=== PATIENT | male | born 1930 | race Hispanic/Latino ===

== ENCOUNTER 2017-04-30 21:22 | Inpatient (IN) | payer MEDICARE, BC ==
[2017-04-30 21:22] VITALS: PULSE 110
--- NOTE | 2017-04-30 21:34 | ED PDOC ---
Arrival/HPI - General Chief Complaint: Syncope Time Seen by Provider: 04/30/17 21:24 Historian: Patient, Family (Son) - History of Present Illness Narrative History of Present Illness (Text): 04/30/17 21:33 Bernard Diane is an 86 year old male, whose past medical history includes atrial fibrillation, CHF, MA, GI bleed, hepatitis C, and hypertension, who presents to the Emergency department brought in by EMS accompanied by son status post syncopal episode tonight. Son states patient had a witnessed syncopal episodes while in the bathroom prior to arrival. Patient currently complaining of some shortness of breath.Denies any chest pain.Son notes patient had a witnessed fall on to his back earlier in the at 16:00 and did not really eat during the day. Patient denies any fever, chills, nausea, vomiting, diarrhea , neck pain, headache, dizziness, tor any other complaints. PMD: Dr. Zhang Symptom Onset: Sudden Symptom Course: Unchanged Activities at Onset: Light Context: Home Past Medical History - Provider Review Nursing Documentation Reviewed: Yes - Infectious Disease Hx of Infectious Diseases: None - Tetanus Immunization Tetanus Immunization: Unknown - Cardiac Hx Cardiac Disorders: Yes Hx Cardiac Arrhythmia: Yes (afib) Hx Hypertension: Yes Hx Peripheral Edema: Yes (ble +3) - Musculoskeletal/Rheumatological Hx Falls: No Other/Comment: lower extremity weakness and edema, does not use an assistive device - Gastrointestinal Hx Gastroesophageal Reflux: Yes - Psychiatric Hx Depression: Yes Hx Substance Use: No - Past Surgical History Past Surgical History: No Previous - Surgical History Hx Orthopedic Surgery: Yes (bilateral knee replacements) Other/Comment: 1986 esophageal tear sx - Anesthesia Hx Anesthesia: No Hx Anesthesia Reactions: No Hx Malignant Hyperthermia: No - Suicidal Assessment Feels Threatened In Home Enviroment: No Family/Social History - Physician Review Nursing Documentation Reviewed: Yes Family/Social History: Unknown Family HX Smoking Status: Former Smoker Hx Alcohol Use: No Hx Substance Use: No Hx Substance Use Treatment: No Allergies/Home Meds Allergies/Adverse Reactions: Allergies No Known Allergies Allergy (Verified 10/29/12 16:25) Home Medications: Home Meds Medication Instructions Recorded Confirmed Aspirin [Aspirin Chewable] 81 mg PO DAILY 04/30/17 04/30/17 Cholecalciferol [Vitamin D 1000 IU] 50,000 units PO QD7 04/30/17 04/30/17 Furosemide [Lasix] 40 mg PO DAILY 04/30/17 04/30/17 Lansoprazole [Prevacid] 30 mg PO DAILY 04/30/17 04/30/17 Metoprolol Tartrate [Lopressor] 100 mg PO BID 04/30/17 04/30/17 Potassium Chloride [K-Dur 20 mEq 10 meq PO DAILY 04/30/17 04/30/17 ER Tab] Primidone [Mysoline] 150 mg PO BID 04/30/17 04/30/17 Sertraline HCl [Zoloft] 25 mg PO DAILY 04/30/17 04/30/17 Valsartan [Diovan] 80 mg PO DAILY 04/30/17 04/30/17 Vitamin B Complex/Folic Acid 1 tab PO DAILY 04/30/17 04/30/17 [B-Complex Tablet] Warfarin [Coumadin] 4 mg PO DAILY 04/30/17 04/30/17 Review of Systems - Physician Review All systems were reviewed & negative as marked: Yes - Review of Systems Constitutional: Normal. absent: Fevers Eyes: Normal ENT: Normal Respiratory: SOB Cardiovascular: absent: Chest Pain Gastrointestinal: Normal. absent: Abdominal Pain, Diarrhea, Nausea, Vomiting Genitourinary Male: Normal. absent: Dysuria, Frequency, Hematuria, Urinary Output Changes Musculoskeletal: absent: Neck Pain Skin: Normal. absent: Rash Neurological: Other (+fall). absent: Dizziness Endocrine: Normal Hemo/Lymphatic: Normal Psychiatric: Normal Physical Exam Vital Signs Reviewed: Yes Vital Signs Temp Pulse Resp BP Pulse Ox 04/30/17 21:38 78 L 04/30/17 21:32 97.9 F 98 H 18 134/76 98 Temperature: Afebrile Blood Pressure: Normal Pulse: Regular Respiratory Rate: Normal Appearance: Positive for: Non-Toxic, Comfortable Pain Distress: None Mental Status: Positive for: Alert and Oriented X 3 - Systems Exam Head: Present: Atraumatic, Normocephalic Pupils: Present: PERRL Extroacular Muscles: Present: EOMI Conjunctiva: Present: Normal Ears: Present: Normal, NORMAL TM, Normal Canal. No: Erythema, TM Bulging, Fluid Mouth: No: Normal Lips (Allyson-oral cyanosis) Pharnyx: Present: Normal. No: ERYTHEMA, EXUDATE, TONSILS ENLARGED, Peritonsilar Swelling, Uvular Deviation, Muffled/Hoarse Voice, Strider, Soft Palate/Uvular Edema Nose (External): Present: Atraumatic Nose (Internal): Present: Normal Inspection Neck: Present: Normal Range of Motion Respiratory/Chest: Present: Rhonchi (Rhonchi bilaterally). No: Respiratory Distress, Accessory Muscle Use Cardiovascular: Present: Normal S1, S2, Irregular Rhythm (Irregular regular rhythm). No: Murmurs Abdomen: Present: Normal Bowel Sounds. No: Tenderness, Distention, Peritoneal Signs Back: Present: Normal Inspection Upper Extremity: Present: Cyanosis (Bluish-tinge to distal fingers). No: Edema Lower Extremity: Present: Normal Inspection, Edema Neurological: Present: GCS=15, CN II-XII Intact, Speech Normal, Motor Func Grossly Intact, Normal Sensory Function Skin: Present: Warm, Dry, Normal Color. No: Rashes Psychiatric: Present: Alert, Oriented x 3, Normal Insight, Normal Concentration Medical Decision Making ED Course and Treatment: 04/30/17 21:34 Impression: 86 year old male presents s/p syncopal episode, complaining of shortness of breath. Plan: -- CT Head w/o contrast -- EKG -- Chest X-ray -- Labs, cardiac enzymes, BNP -- Duoneb -- Reassess and disposition Prior Visits: Notes and results from previous visits were reviewed. On 10/16/2014, pt was seen in the Emergency department for lip injury s/p fall with facial trauma. Pt was d/c home. Progress Notes: Reviewed EKG, a fib at 104 bpm. Occasional PVC. Non-specific ST/T wave changes. 04/30/17 22:15 Chest X-ray reviewed, shows increased interstitial markings. 04/30/17 23:[address] Zhang, who is aware and agrees with plan. Accepts pt in to his service. Requests ICU admission. 05/01/17 00:00 Case discussed in full with Dr. Baptiste, accepts pt in to the ICU. Pt will be admitted to ICU for CHF under Dr. Zhang. Pt will undergo VQ study to r/o possibility of PE, pt already anti-coagulated on Coumadin,. 05/01/17 00:16 - Critical Care Critical Care Minutes: 30 minutes - Lab Interpretations Lab Results: 04/30/17 21:50 04/30/17 21:50 Lab Results 04/30/17 22:05: pCO2 23 L, pO2 43.0 L*, HCO3 15.3 L, ABG pH 7.43, ABG Total CO2 16.0 L, ABG O2 Saturation 82.9 L, ABG O2 Content 13.9 L, ABG Base Excess -7.2 L , ABG Hemoglobin 12.3, ABG Carboxyhemoglobin 2.5 H, POC ABG HHb (Measured) 16.6 H, ABG Methemoglobin 0.5, ABG O2 Capacity 16.8, Hgb O2 Saturation 80.4 L, FiO2 32.0 04/30/17 21:50: Sodium 141, Potassium 4.5, Chloride 106, Carbon Dioxide 19 L, Anion Gap 20, BUN 21, Creatinine 0.9, Est GFR ( Amer) > 60, Est GFR (Non- Af Amer) > 60, Random Glucose 161 H, Calcium 9.4, Total Bilirubin 1.2, AST 40, ALT 27, Alkaline Phosphatase 123, Lactate Dehydrogenase 737 H, Total Creatine Kinase 85, Troponin I < 0.01, NT-Pro-B Natriuret Pep 8120 H, Total Protein 8.7 H , Albumin 4.5, Globulin 4.2, Albumin/Globulin Ratio 1.1 04/30/17 21:50: PT 38.8 H, INR 3.47 H, APTT 33.9 04/30/17 21:50: WBC 7.3 D, RBC 4.05, Hgb 13.3 L, Hct 40.3 L, MCV 99.5, MCH 32.8 , MCHC 33.0, RDW 16.0 H, Plt Count 146, MPV 11.1 H, Gran % 76.5 H, Lymph % (Auto ) 17.4 L, [place] % (Auto) 4.7, Eos % (Auto) 1.0 L, Baso % (Auto) 0.4, Gran # 5.55 , Lymph # 1.3, [place] # 0.3, Eos # 0.1, Baso # 0.03 I have reviewed the lab results: Yes - RAD Interpretation Radiology Orders: 04/30/17 21:39 CHEST PORTABLE [RAD] Stat 04/30/17 22:19 HEAD W/O CONTRAST [CT] Stat 04/30/17 23:57 LUNG PERF & VENT SCAN [NM] Stat 05/01/17 00:02 CAROTID & VERTEBRAL DUPLEX [US] Routine 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: ED Physician - EKG Interpretation Interpreted by ED Physician: Yes Type: 12 lead EKG - Medication Orders Current Medication Orders: Furosemide (Lasix) 40 mg IVP Q12 ANA LAURA Ceftriaxone Sodium (Rocephin 1 Gram Ivpb (D5w)) 1 gm in 100 mls @ 100 mls/hr IVPB DAILY ANA LAURA PRN Reason: Protocol Azithromycin (Zithromax 500mg In Ns) 500 mg in 250 mls @ 167 mls/hr IVPB DAILY ANA LAURA PRN Reason: Protocol Levalbuterol HCl (Xopenex) 1.25 mg IH [id number] ANA LAURA Methylprednisolone (Solu-Medrol) 40 mg IVP Q12 ANA LAURA Non-Formulary Medication (Metoprolol Tartrate [Lopressor]) 100 mg PO BID ANA LAURA Non-Formulary Medication (Valsartan [Diovan]) 80 mg PO DAILY ANA LAURA Pantoprazole Sodium (Protonix Inj) 40 mg IVP DAILY ANA LAURA Discontinued Medications Albuterol/Ipratropium (Duoneb 3 Mg/0.5 Mg (3 Ml) Ud) 3 ml IH ONCE STA Stop: 04/30/17 21:42 Last Admin: 04/30/17 22:10 Dose: 3 ml Furosemide (Lasix) 40 mg IVP ONCE ONE Stop: 04/30/17 23:03 Levalbuterol HCl (Xopenex) 1.25 mg IH STAT STA Stop: 05/01/17 00:09 - Scribe Statement The provider has reviewed the documentation as recorded by the Scribludmila Gan All medical record entries made by the Isabellibludmila were at my direction and personally dictated by me. I have reviewed the chart and agree that the record accurately reflects my personal performance of the history, physical exam, medical decision making, and the department course for this patient. I have also personally directed, reviewed, and agree with the discharge instructions and disposition. Disposition/Present on Arrival - Present on Arrival Any Indicators Present on Arrival: No History of DVT/PE: No History of Uncontrolled Diabetes: No Urinary Catheter: No History of Decub. Ulcer: No History Surgical Site Infection Following: None - Disposition Have Diagnosis and Disposition been Completed?: Yes Diagnosis: Syncope, CHF (congestive heart failure) Disposition: HOSPITALIZED Disposition Time: 00:13 Patient Plan: Admission Patient Problems: Current Active Problems Problem Status Onset CHF (congestive heart failure) Acute Syncope Acute Condition: GUARDED Discharge Instructions (ExitCare): Heart Failure (ED), Syncope (ED) Referrals: [facility] Rex Torres, [Non-Staff] - Follow up with primary Forms: [facility] ([place]ian)
[2017-04-30] MEDS ORDERED: Albuterol-Ipratrop 3 mg / 0.5 (3 ml) UD IH STA (21:41)
[2017-04-30 22:08] LABS: ARTERIAL BLOOD GAS HCO3 15.3 mmol/L (21-28); ARTERIAL BLOOD GAS O2 CAPACITY 16.8 mL/dl (16-24); ARTERIAL BLOOD GAS O2 CONTENT 13.9 ML/dl (15-23); ARTERIAL BLOOD GAS PH 7.43 (7.35-7.45); ARTERIAL BLOOD HGB O2 SAT 80.4 % (95.0-98.0); CARBOXYHEMOGLOBIN 2.5 % (0.5-1.5); HHB 16.6 % (0-5); METHEMOGLOBIN 0.5 % (0.0-3.0)
[2017-04-30 22:16] LABS: BASO # 0.03 K/mm3 (0.0-2.0); BASO % 0.4 % (0.0-3.0); EOS # 0.1 (0.0-0.7); GRAN # 5.55 (1.4-6.5); GRAN % 76.5 % (50.0-68.0); HEMATOCRIT 40.3 % (42.0-52.0); LYMPH # 1.3 (1.2-3.4); LYMPH % 17.4 % (22.0-35.0); MEAN CELL VOLUME 99.5 fl (80.0-105.0); MEAN CORPUSCULAR HEMOGLOBIN 32.8 pg (25.0-35.0); MEAN PLATELET VOLUME 11.1 fl (7.0-11.0); MONO # 0.3 (0.1-0.6); MONO % 4.7 % (1.0-6.0); WHITE BLOOD COUNT 7.3 10^3/ul (4.5-11.0)
[2017-04-30 22:18] LABS: ALB/GLOB RATIO 1.1 (1.1-1.8); ALKALINE PHOSPHATASE 123 U/L (38-126); ALT/SGPT 27 U/L (7-56); AST/SGOT 40 U/L (17-59); BILIRUBIN,TOTAL 1.2 mg/dL (0.2-1.3); BLOOD UREA NITROGEN 21 mg/dL (7-21); CALCIUM 9.4 mg/dL (8.4-10.5); CARBON DIOXIDE 19 mmol/L (21-33); CHLORIDE 106 mmol/L (98-107); GFR AFRICAN-AMERICAN > 60; GLUCOSE,RANDOM 161 mg/dL (70-110); POTASSIUM 4.5 mmol/L (3.6-5.0); SODIUM 141 mmol/L (132-148); TOTAL PROTEIN 8.7 g/dL (5.8-8.3)
[2017-04-30 22:20] LABS: INR 3.47 (0.93-1.08); PARTIAL THROMBOPLASTIN TIME 33.9 Seconds (25.1-36.5)
[2017-04-30 22:26] LABS: TROPONIN I < 0.01 ng/mL
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
[2017-05-01] MEDS ORDERED: Levalbuterol 1.25 MG/3 ML Inhal Soln UD IH STA (00:08)
[2017-05-01 00:54] LABS: FREE T4 1.98 ng/dL (0.78-2.19)
[2017-05-01] MEDS: MethylPREDNISolone 40 mg Vial IVP SCH ×3 (01:01→21:21)
[2017-05-01 01:08] LABS: THYROID STIMULATING HORMONE 2.82 mIU/mL (0.46-4.68)
[2017-05-01 01:20] LABS: ARTERIAL BLOOD GAS HCO3 19.4 mmol/L (21-28); ARTERIAL BLOOD GAS O2 CAPACITY 15.5 mL/dl (16-24); ARTERIAL BLOOD GAS O2 CONTENT 15.2 ML/dl (15-23); ARTERIAL BLOOD GAS PH 7.48 (7.35-7.45); ARTERIAL BLOOD HGB O2 SAT 94.4 % (95.0-98.0); CARBOXYHEMOGLOBIN 2.5 % (0.5-1.5); METHEMOGLOBIN 1.1 % (0.0-3.0)
[2017-05-01] MEDS: Levalbuterol 1.25 MG/3 ML Inhal Soln UD IH SCH ×4 (03:04→20:14)
--- NOTE | 2017-05-01 03:27 | CT ---
EXAM: CT Head Without Intravenous Contrast CLINICAL HISTORY: 86 years old, male; Signs and symptoms; Syncope and collapse TECHNIQUE: Axial computed tomography images of the head/brain without intravenous contrast. All CT scans at this facility use one or more dose reduction techniques, viz.: automated exposure control; ma/kV adjustment per patient size (including targeted exams where dose is matched to indication; i.e. head); or iterative reconstruction technique. COMPARISON: No relevant prior studies available. FINDINGS: Limitations: Suboptimal positioning. Streak artifact - mild. Brain: Moderate atrophy. No definite intracranial hemorrhage. No mass. Several scattered foci of decreased attenuation within periventricular/subcortical white matter. No definite edema. Ventricles: No hydrocephalus. Bones/joints: No acute fracture. Soft tissues: Unremarkable. Vasculature: Mild atherosclerotic disease of intracranial arteries. Sinuses: Mild mucosal thickening/minimal fluid of LEFT maxillary sinus. Scattered minimal mucosal thickening of ethmoid sinuses. Mastoid air cells: No mastoid effusion. Orbits: Unremarkable as visualized. IMPRESSION: 1. Nonspecific white matter changes. Acute infarction may be CT occult within first 24 hours. If a focal deficit persists, consider followup CT or MRI for further evaluation. 2. Incidental/non-acute findings are described above.
[2017-05-01 03:47] VITALS: BMI 22.6
[2017-05-01 05:06] LABS: TROPONIN I 0.06 ng/mL
--- NOTE | 2017-05-01 08:26 | RAD ---
HISTORY: sob COMPARISON: Comparison is made to 10/29/2012. FINDINGS: LUNGS: Mild pulmonary vascular congestion and reticular opacities are noted. PLEURA: No significant pleural effusion identified, no pneumothorax apparent. CARDIOVASCULAR: The cardiac silhouette is mildly to moderately enlarged. OSSEOUS STRUCTURES: No significant abnormalities. VISUALIZED UPPER ABDOMEN: Normal. OTHER FINDINGS: None. IMPRESSION: Cardiomegaly and mild pulmonary vascular congestion. Correlate clinically for CHF.
[2017-05-01] MEDS: Azithromycin 500MG/NS 250ml 500 MG/250 ML BAG IVPB SCH (09:04)
--- NOTE | 2017-05-01 09:36 | NM ---
COMPARISON: Comparison is made with previous chest x-ray dated 04/30/2017 TECHNIQUE: 30 mCi technetium 99-m DTPA serosal 3.2 mCI technetium 99-m MAA administered intravenously. FINDINGS: VENTILATION COMPONENT: Heterogeneous ventilation is noted. Small foci of accumulation of the aerosol agent likely due to clumping noted. PERFUSION COMPONENT: No definite evidence of segmental or subsegmental mismatching perfusion defects. IMPRESSION: Lowprobability ventilation perfusion scan for pulmonary embolism.
[2017-05-01] MEDS: cefTRIAXone 1 gm 1 GM/100 ML BAG IVPB SCH (09:39)
--- NOTE | 2017-05-01 10:12 | CP.CCUPN ---
<Carmine Rubio - Last Filed: 05/01/17 10:14> CCU Subjective - Physician Review Subjective (Free Text): Critical Care Progress Note for Dr. José Patient seen and examined at bedside. No acute event overnight. Patient resting in bed comfortably. Patient states that his shortness of breath and dizziness have improved. He is on high flow oxygen. Patient denies any pain. He is tolerating diet and having adequate urine output. No other complaints at this time. CCU Objective - Vital Signs / Intake & Output Vital Signs (Last 4 hours): Vital Signs Temp Pulse Resp BP Pulse Ox 05/01/17 10:02 18 05/01/17 09:03 104 H 119/66 05/01/17 08:00 97.7 F 83 18 120/77 92 L 05/01/17 07:56 94 H 05/01/17 07:50 95 H 22 95 05/01/17 07:40 89 21 92 L 05/01/17 07:31 23 05/01/17 07:30 95 H 19 89 L 05/01/17 07:20 86 23 93 L 05/01/17 07:15 84 27 H 129/87 88 L 05/01/17 07:10 107 H 15 92 L 05/01/17 07:00 82 20 123/76 91 L 05/01/17 06:50 78 28 H 94 L 05/01/17 06:45 93 H 21 117/78 94 L 05/01/17 06:40 82 20 95 05/01/17 06:30 88 20 128/92 H 93 L 05/01/17 06:20 77 18 94 L 05/01/17 06:15 74 19 122/74 96 05/01/17 06:10 86 20 93 L Intake and Output (Last 8hrs): Intake & Output 04/30/17 05/01/17 05/01/17 22:59 06:59 14:59 Intake Total 110 Output Total 200 120 Balance -90 -120 Weight 144 lb 14.4 oz Intake: Oral 110 Output: Urine 200 120 Urine, Voided 200 120 - Physical Exam Head: Positive for: Atraumatic, Normocephalic Pupils: Positive for: PERRL Extroacular Muscles: Positive for: EOMI Ears: Negative for: Erythema, TM Bulging, Fluid Mouth: Positive for: Moist Mucous Membranes Pharnyx: Negative for: ERYTHEMA, EXUDATE, TONSILS ENLARGED, Peritonsilar Swelling, Uvular Deviation, Muffled/Hoarse Voice, Strider, Soft Palate/Uvular Edema Neck: Positive for: Normal Range of Motion Respiratory/Chest: Positive for: Rhonchi (Rhonchi bilaterally). Negative for: Respiratory Distress, Accessory Muscle Use Cardiovascular: Positive for: Irregular Rhythm, Tachycardic Abdomen: Positive for: Normal Bowel Sounds. Negative for: Tenderness, Distention, Peritoneal Signs Back: Negative for: CVA Tenderness Upper Extremity: Positive for: Neurovascularly Intact, Capillary Refill < 2s Lower Extremity: Positive for: Neurovascularly Intact, Capillary Refill < 2 s. Negative for: CALF TENDERNESS Neurological: Positive for: GCS=15, CN II-XII Intact, Speech Normal, Motor Func Grossly Intact, Normal Sensory Function Skin: Positive for: Warm, Dry, Normal Color. Negative for: Rashes Psychiatric: Positive for: Alert, Oriented x 3, Normal Insight, Normal Concentration - Medications Active Medications: Active Medications Generic Name Dose Route Start Last Admin Trade Name Freq PRN Reason Stop Dose Admin Acetaminophen 650 mg 05/01/17 09:41 05/01/17 09:46 Tylenol 325mg Tab PO 650 mg Q4H PRN Administration Pain, moderate (4-7) Aspirin 81 mg 05/01/17 10:00 05/01/17 09:02 Aspirin Chewable PO 81 mg DAILY ANA LAURA Administration Furosemide 40 mg 05/01/17 10:00 05/01/17 09:03 Lasix IVP 40 mg Q12 ANA LAURA Administration Ceftriaxone Sodium 1 gm in 100 mls @ 100 mls/hr 05/01/17 10:00 05/01/17 09:39 Rocephin 1 Gram Ivpb (D5w) IVPB 100 mls/hr DAILY ANA LAURA Administration Protocol Azithromycin 500 mg in 250 mls @ 167 mls/hr 05/01/17 10:00 05/01/17 09:04 Zithromax 500mg In Ns IVPB 167 mls/hr DAILY ANA LAURA Administration Protocol Levalbuterol HCl 1.25 mg 05/01/17 02:00 05/01/17 07:28 Xopenex IH 1.25 mg [id number] ANA LAURA Administration Losartan Potassium 50 mg 05/01/17 10:00 Cozaar PO DAILY ANA LAURA Methylprednisolone 40 mg 05/01/17 00:15 05/01/17 09:03 Solu-Medrol IVP 40 mg Q12 ANA LAURA Administration Metoprolol Tartrate 100 mg 05/01/17 10:00 05/01/17 09:03 Lopressor PO 100 mg BID ANA LAURA Administration Pantoprazole Sodium 40 mg 05/01/17 10:00 05/01/17 09:03 Protonix Inj IVP 40 mg DAILY ANA LAURA Administration Sertraline HCl 25 mg 05/01/17 10:00 05/01/17 09:04 Zoloft PO 25 mg DAILY ANA LAURA Administration - Patient Studies Lab Studies: Lab Studies 05/01/17 05/01/17 05/01/17 Range/Units 04:10 01:05 00:25 pCO2 26 L (35-45) mm/Hg pO2 75.0 L (80-100) mm/Hg HCO3 19.4 L (21-28) mmol/L ABG pH 7.48 H (7.35-7.45) ABG Total CO2 20.2 L (22-28) mmol.L ABG O2 Saturation 97.9 (95-98) % ABG O2 Content 15.2 (15-23) ML/dl ABG Base Excess -2.9 L (-2.0-3.0) mmol/L ABG Hemoglobin 11.4 L (11.7-17.4) g/dL ABG Carboxyhemoglobin 2.5 H (0.5-1.5) % POC ABG HHb (Measured) 2.0 (0-5) % ABG Methemoglobin 1.1 (0.0-3.0) % ABG O2 Capacity 15.5 L (16-24) mL/dl Hgb O2 Saturation 94.4 L (95.0-98.0) % FiO2 100.0 % Lactate Dehydrogenase 673 (333-699) U/L Total Creatine Kinase 91 (35-230) U/L Troponin I 0.06 D ng/mL Free T4 1.98 (0.78-2.19) ng/dL TSH 3rd Generation 2.82 (0.46-4.68) mIU/mL Influenza Typ A,B (EIA) (NEGATIVE) 05/01/17 Range/Units 00:10 pCO2 (35-45) mm/Hg pO2 (80-100) mm/Hg HCO3 (21-28) mmol/L ABG pH (7.35-7.45) ABG Total CO2 (22-28) mmol.L ABG O2 Saturation (95-98) % ABG O2 Content (15-23) ML/dl ABG Base Excess (-2.0-3.0) mmol/L ABG Hemoglobin (11.7-17.4) g/dL ABG Carboxyhemoglobin (0.5-1.5) % POC ABG HHb (Measured) (0-5) % ABG Methemoglobin (0.0-3.0) % ABG O2 Capacity (16-24) mL/dl Hgb O2 Saturation (95.0-98.0) % FiO2 % Lactate Dehydrogenase (333-699) U/L Total Creatine Kinase (35-230) U/L Troponin I ng/mL Free T4 (0.78-2.19) ng/dL TSH 3rd Generation (0.46-4.68) mIU/mL Influenza Typ A,B (EIA) Negative for flu a/b (NEGATIVE) Laboratory Results - last 24 hr 05/01/17 05/01/17 05/01/17 00:10 00:25 01:05 pCO2 26 L pO2 75.0 L HCO3 19.4 L ABG pH 7.48 H ABG Total CO2 20.2 L ABG O2 Saturation 97.9 ABG O2 Content 15.2 ABG Base Excess -2.9 L ABG Hemoglobin 11.4 L ABG Carboxyhemoglobin 2.5 H POC ABG HHb (Measured) 2.0 ABG Methemoglobin 1.1 ABG O2 Capacity 15.5 L Hgb O2 Saturation 94.4 L FiO2 100.0 Lactate Dehydrogenase Total Creatine Kinase Troponin I Free T4 1.98 TSH 3rd Generation 2.82 Influenza Typ A,B (EIA) Negative for flu a/b 05/01/17 04:10 pCO2 pO2 HCO3 ABG pH ABG Total CO2 ABG O2 Saturation ABG O2 Content ABG Base Excess ABG Hemoglobin ABG Carboxyhemoglobin POC ABG HHb (Measured) ABG Methemoglobin ABG O2 Capacity Hgb O2 Saturation FiO2 Lactate Dehydrogenase 673 Total Creatine Kinase 91 Troponin I 0.06 D Free T4 TSH 3rd Generation Influenza Typ A,B (EIA) Critical Care Progress Note - Nutrition Nutrition: Nutrition Category Date Time Status Heart Healthy Diet [DIET] Diets 05/01/17 Breakfast Ordered Assessment/Plan - Assessment and Plan (Free Text) Plan: 86 M with PMH of atrial fibrillation on coumadin, CHF, OH, CAD with stent in LAD , UGIB and esophageal varices, Hep C, HTN, depression and tremors presents with syncope and frequent falls. Patient sent to ICU for hypoxia. Neuro - AAO x 3 - CT head shows no acute pathology - f/u Carotid u/s - f/u Echo - Orthostatics q4 - f/u RPR, vit b12, folate, tsh, 25oh-vit D Cardio - f/u Echo - proBNP 8120 - INR supratherapeutic at 3.47- hold coumadin - troponins: < 0.01, 0,06 - f/u final troponin - ASA, Lasix, Cozaar, Lopressor - strict Is & Os - measure daily weight - HHD with fluid restriction - Cardio: Dr. Simental consulted Respiratory - VQ scan shows low probability of PE, CTA chest if no improvement - f/u Echo - Lasix - Xopenex - Rocephin and Azithromycin - solu-medrol GI - HHD with fluid restrictions - Protonix for ppx ID - negative for flu - f/u strep pneumo, legionella, and procalcitonin - IV antibiotics Endo - Maintain euglycemia 140-180 - f/u TSH and free T4 Renal - Strict I's & O's - Monitor and replete electrolytes as needed Heme/Onc - DVT ppx Psych - continue home Felipa Rubio PGY1 <Tim José - Last Filed: 05/01/17 12:34> CCU Objective - Vital Signs / Intake & Output Vital Signs (Last 4 hours): Vital Signs Temp Pulse Resp BP Pulse Ox 05/01/17 11:59 98.3 F 72 22 109/49 L 94 L 05/01/17 11:50 59 L 22 109/49 L 95 05/01/17 11:40 61 24 95 05/01/17 11:30 66 34 H 93 L 05/01/17 11:20 67 29 H 93 L 05/01/17 11:10 66 11 L 90 L 05/01/17 11:00 73 109/49 L 94 L 05/01/17 10:50 64 19 97 05/01/17 10:40 76 26 H 97 05/01/17 10:30 81 24 95 05/01/17 10:20 90 30 H 97 05/01/17 10:10 89 21 97 05/01/17 10:02 18 05/01/17 10:00 86 24 100/43 L 97 05/01/17 09:50 100 H 24 95 05/01/17 09:40 107 H 19 96 05/01/17 09:30 104 H 22 94 L 05/01/17 09:20 93 H 15 96 05/01/17 09:10 96 H 15 96 05/01/17 09:03 104 H 119/66 05/01/17 09:01 103 H 27 H 119/66 93 L 05/01/17 09:00 91 H 22 94 L 05/01/17 08:50 120 H 16 93 L 05/01/17 08:40 108 H 22 93 L Intake and Output (Last 8hrs): Intake & Output 04/30/17 05/01/17 05/01/17 22:59 06:59 14:59 Intake Total 110 460 Output Total 200 120 Balance -90 340 Weight 144 lb 14.4 oz Intake: Oral 110 460 Output: Urine 200 120 Urine, Voided 200 120 - Medications Active Medications: Active Medications Generic Name Dose Route Start Last Admin Trade Name Freq PRN Reason Stop Dose Admin Acetaminophen 650 mg 05/01/17 09:41 05/01/17 09:46 Tylenol 325mg Tab PO 650 mg Q4H PRN Administration Pain, moderate (4-7) Aspirin 81 mg 05/01/17 10:00 05/01/17 09:02 Aspirin Chewable PO 81 mg DAILY ANA LAURA Administration Furosemide 40 mg 05/01/17 10:00 05/01/17 09:03 Lasix IVP 40 mg Q12 ANA LAURA Administration Ceftriaxone Sodium 1 gm in 100 mls @ 100 mls/hr 05/01/17 10:00 05/01/17 09:39 Rocephin 1 Gram Ivpb (D5w) IVPB 100 mls/hr DAILY ANA LAURA Administration Protocol Azithromycin 500 mg in 250 mls @ 167 mls/hr 05/01/17 10:00 05/01/17 09:04 Zithromax 500mg In Ns IVPB 167 mls/hr DAILY ANA LAURA Administration Protocol Levalbuterol HCl 1.25 mg 05/01/17 02:00 05/01/17 07:28 Xopenex IH 1.25 mg [id number] ANA LAURA Administration Losartan Potassium 50 mg 05/01/17 10:00 05/01/17 11:50 Cozaar PO Not Given DAILY ANA LAURA Methylprednisolone 40 mg 05/01/17 00:15 05/01/17 09:03 Solu-Medrol IVP 40 mg Q12 ANA LAURA Administration Metoprolol Tartrate 100 mg 05/01/17 10:00 05/01/17 09:03 Lopressor PO 100 mg BID ANAL AURA Administration Pantoprazole Sodium 40 mg 05/02/17 07:30 Protonix Ec Tab PO ACB ANA LAURA Sertraline HCl 25 mg 05/01/17 10:00 05/01/17 09:04 Zoloft PO 25 mg DAILY ANA LAURA Administration - Patient Studies Lab Studies: Lab Studies 05/01/17 05/01/17 05/01/17 Range/Units 10:45 04:10 01:05 pCO2 26 L (35-45) mm/Hg pO2 75.0 L (80-100) mm/Hg HCO3 19.4 L (21-28) mmol/L ABG pH 7.48 H (7.35-7.45) ABG Total CO2 20.2 L (22-28) mmol.L ABG O2 Saturation 97.9 (95-98) % ABG O2 Content 15.2 (15-23) ML/dl ABG Base Excess -2.9 L (-2.0-3.0) mmol/L ABG Hemoglobin 11.4 L (11.7-17.4) g/dL ABG Carboxyhemoglobin 2.5 H (0.5-1.5) % POC ABG HHb (Measured) 2.0 (0-5) % ABG Methemoglobin 1.1 (0.0-3.0) % ABG O2 Capacity 15.5 L (16-24) mL/dl Hgb O2 Saturation 94.4 L (95.0-98.0) % FiO2 100.0 % Lactate Dehydrogenase 597 673 (333-699) U/L Total Creatine Kinase 98 91 (35-230) U/L Troponin I 0.06 0.06 D ng/mL Free T4 (0.78-2.19) ng/dL TSH 3rd Generation (0.46-4.68) mIU/mL Influenza Typ A,B (EIA) (NEGATIVE) 05/01/17 05/01/17 Range/Units 00:25 00:10 pCO2 (35-45) mm/Hg pO2 (80-100) mm/Hg HCO3 (21-28) mmol/L ABG pH (7.35-7.45) ABG Total CO2 (22-28) mmol.L ABG O2 Saturation (95-98) % ABG O2 Content (15-23) ML/dl ABG Base Excess (-2.0-3.0) mmol/L ABG Hemoglobin (11.7-17.4) g/dL ABG Carboxyhemoglobin (0.5-1.5) % POC ABG HHb (Measured) (0-5) % ABG Methemoglobin (0.0-3.0) % ABG O2 Capacity (16-24) mL/dl Hgb O2 Saturation (95.0-98.0) % FiO2 % Lactate Dehydrogenase (333-699) U/L Total Creatine Kinase (35-230) U/L Troponin I ng/mL Free T4 1.98 (0.78-2.19) ng/dL TSH 3rd Generation 2.82 (0.46-4.68) mIU/mL Influenza Typ A,B (EIA) Negative for flu a/b (NEGATIVE) Laboratory Results - last 24 hr 05/01/17 05/01/17 05/01/17 00:10 00:25 01:05 pCO2 26 L pO2 75.0 L HCO3 19.4 L ABG pH 7.48 H ABG Total CO2 20.2 L ABG O2 Saturation 97.9 ABG O2 Content 15.2 ABG Base Excess -2.9 L ABG Hemoglobin 11.4 L ABG Carboxyhemoglobin 2.5 H POC ABG HHb (Measured) 2.0 ABG Methemoglobin 1.1 ABG O2 Capacity 15.5 L Hgb O2 Saturation 94.4 L FiO2 100.0 Lactate Dehydrogenase Total Creatine Kinase Troponin I Free T4 1.98 TSH 3rd Generation 2.82 Influenza Typ A,B (EIA) Negative for flu a/b 05/01/17 05/01/17 04:10 10:45 pCO2 pO2 HCO3 ABG pH ABG Total CO2 ABG O2 Saturation ABG O2 Content ABG Base Excess ABG Hemoglobin ABG Carboxyhemoglobin POC ABG HHb (Measured) ABG Methemoglobin ABG O2 Capacity Hgb O2 Saturation FiO2 Lactate Dehydrogenase 673 597 Total Creatine Kinase 91 98 Troponin I 0.06 D 0.06 Free T4 TSH 3rd Generation Influenza Typ A,B (EIA) Critical Care Progress Note - Nutrition Nutrition: Nutrition Category Date Time Status Heart Healthy Diet [DIET] Diets 05/01/17 Breakfast Ordered Assessment/Plan - Assessment and Plan (Free Text) Plan: Patient seen and examined on rounds with resident, agree with note with following additions/exceptions: 86yo male with severe pulm htn, CHF, EF 30%, a/w SOB, acute hypoxemic resp failure, requiring, high flow O2. Currently afebril,e HD stable, comfortable on high flow 80%, 50LPM,. Cont with high flow, wean down FiO2, antibiotics to cover for CAP. IV diuresis. Follow up ECHO, cultures, Urine Lg, Strep. Monitor I /Os. Hold Coumadin for tonight.
[2017-05-01 11:11] LABS: TROPONIN I 0.06 ng/mL
--- NOTE | 2017-05-01 11:55 | CARD ---
APPROVED REPORT EKG Measurement Heart [id number] <Conclusion> Atrial fibrillation PVC's NSSTW changes
--- NOTE | 2017-05-01 17:19 | CT ---
PROCEDURE: CT Chest without contrast HISTORY: evaluate for pneumonia COMPARISON: None. TECHNIQUE: Contiguous axial images were obtained through the chest without intravenous contrast enhancement. Sagittal and coronal reconstructions were performed. Radiation dose (DLP): 397.0 mGy-cm. This CT exam was performed using one or more of the following dose reduction techniques: Automated exposure control, adjustment of the mA and/or kV according to patient size, and/or use of iterative reconstruction technique. FINDINGS: LUNGS: There is a small infiltrate at the left lower lobe may represent a pneumonia. Moderate to severe upper lobe predominant emphysema is noted. Small bibasilar atelectasis noted. MEDIASTINUM: The thoracic aorta is tortuous. No evidence of aneurysm. The heart is mildly to moderately enlarged. The main pulmonary artery is mildly to moderately enlarged. No lymphadenopathy. There is small to moderate size hiatus hernia. PLEURA: Trace bilateral pleural effusions are noted. BONES: There is moderate compression deformity of T11 vertebral body has not significantly changed compared to the previous CT of the abdomen dated 11/02/2012 UPPER ABDOMEN: The gallbladder is distended containing gallstones OTHER FINDINGS: None. IMPRESSION: Small infiltrate at the left lower lobe may represent pneumonia. Moderate to mildly severe emphysema. [id number] cardiomegaly. Small bilateral pleural effusions. Small hiatus hernia. Gallstones and mildly dilated gallbladder.
--- NOTE | 2017-05-01 18:25 | CON ---
DATE: 05/01/2017 INDICATIONS: Syncope, shortness of breath. HISTORY OF PRESENT ILLNESS: This is an 86-year-old man, well-known to me, admitted through the emergency room yesterday, when he was brought there by his family, complaining of dizziness and syncopal episodes at home as well as shortness of breath. He had multiple episodes in the last few days of feeling dizzy and as if he might pass out. This was sometimes associated with attacks of acute shortness of breath. Yesterday, he had an experience of syncope and was unresponsive for a short period according to his family. There was no chest pain. He denies palpitations, edema, fever, chills, cough, sputum production, hemoptysis, abdominal pain, nausea, vomiting, diarrhea, constipation, melena. PAST MEDICAL HISTORY: Complex. He has known coronary artery disease. He underwent coronary intervention on his LAD in 2012. At that time, he had moderate LV dysfunction and moderate right coronary disease. There is a history of hypertension, chronic atrial fibrillation, on Coumadin. He has chronic PVCs, hepatitis C, history of GI bleeding, and esophageal varices. He has GERD, bilateral total hip replacements, a chronic tremor, and he is a former smoker. There is no history of rheumatic fever, stroke, TIA, diabetes, or gout. MEDICATIONS: Include aspirin, warfarin, Diovan, Lasix, potassium chloride, metoprolol, Mysoline, Prevacid, sertraline, Vitamin D. ALLERGIES: THERE ARE NO MEDICATION ALLERGIES REPORTED. SOCIAL HISTORY: He lives at home. He is ambulatory. He is a former smoker. He does not drink alcohol significantly. FAMILY HISTORY: Noncontributory. REVIEW OF SYSTEMS: A 10-point review of systems is otherwise unremarkable except as noted above. PHYSICAL EXAMINATION: GENERAL: He is a well-developed elderly male, lying in bed in the CCU, in no acute distress. VITAL SIGNS: Notable for atrial fib, 78 to 98 beats per minutes. He is afebrile. Blood pressure 120/77, respirations 16-28, O2 saturation 92-96% utilizing high humidity aerosol and nasal cannula. HEENT: Reveals no neck vein distention, thyromegaly, or carotid bruits. Mucous membranes moist. Conjunctivae are pink. NECK: Supple. LUNG: Lung milligan have scattered rhonchi. No wheezing. HEART: Revealed an irregular rhythm. There is a soft systolic murmur along the left sternal border. The PMI is not palpable. ABDOMEN: Soft. Bowel sounds present. No mass, organomegaly, tenderness, rebound, or guarding. No CVA tenderness. No palpable abdominal aortic aneurysm. EXTREMITIES: Revealed no cyanosis, clubbing, or edema. NEUROLOGIC: He is awake, alert, and oriented. PSYCHIATRIC: Normal as to mood and affect. SKIN: Warm and dry. No rash or cellulitis. LABORATORY AND IMAGING: EKG demonstrates atrial fibrillation, nonspecific ST-wave changes, no acute changes compared to a prior EKG. Chest x-ray reveals cardiomegaly with mild pulmonary vascular congestion. A CT scan of the head reveals nonspecific white matter changes, etc. A lung scan was done. Results are pending. White count normal, platelet count normal, hemoglobin 13.3, hematocrit 40.3. PT 38.8, INR 3.47, PTT 33.9. Blood gases are noted. Electrolytes, BUN and creatinine unremarkable. Blood sugar 161. LFTs unremarkable. CK 85 and 91. Troponin less than 0.01 and 0.06. BNP 8120. Thyroid functions unremarkable. Influenza negative. IMPRESSION: Bernard Diane is an 86-year-old man with coronary artery disease, chronic atrial fibrillation, and multiple medical problems, admitted with recurrent syncope in the setting of shortness of breath, and a chest x-ray which shows mild vascular congestion. At this time, he is admitted to the coronary care unit. A lung scan is pending. He is being cultured. He is getting antibiotics. I will order echocardiogram. He is getting aspirin, losartan, IV Lasix, metoprolol, Protonix, methylprednisolone, Xopenex, sertraline. A carotid ultrasound is ordered. We will monitor Inputs and outputs, check stool for occult blood. We will check orthostatic vital signs. I will review his old records. I will follow along with you. I will make additional recommendation based on his clinical course. A nuclear stress test may be indicated. We will continue telemetric monitoring. I will make additional recommendations based on his clinical course. Franklin Simental MD [facility] # [id number] MTDD
[2017-05-02] MEDS: Levalbuterol 1.25 MG/3 ML Inhal Soln UD IH SCH ×4 (02:49→20:38)
[2017-05-02 05:51] LABS: HEMATOCRIT 34.8 % (42.0-52.0); MEAN CELL VOLUME 98.3 fl (80.0-105.0); MEAN CORPUSCULAR HEMOGLOBIN 31.9 pg (25.0-35.0); MEAN CORPUSCULAR HGB CONC 32.5 g/dl (31.0-37.0); WHITE BLOOD COUNT 6.1 10^3/ul (4.5-11.0)
[2017-05-02 05:59] LABS: INR 2.49 (0.93-1.08)
[2017-05-02 07:09] LABS: BLOOD UREA NITROGEN 22 mg/dL (7-21); CALCIUM 8.5 mg/dL (8.4-10.5); CARBON DIOXIDE 23 mmol/L (21-33); CHLORIDE 106 mmol/L (98-107); GFR AFRICAN-AMERICAN > 60; GLUCOSE,RANDOM 113 mg/dL (70-110); POTASSIUM 3.8 mmol/L (3.6-5.0); SODIUM 139 mmol/L (132-148)
[2017-05-02] MEDS: Pantoprazole 40 mg EC Tab PO SCH (10:16)
[2017-05-02 10:18] LABS: ARTERIAL BLOOD GAS HCO3 22.6 mmol/L (21-28); ARTERIAL BLOOD GAS O2 CAPACITY 15.8 mL/dl (16-24); ARTERIAL BLOOD GAS O2 CONTENT 15.2 ML/dl (15-23); ARTERIAL BLOOD GAS PH 7.47 (7.35-7.45); ARTERIAL BLOOD HGB O2 SAT 93.4 % (95.0-98.0); CARBOXYHEMOGLOBIN 1.9 % (0.5-1.5); HHB 3.5 % (0-5); METHEMOGLOBIN 1.3 % (0.0-3.0)
[2017-05-02] MEDS: MethylPREDNISolone 40 mg Vial IVP SCH ×2 (10:18→21:50)
[2017-05-02] MEDS: cefTRIAXone 1 gm 1 GM/100 ML BAG IVPB SCH (10:19)
[2017-05-02] MEDS: Azithromycin 500MG/NS 250ml 500 MG/250 ML BAG IVPB SCH (10:19)
--- NOTE | 2017-05-02 12:03 | CARD ---
APPROVED REPORT EXAM: Two-dimensional and M-mode echocardiogram with Doppler and color Doppler. INDICATION Syncope Congestive Heart Failure 2D DIMENSIONS Left Atrium (2D)4.7 (1.6-4.0cm)IVSd1.3 (0.7-1.1cm) LVDd3.4 (3.9-5.9cm)PWd1.5 (0.7-1.1cm) LVDs2.8 (2.5-4.0cm)FS (%) 18.3 % LVEF (%)38.9 (>50%) M-Mode DIMENSIONS Aortic Root3.10 (2.2-3.7cm)Aortic Cusp Exc.1.80 (1.5-2.0cm) Aortic Valve AoV Peak [id number]/Leonard Peak GR.8mmHg Mitral Valve E/A ratio0.0 TDI E/Lateral E'0.0E/Medial E'0.0 Tricuspid Valve TR Peak [id number] [id number] Peak Gr.62mmHg [id number] LEFT VENTRICLE The left ventricle is normal size. There is mild concentric left ventricular hypertrophy. The systolic function is mildly to moderately impaired. There is mild to moderate hypokinesis in the anteroseptal wall. RIGHT VENTRICLE The right ventricle is mildly dilated. The right ventricular systolic function is normal. ATRIA The left atrium is moderately dilated. The right atrium is severely dilated. The interatrial septum is intact with no evidence for an atrial septal defect. AORTIC VALVE The aortic valve is moderately thickened. There is moderate to severe aortic regurgitation. There is no aortic valvular stenosis. MITRAL VALVE The mitral valve is mildly thickened. Mitral annular calcification is moderate. Mitral regurgitation is moderate. TRICUSPID VALVE The tricuspid valve is normal in structure. There is moderate tricuspid regurgitation. There is severe pulmonary hypertension. PULMONIC VALVE The pulmonic valve is not well visualized. GREAT VESSELS The aortic root is normal in size. Dilated IVC with poor inspiration collapse is consistent with elevated right atrial pressure. PERICARDIAL EFFUSION There is no pleural effusion. There is no pericardial effusion. <Conclusion> Biatrial enlargement. Normal LV size. Mild concentric LVH. Mild to moderately reduced LV systolic function with anteroseptal hypokinesis. Moderate MR. Moderate TR. Moderate to severe AI. Severre pulmonary HTN.
--- NOTE | 2017-05-02 12:57 | CP.CCUPN ---
<Van Brian - Last Filed: 05/02/17 12:50> CCU Subjective - Physician Review Subjective (Free Text): Pt seen and examined at bedside. Pt doing well overnight with no acute complaints. Pt with O2 sats between 88-92%. Denies CP, SOB, N/V/D, fever, chills. CCU Objective - Vital Signs / Intake & Output Vital Signs (Last 4 hours): Vital Signs Pulse BP 05/02/17 10:18 82 117/49 L 05/02/17 10:17 117/49 L 05/02/17 10:16 83 117/49 L Intake and Output (Last 8hrs): Intake & Output 05/01/17 05/02/17 05/02/17 22:59 06:59 14:59 Intake Total 910 200 Output Total 200 701 Balance 710 -501 Intake: IV 350 Antibiotics 350 Oral 560 200 Output: Urine 200 700 Urine, Voided 200 700 Urine/Stool Mix 1 Other: # Voids Urine, Voided 3 - Physical Exam Head: Positive for: Atraumatic, Normocephalic Pupils: Positive for: PERRL Extroacular Muscles: Positive for: EOMI Conjunctiva: Positive for: Normal Ears: Negative for: Erythema, TM Bulging, Fluid Mouth: Positive for: Moist Mucous Membranes Pharnyx: Negative for: ERYTHEMA, EXUDATE, TONSILS ENLARGED, Peritonsilar Swelling, Uvular Deviation, Muffled/Hoarse Voice, Strider, Soft Palate/Uvular Edema Nose (External): Positive for: Atraumatic Nose (Internal): Positive for: Normal Inspection Neck: Positive for: Normal Range of Motion Respiratory/Chest: Positive for: Rhonchi (Rhonchi bilaterally). Negative for: Respiratory Distress, Accessory Muscle Use Cardiovascular: Positive for: Irregular Rhythm, Tachycardic Abdomen: Positive for: Normal Bowel Sounds. Negative for: Tenderness, Distention, Peritoneal Signs Back: Negative for: CVA Tenderness Lower Extremity: Negative for: CALF TENDERNESS Neurological: Positive for: GCS=15, CN II-XII Intact, Speech Normal, Motor Func Grossly Intact, Normal Sensory Function Skin: Positive for: Warm, Dry, Normal Color. Negative for: Rashes Psychiatric: Positive for: Alert, Oriented x 3, Normal Insight, Normal Concentration - Medications Active Medications: Active Medications Generic Name Dose Route Start Last Admin Trade Name Freq PRN Reason Stop Dose Admin Acetaminophen 650 mg 05/01/17 09:41 05/01/17 09:46 Tylenol 325mg Tab PO 650 mg Q4H PRN Administration Pain, moderate (4-7) Aspirin 81 mg 05/01/17 10:00 05/02/17 10:16 Aspirin Chewable PO 81 mg DAILY ANA LAURA Administration Azithromycin 500 mg 05/03/17 10:00 Zithromax PO DAILY ANA LAURA Furosemide 40 mg 05/01/17 10:00 05/02/17 10:17 Lasix IVP 40 mg Q12 ANA LAURA Administration Ceftriaxone Sodium 1 gm in 100 mls @ 100 mls/hr 05/01/17 10:00 05/02/17 10:19 Rocephin 1 Gram Ivpb (D5w) IVPB 100 mls/hr DAILY ANA LAURA Administration Protocol Levalbuterol HCl 1.25 mg 05/01/17 02:00 05/02/17 08:03 Xopenex IH 1.25 mg [id number] ANA LAURA Administration Losartan Potassium 50 mg 05/01/17 10:00 05/02/17 10:16 Cozaar PO 50 mg DAILY ANA LAURA Administration Methylprednisolone 40 mg 05/01/17 00:15 05/02/17 10:18 Solu-Medrol IVP 40 mg Q12 ANA LAURA Administration Metoprolol Tartrate 100 mg 05/01/17 10:00 05/02/17 10:18 Lopressor PO 100 mg BID ANA LAURA Administration Pantoprazole Sodium 40 mg 05/02/17 07:30 05/02/17 10:16 Protonix Ec Tab PO 40 mg ACB ANA LAURA Administration Sertraline HCl 25 mg 05/01/17 10:00 05/02/17 10:18 Zoloft PO 25 mg DAILY ANA LAURA Administration - Patient Studies Lab Studies: Microbiology Studies 05/01/17 00:40 Blood Culture - Preliminary Blood-Venous NO GROWTH AFTER 24 HOURS 05/01/17 00:10 Blood Culture - Preliminary Blood-Venous NO GROWTH AFTER 24 HOURS Lab Studies 05/02/17 05/02/17 05/02/17 Range/Units 10:13 05:15 05:15 WBC 6.1 (4.5-11.0) 10^3/ul RBC 3.54 (3.5-6.1) 10^6/uL Hgb 11.3 L D (14.0-18.0) g/dL Hct 34.8 L (42.0-52.0) % MCV 98.3 (80.0-105.0) fl MCH 31.9 (25.0-35.0) pg MCHC 32.5 (31.0-37.0) g/dl RDW 16.0 H (11.5-14.5) % Plt Count 111 L (120.0-450.0) 10^3/uL MPV 11.0 (7.0-11.0) fl PT (9.4-12.5) SECONDS INR (0.93-1.08) pCO2 31 L (35-45) mm/Hg pO2 72.0 L (80-100) mm/Hg HCO3 22.6 (21-28) mmol/L ABG pH 7.47 H (7.35-7.45) ABG Total CO2 23.6 (22-28) mmol.L ABG O2 Saturation 96.4 (95-98) % ABG O2 Content 15.2 (15-23) ML/dl ABG Base Excess -0.4 (-2.0-3.0) mmol/L ABG Hemoglobin 11.5 L (11.7-17.4) g/dL ABG Carboxyhemoglobin 1.9 H (0.5-1.5) % POC ABG HHb (Measured) 3.5 (0-5) % ABG Methemoglobin 1.3 (0.0-3.0) % ABG O2 Capacity 15.8 L (16-24) mL/dl Hgb O2 Saturation 93.4 L (95.0-98.0) % FiO2 80.0 % Sodium 139 (132-148) mmol/L Potassium 3.8 (3.6-5.0) mmol/L Chloride 106 (98-107) mmol/L Carbon Dioxide 23 (21-33) mmol/L Anion Gap 15 (10-20) BUN 22 H (7-21) mg/dL Creatinine 0.8 (0.8-1.5) mg/dl Est GFR ( Amer) > 60 Est GFR (Non-Af Amer) > 60 Random Glucose 113 H (70-110) mg/dL Calcium 8.5 (8.4-10.5) mg/dL Procalcitonin (0.19-0.49) NG/ML 05/02/17 05/01/17 Range/Units 05:15 00:25 WBC (4.5-11.0) 10^3/ul RBC (3.5-6.1) 10^6/uL Hgb (14.0-18.0) g/dL Hct (42.0-52.0) % MCV (80.0-105.0) fl MCH (25.0-35.0) pg MCHC (31.0-37.0) g/dl RDW (11.5-14.5) % Plt Count (120.0-450.0) 10^3/uL MPV (7.0-11.0) fl PT 27.9 H (9.4-12.5) SECONDS INR 2.49 H (0.93-1.08) pCO2 (35-45) mm/Hg pO2 (80-100) mm/Hg HCO3 (21-28) mmol/L ABG pH (7.35-7.45) ABG Total CO2 (22-28) mmol.L ABG O2 Saturation (95-98) % ABG O2 Content (15-23) ML/dl ABG Base Excess (-2.0-3.0) mmol/L ABG Hemoglobin (11.7-17.4) g/dL ABG Carboxyhemoglobin (0.5-1.5) % POC ABG HHb (Measured) (0-5) % ABG Methemoglobin (0.0-3.0) % ABG O2 Capacity (16-24) mL/dl Hgb O2 Saturation (95.0-98.0) % FiO2 % Sodium (132-148) mmol/L Potassium (3.6-5.0) mmol/L Chloride (98-107) mmol/L Carbon Dioxide (21-33) mmol/L Anion Gap (10-20) BUN (7-21) mg/dL Creatinine (0.8-1.5) mg/dl Est GFR ( Amer) Est GFR (Non-Af Amer) Random Glucose (70-110) mg/dL Calcium (8.4-10.5) mg/dL Procalcitonin 0.05 L (0.19-0.49) NG/ML Laboratory Results - last 24 hr 12/19/17 12/20/17 12/20/17 00:25 05:15 05:15 WBC RBC Hgb Hct MCV MCH MCHC RDW Plt Count MPV PT 27.9 H INR 2.49 H pCO2 pO2 HCO3 ABG pH ABG Total CO2 ABG O2 Saturation ABG O2 Content ABG Base Excess ABG Hemoglobin ABG Carboxyhemoglobin POC ABG HHb (Measured) ABG Methemoglobin ABG O2 Capacity Hgb O2 Saturation FiO2 Sodium 139 Potassium 3.8 Chloride 106 Carbon Dioxide 23 Anion Gap 15 BUN 22 H Creatinine 0.8 Est GFR ( Amer) > 60 Est GFR (Non-Af Amer) > 60 Random Glucose 113 H Calcium 8.5 Procalcitonin 0.05 L 05/02/17 05/02/17 05:15 10:13 WBC 6.1 RBC 3.54 Hgb 11.3 L D Hct 34.8 L MCV 98.3 MCH 31.9 MCHC 32.5 RDW 16.0 H Plt Count 111 L MPV 11.0 PT INR pCO2 31 L pO2 72.0 L HCO3 22.6 ABG pH 7.47 H ABG Total CO2 23.6 ABG O2 Saturation 96.4 ABG O2 Content 15.2 ABG Base Excess -0.4 ABG Hemoglobin 11.5 L ABG Carboxyhemoglobin 1.9 H POC ABG HHb (Measured) 3.5 ABG Methemoglobin 1.3 ABG O2 Capacity 15.8 L Hgb O2 Saturation 93.4 L FiO2 80.0 Sodium Potassium Chloride Carbon Dioxide Anion Gap BUN Creatinine Est GFR ( Amer) Est GFR (Non-Af Amer) Random Glucose Calcium Procalcitonin Critical Care Progress Note - Nutrition Nutrition: Nutrition Category Date Time Status Heart Healthy Diet [DIET] Diets 05/01/17 Breakfast Ordered Assessment/Plan - Assessment and Plan (Free Text) Plan: 86 M with PMH of atrial fibrillation on coumadin, CHF, PR, CAD with stent in LAD , UGIB and esophageal varices, Hep C, HTN, depression and tremors presents with syncope and admitted to the ICU for hypoxia. Neuro - AAO x 3 - CT head shows no acute pathology - Carotid u/s pending Cardio - f/u Echo - INR therapeutic, resume warfarin - ASA, Lasix, Cozaar, Lopressor - strict Is & Os - measure daily weight - HHD with fluid restriction - Cardio: Dr. Simental consulted, will consider stress test Respiratory - VQ scan shows low probability of PE, CTA chest if no improvement - CT chest shows left lower lobe infiltrate - Continue Azithromycin and Rocephin for CAP - On high flow O2, will attempt to wean - Continue Lasix - Continue Solumedrol GI - HHD with fluid restrictions - Protonix for ppx ID - negative for flu - f/u strep pneumo, legionella, and procalcitonin - IV antibiotics Endo - Maintain euglycemia 140-180 - f/u TSH and free T4 Renal - Strict I's & O's - Monitor and replete electrolytes as needed Heme/Onc - DVT ppx Psych - continue home Felipa Brian, PGY-2 <Mitchell Erickson - Last Filed: 05/02/17 13:10> CCU Objective - Vital Signs / Intake & Output Vital Signs (Last 4 hours): Vital Signs Pulse BP 05/02/17 10:18 82 117/49 L 05/02/17 10:17 117/49 L 05/02/17 10:16 83 117/49 L Intake and Output (Last 8hrs): Intake & Output 05/01/17 05/02/17 05/02/17 22:59 06:59 14:59 Intake Total 910 200 Output Total 200 701 Balance 710 -501 Intake: IV 350 Antibiotics 350 Oral 560 200 Output: Urine 200 700 Urine, Voided 200 700 Urine/Stool Mix 1 Other: # Voids Urine, Voided 3 - Medications Active Medications: Active Medications Generic Name Dose Route Start Last Admin Trade Name Freq PRN Reason Stop Dose Admin Acetaminophen 650 mg 05/01/17 09:41 05/01/17 09:46 Tylenol 325mg Tab PO 650 mg Q4H PRN Administration Pain, moderate (4-7) Aspirin 81 mg 05/01/17 10:00 05/02/17 10:16 Aspirin Chewable PO 81 mg DAILY ANA LAURA Administration Azithromycin 500 mg 05/03/17 10:00 Zithromax PO DAILY ANA LAURA Furosemide 40 mg 05/01/17 10:00 05/02/17 10:17 Lasix IVP 40 mg Q12 ANA LAURA Administration Ceftriaxone Sodium 1 gm in 100 mls @ 100 mls/hr 05/01/17 10:00 05/02/17 10:19 Rocephin 1 Gram Ivpb (D5w) IVPB 100 mls/hr DAILY ANA LAURA Administration Protocol Levalbuterol HCl 1.25 mg 05/01/17 02:00 05/02/17 08:03 Xopenex IH 1.25 mg [id number] ANA LAURA Administration Losartan Potassium 50 mg 05/01/17 10:00 05/02/17 10:16 Cozaar PO 50 mg DAILY ANA LAURA Administration Methylprednisolone 40 mg 05/01/17 00:15 05/02/17 10:18 Solu-Medrol IVP 40 mg Q12 ANA LAURA Administration Metoprolol Tartrate 100 mg 05/01/17 10:00 05/02/17 10:18 Lopressor PO 100 mg BID ANA LAURA Administration Pantoprazole Sodium 40 mg 05/02/17 07:30 05/02/17 10:16 Protonix Ec Tab PO 40 mg ACB ANA LAURA Administration Sertraline HCl 25 mg 05/01/17 10:00 05/02/17 10:18 Zoloft PO 25 mg DAILY ANA LAURA Administration - Patient Studies Lab Studies: Microbiology Studies 05/01/17 00:40 Blood Culture - Preliminary Blood-Venous NO GROWTH AFTER 24 HOURS 05/01/17 00:10 Blood Culture - Preliminary Blood-Venous NO GROWTH AFTER 24 HOURS Lab Studies 05/02/17 05/02/17 05/02/17 Range/Units 10:13 05:15 05:15 WBC 6.1 (4.5-11.0) 10^3/ul RBC 3.54 (3.5-6.1) 10^6/uL Hgb 11.3 L D (14.0-18.0) g/dL Hct 34.8 L (42.0-52.0) % MCV 98.3 (80.0-105.0) fl MCH 31.9 (25.0-35.0) pg MCHC 32.5 (31.0-37.0) g/dl RDW 16.0 H (11.5-14.5) % Plt Count 111 L (120.0-450.0) 10^3/uL MPV 11.0 (7.0-11.0) fl PT (9.4-12.5) SECONDS INR (0.93-1.08) pCO2 31 L (35-45) mm/Hg pO2 72.0 L (80-100) mm/Hg HCO3 22.6 (21-28) mmol/L ABG pH 7.47 H (7.35-7.45) ABG Total CO2 23.6 (22-28) mmol.L ABG O2 Saturation 96.4 (95-98) % ABG O2 Content 15.2 (15-23) ML/dl ABG Base Excess -0.4 (-2.0-3.0) mmol/L ABG Hemoglobin 11.5 L (11.7-17.4) g/dL ABG Carboxyhemoglobin 1.9 H (0.5-1.5) % POC ABG HHb (Measured) 3.5 (0-5) % ABG Methemoglobin 1.3 (0.0-3.0) % ABG O2 Capacity 15.8 L (16-24) mL/dl Hgb O2 Saturation 93.4 L (95.0-98.0) % FiO2 80.0 % Sodium 139 (132-148) mmol/L Potassium 3.8 (3.6-5.0) mmol/L Chloride 106 (98-107) mmol/L Carbon Dioxide 23 (21-33) mmol/L Anion Gap 15 (10-20) BUN 22 H (7-21) mg/dL Creatinine 0.8 (0.8-1.5) mg/dl Est GFR ( Amer) > 60 Est GFR (Non-Af Amer) > 60 Random Glucose 113 H (70-110) mg/dL Calcium 8.5 (8.4-10.5) mg/dL Procalcitonin (0.19-0.49) NG/ML 05/02/17 05/01/17 Range/Units 05:15 00:25 WBC (4.5-11.0) 10^3/ul RBC (3.5-6.1) 10^6/uL Hgb (14.0-18.0) g/dL Hct (42.0-52.0) % MCV (80.0-105.0) fl MCH (25.0-35.0) pg MCHC (31.0-37.0) g/dl RDW (11.5-14.5) % Plt Count (120.0-450.0) 10^3/uL MPV (7.0-11.0) fl PT 27.9 H (9.4-12.5) SECONDS INR 2.49 H (0.93-1.08) pCO2 (35-45) mm/Hg pO2 (80-100) mm/Hg HCO3 (21-28) mmol/L ABG pH (7.35-7.45) ABG Total CO2 (22-28) mmol.L ABG O2 Saturation (95-98) % ABG O2 Content (15-23) ML/dl ABG Base Excess (-2.0-3.0) mmol/L ABG Hemoglobin (11.7-17.4) g/dL ABG Carboxyhemoglobin (0.5-1.5) % POC ABG HHb (Measured) (0-5) % ABG Methemoglobin (0.0-3.0) % ABG O2 Capacity (16-24) mL/dl Hgb O2 Saturation (95.0-98.0) % FiO2 % Sodium (132-148) mmol/L Potassium (3.6-5.0) mmol/L Chloride (98-107) mmol/L Carbon Dioxide (21-33) mmol/L Anion Gap (10-20) BUN (7-21) mg/dL Creatinine (0.8-1.5) mg/dl Est GFR ( Amer) Est GFR (Non-Af Amer) Random Glucose (70-110) mg/dL Calcium (8.4-10.5) mg/dL Procalcitonin 0.05 L (0.19-0.49) NG/ML Laboratory Results - last 24 hr 05/01/17 05/02/17 05/02/17 00:25 05:15 05:15 WBC RBC Hgb Hct MCV MCH MCHC RDW Plt Count MPV PT 27.9 H INR 2.49 H pCO2 pO2 HCO3 ABG pH ABG Total CO2 ABG O2 Saturation ABG O2 Content ABG Base Excess ABG Hemoglobin ABG Carboxyhemoglobin POC ABG HHb (Measured) ABG Methemoglobin ABG O2 Capacity Hgb O2 Saturation FiO2 Sodium 139 Potassium 3.8 Chloride 106 Carbon Dioxide 23 Anion Gap 15 BUN 22 H Creatinine 0.8 Est GFR ( Amer) > 60 Est GFR (Non-Af Amer) > 60 Random Glucose 113 H Calcium 8.5 Procalcitonin 0.05 L 05/02/17 05/02/17 05:15 10:13 WBC 6.1 RBC 3.54 Hgb 11.3 L D Hct 34.8 L MCV 98.3 MCH 31.9 MCHC 32.5 RDW 16.0 H Plt Count 111 L MPV 11.0 PT INR pCO2 31 L pO2 72.0 L HCO3 22.6 ABG pH 7.47 H ABG Total CO2 23.6 ABG O2 Saturation 96.4 ABG O2 Content 15.2 ABG Base Excess -0.4 ABG Hemoglobin 11.5 L ABG Carboxyhemoglobin 1.9 H POC ABG HHb (Measured) 3.5 ABG Methemoglobin 1.3 ABG O2 Capacity 15.8 L Hgb O2 Saturation 93.4 L FiO2 80.0 Sodium Potassium Chloride Carbon Dioxide Anion Gap BUN Creatinine Est GFR ( Amer) Est GFR (Non-Af Amer) Random Glucose Calcium Procalcitonin Critical Care Progress Note - Nutrition Nutrition: Nutrition Category Date Time Status Heart Healthy Diet [DIET] Diets 05/01/17 Breakfast Ordered Attending/Attestation - Attestation I have personally seen and examined this patient.: Yes I have fully participated in the care of the patient.: Yes I have reviewed all pertinent clinical information: Yes Notes (Text): 05/02/17 13:06 The patient was seen and examined at the bedside. Patient care was discussed with resident Medical records, lab studies, and imaging were reviewed and management issues were discussed and formulated. Last 24H events reviewed. Agree with above treatment plans as outlined in 's note with addition of the following: -hemodynamic monitoring to maintain MAP>65; cardiology team f\u; f\u echo -o2 supplementation with high-flow O2 to maintain Spo2 >90 Pao2>60 -pt currently on 40LPM and 80% fio2; we will continue titration of fio2 -ABG in AM reviewed -continue nebs and steroids and pulmonary toileting; start incentive spirometry -continue broad spectrum Abx as per ID team and f\u cultures -f\u Bun\Cr and U\o; monitor and replace e-lites -PO diet and aspiration precautions -continue coumadin and monitor INR (2-3 target ) and for bleeding -PT\OT eval -DVT \ PUD prophylaxis CCM time 30min
--- NOTE | 2017-05-02 13:42 | PQF CHF ---
This form is a permanent part of the medical record Dr. Zhang, Please specify type and severity of CHF present in this patient. Clarification of your documentation is requested to better reflect the severity of illness and intensity of treatment of your patient. Indicators present [x] Diagnosis of CHF and/or history of CHF [x] BNP > 200 [x] Imaging Finding of Pulmonary Edema /Pleural Effusions [] Fluid/Volume Overload [] Pitting edema [x] Ejection Fraction < 40% (Indicative of Systolic Heart Failure) [] Ejection Fraction > 40% (Indicative of Diastolic Heart Failure) [x] Dyspnea / Orthopenea / Paroxysmal Nocturnal Dyspnea [] Other: Location in the medical record that reflects the above clinical findings: [] Treatment Provided: [] PHYSICIAN'S RESPONSE Based on your medical judgment of the clinical indicators outlined above, are you treating this patient for a known or suspected: [x] Acute CHF [] Systolic [] Diastolic [x] Combined [] Chronic CHF [] Systolic [] Diastolic [] Combined [] Acute on Chronic CHF []Systolic [] Diastolic [] Combined [] CHF due hypertension [] Acute systolic []Chronic systolic [] Acute/ chronic systolic [] Other, please indicate: [] [] If Unable to Determine, please check the box, sign and date. Present On Admission (POA) Indicator: [x] Present at the time of admission [] Not present at the time of admission [] Clinically Undetermined In responding to this query, please exercise your independent professional judgment. The fact that a question is asked does not imply that any particular answer is desired or expected. Thank you for your clarification on this documentation. If you have any questions please call:[ ] * Thank you, [ ]Kathy Clark [facility] #[id number] data programmer SIMONE
--- NOTE | 2017-05-02 14:04 | PN ---
DATE: 05/02/2017 SUBJECTIVE: The patient is seen lying in bed in the CCU. He states he feels somewhat more comfortable here. His dyspnea is improved. He remains in atrial fibrillation. He denies any chest pain. MEDICATIONS: His current medications include aspirin, Cozaar 50 mg daily, Lasix 40 mg q. 12 hours, metoprolol 100 mg b.i.d., Protonix 40 mg daily, Rocephin, Solu-Medrol 40 mg q. 12 hours, Xopenex, Zithromax and Zoloft 25 mg daily. OBJECTIVE: GENERAL: He is a very elderly man who appears comfortable at rest. VITAL SIGNS: His blood pressure is 116/50 with a pulse of 80 and atrial fibrillation, and respirations are 16. He is currently afebrile. HEENT: No JVD. CHEST: Bilateral scattered rhonchi. HEART: PMI displaced laterally with soft tones noted. ABDOMEN: Soft and nontender with normoactive bowel sounds. EXTREMITIES: No edema. DIAGNOSTIC DATA: Potassium is 3.8 and BUN and creatinine are 22 and 0.8. White count is 6.1 and hemoglobin and hematocrit 11.3 and 34.8 with platelet count of 111,000. Arterial blood gas; pH of 7.47, pCO2 of 31, and pO2 of 72. IMPRESSION: 1. Recent syncope, etiology unclear. 2. Chronic atrial fibrillation with controlled rate. 3. Chronic obstructive pulmonary disease. 4. Coronary artery disease, clinically stable. RECOMMENDATIONS: His current medications should continue for now. Carotid ultrasound study is pending. His echocardiogram has been performed and will be reviewed. In general, a conservative management appears most likely given his advanced age and thus he has frequent recurrences. Thus far, no significant bradyarrhythmia or tachyarrhythmia has been documented to explain his symptoms. We will be happy to follow along as needed. Jose Stein MD
--- NOTE | 2017-05-02 19:23 | HP ---
The patient was seen on 05/01/2017. REASON FOR ADMISSION: The patient became unresponsive, cyanotic, acute respiratory distress, and came to the ER by ambulance. HISTORY OF PRESENT ILLNESS: An 86-year-old male with history of coronary artery disease, cardiac stents, congestive heart failure, and cardiac arrhythmia in the past. The patient also came into the hospital after he had episode of syncope in the bathroom according to the son who saw him and called the ambulance to bring him. According to the patient, he did have a syncope while he is in the living room, he got up, and he felt okay, he continue, and later on that day few hours later, he went to the bathroom and he did have another syncope and he felt also during in between short of breath. Ambulance was called in and they found him unresponsive, cyanotic, brought in to the ER, improved with oxygen, and was evaluated in ER and the patient was found cyanotic and was given oxygen and responded well to oxygen and IV Lasix. Temperature is 98, heart rate 72, blood pressure when he came was 130/83, and respiratory rate 18, and was saturating 78% on room air and when they put Venti mask, it went up to 100% Venti mask, that was in the Emergency Room. PAST MEDICAL HISTORY: Ischemic coronary artery disease, multiple stents. The patient has also low EF in the previous study, before he does have history of cardiac arrhythmia in the past. He does have chronic atrial fibrillation. He does have tremors with history of GI bleed in the past, hypertension, and coronary artery disease. ALLERGIES: NO KNOWN ALLERGIES. HOME MEDICATION: He takes Lasix 40 mg daily, vitamin D, aspirin 81, Mysoline 150 b.i.d., K-Dur 10 mEq p.o. daily, Lopressor 100 mg b.i.d., Prevacid 30 mg p.o. daily, Coumadin 4 mg p.o. daily, Diovan 80 mg p.o. daily, Zoloft 25 mg p.o. daily, and vitamin B complex is one a day. REVIEW OF SYSTEMS: According to the patient, he feel fine. He does not complain of anything, may be some aches and pains, may be difficult to ambulation, use a walker, but otherwise does not complain of anything. PHYSICAL EXAMINATION: GENERAL: The patient was seen in ICU on 05/01/2017. He is comfortable, oxygen on him. VITAL SIGNS: Temperature is 98, heart rate 72, respiratory rate 20, and saturating 93%. HEAD AND NECK: Normal. No JVD. No thyromegaly. CHEST: Seems clear. Few basilar rales. CARDIAC: First sound and second sound normal. ABDOMEN: Soft and nontender. EXTREMITIES: No edema. NEUROLOGICAL: The patient is alert, awake and oriented x3 and normal. LABORATORY DATA: White count 7.3, hemoglobin 13.3, hematocrit 40.3, and platelets 146. The patient also had some blood work on admission; sodium 141, potassium 4.5, chloride 106, bicarb 19, BUN 21, creatinine 0.9, and blood sugar 161. Liver function test is normal. The patient has troponin is low 0.01. His proBNP is high 8120. The patient also had total protein 8.7, albumin 4.5, and globulin 4.2. TSH 2.8 and procalcitonin 0.05. The patient also had an chest CT on admission or next day of admission, which shows small infiltrates of the left lower lobe represent pneumonia, emphysema, [id number] cardiomegaly, small bilateral pleural effusions, had gallstones, mildly dilated gallbladder, and small hiatal hernia. The patient also had V/Q scan, which is low probability. The patient is on Coumadin and I should mention that his PT/INR when he came in was elevated, so that was clinically unlikely. The patient also had CT of the head, which shows white matter change and nonspecific white matter disease, otherwise negative. The patient's chest x-ray shows congestive heart failure. The patient also had an initial echocardiogram on 05/01/2017, which shows good LV function, but the echo report is not available yet and pulmonary hypertension with right ventricular systolic pressure in the low 70s and there is also some mitral regurgitation and aortic regurgitation, official report to be follow. IMPRESSION AND PLAN: An 86-year-old male with history of coronary artery disease came in with syncope and acute respiratory failure. Chest x-ray shows congestive heart failure. BNP is elevated. We will admit the patient with acute congestive heart failure, left ventricular failure, and also will give Lasix, oxygen, put the patient in Intensive Care Unit, Cardiology consultation to follow up on that and also we will hold off Coumadin. His INR is 3.47, we repeated it in the morning and will consider resuming it when it is in therapeutic range. Cardiology consult, Dr. Simental; Pulmonary consult, Dr. Roche, and also for his pneumonia, we going to put the patient on antibiotics, I see the patient on Rocephin and Zithromax already put in and we will follow with the other solutions consultant, then we will get Dr. Roche to follow up on the pulmonary status and we will follow up clinically. I see Dr. Palomares seen the patient already, so we will continue follow up with the environmental coordinator, Dr. Palomares and follow up with the horologist. Current medications, he is getting Rocephin, Zithromax, Cozaar, aspirin, Lasix 40 q.12 hours, Protonix IV, Xopenex, Tylenol, and Zoloft . Continue current therapy. Follow up clinically. Nathaniel Zhang MD
--- NOTE | 2017-05-03 07:47 | CP.PCM.PN ---
Subjective - Date & Time of Evaluation Date of Evaluation: 05/03/17 Time of Evaluation: 07:00 - Subjective Subjective: Stable in CCU. No CP or SOB. sat in chair yesterday. High Flow O2. V/S noted. AF, PVC's PE: Lungs: rhonchi Cor: irreg S1S2 Abd.: soft Ext.: no edema Neuro.: alert Labs/ABG's 05/02 noted. Echo noted. Mild LVD, Mod. MR and TR. Mod/Sev. AI. Severe PH V/Q: low prob. CT chest noted: LLL pneumonia. Small werner. pl. effusions Objective - Vital Signs/Intake and Output Vital Signs (last 24 hours): Temp Pulse Resp BP Pulse Ox 98 F 70 24 130/64 96 05/03/17 04:00 05/03/17 06:00 05/03/17 00:00 05/02/17 21:46 05/03/17 00:00 Intake and Output: 05/03/17 05/03/17 06:59 18:59 Intake Total 1250 Output Total 520 Balance 730 - Medications Medications: Current Medications Acetaminophen (Tylenol 325mg Tab) 650 mg PO Q4H PRN PRN Reason: Pain, moderate (4-7) Last Admin: 05/01/17 09:46 Dose: 650 mg Aspirin (Aspirin Chewable) 81 mg PO DAILY [facility] Last Admin: 05/02/17 10:16 Dose: 81 mg Azithromycin (Zithromax) 500 mg PO DAILY [facility] Furosemide (Lasix) 40 mg IVP Q12 [facility] Last Admin: 05/02/17 21:46 Dose: 40 mg Ceftriaxone Sodium (Rocephin 1 Gram Ivpb (D5w)) 1 gm in 100 mls @ 100 mls/hr IVPB DAILY ANA LAURA PRN Reason: Protocol Last Admin: 05/02/17 10:19 Dose: 100 mls/hr Levalbuterol HCl (Xopenex) 1.25 mg IH [id number] [facility] Last Admin: 05/02/17 20:38 Dose: 1.25 mg Losartan Potassium (Cozaar) 50 mg PO DAILY [facility] Last Admin: 05/02/17 10:16 Dose: 50 mg Methylprednisolone (Solu-Medrol) 40 mg IVP Q12 [facility] Last Admin: 05/02/17 21:50 Dose: 40 mg Metoprolol Tartrate (Lopressor) 100 mg PO BID [facility] Last Admin: 05/02/17 17:45 Dose: 100 mg Pantoprazole Sodium (Protonix Ec Tab) 40 mg PO ACB [facility] Last Admin: 05/02/17 10:16 Dose: 40 mg Sertraline HCl (Zoloft) 25 mg PO DAILY [facility] Last Admin: 05/02/17 10:18 Dose: 25 mg - Labs Labs: 05/02/17 05:15 05/02/17 05:15 PT 27.9 SECONDS (9.4-12.5) H 05/02/17 05:15 INR 2.49 (0.93-1.08) H 05/02/17 05:15 APTT 33.9 Seconds (25.1-36.5) 04/30/17 21:50 Assessment and Plan - Assessment and Plan (Free Text) Assessment: Syncope Dyspnea COPD/PH/Former Smoker CAD/Remote PCI/LVD Valvular Heart Disease: Mod. MR and TR, Mod/Sev. AI A. Fib./ PVC's Hepatitis C Esophageal Varices H/O GIB GERD Werner. THR Tremor Plan: AB OOB to chair Await AM labs Monitor INR's. Warfarin by INR daily As per Intensivists. Pulmonary Consultation Will follow.
[2017-05-03] MEDS: Pantoprazole 40 mg EC Tab PO SCH (08:16)
[2017-05-03] MEDS: Levalbuterol 1.25 MG/3 ML Inhal Soln UD IH SCH ×3 (08:58→20:02)
[2017-05-03 09:19] LABS: BASO # 0.02 K/mm3 (0.0-2.0); BASO % 0.3 % (0.0-3.0); EOS # 0.1 (0.0-0.7); EOS % 0.8 % (1.5-5.0); GRAN # 5.27 (1.4-6.5); GRAN % 73.8 % (50.0-68.0); HEMATOCRIT 39.1 % (42.0-52.0); LYMPH # 1.4 (1.2-3.4); LYMPH % 19.6 % (22.0-35.0); MEAN CELL VOLUME 98.7 fl (80.0-105.0); MEAN CORPUSCULAR HEMOGLOBIN 32.3 pg (25.0-35.0); MEAN CORPUSCULAR HGB CONC 32.7 g/dl (31.0-37.0); MEAN PLATELET VOLUME 11.1 fl (7.0-11.0); MONO # 0.4 (0.1-0.6); MONO % 5.5 % (1.0-6.0); RED CELL DISTRIBUTION WIDTH 15.7 % (11.5-14.5); WHITE BLOOD COUNT 7.1 10^3/ul (4.5-11.0)
[2017-05-03 09:23] LABS: ARTERIAL BLOOD GAS HCO3 24.7 mmol/L (21-28); ARTERIAL BLOOD GAS O2 CAPACITY 17.5 mL/dl (16-24); ARTERIAL BLOOD GAS O2 CONTENT 16.4 ML/dl (15-23); ARTERIAL BLOOD GAS PH 7.47 (7.35-7.45); ARTERIAL BLOOD HGB O2 SAT 91.1 % (95.0-98.0); CARBOXYHEMOGLOBIN 2.2 % (0.5-1.5); HHB 5.9 % (0-5); METHEMOGLOBIN 0.8 % (0.0-3.0)
[2017-05-03 09:31] LABS: BILIRUBIN,TOTAL 1.2 mg/dL (0.2-1.3); BLOOD UREA NITROGEN 25 mg/dL (7-21); CARBON DIOXIDE 27 mmol/L (21-33); CHLORIDE 102 mmol/L (98-107); GFR AFRICAN-AMERICAN > 60; GLUCOSE,RANDOM 122 mg/dL (70-110); POTASSIUM 3.9 mmol/L (3.6-5.0); SODIUM 139 mmol/L (132-148); TOTAL PROTEIN 8.3 g/dL (5.8-8.3)
[2017-05-03 09:32] LABS: ALKALINE PHOSPHATASE 93 U/L (38-126); ALT/SGPT 31 U/L (7-56); AST/SGOT 37 U/L (17-59)
[2017-05-03 09:54] LABS: INR 1.76 (0.93-1.08)
--- NOTE | 2017-05-03 10:00 | PN ---
DATE: 05/02/2017 SUBJECTIVE: The patient is in ICU, sitting on the chair, comfortable, on high-flow oxygen, and breathing better. His heart rate seems in the 60s to 70s and in no acute distress. PHYSICAL EXAMINATION VITAL SIGNS: He has temperature of 98.2, heart rate of 76, blood pressure of 130/64 and oxygen saturation of 96% on high-flow oxygen. HEAD AND NECK: Normal. No JVD. CHEST: Otherwise clear and diminished breath sounds at the bases on the left side. CARDIAC: First sound and second sound normal. There is a systolic murmur. ABDOMEN: Soft and nontender. EXTREMITIES: No edema. NEUROLOGIC: Normal. LABORATORY DATA: White count of 6.1, hemoglobin of 11.3, hematocrit of 34.8 and platelets of 111; it came down from 146 to 111. His chemistry shows sodium of 139, potassium of 3.8, chloride of 106, bicarbonate of 23, BUN of 22, creatinine of 0.8 and his calcium is 8.5. IMPRESSION AND PLAN: 1. Acute respiratory failure, etiology multifactorial. 2. Acute congestive heart failure. The patient has acute systolic and diastolic heart failure. He did have an echocardiogram, official report came low ejection fraction of 40% and moderate mitral regurgitation, which could increase left atrial pressure in addition to poor systolic functions complicated with pneumonia and emphysema, chronic obstructive pulmonary disease. Currently he is on Rocephin and doxycycline, continue antibiotics, continue steroids and continue inhaled bronchodilators. We will follow up clinically. 3. Atrial fibrillation, controlled. Heart rate in 70s. The patient is getting metoprolol 100 b.i.d. Continue metoprolol. We will resume Coumadin. His INR came back in the therapeutic range 2.49. We will resume Coumadin 4 mg daily and repeat PT and INR daily. 4. The patient does have also tremors. We will resume his medications for that tremors, which is primidone 150 b.i.d. Continue current medications. Follow up with Cardiology and promotion specialist on the case, seems improving, and doing better. We will follow up in the cardiac status. Nathaniel Zhang MD [facility] # [id number]
[2017-05-03] MEDS: cefTRIAXone 1 gm 1 GM/100 ML BAG IVPB SCH (10:51)
[2017-05-03] MEDS: MethylPREDNISolone 40 mg Vial IVP SCH ×2 (10:52→21:26)
--- NOTE | 2017-05-03 11:09 | CP.CCUPN ---
<Van Brian - Last Filed: 05/03/17 11:04> CCU Subjective - Physician Review Subjective (Free Text): Pt seen and examined at bedside. Pt doing well overnight, slept comfortably. Pt remains with O2 sats between 88-92% despite being on high flow nasal cannula. Denies CP, SOB, N/V/D, fever, chills. CCU Objective - Vital Signs / Intake & Output Vital Signs (Last 4 hours): Vital Signs Pulse Resp BP 05/03/17 11:03 23 05/03/17 10:52 103/67 05/03/17 10:48 80 103/66 05/03/17 09:00 23 Intake and Output (Last 8hrs): Intake & Output 05/02/17 05/03/17 05/03/17 22:59 06:59 14:59 Intake Total 1250 Output Total 520 1300 Balance 730 -1300 Intake: IV 350 Antibiotics 350 Oral 900 Output: Urine 520 1300 Urine, Voided 520 1300 - Physical Exam Head: Positive for: Atraumatic, Normocephalic Pupils: Positive for: PERRL Extroacular Muscles: Positive for: EOMI Conjunctiva: Positive for: Normal Ears: Negative for: Erythema, TM Bulging, Fluid Mouth: Positive for: Moist Mucous Membranes Pharnyx: Negative for: ERYTHEMA, EXUDATE, TONSILS ENLARGED, Peritonsilar Swelling, Uvular Deviation, Muffled/Hoarse Voice, Strider, Soft Palate/Uvular Edema Nose (External): Positive for: Atraumatic Nose (Internal): Positive for: Normal Inspection Neck: Positive for: Normal Range of Motion Respiratory/Chest: Positive for: Rhonchi (Improving rhonchi). Negative for: Respiratory Distress, Accessory Muscle Use Cardiovascular: Positive for: Irregular Rhythm, Tachycardic Abdomen: Positive for: Normal Bowel Sounds. Negative for: Tenderness, Distention, Peritoneal Signs Back: Negative for: CVA Tenderness Upper Extremity: Positive for: Neurovascularly Intact, Capillary Refill < 2s Lower Extremity: Negative for: CALF TENDERNESS Neurological: Positive for: GCS=15, CN II-XII Intact, Speech Normal, Motor Func Grossly Intact, Normal Sensory Function Skin: Positive for: Warm, Dry, Normal Color. Negative for: Rashes Psychiatric: Positive for: Alert, Oriented x 3, Normal Insight, Normal Concentration - Medications Active Medications: Active Medications Generic Name Dose Route Start Last Admin Trade Name Sd PRN Reason Stop Dose Admin Acetaminophen 650 mg 05/01/17 09:41 05/01/17 09:46 Tylenol 325mg Tab PO 650 mg Q4H PRN Administration Pain, moderate (4-7) Aspirin 81 mg 05/01/17 10:00 05/03/17 10:48 Aspirin Chewable PO 81 mg DAILY ANA LAURA Administration Azithromycin 500 mg 05/03/17 10:00 05/03/17 10:49 Zithromax PO 500 mg DAILY ANA LAURA Administration Furosemide 40 mg 05/01/17 10:00 05/03/17 10:52 Lasix IVP 40 mg Q12 ANA LAURA Administration Ceftriaxone Sodium 1 gm in 100 mls @ 100 mls/hr 05/01/17 10:00 05/03/17 10:51 Rocephin 1 Gram Ivpb (D5w) IVPB 100 mls/hr DAILY ANA LAURA Administration Protocol Levalbuterol HCl 1.25 mg 05/01/17 02:00 05/03/17 08:58 Xopenex IH 1.25 mg [id number] ANA LAURA Administration Losartan Potassium 50 mg 05/01/17 10:00 05/03/17 10:48 Cozaar PO 50 mg DAILY A[facility] LAURA Administration Methylprednisolone 40 mg 05/01/17 00:15 05/03/17 10:52 Solu-Medrol IVP 40 mg Q12 A[facility] LA[facility]A Administration Metoprolol Tartrate 100 mg 05/01/17 10:00 05/03/17 10:48 Lopressor PO 100 mg BID ANA LAURA Administration Pantoprazole Sodium 40 mg 05/02/17 07:30 05/03/17 08:16 Protonix Ec Tab PO 40 mg ACB ANA LAURA Administration Primidone 100 mg 05/03/17 10:00 05/03/17 10:47 Mysoline PO 100 mg BID ANA LAURA Administration Sertraline HCl 25 mg 05/01/17 10:00 05/03/17 10:50 Zoloft PO 25 mg DAILY ANA LAURA Administration Warfarin Sodium 4 mg 05/03/17 18:00 Coumadin PO 1800 [facility] Protocol - Patient Studies Lab Studies: Microbiology Studies 05/01/17 00:40 Blood Culture - Preliminary Blood-Venous NO GROWTH AFTER 48 HOURS 05/01/17 00:10 Blood Culture - Preliminary Blood-Venous NO GROWTH AFTER 48 HOURS 05/01/17 03:35 MRSA Culture (Admit) - Final Naris MRSA NOT DETECTED Lab Studies 05/03/17 05/03/17 05/03/17 Range/Units 09:10 09:10 09:09 WBC 7.1 (4.5-11.0) 10^3/ul RBC 3.96 (3.5-6.1) 10^6/uL Hgb 12.8 L (14.0-18.0) g/dL Hct 39.1 L (42.0-52.0) % MCV 98.7 (80.0-105.0) fl MCH 32.3 (25.0-35.0) pg MCHC 32.7 (31.0-37.0) g/dl RDW 15.7 H (11.5-14.5) % Plt Count 129 (120.0-450.0) 10^3/uL MPV 11.1 H (7.0-11.0) fl Gran % 73.8 H (50.0-68.0) % Lymph % (Auto) 19.6 L (22.0-35.0) % [place] % (Auto) 5.5 (1.0-6.0) % Eos % (Auto) 0.8 L (1.5-5.0) % Baso % (Auto) 0.3 (0.0-3.0) % Gran # 5.27 (1.4-6.5) Lymph # 1.4 (1.2-3.4) [place] # 0.4 (0.1-0.6) Eos # 0.1 (0.0-0.7) Baso # 0.02 (0.0-2.0) K/mm3 PT (9.4-12.5) SECONDS INR (0.93-1.08) pCO2 34 L (35-45) mm/Hg pO2 59.0 L (80-100) mm/Hg HCO3 24.7 (21-28) mmol/L ABG pH 7.47 H (7.35-7.45) ABG Total CO2 25.7 (22-28) mmol.L ABG O2 Saturation 93.9 L (95-98) % ABG O2 Content 16.4 (15-23) ML/dl ABG Base Excess 1.4 (-2.0-3.0) mmol/L ABG Hemoglobin 12.8 (11.7-17.4) g/dL ABG Carboxyhemoglobin 2.2 H (0.5-1.5) % POC ABG HHb (Measured) 5.9 H (0-5) % ABG Methemoglobin 0.8 (0.0-3.0) % ABG O2 Capacity 17.5 (16-24) mL/dl Hgb O2 Saturation 91.1 L (95.0-98.0) % FiO2 83.0 % Sodium 139 (132-148) mmol/L Potassium 3.9 (3.6-5.0) mmol/L Chloride 102 (98-107) mmol/L Carbon Dioxide 27 (21-33) mmol/L Anion Gap 14 (10-20) BUN 25 H (7-21) mg/dL Creatinine 0.8 (0.8-1.5) mg/dl Est GFR ( Amer) > 60 Est GFR (Non-Af Amer) > 60 Random Glucose 122 H (70-110) mg/dL Calcium 9.0 (8.4-10.5) mg/dL Total Bilirubin 1.2 (0.2-1.3) mg/dL AST 37 (17-59) U/L ALT 31 (7-56) U/L Alkaline Phosphatase 93 (38-126) U/L Total Protein 8.3 (5.8-8.3) g/dL Albumin 4.2 (3.0-4.8) g/dL Globulin 4.1 gm/dL Albumin/Globulin Ratio 1.0 L (1.1-1.8) 05/03/17 Range/Units 08:55 WBC (4.5-11.0) 10^3/ul RBC (3.5-6.1) 10^6/uL Hgb (14.0-18.0) g/dL Hct (42.0-52.0) % MCV (80.0-105.0) fl MCH (25.0-35.0) pg MCHC (31.0-37.0) g/dl RDW (11.5-14.5) % Plt Count (120.0-450.0) 10^3/uL MPV (7.0-11.0) fl Gran % (50.0-68.0) % Lymph % (Auto) (22.0-35.0) % [place] % (Auto) (1.0-6.0) % Eos % (Auto) (1.5-5.0) % Baso % (Auto) (0.0-3.0) % Gran # (1.4-6.5) Lymph # (1.2-3.4) [place] # (0.1-0.6) Eos # (0.0-0.7) Baso # (0.0-2.0) K/mm3 PT 19.6 H (9.4-12.5) SECONDS INR 1.76 H (0.93-1.08) pCO2 (35-45) mm/Hg pO2 (80-100) mm/Hg HCO3 (21-28) mmol/L ABG pH (7.35-7.45) ABG Total CO2 (22-28) mmol.L ABG O2 Saturation (95-98) % ABG O2 Content (15-23) ML/dl ABG Base Excess (-2.0-3.0) mmol/L ABG Hemoglobin (11.7-17.4) g/dL ABG Carboxyhemoglobin (0.5-1.5) % POC ABG HHb (Measured) (0-5) % ABG Methemoglobin (0.0-3.0) % ABG O2 Capacity (16-24) mL/dl Hgb O2 Saturation (95.0-98.0) % FiO2 % Sodium (132-148) mmol/L Potassium (3.6-5.0) mmol/L Chloride (98-107) mmol/L Carbon Dioxide (21-33) mmol/L Anion Gap (10-20) BUN (7-21) mg/dL Creatinine (0.8-1.5) mg/dl Est GFR ( Amer) Est GFR (Non-Af Amer) Random Glucose (70-110) mg/dL Calcium (8.4-10.5) mg/dL Total Bilirubin (0.2-1.3) mg/dL AST (17-59) U/L ALT (7-56) U/L Alkaline Phosphatase (38-126) U/L Total Protein (5.8-8.3) g/dL Albumin (3.0-4.8) g/dL Globulin gm/dL Albumin/Globulin Ratio (1.1-1.8) Laboratory Results - last 24 hr 05/03/17 05/03/17 05/03/17 08:55 09:09 09:10 WBC 7.1 RBC 3.96 Hgb 12.8 L Hct 39.1 L MCV 98.7 MCH 32.3 MCHC 32.7 RDW 15.7 H Plt Count 129 MPV 11.1 H Gran % 73.8 H Lymph % (Auto) 19.6 L [place] % (Auto) 5.5 Eos % (Auto) 0.8 L Baso % (Auto) 0.3 Gran # 5.27 Lymph # 1.4 [place] # 0.4 Eos # 0.1 Baso # 0.02 PT 19.6 H INR 1.76 H pCO2 34 L pO2 59.0 L HCO3 24.7 ABG pH 7.47 H ABG Total CO2 25.7 ABG O2 Saturation 93.9 L ABG O2 Content 16.4 ABG Base Excess 1.4 ABG Hemoglobin 12.8 ABG Carboxyhemoglobin 2.2 H POC ABG HHb (Measured) 5.9 H ABG Methemoglobin 0.8 ABG O2 Capacity 17.5 Hgb O2 Saturation 91.1 L FiO2 83.0 Sodium Potassium Chloride Carbon Dioxide Anion Gap BUN Creatinine Est GFR ( Amer) Est GFR (Non-Af Amer) Random Glucose Calcium Total Bilirubin AST ALT Alkaline Phosphatase Total Protein Albumin Globulin Albumin/Globulin Ratio 05/03/17 09:10 WBC RBC Hgb Hct MCV MCH MCHC RDW Plt Count MPV Gran % Lymph % (Auto) [place] % (Auto) Eos % (Auto) Baso % (Auto) Gran # Lymph # [place] # Eos # Baso # PT INR pCO2 pO2 HCO3 ABG pH ABG Total CO2 ABG O2 Saturation ABG O2 Content ABG Base Excess ABG Hemoglobin ABG Carboxyhemoglobin POC ABG HHb (Measured) ABG Methemoglobin ABG O2 Capacity Hgb O2 Saturation FiO2 Sodium 139 Potassium 3.9 Chloride 102 Carbon Dioxide 27 Anion Gap 14 BUN 25 H Creatinine 0.8 Est GFR ( Amer) > 60 Est GFR (Non-Af Amer) > 60 Random Glucose 122 H Calcium 9.0 Total Bilirubin 1.2 AST 37 ALT 31 Alkaline Phosphatase 93 Total Protein 8.3 Albumin 4.2 Globulin 4.1 Albumin/Globulin Ratio 1.0 L Critical Care Progress Note - Nutrition Nutrition: Nutrition Category Date Time Status Heart Healthy Diet [DIET] Diets 05/01/17 Breakfast Ordered Assessment/Plan - Assessment and Plan (Free Text) Plan: 86 M with PMH of atrial fibrillation on coumadin, CHF, ID, CAD with stent in LAD , UGIB and esophageal varices, Hep C, HTN, depression and tremors presents with syncope and admitted to the ICU for hypoxia. Neuro - AAO x 3 - CT head shows no acute pathology - Carotid u/s pending Cardio - Echo showing severe pulm htn and moderate to severe aortic insufficiency. See full report for more details. - Continue Warfarin, trend INR - ASA, Lasix, Cozaar, Lopressor - strict Is & Os - measure daily weight - HHD with fluid restriction - Cardio: Dr. Simental Respiratory - VQ scan shows low probability of PE, CTA chest if no improvement - CT chest shows left lower lobe infiltrate with emphysematous changes - Continue Azithromycin and Rocephin for CAP - PaO2 59 on ABG, will maintain on high flow O2 - Maintain O2 sats > 90% - Continue Lasix - Continue Solumedrol GI - HHD with fluid restrictions - Protonix for ppx ID - negative for flu - Pending strep pneumo, legionella, and procalcitonin - IV antibiotics Endo - Maintain euglycemia 140-180 Renal - Strict I's & O's - Monitor and replete electrolytes as needed Heme/Onc - DVT ppx Snehal, PGY-2 <Mitchell Erickson - Last Filed: 05/03/17 12:09> CCU Objective - Vital Signs / Intake & Output Vital Signs (Last 4 hours): Vital Signs Pulse Resp BP 05/03/17 11:03 23 05/03/17 10:52 103/67 05/03/17 10:48 80 103/66 05/03/17 09:00 23 Intake and Output (Last 8hrs): Intake & Output 05/02/17 05/03/17 05/03/17 22:59 06:59 14:59 Intake Total 1250 Output Total 520 1300 Balance 730 -1300 Intake: IV 350 Antibiotics 350 Oral 900 Output: Urine 520 1300 Urine, Voided 520 1300 - Medications Active Medications: Active Medications Generic Name Dose Route Start Last Admin Trade Name Freq PRN Reason Stop Dose Admin Acetaminophen 650 mg 05/01/17 09:41 05/01/17 09:46 Tylenol 325mg Tab PO 650 mg Q4H PRN Administration Pain, moderate (4-7) Aspirin 81 mg 05/01/17 10:00 05/03/17 10:48 Aspirin Chewable PO 81 mg DAILY ANA LAURA Administration Azithromycin 500 mg 05/03/17 10:00 05/03/17 10:49 Zithromax PO 500 mg DAILY ANA LAURA Administration Docusate Sodium 100 mg 05/03/17 14:00 Colace PO TID ANA LAURA Furosemide 40 mg 05/01/17 10:00 05/03/17 10:52 Lasix IVP 40 mg Q12 ANA LAURA Administration Ceftriaxone Sodium 1 gm in 100 mls @ 100 mls/hr 05/01/17 10:00 05/03/17 10:51 Rocephin 1 Gram Ivpb (D5w) IVPB 100 mls/hr DAILY ANA LAURA Administration Protocol Levalbuterol HCl 1.25 mg 05/01/17 02:00 05/03/17 08:58 Xopenex IH 1.25 mg [id number] ANA LAURA Administration Losartan Potassium 50 mg 05/01/17 10:00 05/03/17 10:48 Cozaar PO 50 mg DAILY ANA LAURA Administration Methylprednisolone 40 mg 05/01/17 00:15 05/03/17 10:52 Solu-Medrol IVP 40 mg Q12 A[facility]A Administration Metoprolol Tartrate 100 mg 05/01/17 10:00 05/03/17 10:48 Lopressor PO 100 mg BID ANA LAURA Administration Pantoprazole Sodium 40 mg 05/02/17 07:30 05/03/17 08:16 Protonix Ec Tab PO 40 mg ACB ANA LAURA Administration Polyethylene Glycol 17 gm 05/03/17 12:00 Miralax PO DAILY ANA LAURA Primidone 100 mg 05/03/17 10:00 05/03/17 10:47 Mysoline PO 100 mg BID ANA LAURA Administration Sertraline HCl 25 mg 05/01/17 10:00 05/03/17 10:50 Zoloft PO 25 mg DAILY ANA [facility] Administration Warfarin Sodium 4 mg 05/03/17 18:00 Coumadin PO 1800 [facility] Protocol - Patient Studies Lab Studies: Microbiology Studies 05/01/17 00:40 Blood Culture - Preliminary Blood-Venous NO GROWTH AFTER 48 HOURS 05/01/17 00:10 Blood Culture - Preliminary Blood-Venous NO GROWTH AFTER 48 HOURS 05/01/17 03:35 MRSA Culture (Admit) - Final Naris MRSA NOT DETECTED Lab Studies 05/03/17 05/03/17 05/03/17 Range/Units 09:10 09:10 09:09 WBC 7.1 (4.5-11.0) 10^3/ul RBC 3.96 (3.5-6.1) 10^6/uL Hgb 12.8 L (14.0-18.0) g/dL Hct 39.1 L (42.0-52.0) % MCV 98.7 (80.0-105.0) fl MCH 32.3 (25.0-35.0) pg MCHC 32.7 (31.0-37.0) g/dl RDW 15.7 H (11.5-14.5) % Plt Count 129 (120.0-450.0) 10^3/uL MPV 11.1 H (7.0-11.0) fl Gran % 73.8 H (50.0-68.0) % Lymph % (Auto) 19.6 L (22.0-35.0) % [place] % (Auto) 5.5 (1.0-6.0) % Eos % (Auto) 0.8 L (1.5-5.0) % Baso % (Auto) 0.3 (0.0-3.0) % Gran # 5.27 (1.4-6.5) Lymph # 1.4 (1.2-3.4) [place] # 0.4 (0.1-0.6) Eos # 0.1 (0.0-0.7) Baso # 0.02 (0.0-2.0) K/mm3 PT (9.4-12.5) SECONDS INR (0.93-1.08) pCO2 34 L (35-45) mm/Hg pO2 59.0 L (80-100) mm/Hg HCO3 24.7 (21-28) mmol/L ABG pH 7.47 H (7.35-7.45) ABG Total CO2 25.7 (22-28) mmol.L ABG O2 Saturation 93.9 L (95-98) % ABG O2 Content 16.4 (15-23) ML/dl ABG Base Excess 1.4 (-2.0-3.0) mmol/L ABG Hemoglobin 12.8 (11.7-17.4) g/dL ABG Carboxyhemoglobin 2.2 H (0.5-1.5) % POC ABG HHb (Measured) 5.9 H (0-5) % ABG Methemoglobin 0.8 (0.0-3.0) % ABG O2 Capacity 17.5 (16-24) mL/dl Hgb O2 Saturation 91.1 L (95.0-98.0) % FiO2 83.0 % Sodium 139 (132-148) mmol/L Potassium 3.9 (3.6-5.0) mmol/L Chloride 102 (98-107) mmol/L Carbon Dioxide 27 (21-33) mmol/L Anion Gap 14 (10-20) BUN 25 H (7-21) mg/dL Creatinine 0.8 (0.8-1.5) mg/dl Est GFR ( Amer) > 60 Est GFR (Non-Af Amer) > 60 Random Glucose 122 H (70-110) mg/dL Calcium 9.0 (8.4-10.5) mg/dL Total Bilirubin 1.2 (0.2-1.3) mg/dL AST 37 (17-59) U/L ALT 31 (7-56) U/L Alkaline Phosphatase 93 (38-126) U/L Total Protein 8.3 (5.8-8.3) g/dL Albumin 4.2 (3.0-4.8) g/dL Globulin 4.1 gm/dL Albumin/Globulin Ratio 1.0 L (1.1-1.8) 05/03/17 Range/Units 08:55 WBC (4.5-11.0) 10^3/ul RBC (3.5-6.1) 10^6/uL Hgb (14.0-18.0) g/dL Hct (42.0-52.0) % MCV (80.0-105.0) fl MCH (25.0-35.0) pg MCHC (31.0-37.0) g/dl RDW (11.5-14.5) % Plt Count (120.0-450.0) 10^3/uL MPV (7.0-11.0) fl Gran % (50.0-68.0) % Lymph % (Auto) (22.0-35.0) % [place] % (Auto) (1.0-6.0) % Eos % (Auto) (1.5-5.0) % Baso % (Auto) (0.0-3.0) % Gran # (1.4-6.5) Lymph # (1.2-3.4) [place] # (0.1-0.6) Eos # (0.0-0.7) Baso # (0.0-2.0) K/mm3 PT 19.6 H (9.4-12.5) SECONDS INR 1.76 H (0.93-1.08) pCO2 (35-45) mm/Hg pO2 (80-100) mm/Hg HCO3 (21-28) mmol/L ABG pH (7.35-7.45) ABG Total CO2 (22-28) mmol.L ABG O2 Saturation (95-98) % ABG O2 Content (15-23) ML/dl ABG Base Excess (-2.0-3.0) mmol/L ABG Hemoglobin (11.7-17.4) g/dL ABG Carboxyhemoglobin (0.5-1.5) % POC ABG HHb (Measured) (0-5) % ABG Methemoglobin (0.0-3.0) % ABG O2 Capacity (16-24) mL/dl Hgb O2 Saturation (95.0-98.0) % FiO2 % Sodium (132-148) mmol/L Potassium (3.6-5.0) mmol/L Chloride (98-107) mmol/L Carbon Dioxide (21-33) mmol/L Anion Gap (10-20) BUN (7-21) mg/dL Creatinine (0.8-1.5) mg/dl Est GFR ( Amer) Est GFR (Non-Af Amer) Random Glucose (70-110) mg/dL Calcium (8.4-10.5) mg/dL Total Bilirubin (0.2-1.3) mg/dL AST (17-59) U/L ALT (7-56) U/L Alkaline Phosphatase (38-126) U/L Total Protein (5.8-8.3) g/dL Albumin (3.0-4.8) g/dL Globulin gm/dL Albumin/Globulin Ratio (1.1-1.8) Laboratory Results - last 24 hr 05/03/17 05/03/17 05/03/17 08:55 09:09 09:10 WBC 7.1 RBC 3.96 Hgb 12.8 L Hct 39.1 L MCV 98.7 MCH 32.3 MCHC 32.7 RDW 15.7 H Plt Count 129 MPV 11.1 H Gran % 73.8 H Lymph % (Auto) 19.6 L [place] % (Auto) 5.5 Eos % (Auto) 0.8 L Baso % (Auto) 0.3 Gran # 5.27 Lymph # 1.4 [place] # 0.4 Eos # 0.1 Baso # 0.02 PT 19.6 H INR 1.76 H pCO2 34 L pO2 59.0 L HCO3 24.7 ABG pH 7.47 H ABG Total CO2 25.7 ABG O2 Saturation 93.9 L ABG O2 Content 16.4 ABG Base Excess 1.4 ABG Hemoglobin 12.8 ABG Carboxyhemoglobin 2.2 H POC ABG HHb (Measured) 5.9 H ABG Methemoglobin 0.8 ABG O2 Capacity 17.5 Hgb O2 Saturation 91.1 L FiO2 83.0 Sodium Potassium Chloride Carbon Dioxide Anion Gap BUN Creatinine Est GFR ( Amer) Est GFR (Non-Af Amer) Random Glucose Calcium Total Bilirubin AST ALT Alkaline Phosphatase Total Protein Albumin Globulin Albumin/Globulin Ratio 05/03/17 09:10 WBC RBC Hgb Hct MCV MCH MCHC RDW Plt Count MPV Gran % Lymph % (Auto) [place] % (Auto) Eos % (Auto) Baso % (Auto) Gran # Lymph # [place] # Eos # Baso # PT INR pCO2 pO2 HCO3 ABG pH ABG Total CO2 ABG O2 Saturation ABG O2 Content ABG Base Excess ABG Hemoglobin ABG Carboxyhemoglobin POC ABG HHb (Measured) ABG Methemoglobin ABG O2 Capacity Hgb O2 Saturation FiO2 Sodium 139 Potassium 3.9 Chloride 102 Carbon Dioxide 27 Anion Gap 14 BUN 25 H Creatinine 0.8 Est GFR ( Amer) > 60 Est GFR (Non-Af Amer) > 60 Random Glucose 122 H Calcium 9.0 Total Bilirubin 1.2 AST 37 ALT 31 Alkaline Phosphatase 93 Total Protein 8.3 Albumin 4.2 Globulin 4.1 Albumin/Globulin Ratio 1.0 L Critical Care Progress Note - Nutrition Nutrition: Nutrition Category Date Time Status Heart Healthy Diet [DIET] Diets 05/01/17 Breakfast Ordered Attending/Attestation - Attestation I have personally seen and examined this patient.: Yes I have fully participated in the care of the patient.: Yes I have reviewed all pertinent clinical information: Yes Notes (Text): 05/03/17 12:08 The patient was seen and examined at the bedside. Patient care was discussed with resident Medical records, lab studies, and imaging were reviewed and management issues were discussed and formulated. Last 24H events reviewed. Agree with above treatment plans as outlined in 's note with addition of the following: -hemodynamic monitoring to maintain MAP>65; cardiology team f\u -o2 supplementation with high-flow O2 to maintain Spo2 >90 Pao2>60 -pt currently on 40LPM and 80% fio2; we will continue titration of fio2 -ABG in AM reviewed -continue nebs and steroids and pulmonary toileting and continue incentive spirometry -continue broad spectrum Abx as per ID team and f\u cultures -f\u Bun\Cr and U\o; monitor and replace e-lites -PO diet and aspiration precautions -continue coumadin and monitor INR (2-3 target ) and for bleeding -PT\OT eval -DVT \ PUD prophylaxis CCM time 30min
[2017-05-03] MEDS: POLYETHYLENE GLYCOL 3350 17 GM/Dose PACKET PO SCH (16:52)
[2017-05-03] MEDS ORDERED: DOBUTamine 500mg/250ml D5W 500 MG/250 ML BAG IV PRN (18:42)
--- NOTE | 2017-05-04 01:44 | CON ---
PULMONARY CONSULTATION DATE: 05/03/2017 REFERRING PHYSICIAN: Nathaniel Zhang MD REASON FOR CONSULTATION: Chronic obstructive lung disease, cough, and shortness of breath. HISTORY OF PRESENT ILLNESS: This is an 86-year-old gentleman with past medical history significant for chronic obstructive lung disease, atrial fibrillation, congestive heart failure, IA, coronary artery disease, history of coronary stent, history of GI bleed, esophageal varices, history of hepatitis C, hypertension, tremor, came in because of near syncopal episode. He fell down, was on the ground for few minutes. At home, he became unresponsive while sitting in the toilet. The patient does not remember the event, presented to the Intensive Care Unit on high-flow nasal cannula oxygen. Has cough, shortness of breath. No nausea. No vomiting. No diarrhea. Does have a leg swelling. PAST MEDICAL HISTORY: Cardiomyopathy, coronary artery disease, history of coronary stent, atrial fibrillation, chronic obstructive lung disease, history of hepatitis C with cirrhosis with esophageal varices, history of bleed, depression, hypertension. ALLERGIES: UNKNOWN. SOCIAL HISTORY: Stop smoking many years ago. Denies any alcohol use. FAMILY HISTORY: No significant cardiopulmonary disease reported. MEDICATIONS: He is on aspirin 81 mg daily, Colace 100 mg 3 times a day, Coumadin 4 mg given, Cozaar 50 mg daily, Lasix 40 mg twice a day, metoprolol tartarate 100 mg twice a day, MiraLax 17 g daily, Mysoline 100 mg twice a day, Protonix 40 mg daily, Rocephin 1 g daily, Solu-Medrol 40 mg q. 12 hours, Tylenol p.r.n., Xopenex inhaled q. 6 hours, Zithromax 500 mg daily and Zoloft 25 mg daily. REVIEW OF SYSTEMS: No headache. No rhinitis. Has cough, shortness of breath, sputum production. No chest pain. No nausea or vomiting. No dysuria. Does have a leg swelling. PHYSICAL EXAMINATION GENERAL: Sitting up in a chair with high-flow nasal cannula oxygen. VITAL SIGNS: Temperature is 98, heart rate is 74, respiratory rate 23, blood pressure 103/67 and pulse oximetry 94% on high-flow nasal cannula oxygen. HEENT: Moist mucous membranes. Crowded airway. NECK: Supple. No JVD. LUNGS: Has scattered crackles and rhonchi. HEART: S1 and S2. ABDOMEN: Soft, nontender and nondistended. EXTREMITIES: Does have edema. NEUROLOGIC: Awake, alert and follow simple commands. LABORATORY DATA: Shows hemoglobin 12.8, hematocrit 39.1, WBC 7.1 and platelet is 129. INR 1.76. ABG shows pH 7.47, pCO2 34, pO2 59 this is on high-flow nasal cannula oxygen. Sodium 139, potassium 3.9, chloride 102, bicarbonate 27, BUN 25, creatinine 0.8, glucose 122 and calcium 9.0. AST 37, ALT 31, alk phos is 93, albumin is 4.2. Influenza A and B is negative. Microbiology blood culture, urine culture is no growth. Has a CAT scan of the chest done 2 days ago, which shows left lower lobe infiltrate, severe emphysema, cardiomegaly, bilateral pleural effusion, gall stone with mild dilated common bile duct. Had echocardiogram done, which shows right ventricular systolic pressure is 72. Has valvular heart disease, moderate to severe aortic insufficiency. There is left ventricular hypertrophy, also left ventricular systolic function is down. Has a V/Q scan done on admission, which shows low probability of PE. IMPRESSION AND PLAN: Respiratory failure at present on high-flow nasal cannula oxygen, has a severe chronic obstructive pulmonary disease on top of it, has a cardiomyopathy with decreased systolic function, hypertrophic heart with severe pulmonary hypertension, also atrial fibrillation with controlled heart rate, has a liver cirrhosis, hepatitis C, esophageal varices, history of gastrointestinal bleed, coronary artery disease, history of coronary stent, hypertension, depression. Agree with the plan and management. I think the patient will benefit from dobutamine IV. Continue IV and inhaled bronchodilator. Continue diuretics. Continue high-flow oxygen, aspiration precaution. Followup ABG, chest x-ray, CBC, CMP in the morning. Critical care time was more than 35 minutes. Thank you and we will follow with you. Smooth Roche MD
[2017-05-04 06:11] LABS: BASO # 0.01 K/mm3 (0.0-2.0); BASO % 0.2 % (0.0-3.0); EOS % 0.2 % (1.5-5.0); GRAN # 5.38 (1.4-6.5); GRAN % 82.7 % (50.0-68.0); HEMATOCRIT 38.3 % (42.0-52.0); LYMPH # 0.8 (1.2-3.4); LYMPH % 11.8 % (22.0-35.0); MEAN CORPUSCULAR HEMOGLOBIN 32.7 pg (25.0-35.0); MEAN CORPUSCULAR HGB CONC 33.4 g/dl (31.0-37.0); MONO # 0.3 (0.1-0.6); MONO % 5.1 % (1.0-6.0); RED CELL DISTRIBUTION WIDTH 15.8 % (11.5-14.5); WHITE BLOOD COUNT 6.5 10^3/ul (4.5-11.0)
[2017-05-04 06:32] LABS: INR 1.55 (0.93-1.08)
[2017-05-04 06:51] LABS: ALKALINE PHOSPHATASE 95 U/L (38-126); ALT/SGPT 36 U/L (7-56); AST/SGOT 39 U/L (17-59); BILIRUBIN,TOTAL 1.2 mg/dL (0.2-1.3); BLOOD UREA NITROGEN 31 mg/dL (7-21); CALCIUM 8.6 mg/dL (8.4-10.5); CARBON DIOXIDE 26 mmol/L (21-33); CHLORIDE 101 mmol/L (98-107); GFR AFRICAN-AMERICAN > 60; GLUCOSE,RANDOM 127 mg/dL (70-110); POTASSIUM 3.4 mmol/L (3.6-5.0); SODIUM 139 mmol/L (132-148); TOTAL PROTEIN 7.8 g/dL (5.8-8.3)
[2017-05-04] MEDS: Levalbuterol 1.25 MG/3 ML Inhal Soln UD IH SCH ×3 (07:37→19:49)
--- NOTE | 2017-05-04 07:46 | CP.PCM.PN ---
Subjective - Date & Time of Evaluation Date of Evaluation: 05/04/17 Time of Evaluation: 07:00 - Subjective Subjective: Stable in CCU. No CP or SOB. Sitting in chair. High Flow O2. On dobut. 2 mc./Kg. /min. now V/S noted. AF, PVC's PE: Lungs: rhonchi Cor: irreg S1S2 Abd.: soft Ext.: mild edema Neuro.: alert I/O= recorded Labs/ABG's noted. Echo noted. Mild LVD, Mod. MR and TR. Mod/Sev. AI. Severe PH V/Q: low prob. CT chest noted: LLL pneumonia. Small werner. pl. effusions Objective - Vital Signs/Intake and Output Vital Signs (last 24 hours): Temp Pulse Resp BP Pulse Ox 98 F 95 H 18 99/61 L 96 05/03/17 04:00 05/04/17 06:00 05/04/17 04:00 05/03/17 21:32 05/03/17 00:00 Intake and Output: 05/04/17 05/04/17 06:59 18:59 Intake Total 47 Output Total 1100 Balance -1053 - Medications Medications: Current Medications Acetaminophen (Tylenol 325mg Tab) 650 mg PO Q4H PRN PRN Reason: Pain, moderate (4-7) Last Admin: 05/01/17 09:46 Dose: 650 mg Aspirin (Aspirin Chewable) 81 mg PO DAILY [facility] Last Admin: 05/03/17 10:48 Dose: 81 mg Azithromycin (Zithromax) 500 mg PO DAILY [facility] Last Admin: 05/03/17 10:49 Dose: 500 mg Docusate Sodium (Colace) 100 mg PO TID [facility] Last Admin: 05/03/17 19:51 Dose: 100 mg Furosemide (Lasix) 40 mg IVP Q12 [facility] Last Admin: 05/03/17 21:32 Dose: 40 mg Ceftriaxone Sodium (Rocephin 1 Gram Ivpb (D5w)) 1 gm in 100 mls @ 100 mls/hr IVPB DAILY [facility] PRN Reason: Protocol Last Admin: 05/03/17 10:51 Dose: 100 mls/hr Dobutamine HCl/Dextrose (Dobutamine/Dextrose 5% 500mg/250ml) 500 mg in 250 mls @ 3.944 mls/hr IV .Q24H PRN; Protocol; 2 MCG/KG/MIN PRN Reason: TITRATE PER PROTOCOL Last Admin: 05/03/17 20:40 Dose: 2 mcg/kg/min, 3.944 mls/hr Levalbuterol HCl (Xopenex) 1.25 mg IH [id number] [facility] Last Admin: 05/03/17 20:02 Dose: 1.25 mg Losartan Potassium (Cozaar) 50 mg PO DAILY [facility] Last Admin: 05/03/17 10:48 Dose: 50 mg Methylprednisolone (Solu-Medrol) 40 mg IVP Q12 [facility] Last Admin: 05/03/17 21:26 Dose: 40 mg Metoprolol Tartrate (Lopressor) 100 mg PO BID [facility] Last Admin: 05/03/17 17:01 Dose: Not Given Pantoprazole Sodium (Protonix Ec Tab) 40 mg PO ACB [facility] Last Admin: 05/03/17 08:16 Dose: 40 mg Polyethylene Glycol (Miralax) 17 gm PO DAILY [facility] Last Admin: 05/03/17 16:52 Dose: 17 gm Primidone (Mysoline) 100 mg PO BID [facility] Last Admin: 05/03/17 19:50 Dose: 100 mg Sertraline HCl (Zoloft) 25 mg PO DAILY [facility] Last Admin: 05/03/17 10:50 Dose: 25 mg Warfarin Sodium (Coumadin) 4 mg PO 1800 [facility] PRN Reason: Protocol Last Admin: 05/03/17 19:52 Dose: 4 mg - Labs Labs: 05/04/17 05:15 05/04/17 05:15 PT 17.2 SECONDS (9.4-12.5) H 05/04/17 05:15 INR 1.55 (0.93-1.08) H 05/04/17 05:15 APTT 33.9 Seconds (25.1-36.5) 04/30/17 21:50 Assessment and Plan - Assessment and Plan (Free Text) Assessment: Syncope Dyspnea COPD/PH/Former Smoker CAD/Remote PCI/LVD Valvular Heart Disease: Mod. MR and TR, Mod/Sev. AI A. Fib./ PVC's Hepatitis C Esophageal Varices H/O GIB GERD Werner. THR Tremor Plan: Replace K+ As per pulmonary: AB, respiratory tx., dobutamine drip for now. Continue IV Lasix, PO metoprolol OOB to chair as sowmya. Monitor INR's. Warfarin by INR daily Monitor labs, I/O, sats., etc. As per Intensivists and Dr. Zhang. Will follow.
[2017-05-04] MEDS ORDERED: Enoxaparin 60 mg Syringe SC STA (08:56)
[2017-05-04] MEDS ORDERED: Potassium Chloride 40 mEq/30 ml LIQ UD PO ONE (09:01)
[2017-05-04] MEDS: MethylPREDNISolone 40 mg Vial IVP SCH ×3 (09:05→21:01)
[2017-05-04] MEDS: Potassium Chloride 20 mEq ER Tab PO SCH ×2 (09:06→17:47)
[2017-05-04] MEDS: Pantoprazole 40 mg EC Tab PO SCH (09:07)
[2017-05-04] MEDS: POLYETHYLENE GLYCOL 3350 17 GM/Dose PACKET PO SCH (09:08)
[2017-05-04] MEDS: Enoxaparin 60 mg Syringe SC SCH ×2 (09:20→21:02)
--- NOTE | 2017-05-04 09:42 | CP.CCUPN ---
<Van Brian - Last Filed: 05/04/17 09:28> CCU Subjective - Physician Review Subjective (Free Text): Pt seen and examined at bedside. Pt doing well overnight, no acute events. Pt remains with O2 sats between greater than 90% on high flow nasal cannula. Denies CP, SOB, N/V/D, fever, chills. CCU Objective - Vital Signs / Intake & Output Vital Signs (Last 4 hours): Vital Signs Pulse BP 05/04/17 09:08 98 H 109/58 L 05/04/17 09:07 98 H 109/58 L 05/04/17 09:04 109/58 L 05/04/17 06:00 95 H Intake and Output (Last 8hrs): Intake & Output 05/03/17 05/04/17 05/04/17 22:59 06:59 14:59 Intake Total 47 Output Total 1100 Balance -1053 Intake: IV 47 Antibiotics 47 Output: Urine 1100 Urine, Voided 1100 Other: # Bowel Movements 1 - Physical Exam Head: Positive for: Atraumatic, Normocephalic Pupils: Positive for: PERRL Extroacular Muscles: Positive for: EOMI Conjunctiva: Positive for: Normal Ears: Negative for: Erythema, TM Bulging, Fluid Mouth: Positive for: Moist Mucous Membranes Pharnyx: Negative for: ERYTHEMA, EXUDATE, TONSILS ENLARGED, Peritonsilar Swelling, Uvular Deviation, Muffled/Hoarse Voice, Strider, Soft Palate/Uvular Edema Nose (External): Positive for: Atraumatic Nose (Internal): Positive for: Normal Inspection Neck: Positive for: Normal Range of Motion Respiratory/Chest: Positive for: Decreased Breath Sounds, Other (Coarse breath sounds). Negative for: Respiratory Distress, Accessory Muscle Use Cardiovascular: Positive for: Irregular Rhythm, Tachycardic Abdomen: Positive for: Normal Bowel Sounds. Negative for: Tenderness, Distention, Peritoneal Signs Back: Negative for: CVA Tenderness Upper Extremity: Positive for: Neurovascularly Intact, Capillary Refill < 2s Lower Extremity: Negative for: CALF TENDERNESS Neurological: Positive for: GCS=15, CN II-XII Intact, Speech Normal, Motor Func Grossly Intact, Normal Sensory Function Skin: Positive for: Warm, Dry, Normal Color. Negative for: Rashes Psychiatric: Positive for: Alert, Oriented x 3, Normal Insight, Normal Concentration - Medications Active Medications: Active Medications Generic Name Dose Route Start Last Admin Trade Name Freq PRN Reason Stop Dose Admin Acetaminophen 650 mg 05/01/17 09:41 05/01/17 09:46 Tylenol 325mg Tab PO 650 mg Q4H PRN Administration Pain, moderate (4-7) Aspirin 81 mg 05/01/17 10:00 05/04/17 09:06 Aspirin Chewable PO 81 mg DAILY [facility] Administration Azithromycin 500 mg 05/03/17 10:00 05/04/17 09:07 Zithromax PO 500 mg DAILY [facility] Administration Docusate Sodium 100 mg 05/03/17 14:00 05/04/17 09:07 Colace PO 100 mg TID [facility] Administration Enoxaparin Sodium 60 mg 05/04/17 09:00 05/04/17 09:20 Lovenox SC 60 mg Q12H [facility] Administration Protocol Furosemide 40 mg 05/01/17 10:00 05/04/17 09:04 Lasix IVP 40 mg Q12 [facility] Administration Dobutamine HCl/Dextrose 500 mg in 250 mls @ 3.944 mls/hr 05/03/17 18:42 05/03 20:40 Dobutamine/Dextrose 5% 500mg/250ml IV 2 mcg/kg/min .Q24H PRN 3.944 mls/hr TITRATE PER PROTOCOL Administration Protocol 2 MCG/KG/MIN Ceftriaxone Sodium 1 gm/ 100 mls @ 100 mls/hr 05/04/17 07:47 05/04/17 09:10 Sodium Chloride IVPB 100 mls/hr DAILY [facility] Administration Protocol Levalbuterol HCl 1.25 mg 05/01/17 02:00 05/04/17 07:37 Xopenex IH 1.25 mg [id number] [facility] Administration Losartan Potassium 50 mg 05/01/17 10:00 05/04/17 09:07 Cozaar PO Not Given DAILY [facility] Methylprednisolone 20 mg 05/04/17 08:58 Solu-Medrol IVP Q12 [facility] Metoprolol Tartrate 100 mg 05/01/17 10:00 05/04/17 09:08 Lopressor PO Not Given BID [facility] Pantoprazole Sodium 40 mg 05/02/17 07:30 05/04/17 09:07 Protonix Ec Tab PO 40 mg ACB [facility] Administration Polyethylene Glycol 17 gm 05/03/17 12:00 05/04/17 09:08 Miralax PO 17 gm DAILY [facility] Administration Potassium Chloride 20 meq 05/04/17 10:00 05/04/17 09:06 K-Dur 20 Meq Er Tab PO 20 meq BID [facility] Administration Primidone 100 mg 05/03/17 10:00 05/04/17 09:09 Mysoline PO 100 mg BID [facility] Administration Sertraline HCl 25 mg 05/01/17 10:00 05/04/17 09:06 Zoloft PO 25 mg DAILY [facility] Administration Warfarin Sodium 5 mg 05/04/17 08:58 Coumadin PO 1800 [facility] Protocol - Patient Studies Lab Studies: Microbiology Studies 05/01/17 00:40 Blood Culture - Preliminary Blood-Venous NO GROWTH AFTER 3 DAYS 05/01/17 00:10 Blood Culture - Preliminary Blood-Venous NO GROWTH AFTER 3 DAYS Lab Studies 05/04/17 05/04/17 05/04/17 Range/Units 05:15 05:15 05:15 WBC 6.5 (4.5-11.0) 10^3/ul RBC 3.91 (3.5-6.1) 10^6/uL Hgb 12.8 L (14.0-18.0) g/dL Hct 38.3 L (42.0-52.0) % MCV 98.0 (80.0-105.0) fl MCH 32.7 (25.0-35.0) pg MCHC 33.4 (31.0-37.0) g/dl RDW 15.8 H (11.5-14.5) % Plt Count 126 (120.0-450.0) 10^3/uL MPV 11.0 (7.0-11.0) fl Gran % 82.7 H (50.0-68.0) % Lymph % (Auto) 11.8 L (22.0-35.0) % Gonzales % (Auto) 5.1 (1.0-6.0) % Eos % (Auto) 0.2 L (1.5-5.0) % Baso % (Auto) 0.2 (0.0-3.0) % Gran # 5.38 (1.4-6.5) Lymph # 0.8 L (1.2-3.4) Gonzales # 0.3 (0.1-0.6) Eos # 0.0 (0.0-0.7) Baso # 0.01 (0.0-2.0) K/mm3 PT 17.2 H (9.4-12.5) SECONDS INR 1.55 H (0.93-1.08) Sodium 139 (132-148) mmol/L Potassium 3.4 L (3.6-5.0) mmol/L Chloride 101 (98-107) mmol/L Carbon Dioxide 26 (21-33) mmol/L Anion Gap 15 (10-20) BUN 31 H (7-21) mg/dL Creatinine 0.8 (0.8-1.5) mg/dl Est GFR ( Amer) > 60 Est GFR (Non-Af Amer) > 60 Random Glucose 127 H (70-110) mg/dL Calcium 8.6 (8.4-10.5) mg/dL Total Bilirubin 1.2 (0.2-1.3) mg/dL AST 39 (17-59) U/L ALT 36 (7-56) U/L Alkaline Phosphatase 95 (38-126) U/L Total Protein 7.8 (5.8-8.3) g/dL Albumin 3.9 (3.0-4.8) g/dL Globulin 3.9 gm/dL Albumin/Globulin Ratio 1.0 L (1.1-1.8) 05/03/17 05/03/17 Range/Units 09:10 08:55 WBC (4.5-11.0) 10^3/ul RBC (3.5-6.1) 10^6/uL Hgb (14.0-18.0) g/dL Hct (42.0-52.0) % MCV (80.0-105.0) fl MCH (25.0-35.0) pg MCHC (31.0-37.0) g/dl RDW (11.5-14.5) % Plt Count (120.0-450.0) 10^3/uL MPV (7.0-11.0) fl Gran % (50.0-68.0) % Lymph % (Auto) (22.0-35.0) % Gonzales % (Auto) (1.0-6.0) % Eos % (Auto) (1.5-5.0) % Baso % (Auto) (0.0-3.0) % Gran # (1.4-6.5) Lymph # (1.2-3.4) Gonzales # (0.1-0.6) Eos # (0.0-0.7) Baso # (0.0-2.0) K/mm3 PT 19.6 H (9.4-12.5) SECONDS INR 1.76 H (0.93-1.08) Sodium 139 (132-148) mmol/L Potassium 3.9 (3.6-5.0) mmol/L Chloride 102 (98-107) mmol/L Carbon Dioxide 27 (21-33) mmol/L Anion Gap 14 (10-20) BUN 25 H (7-21) mg/dL Creatinine 0.8 (0.8-1.5) mg/dl Est GFR ( Amer) > 60 Est GFR (Non-Af Amer) > 60 Random Glucose 122 H (70-110) mg/dL Calcium 9.0 (8.4-10.5) mg/dL Total Bilirubin 1.2 (0.2-1.3) mg/dL AST 37 (17-59) U/L ALT 31 (7-56) U/L Alkaline Phosphatase 93 (38-126) U/L Total Protein 8.3 (5.8-8.3) g/dL Albumin 4.2 (3.0-4.8) g/dL Globulin 4.1 gm/dL Albumin/Globulin Ratio 1.0 L (1.1-1.8) Laboratory Results - last 24 hr 05/03/17 05/03/17 05/04/17 08:55 09:10 05:15 WBC 6.5 RBC 3.91 Hgb 12.8 L Hct 38.3 L MCV 98.0 MCH 32.7 MCHC 33.4 RDW 15.8 H Plt Count 126 MPV 11.0 Gran % 82.7 H Lymph % (Auto) 11.8 L Gonzales % (Auto) 5.1 Eos % (Auto) 0.2 L Baso % (Auto) 0.2 Gran # 5.38 Lymph # 0.8 L Gonzales # 0.3 Eos # 0.0 Baso # 0.01 PT 19.6 H INR 1.76 H Sodium 139 Potassium 3.9 Chloride 102 Carbon Dioxide 27 Anion Gap 14 BUN 25 H Creatinine 0.8 Est GFR ( Amer) > 60 Est GFR (Non-Af Amer) > 60 Random Glucose 122 H Calcium 9.0 Total Bilirubin 1.2 AST 37 ALT 31 Alkaline Phosphatase 93 Total Protein 8.3 Albumin 4.2 Globulin 4.1 Albumin/Globulin Ratio 1.0 L 05/04/17 05/04/17 05:15 05:15 WBC RBC Hgb Hct MCV MCH MCHC RDW Plt Count MPV Gran % Lymph % (Auto) Gonzales % (Auto) Eos % (Auto) Baso % (Auto) Gran # Lymph # Gonzales # Eos # Baso # PT 17.2 H INR 1.55 H Sodium 139 Potassium 3.4 L Chloride 101 Carbon Dioxide 26 Anion Gap 15 BUN 31 H Creatinine 0.8 Est GFR ( Amer) > 60 Est GFR (Non-Af Amer) > 60 Random Glucose 127 H Calcium 8.6 Total Bilirubin 1.2 AST 39 ALT 36 Alkaline Phosphatase 95 Total Protein 7.8 Albumin 3.9 Globulin 3.9 Albumin/Globulin Ratio 1.0 L Critical Care Progress Note - Nutrition Nutrition: Nutrition Category Date Time Status Heart Healthy Diet [DIET] Diets 05/01/17 Breakfast Ordered Assessment/Plan - Assessment and Plan (Free Text) Plan: 86 M with PMH of atrial fibrillation on coumadin, CHF, IA, CAD with stent in LAD , UGIB and esophageal varices, Hep C, HTN, depression and tremors presents with syncope and admitted to the ICU for hypoxia. Pt improving on high flow nasal cannula will be switched to venti mask. Will attempt to transfer patient to floor later today. Neuro - AAO x 3 - CT head shows no acute pathology - Carotid u/s pending Cardio - Echo showing severe pulm htn and moderate to severe aortic insufficiency. See full report for more details. - INR subtherapeutic. Warfarin dose changed to 5 daily. Lovenox added today for coverage. - Continue Warfarin, trend INR - ASA, Lasix, Cozaar, Lopressor - strict Is & Os - measure daily weight - HHD with fluid restriction - Cardio: Dr. Simental Respiratory - VQ scan shows low probability of PE, CTA chest if no improvement - CT chest shows left lower lobe infiltrate with emphysematous changes - Continue Azithromycin and Rocephin for CAP - Switched from high flow to venti mask. Will monitor. - Maintain O2 sats > 90% - Continue Lasix - Solumedrol tapered to 20 mg q12h GI - HHD with fluid restrictions - Protonix for ppx ID - negative for flu - Pending strep pneumo, legionella, and procalcitonin - IV antibiotics Endo - Maintain euglycemia 140-180 Renal - Strict I's & O's - Monitor and replete electrolytes as needed Heme/Onc - Lovenox for Afib until INR therapeutic - Warfarin changed to 5 mg daily Snehal, PGY-2 <Tim José - Last Filed: 05/04/17 10:21> CCU Objective - Vital Signs / Intake & Output Vital Signs (Last 4 hours): Vital Signs Pulse BP 05/04/17 09:08 98 H 109/58 L 05/04/17 09:07 98 H 109/58 L 05/04/17 09:04 109/58 L Intake and Output (Last 8hrs): Intake & Output 05/03/17 05/04/17 05/04/17 22:59 06:59 14:59 Intake Total 47 Output Total 1100 Balance -1053 Intake: IV 47 Antibiotics 47 Output: Urine 1100 Urine, Voided 1100 Other: # Bowel Movements 1 - Medications Active Medications: Active Medications Generic Name Dose Route Start Last Admin Trade Name Freq PRN Reason Stop Dose Admin Acetaminophen 650 mg 05/01/17 09:41 05/01/17 09:46 Tylenol 325mg Tab PO 650 mg Q4H PRN Administration Pain, moderate (4-7) Aspirin 81 mg 05/01/17 10:00 05/04/17 09:06 Aspirin Chewable PO 81 mg DAILY A[facility] Administration Azithromycin 500 mg 05/03/17 10:00 05/04/17 09:07 Zithromax PO 500 mg DAILY [facility] Administration Docusate Sodium 100 mg 05/03/17 14:00 05/04/17 09:07 Colace PO 100 mg TID ANA [facility]URA Administration Enoxaparin Sodium 60 mg 05/04/17 09:00 05/04/17 09:20 Lovenox SC 60 mg Q12H ANA LAURA Administration Protocol Furosemide 40 mg 05/01/17 10:00 05/04/17 09:04 Lasix IVP 40 mg Q12 ANA [facility]UR[facility] Administration Dobutamine HCl/Dextrose 500 mg in 250 mls @ 3.944 mls/hr 05/03/17 18:42 05/03 20:40 Dobutamine/Dextrose 5% 500mg/250ml IV 2 mcg/kg/min .Q24H PRN 3.944 mls/hr TITRATE PER PROTOCOL Administration Protocol 2 MCG/KG/MIN Ceftriaxone Sodium 1 gm/ 100 mls @ 100 mls/hr 05/04/17 07:47 05/04/17 09:10 Sodium Chloride IVPB 100 mls/hr DAILY ANA [facility] Administration Protocol Levalbuterol HCl 1.25 mg 05/01/17 02:00 05/04/17 07:37 Xopenex IH 1.25 mg [id number] ANA LAURA Administration Losartan Potassium 50 mg 05/01/17 10:00 05/04/17 09:07 Cozaar PO Not Given DAILY [facility] Methylprednisolone 20 mg 05/04/17 08:58 Solu-Medrol IVP Q12 ANA [facility]URA Metoprolol Tartrate 100 mg 05/01/17 10:00 05/04/17 09:08 Lopressor PO Not Given BID ANA [facility] Pantoprazole Sodium 40 mg 05/02/17 07:30 05/04/17 09:07 Protonix Ec Tab PO 40 mg ACB A[facility] Administration Polyethylene Glycol 17 gm 05/03/17 12:00 05/04/17 09:08 Miralax PO 17 gm DAILY A[facility] Administration Potassium Chloride 20 meq 05/04/17 10:00 05/04/17 09:06 K-Dur 20 Meq Er Tab PO 20 meq BID A[facility] Administration Primidone 100 mg 05/03/17 10:00 05/04/17 09:09 Mysoline PO 100 mg BID ANA [facility]URA Administration Sertraline HCl 25 mg 05/01/17 10:00 05/04/17 09:06 Zoloft PO 25 mg DAILY ANA [facility] Administration Warfarin Sodium 5 mg 05/04/17 08:58 Coumadin PO 1800 ANA [facility]UR[facility] Protocol - Patient Studies Lab Studies: Microbiology Studies 05/01/17 00:40 Blood Culture - Preliminary Blood-Venous NO GROWTH AFTER 3 DAYS 05/01/17 00:10 Blood Culture - Preliminary Blood-Venous NO GROWTH AFTER 3 DAYS Lab Studies 05/04/17 05/04/17 05/04/17 Range/Units 05:15 05:15 05:15 WBC 6.5 (4.5-11.0) 10^3/ul RBC 3.91 (3.5-6.1) 10^6/uL Hgb 12.8 L (14.0-18.0) g/dL Hct 38.3 L (42.0-52.0) % MCV 98.0 (80.0-105.0) fl MCH 32.7 (25.0-35.0) pg MCHC 33.4 (31.0-37.0) g/dl RDW 15.8 H (11.5-14.5) % Plt Count 126 (120.0-450.0) 10^3/uL MPV 11.0 (7.0-11.0) fl Gran % 82.7 H (50.0-68.0) % Lymph % (Auto) 11.8 L (22.0-35.0) % Gonzales % (Auto) 5.1 (1.0-6.0) % Eos % (Auto) 0.2 L (1.5-5.0) % Baso % (Auto) 0.2 (0.0-3.0) % Gran # 5.38 (1.4-6.5) Lymph # 0.8 L (1.2-3.4) Gonzales # 0.3 (0.1-0.6) Eos # 0.0 (0.0-0.7) Baso # 0.01 (0.0-2.0) K/mm3 PT 17.2 H (9.4-12.5) SECONDS INR 1.55 H (0.93-1.08) Sodium 139 (132-148) mmol/L Potassium 3.4 L (3.6-5.0) mmol/L Chloride 101 (98-107) mmol/L Carbon Dioxide 26 (21-33) mmol/L Anion Gap 15 (10-20) BUN 31 H (7-21) mg/dL Creatinine 0.8 (0.8-1.5) mg/dl Est GFR ( Amer) > 60 Est GFR (Non-Af Amer) > 60 Random Glucose 127 H (70-110) mg/dL Calcium 8.6 (8.4-10.5) mg/dL Total Bilirubin 1.2 (0.2-1.3) mg/dL AST 39 (17-59) U/L ALT 36 (7-56) U/L Alkaline Phosphatase 95 (38-126) U/L Total Protein 7.8 (5.8-8.3) g/dL Albumin 3.9 (3.0-4.8) g/dL Globulin 3.9 gm/dL Albumin/Globulin Ratio 1.0 L (1.1-1.8) Laboratory Results - last 24 hr 05/04/17 05/04/17 05/04/17 05:15 05:15 05:15 WBC 6.5 RBC 3.91 Hgb 12.8 L Hct 38.3 L MCV 98.0 MCH 32.7 MCHC 33.4 RDW 15.8 H Plt Count 126 MPV 11.0 Gran % 82.7 H Lymph % (Auto) 11.8 L Gonzales % (Auto) 5.1 Eos % (Auto) 0.2 L Baso % (Auto) 0.2 Gran # 5.38 Lymph # 0.8 L Gonzales # 0.3 Eos # 0.0 Baso # 0.01 PT 17.2 H INR 1.55 H Sodium 139 Potassium 3.4 L Chloride 101 Carbon Dioxide 26 Anion Gap 15 BUN 31 H Creatinine 0.8 Est GFR ( Amer) > 60 Est GFR (Non-Af Amer) > 60 Random Glucose 127 H Calcium 8.6 Total Bilirubin 1.2 AST 39 ALT 36 Alkaline Phosphatase 95 Total Protein 7.8 Albumin 3.9 Globulin 3.9 Albumin/Globulin Ratio 1.0 L Critical Care Progress Note - Nutrition Nutrition: Nutrition Category Date Time Status Heart Healthy Diet [DIET] Diets 05/01/17 Breakfast Ordered Assessment/Plan - Assessment and Plan (Free Text) Plan: Patient seen and examined, on rounds with resident, labs, imaging reviewed, agree with residents note with following additions/exceptions: Patient is 86yo male with PMHX of systolic CHF, COPD, Severe Pulm HTN, a/w SOB, hypoxia, requiring high flow. Currently the patient is on VM 50%, sat 90-92%, comfortable, with no major complaints, tolerating PO diet. Severe Pulm HTN Systolic CHF SOB Hypoxia Afib on A/C Recommend: - cont with supp o2 as needed, wena off high flow, to VM50% - cont with IV antibiotics to cover for CAP - check procal, Urine Lg, Strep - Cont with Dobutamine as per pulm - ASA, Cozaar, Lopressor - IV Diuresis - INR subtherpaeutic, would give therapeutic dose of Lovenox with Coumadin bridge - monitor for bleeding - monitor Cr/BUN - maintain euglycemia - GI ppx - DVT ppx - would transfer to telemetry CC time 35 minutes
--- NOTE | 2017-05-04 14:28 | US ---
PROCEDURE: Bilateral carotid artery duplex ultrasound HISTORY: Carotid stenosis syncope PHYSICIAN(S): Phillip Gastelum MD. TECHNIQUE: Duplex sonography and color-flow Doppler were used to evaluate the carotid bifurcations and limited segments of the vertebral arteries bilaterally. FINDINGS: There is mild smooth echogenic plaque noted at the carotid bifurcations bilaterally. The peak systolic velocity in the proximal right internal carotid artery is 55 cm/sec. This corresponds to a 20 to 39% proximal right ICA stenosis. Normal systolic velocities are noted in the proximal right external carotid artery. There is antegrade flow in the right vertebral artery. The peak systolic velocity in the proximal left internal carotid artery is 61 cm/sec. This corresponds to a 20 to 39% proximal left ICA stenosis. Normal systolic velocities are noted in the proximal left external carotid artery. There is antegrade flow in the left vertebral artery. IMPRESSION: 1. Bilateral 20-39% proximal ICA stenoses. 2. Antegrade flow in both vertebral arteries.
--- NOTE | 2017-05-04 19:50 | PN ---
PULMONARY PROGRESS NOTE DATE: 05/04/2017 REFERRING PHYSICIAN: Nathaniel Zhang MD SUBJECTIVE: The patient is lying in the bed, feels much better. Decreased cough. Decreased shortness of breath. No nausea. No vomiting. No diarrhea. No leg pain or swelling. OBJECTIVE: GENERAL: In no acute distress. VITAL SIGNS: Temperature is 98, heart rate is 90, respiratory rate is 20, blood pressure 108/73, and pulse ox 98% on nasal cannula. HEENT: Moist mucous membranes. Crowded airway. NECK: Supple. No JVD. LUNGS: Has a crackles, prolonged expiratory phase with some rhonchi. HEART: S1 and S2. ABDOMEN: Soft and nontender. No organomegaly. EXTREMITIES: There is no edema. NEUROLOGIC: Awake, alert, and follows simple commands. MEDICATIONS: He is on aspirin 81 mg daily, Rocephin 1 g IV daily, Colace 100 mg twice a day, Coumadin 5 mg will be given today, on dobutamine, also on potassium supplement 20 mEq twice a day, Lasix 40 mg twice a day, metoprolol tartrate 100 mg twice a day, Lovenox 60 mg q.12 hours, MiraLax 17 g daily, primidone 100 mg twice a day, Protonix 40 mg daily, Solu-Medrol 20 mg q.12 hours, Tylenol p.r.n. basis, Xopenex inhaled q.6 hours, Zithromax 500 mg daily, and Zoloft 25 mg daily. LABORATORY DATA: Shows hemoglobin 12.8, hematocrit 38.3, WBC 6.5, and platelet count is 126. INR 1.55. Sodium 139, potassium 3.4, chloride 101, bicarbonate 26, BUN 31, creatinine 0.38, glucose is 127, calcium is 0.6, total bili 1.2, AST 39, ALT 36, alk phos is 95, and albumin is 3.9. Microbiology; blood culture and urine culture, there is no growth. IMPRESSION AND PLAN: Respiratory failure, which is much improved, now on nasal cannula, severe chronic obstructive lung disease on top of has cardiomyopathy with decreased systolic function and pulmonary hypertension, atrial fibrillation with controlled heart rate, cirrhotic liver, history of hepatitis C, esophageal varices, history of gastrointestinal bleed in the past, coronary artery disease, history of coronary stent, hypertension, depression, responded well to dobutamine improving, kidney function and blood pressure improving, pulmonary function, presently on nasal cannula. I will suggest continue dobutamine for now as long as he tolerates and clears lungs, continue steroids, inhaled bronchodilator, follow up ABG, chest x-ray, CBC, and CMP in the morning. Critical care time is more than 35 minutes. Thank you and we will follow with you. Smooth Roche MD
[2017-05-05] MEDS: Levalbuterol 1.25 MG/3 ML Inhal Soln UD IH SCH ×4 (01:30→19:52)
--- NOTE | 2017-05-05 05:53 | PN ---
DATE: 05/04/2017 PROGRESS NOTE SUBJECTIVE: The patient is still in ICU, now using the bed, comfortable, sitting all day in the recliner. No new complaints. He still required high-flow oxygen. The patient's son is next to him. He feels better. He feels comfortable. Currently on IV dobutamine as per uniform designer, and the patient is stable. PHYSICAL EXAMINATION: VITAL SIGNS: On 05/04/2017, his vital signs as follows, temperature 98, heart rate 98, blood pressure 109/58, saturating 90%. HEAD AND NECK: Normal. No JVD. No thyromegaly. CHEST: Clear. CARDIAC: First sound and second sound are normal. ABDOMEN: Soft and nontender. EXTREMITIES: No edema. NEUROLOGIC: Normal. IMPRESSION AND PLAN: 1. Acute respiratory failure due to multifactorial. 2. Acute congestive heart failure. 3. Chronic obstructive pulmonary disease and complicated with pneumonia. 4. Continue current therapy. 5. Community-acquired pneumonia, chronic obstructive pulmonary disease. Continue intravenous steroids, continue intravenous antibiotics. The patient seen by Dr. Roche. So, we will continue Rocephin and Zithromax. 6. Chronic atrial fibrillation. 7. Coronary artery disease. 8. Ischemic cardiomyopathy. 9. Valvular heart disease. We will continue current therapy. The patient is getting Dobutrex to treat his left ventricular functions and he is getting beta-amrita for his heart rate control and aspirin 81 mg plus Coumadin, to be followed for his chronic atrial fibrillation. 10. The patient has chronic tension tremors. We will continue Mysoline and continue current medications. The patient's blood culture is negative. The patient's carotid ultrasounds bilateral was insignificant. The patient's last arterial blood gas was done, which showed pO2 is 59, pCO2 of 34, bicarb 24, pH of 7.47 and was on 83 FiO2. PLAN: Continue current therapy. Monitor PT/INR. He is back on Coumadin. For the time being, we will continue Lovenox. We will discontinue the Lovenox once his PT/INR become therapeutic. We will follow up with the consultants and discuss with his son about the plan of care and necessity of keeping him here for another day or two though his condition improved and we will follow up clinically. Nathaniel Zhang MD [facility] # [id number]
[2017-05-05 06:17] LABS: BASO # 0.02 K/mm3 (0.0-2.0); BASO % 0.3 % (0.0-3.0); EOS % 0.3 % (1.5-5.0); GRAN # 5.16 (1.4-6.5); GRAN % 73.5 % (50.0-68.0); HEMATOCRIT 39.1 % (42.0-52.0); LYMPH # 1.3 (1.2-3.4); LYMPH % 18.1 % (22.0-35.0); MEAN CELL VOLUME 99.2 fl (80.0-105.0); MEAN CORPUSCULAR HEMOGLOBIN 32.5 pg (25.0-35.0); MEAN CORPUSCULAR HGB CONC 32.7 g/dl (31.0-37.0); MEAN PLATELET VOLUME 11.4 fl (7.0-11.0); MONO # 0.6 (0.1-0.6); MONO % 7.8 % (1.0-6.0); RED CELL DISTRIBUTION WIDTH 15.9 % (11.5-14.5)
[2017-05-05 06:27] LABS: INR 1.88 (0.93-1.08)
[2017-05-05 06:31] LABS: ALB/GLOB RATIO 1.1 (1.1-1.8); ALKALINE PHOSPHATASE 88 U/L (38-126); ALT/SGPT 37 U/L (7-56); AST/SGOT 45 U/L (17-59); BILIRUBIN,TOTAL 1.1 mg/dL (0.2-1.3); BLOOD UREA NITROGEN 42 mg/dL (7-21); CARBON DIOXIDE 28 mmol/L (21-33); CHLORIDE 104 mmol/L (98-107); GFR AFRICAN-AMERICAN > 60; GLUCOSE,RANDOM 105 mg/dL (70-110); POTASSIUM 4.5 mmol/L (3.6-5.0); SODIUM 144 mmol/L (132-148); TOTAL PROTEIN 7.8 g/dL (5.8-8.3)
--- NOTE | 2017-05-05 07:25 | CP.PCM.PN ---
Subjective - Date & Time of Evaluation Date of Evaluation: 05/05/17 Time of Evaluation: 07:00 - Subjective Subjective: Stable in CCU. No CP or SOB. N/C now. On dobut. 2 mc./Kg./min. now V/S noted. AF, PVC's PE: Lungs: rhonchi Cor: irreg S1S2 Abd.: soft Ext.: min edema Neuro.: alert I/O= 1075/800 recorded Labs/ABG's noted. Echo noted. Mild LVD, Mod. MR and TR. Mod/Sev. AI. Severe PH V/Q: low prob. CT chest noted: LLL pneumonia. Small werner. pl. effusions CXR 05/05: not read yet. Improved by my reading. Objective - Vital Signs/Intake and Output Vital Signs (last 24 hours): Temp Pulse Resp BP Pulse Ox 98 F 73 30 H 118/61 94 L 05/05/17 04:00 05/05/17 06:10 05/05/17 06:00 05/05/17 06:00 05/05/17 06:10 Intake and Output: 05/05/17 05/05/17 06:59 18:59 Intake Total 1075 Output Total 800 Balance 275 - Medications Medications: Current Medications Acetaminophen (Tylenol 325mg Tab) 650 mg PO Q4H PRN PRN Reason: Pain, moderate (4-7) Last Admin: 05/01/17 09:46 Dose: 650 mg Aspirin (Aspirin Chewable) 81 mg PO DAILY [facility] Last Admin: 05/04/17 09:06 Dose: 81 mg Azithromycin (Zithromax) 500 mg PO DAILY [facility] Last Admin: 05/04/17 09:07 Dose: 500 mg Docusate Sodium (Colace) 100 mg PO TID [facility] Last Admin: 05/04/17 17:46 Dose: 100 mg Enoxaparin Sodium (Lovenox) 60 mg SC Q12H [facility] PRN Reason: Protocol Last Admin: 05/04/17 21:02 Dose: 60 mg Furosemide (Lasix) 40 mg IVP Q12 [facility] Last Admin: 05/04/17 20:57 Dose: 40 mg Dobutamine HCl/Dextrose (Dobutamine/Dextrose 5% 500mg/250ml) 500 mg in 250 mls @ 3.944 mls/hr IV .Q24H PRN; Protocol; 2 MCG/KG/MIN PRN Reason: TITRATE PER PROTOCOL Last Admin: 05/03/17 20:40 Dose: 2 mcg/kg/min, 3.944 mls/hr Ceftriaxone Sodium 1 gm/ (Sodium Chloride) 100 mls @ 100 mls/hr IVPB DAILY [facility] PRN Reason: Protocol Last Admin: 05/04/17 09:10 Dose: 100 mls/hr Levalbuterol HCl (Xopenex) 1.25 mg IH [id number] [facility] Last Admin: 05/05/17 07:02 Dose: 1.25 mg Losartan Potassium (Cozaar) 50 mg PO DAILY [facility] Last Admin: 05/04/17 09:07 Dose: Not Given Methylprednisolone (Solu-Medrol) 20 mg IVP Q12 [facility] Last Admin: 05/04/17 21:01 Dose: 20 mg Metoprolol Tartrate (Lopressor) 100 mg PO BID [facility] Last Admin: 05/04/17 17:35 Dose: Not Given Pantoprazole Sodium (Protonix Ec Tab) 40 mg PO ACB [facility] Last Admin: 05/04/17 09:07 Dose: 40 mg Polyethylene Glycol (Miralax) 17 gm PO DAILY [facility] Last Admin: 05/04/17 09:08 Dose: 17 gm Potassium Chloride (K-Dur 20 Meq Er Tab) 20 meq PO BID [facility] Last Admin: 05/04/17 17:47 Dose: 20 meq Primidone (Mysoline) 100 mg PO BID [facility] Last Admin: 05/04/17 17:47 Dose: 100 mg Sertraline HCl (Zoloft) 25 mg PO DAILY [facility] Last Admin: 05/04/17 09:06 Dose: 25 mg Warfarin Sodium (Coumadin) 5 mg PO 1800 [facility] PRN Reason: Protocol Last Admin: 05/04/17 17:46 Dose: 5 mg - Labs Labs: 05/05/17 05:45 05/05/17 05:45 PT 21.0 SECONDS (9.4-12.5) H 05/05/17 05:45 INR 1.88 (0.93-1.08) H 05/05/17 05:45 APTT 33.9 Seconds (25.1-36.5) 04/30/17 21:50 Assessment and Plan - Assessment and Plan (Free Text) Assessment: Syncope Dyspnea COPD/PH/Former Smoker CAD/Remote PCI/LVD Valvular Heart Disease: Mod. MR and TR, Mod/Sev. AI A. Fib./ PVC's Hepatitis C Esophageal Varices H/O GIB GERD Werner. THR Tremor Plan: As per pulmonary: AB, respiratory tx. Would d/c dobutamine now. Continue IV Lasix, PO metoprolol OOB to chair as sowmya. Monitor INR's. Warfarin by INR daily Monitor labs, I/O, sats., etc. As per Intensivists and Dr. Zhang. Tel bed. Will follow.
[2017-05-05] MEDS: Enoxaparin 60 mg Syringe SC SCH ×2 (08:21→21:12)
[2017-05-05] MEDS: Pantoprazole 40 mg EC Tab PO SCH (08:21)
--- NOTE | 2017-05-05 08:39 | PN ---
DATE: 05/03/2017 SUBJECTIVE: The patient was seen on the chair, seems comfortable on high-flow oxygen, saturating in 89% to 90%. He has no chest pain. No other complaints. PHYSICAL EXAMINATION: As follows: VITAL SIGNS: Temperature is 98, heart rate is 80, blood pressure 103/66, respiratory rate 23 and saturation is 90% on high-flow oxygen, 70% to 80% high-flow oxygen. HEAD AND NECK: Normal. LUNGS: Clear. CARDIAC: First sound and second sound normal. ABDOMEN: Soft and nontender. EXTREMITIES: There is no edema. NEUROLOGIC: Normal. LABORATORY DATA: As follows: White count 7.1, hemoglobin 12.8, hematocrit 39.1 and platelets 129. Chemistry: Sodium 139, potassium 3.9, chloride 102, bicarb 27, albumin 25, creatinine 0.8 and blood sugar 122. Total bili, AST, ALT and alk phos is normal. The patient's troponin is 0.06 on repeat 0.06 no change. The patient also TSH was normal 2.8. IMPRESSION AND PLAN: 1. Acute congestive heart failure, systolic and diastolic failure, which due to underline chronic ischemic cardiomyopathy, valvular heart disease, moderate mitral regurgitation, also a high, which put . Currently, seen by executive vice president and chief operating officer. He is on oxygen, IV Lasix and beta blockers. Seems stable; however, still require high-flow oxygen to keep his saturation 90%. 2. Significant emphysema. The patient does have some . He does have a CT showed emphysema on the lung and also had community acquired pneumonia in addition to his underlying emphysema, which makes oxygenation even worse. We will continue IV antibiotics. We will consult Dr. Roche to follow up on that. Currently, the patient is getting Rocephin and doxycycline. 3. Chronic atrial fibrillation, stable, continue anticoagulation, assume the warfarin and continue metoprolol 100 mg b.i.d. We will monitor PT INR and the patient also getting aspirin 81 mg p.o. daily. 4. Generalized weakness. The patient will need to continue current therapy for now until improve his lung condition, but he will definitely need rehabilitations when his condition is more stable. Continue current therapy, followup clinically. Repeat labs in the morning and follow up with the executive vice president and chief operating officer and clinical services professional. The patient still need Intensive Care unit for now. Nathaniel Zhang MD
[2017-05-05] MEDS: POLYETHYLENE GLYCOL 3350 17 GM/Dose PACKET PO SCH (09:08)
[2017-05-05] MEDS: Potassium Chloride 20 mEq ER Tab PO SCH ×2 (09:10→17:05)
[2017-05-05] MEDS: MethylPREDNISolone 40 mg Vial IVP SCH ×2 (09:10→21:12)
--- NOTE | 2017-05-05 13:40 | RAD ---
HISTORY: CHF. COMPARISON: 04/30/2017 single-view chest. 05/01/2017 CT thorax FINDINGS: LUNGS: No active pulmonary disease. PLEURA: No significant pleural effusion identified, no pneumothorax apparent. CARDIOVASCULAR: Cardiomegaly. No evidence of acute, significant cardiovascular disease. Portable chest. OSSEOUS STRUCTURES: No significant abnormalities. VISUALIZED UPPER ABDOMEN: Normal. OTHER FINDINGS: None. IMPRESSION: No active disease. No significant interval change compared to the prior examination(s).
--- NOTE | 2017-05-05 21:17 | PN ---
PULMONARY PROGRESS NOTE DATE: 05/05/2017 REFERRING PHYSICIAN: Nathaniel Zhang MD SUBJECTIVE: He is sitting up in a chair, sleepy, arousable. Night was unremarkable. Feels better. On nasal cannula. No more high -flow oxygen. No nausea. No vomiting. No diarrhea. Decrease leg swelling. OBJECTIVE: GENERAL: In no acute distress. VITAL SIGNS: Temperature is 98, heart rate is 88, respiratory rate is 20, blood pressure 100/63, and pulse ox 96% on nasal cannula. HEENT: Moist mucous membranes. Crowded airway. NECK: Supple. No JVD. LUNGS: Has a few crackles with expiratory rhonchi and few wheezing. HEART: S1 and S2. ABDOMEN: Soft and nontender. No organomegaly. EXTREMITIES: Decrease edema. NEUROLOGIC: Awake, alert, and follows simple commands. MEDICATIONS: He is on aspirin 81 mg daily, Rocephin 1 g daily, Colace 100 mg three times a day, Coumadin 5 mg will be given today, Cozaar 50 mg daily, dobutamine IV drip, potassium 20 mEq twice a day, Lasix 40 mg twice a day, metoprolol tartrate 100 mg twice a day, Lovenox 60 mg subcutaneously twice a day, MiraLax 17 g daily, primidone 100 mg twice a day, Protonix 40 mg daily, Solu-Medrol 20 mg IV q. 12 hours, Tylenol p.r.n., Xopenex q. 6 hours, Zithromax 500 mg daily, and Zoloft 25 mg daily. LABORATORY DATA: Shows hemoglobin 12.8, hematocrit 39.1, WBC 7.0, and platelet is 150. INR 1.88. Sodium 144, potassium 4.5, chloride 104, bicarbonate 28, BUN 42, creatinine 0.9, glucose 105, calcium 9.0, AST 45, ALT 37, alk phos is 88, and albumin is 4.0. Microbiology; blood culture and urine culture, there is no growth. A chest x-ray done today shows no active disease. No infiltrate or effusion. IMPRESSION AND PLAN: Respiratory failure high-flow oxygen, chronic obstructive lung disease, cardiomyopathy with decreased systolic dysfunction, pulmonary hypertension, atrial fibrillation, cirrhotic liver, hepatitis C, esophageal varices, history of gastrointestinal bleed in the past, coronary artery disease, history of coronary stent, depression. From pulmonary point of view, doing well. Continue IV inhaled bronchodilator. Continue dobutamine. Continue diuretics. Fall precautions. Start therapy. Follow up labs in the morning. Critical care time is more than 35 minutes. Thank you and we will follow with you. Smooth Roche MD
[2017-05-06] MEDS: Levalbuterol 1.25 MG/3 ML Inhal Soln UD IH SCH ×4 (02:34→22:00)
[2017-05-06 06:24] LABS: ALB/GLOB RATIO 1.1 (1.1-1.8); ALKALINE PHOSPHATASE 94 U/L (38-126); ALT/SGPT 41 U/L (7-56); AST/SGOT 44 U/L (17-59); BILIRUBIN,TOTAL 1.1 mg/dL (0.2-1.3); BLOOD UREA NITROGEN 55 mg/dL (7-21); CALCIUM 9.4 mg/dL (8.4-10.5); CARBON DIOXIDE 28 mmol/L (21-33); CHLORIDE 106 mmol/L (98-107); GFR AFRICAN-AMERICAN > 60; GLUCOSE,RANDOM 111 mg/dL (70-110); POTASSIUM 4.6 mmol/L (3.6-5.0); SODIUM 145 mmol/L (132-148); TOTAL PROTEIN 8.3 g/dL (5.8-8.3)
[2017-05-06 06:26] LABS: BASO # 0.02 K/mm3 (0.0-2.0); BASO % 0.3 % (0.0-3.0); EOS % 0.5 % (1.5-5.0); GRAN # 6.1 (1.4-6.5); GRAN % 78.9 % (50.0-68.0); HEMATOCRIT 41.8 % (42.0-52.0); LYMPH # 1.1 (1.2-3.4); LYMPH % 14.2 % (22.0-35.0); MEAN CORPUSCULAR HEMOGLOBIN 33.1 pg (25.0-35.0); MEAN CORPUSCULAR HGB CONC 32.8 g/dl (31.0-37.0); MEAN PLATELET VOLUME 11.4 fl (7.0-11.0); MONO # 0.5 (0.1-0.6); MONO % 6.1 % (1.0-6.0); RED CELL DISTRIBUTION WIDTH 16.2 % (11.5-14.5); WHITE BLOOD COUNT 7.7 10^3/ul (4.5-11.0)
[2017-05-06 06:33] LABS: INR 2.14 (0.93-1.08)
--- NOTE | 2017-05-06 07:36 | CP.PCM.PN ---
Subjective - Date & Time of Evaluation Date of Evaluation: 05/06/17 Time of Evaluation: 07:00 - Subjective Subjective: Stable in CCU. No CP or SOB. N/C now. V/S noted. AF, PVC's PE: Lungs: rhonchi Cor: irreg S1S2 Abd.: soft Ext.: min edema Neuro.: alert I/O= 1100/1650 recorded Labs noted: INR= 2.14, Katheryn== 145, K+= 4.6 Echo noted. Mild LVD, Mod. MR and TR. Mod/Sev. AI. Severe PH V/Q: low prob. CT chest noted: LLL pneumonia. Small rena. pl. effusions CXR 05/05: NAD BC x2 NG at 5 days Objective - Vital Signs/Intake and Output Vital Signs (last 24 hours): Temp Pulse Resp BP Pulse Ox 97.8 F 79 22 146/79 96 05/06/17 06:00 05/06/17 06:00 05/06/17 06:00 05/06/17 06:00 05/06/17 06:00 Intake and Output: 05/06/17 05/06/17 06:59 18:59 Intake Total 1100 Output Total 1650 Balance -550 - Medications Medications: Current Medications Acetaminophen (Tylenol 325mg Tab) 650 mg PO Q4H PRN PRN Reason: Pain, moderate (4-7) Last Admin: 05/01/17 09:46 Dose: 650 mg Aspirin (Aspirin Chewable) 81 mg PO DAILY [facility] Last Admin: 05/05/17 09:08 Dose: 81 mg Azithromycin (Zithromax) 500 mg PO DAILY [facility] Last Admin: 05/05/17 09:10 Dose: 500 mg Docusate Sodium (Colace) 100 mg PO TID [facility] Last Admin: 05/05/17 18:03 Dose: 100 mg Enoxaparin Sodium (Lovenox) 60 mg SC Q12H [facility] PRN Reason: Protocol Last Admin: 05/05/17 21:12 Dose: 60 mg Furosemide (Lasix) 40 mg IVP Q12 [facility] Last Admin: 05/05/17 21:12 Dose: 40 mg Ceftriaxone Sodium 1 gm/ (Sodium Chloride) 100 mls @ 100 mls/hr IVPB DAILY [facility] PRN Reason: Protocol Last Admin: 05/05/17 09:07 Dose: 100 mls/hr Levalbuterol HCl (Xopenex) 1.25 mg IH [id number] [facility] Last Admin: 05/06/17 07:02 Dose: 1.25 mg Losartan Potassium (Cozaar) 50 mg PO DAILY [facility] Last Admin: 05/05/17 09:10 Dose: 50 mg Methylprednisolone (Solu-Medrol) 20 mg IVP Q12 [facility] Last Admin: 05/05/17 21:12 Dose: 20 mg Metoprolol Tartrate (Lopressor) 100 mg PO BID [facility] Last Admin: 05/05/17 17:04 Dose: 100 mg Pantoprazole Sodium (Protonix Ec Tab) 40 mg PO ACB [facility] Last Admin: 05/05/17 08:21 Dose: 40 mg Polyethylene Glycol (Miralax) 17 gm PO DAILY [facility] Last Admin: 05/05/17 09:08 Dose: 17 gm Potassium Chloride (K-Dur 20 Meq Er Tab) 20 meq PO BID [facility] Last Admin: 05/05/17 17:05 Dose: 20 meq Primidone (Mysoline) 100 mg PO BID [facility] Last Admin: 05/05/17 17:05 Dose: 100 mg Sertraline HCl (Zoloft) 25 mg PO DAILY [facility] Last Admin: 05/05/17 09:09 Dose: 25 mg Warfarin Sodium (Coumadin) 5 mg PO 1800 [facility] PRN Reason: Protocol Last Admin: 05/05/17 17:04 Dose: 5 mg - Labs Labs: 05/06/17 05:30 05/06/17 05:30 PT 23.9 SECONDS (9.4-12.5) H 05/06/17 05:30 INR 2.14 (0.93-1.08) H 05/06/17 05:30 APTT 33.9 Seconds (25.1-36.5) 04/30/17 21:50 Assessment and Plan - Assessment and Plan (Free Text) Assessment: Syncope Dyspnea COPD/PH/Former Smoker CAD/Remote PCI/LVD Valvular Heart Disease: Mod. MR and TR, Mod/Sev. AI A. Fib./ PVC's Hepatitis C Esophageal Varices H/O GIB GERD Rena. THR Tremor Plan: As per pulmonary: AB, respiratory tx. Continue IV Lasix, PO metoprolol D/C Lovenox OOB to chair as sowmya. Monitor INR's. Warfarin by INR daily Monitor labs, I/O, sats., etc. As per Intensivists and Dr. Zhang. Tel bed. Will follow.
[2017-05-06] MEDS: Pantoprazole 40 mg EC Tab PO SCH (10:01)
[2017-05-06] MEDS: Potassium Chloride 20 mEq ER Tab PO SCH ×2 (10:04→17:50)
[2017-05-06] MEDS: MethylPREDNISolone 40 mg Vial IVP SCH ×2 (10:06→21:25)
[2017-05-06] MEDS: POLYETHYLENE GLYCOL 3350 17 GM/Dose PACKET PO SCH (10:08)
[2017-05-06] MEDS: Cefepime 1gm in NS 100ml 1 GM/100 ML BAG IVPB SCH ×2 (13:45→22:07)
[2017-05-06 15:48] LABS: URINE BILIRUBIN NEGATIVE (NEGATIVE); URINE BLOOD NEGATIVE (NEGATIVE); URINE GLUCOSE (UA) NEGATIVE (NEGATIVE); URINE KETONE NEGATIVE (NEGATIVE); URINE LEUKOCYTE ESTERASE NEGATIVE Leu/uL (NEGATIVE); URINE PROTEIN NEGATIVE mg/dL (<30 mg/dL); URINE UROBILINOGEN 0.2 E.U./dL (<1 E.U./dL)
[2017-05-06 15:50] LABS: URINE COLOR YELLOW (YELLOW)
[2017-05-06 15:51] LABS: URINE APPEARANCE CLEAR (CLEAR)
--- NOTE | 2017-05-06 21:29 | CON ---
DATE: 05/06/2017 LOCATION: Patient is in the coronary care unit, 129, bed 1. CHIEF COMPLAINT: Weakness since several days. HISTORY OF PRESENT ILLNESS: This is an 86-year-old male with past medical history significant for coronary artery disease, cardiac stents, congestive heart failure, cardiac arrhythmia, atrial fibrillation, GI bleed, hypertension, who is admitted to the hospital with congestive heart failure and syncope on 05/01. Infectious disease consultation is requested because of pneumonia and antibiotic choice. REVIEW OF SYSTEMS: Patient's review of system reveals he has minimal cough. There is shortness of breath. There are low-grade temperatures. No abdominal pain, diarrhea, or constipation. No dysuria or frequency. No nausea or vomiting. PAST MEDICAL HISTORY: Significant for coronary artery disease, congestive heart failure, arrhythmia, atrial fibrillation, GI bleed, depression, hepatitis C, and GERD. PAST SURGICAL HISTORY: Significant for cardiac stent placement and bilateral knee replacement. ALLERGIES: PATIENT HAS NO KNOWN ALLERGIES. MEDICATIONS: At home includes the patient to be on Lasix, aspirin, potassium, metoprolol, Prevacid, Coumadin, valsartan, sertraline, and vitamins. PHYSICAL EXAMINATION: GENERAL: Patient is in bed. He is in no acute distress, appearing chronically ill and cachectic. VITAL SIGNS: With a temperature of 99.3, heart rate of 102, blood pressure is 140/70, respiratory rate of 21. Oxygen saturation of 93%, was down to 92% yesterday, actually was down to 82% and a BMI of 22. HEENT: Unremarkable. NECK: Supple. LUNGS: Have decreased breath sounds. HEART: Normal S1, S2. ABDOMEN: Soft, nontender. No organomegaly. No rebound. No guarding. No masses. LABORATORY EXAMINATION: Reveals a white count of 7.7, hemoglobin of 13, platelets of 160 and coagulation is noted and chemistries reveals a BUN of 55, creatinine of 1.0. Patient had a procalcitonin on the which was 0.05. Influenza is negative. Strep pneumoniae antigen is negative. Microbiology reveals the blood cultures are negative to MRSA, nares, and is not detected. These were both on admission. Patient had a chest x-ray yesterday which showed no active pulmonary disease. Had a CAT scan of the chest on the , which shows pneumonia, left lower lobe. Dr. Franklin Simental's progress note from today is reviewed and Dr. Franklin Simental writes in his assessment that the patient has syncope, dyspnea, COPD, former smoker, coronary artery disease, remote PCI and LVD and valvular heart disease and atrial fibrillation, hepatitis C, esophageal varices, history of GID and GERD, and tremors. Dr. Roche's progress note is also reviewed. Review of orders reveals the patient is on ceftriaxone and azithromycin and Zoloft. Patient had an echo, which showed an ejection fraction of 38%. An EKG with QTC of 412. Dr. Zhang's note from yesterday is reviewed. ASSESSMENT AND PLAN: An 86-year-old male with coronary artery disease, congestive heart failure, cardiac arrhythmia, liver cirrhosis, hepatitis C, depression, gastroesophageal reflux disease, who was admitted with congestive heart failure and syncope, found to have infiltrates on admission on the CAT scan, patient was hypoxic, tachycardic, low-grade fever, dyspnea: 1. Severe sepsis with community-acquired pneumonia with acute systolic congestive heart failure on top of chronic congestive heart failure with reduced ejection fraction, must rule out underlying healthcare-associated pneumonia. We will order blood cultures, urine cultures, sputum culture, urinalysis, repeat procalcitonin. Patient had a urine for Legionella antigen, currently on ceftriaxone. We will discontinue the ceftriaxone and we will also discontinue the azithromycin. Patient is also on Solu-Medrol. We will treat the patient with Maxipime and p.o. doxycycline. Would consider a CT scan of the abdomen and pelvis. We will make further recommendations upon availability of initial results. Patient's liver function tests are normal. We will follow with you. Shyam Kline MD
--- NOTE | 2017-05-06 22:45 | PN ---
DATE: 05/06/2017 PULMONARY PROGRESS NOTE REFERRING PHYSICIAN: Nathaniel Zhang MD SUBJECTIVE: The patient is lying in the bed, head at 45 degrees, sleepy, arousable. Night was unremarkable. Feels better. Decreased cough. Decreased shortness of breath. No nausea. No vomiting. No diarrhea. No leg pain or leg swelling. OBJECTIVE: GENERAL: In no acute distress. VITAL SIGNS: Temperature is 98, heart rate is 93, respiratory rate is 20, blood pressure 144/75, and pulse ox 93% on nasal cannula. HEENT: Moist mucous membranes. Crowded airway. NECK: Supple. No JVD. LUNGS: Has few crackles, scattered rhonchi. HEART: S1 and S2. ABDOMEN: Soft and nontender. No organomegaly. EXTREMITIES: Not much edema. NEUROLOGIC: Awake and alert. Follows simple commands. MEDICATIONS: He is on aspirin 81 mg daily, Colace 100 mg 3 times a day, Coumadin 5 mg daily, Cozaar 50 mg daily, doxycycline 100 mg twice a day, potassium 20 mEq daily, Lasix 40 mg twice a day, metoprolol tartrate 100 mg twice a day, cefepime 1 g IV q. 8 hours, MiraLax 17 g daily, primidone 100 mg twice a day, Protonix 40 mg daily, Solu-Medrol 20 mg q. 12 hours, Tylenol p.r.n., Xopenex inhaled q. 6 hours, and Zoloft 25 mg daily. LABORATORY DATA: Shows hemoglobin 13.7, hematocrit 41.8, WBC 7.7, and platelets are 160. INR 2.14. Sodium 145, potassium 4.6, chloride 106, bicarbonate 28, BUN 55, creatinine 1.0, calcium is 9.4. AST 44, ALT 41, alk phos is 94, and albumin is 4.3. Microbiology; blood culture and nares culture, there is no growth. Chest x-ray done yesterday shows no change since yesterday. IMPRESSION AND PLAN: Respiratory failure, presently on nasal cannula, chronic obstructive lung disease, cardiomyopathy, history of also systolic dysfunction, pulmonary hypertension, atrial fibrillation, cirrhotic liver, hepatitis C, esophageal varices, history of gastrointestinal bleed, coronary artery disease, history of coronary stent, depression, may have sleep apnea syndrome. The patient's dobutamine was discontinued since yesterday. We will place him on CPAP 8 cm with 30% oxygen while sleeping, keep head at 45 degrees. Follow up labs in the morning. Thank you and we will follow with you. Smooth Roche MD
--- NOTE | 2017-05-06 23:37 | PN ---
DATE: 05/05/2017 SUBJECTIVE: The patient is in ICU, sitting on a chair, seems comfortable, less distressed, saturating good. PHYSICAL EXAMINATION: VITAL SIGNS: His temperature 98, heart rate 93, blood pressure 111/56, respirations 18, and saturation 95% on 4 L. HEAD AND NECK: Normal. No JVD or thyromegaly. CHEST: Clear. Good air entry. There are some diminished breath sounds on the left base. CARDIAC: First sound and second sound normal. ABDOMEN: Soft and nontender. EXTREMITIES: No edema. NEUROLOGIC: Normal. LABORATORY STUDIES: On 05/05/2017, his white count 7, hemoglobin 12.8, hematocrit 39.1 and platelets 150. Chemistry shows sodium 144, potassium 4.5, chloride 104, bicarb 28, BUN 42, creatinine 0.9. Liver enzymes are normal. PT and PTT on 05/05/2017, PT is 21 and INR 1.88. IMPRESSION AND PLAN: 1. Acute congestive heart failure secondary to ischemic cardiomyopathy, ejection fraction of 40%. The patient has moderate mitral regurgitation, aortic regurgitation, valvular heart disease. Continue IV Lasix, oxygen and current medications in addition to loss of atrial contractility, atrial fibrillation. Continue current therapy. 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 2. Nosocomial pneumonia. The patient seems very sick with pneumonia in addition to underlying chronic obstructive pulmonary disease as per CAT scan. Continue steroids IV, inhaled bronchodilator, and meropenem. Follow up with ID consult. The patient is also getting doxycycline. Continue current therapy. Follow up clinically. 3. History of tremors. The patient is getting his primidone and seems doing well. CURRENT MEDICATIONS: Aspirin, Colace, Coumadin, Cozaar 50, doxycycline, K-Dur 20 b.i.d., Lasix 40 b.i.d., Lopressor 100 b.i.d., Maxipime 1 g q. 8 hours, MiraLax, Mysoline, Protonix, Solu-Medrol, Tylenol, Xopenex, and Zoloft 25 mg daily. Continue current therapy. Nathaniel Zhang MD
--- NOTE | 2017-05-06 23:49 | PN ---
DATE: 05/06/2017 SUBJECTIVE: The patient is in ICU, sitting on a chair, his son next to him. The patient is comfortable, using nebulizer treatment, saturating 95% on 4 liters. Afebrile, in no distress. PHYSICAL EXAMINATION: VITAL SIGNS: Today, his vital signs as follows; temperature 98, heart rate 84, blood pressure 114/70, respirations 18, saturating on nasal cannula. HEAD AND NECK: Normal. No JVD. No thyromegaly. CHEST: Clear. Good air entry. CARDIAC: First sound and second sound normal. ABDOMEN: Soft and nontender. EXTREMITIES: No edema. NEUROLOGIC: Normal. LABORATORY STUDIES: The patient has a PT/INR, PT is 23.9 and INR 2.14. The patient also has chemistry done which shows sodium 145, potassium 4.6, chloride 106, bicarb 28, BUN 55, creatinine is 1. CBC shows white count 7.7, hemoglobin 13.7, hematocrit 41.8, platelets are 160. IMPRESSION AND PLAN: 1. An 86-year-old male came in with acute congestive heart failure. We will continue Lasix,potassium, oxygen and Cozaar, and for his underlying atrial fibrillation, continue beta-amrita, Lopressor 100 b.i.d. and Coumadin; seems doing well. The patient has ischemic heart disease plus significant valvular heart disease, mitral and aortic. Continue current therapy. We will follow up clinically. 2. Acute community-acquired pneumonia plus emphysema. Continue Solu-Medrol. Continue inhaled bronchodilator and meropenem. The patient seems responding well to current therapy. We will continue current treatment and we will follow up clinically. He is also taking doxycycline 100 p.o. q. 12. 3. Generalized weakness, deconditioning. The patient will need physical therapy. We will await to be clinically improving and will start physical therapy on a daily basis. TCU is a better place for physical therapy, we will consult that. 4. History of tremors, depression. Continue Zoloft. Continue primidone 100 mg b.i.d. We will follow up clinically. Nathaniel Zhang MD
[2017-05-07] MEDS: Levalbuterol 1.25 MG/3 ML Inhal Soln UD IH SCH ×4 (03:00→20:00)
[2017-05-07] MEDS: Cefepime 1gm in NS 100ml 1 GM/100 ML BAG IVPB SCH ×3 (05:57→22:21)
[2017-05-07 07:28] LABS: INR 2.16 (0.93-1.08)
--- NOTE | 2017-05-07 07:50 | CP.PCM.PN ---
Subjective - Date & Time of Evaluation Date of Evaluation: 05/07/17 Time of Evaluation: 07:00 - Subjective Subjective: Stable on 2R now.. No CP or SOB. N/C now. He feels well. V/S noted. AF, PVC's PE: Lungs: rhonchi Cor: irreg S1S2 Abd.: soft Ext.: min edema Neuro.: alert I/O= 500/800recorded Labs noted: INR= 2.16. BMP pending Echo noted. Mild LVD, Mod. MR and TR. Mod/Sev. AI. Severe PH V/Q: low prob. CT chest noted: LLL pneumonia. Small werner. pl. effusions CXR 05/05: NAD BC x2 NG at 5 days Objective - Vital Signs/Intake and Output Vital Signs (last 24 hours): Temp Pulse Resp BP Pulse Ox 97.7 F 84 18 124/79 92 L 05/07/17 05:21 05/07/17 05:21 05/07/17 05:21 05/07/17 05:21 05/07/17 05:21 Intake and Output: 05/07/17 05/07/17 06:59 18:59 Intake Total 500 Output Total 800 Balance -300 - Medications Medications: Current Medications Acetaminophen (Tylenol 325mg Tab) 650 mg PO Q4H PRN PRN Reason: Pain, moderate (4-7) Last Admin: 05/01/17 09:46 Dose: 650 mg Aspirin (Aspirin Chewable) 81 mg PO DAILY [facility] Last Admin: 05/06/17 09:40 Dose: 81 mg Docusate Sodium (Colace) 100 mg PO TID [facility] Last Admin: 05/06/17 17:49 Dose: 100 mg Doxycycline Hyclate (Doryx) 100 mg PO Q12 [facility] PRN Reason: Protocol Stop: 05/15/17 22:01 Last Admin: 05/06/17 21:25 Dose: 100 mg Furosemide (Lasix) 40 mg IVP Q12 [facility] Last Admin: 05/06/17 21:31 Dose: 40 mg Cefepime HCl (Maxipime 1gm) 1 gm in 100 mls @ 100 mls/hr IVPB Q8 [facility] PRN Reason: Protocol Stop: 05/15/17 14:01 Last Admin: 05/07/17 05:57 Dose: 100 mls/hr Levalbuterol HCl (Xopenex) 1.25 mg IH [id number] [facility] Last Admin: 05/07/17 03:00 Dose: Not Given Losartan Potassium (Cozaar) 50 mg PO DAILY [facility] Last Admin: 05/06/17 10:02 Dose: 50 mg Methylprednisolone (Solu-Medrol) 20 mg IVP Q12 [facility] Last Admin: 05/06/17 21:25 Dose: 20 mg Metoprolol Tartrate (Lopressor) 100 mg PO BID [facility] Last Admin: 05/06/17 17:49 Dose: 100 mg Pantoprazole Sodium (Protonix Ec Tab) 40 mg PO ACB [facility] Last Admin: 05/06/17 10:01 Dose: 40 mg Polyethylene Glycol (Miralax) 17 gm PO DAILY [facility] Last Admin: 05/06/17 10:08 Dose: 17 gm Potassium Chloride (K-Dur 20 Meq Er Tab) 20 meq PO BID [facility] Last Admin: 05/06/17 17:50 Dose: 20 meq Primidone (Mysoline) 100 mg PO BID [facility] Last Admin: 05/06/17 17:50 Dose: 100 mg Sertraline HCl (Zoloft) 25 mg PO DAILY [facility] Last Admin: 05/06/17 10:04 Dose: 25 mg Warfarin Sodium (Coumadin) 5 mg PO 1800 [facility] PRN Reason: Protocol Last Admin: 05/06/17 17:49 Dose: 5 mg - Labs Labs: 05/06/17 05:30 05/06/17 05:30 PT 24.1 SECONDS (9.4-12.5) H 05/07/17 06:30 INR 2.16 (0.93-1.08) H 05/07/17 06:30 APTT 33.9 Seconds (25.1-36.5) 04/30/17 21:50 Assessment and Plan - Assessment and Plan (Free Text) Assessment: Syncope Dyspnea COPD/PH/Former Smoker CAD/Remote PCI/LVD CHF Valvular Heart Disease: Mod. MR and TR, Mod/Sev. AI A. Fib./ PVC's Hepatitis C Esophageal Varices H/O GIB GERD Werner. THR Tremor Plan: As per pulmonary: AB, respiratory tx. Continue IV Lasix, PO metoprolol OOB to chair as sowmya./PT Monitor INR's. Warfarin by INR daily Monitor labs, I/O, sats., etc. As per Dr. Zhang. Will follow.
[2017-05-07 07:52] LABS: BLOOD UREA NITROGEN 56 mg/dL (7-21); CALCIUM 9.5 mg/dL (8.4-10.5); CARBON DIOXIDE 26 mmol/L (21-33); CHLORIDE 107 mmol/L (98-107); GFR AFRICAN-AMERICAN > 60; GLUCOSE,RANDOM 114 mg/dL (70-110); POTASSIUM 4.4 mmol/L (3.6-5.0); SODIUM 145 mmol/L (132-148)
[2017-05-07] MEDS: Pantoprazole 40 mg EC Tab PO SCH (08:04)
[2017-05-07] MEDS: MethylPREDNISolone 40 mg Vial IVP SCH ×2 (10:42→22:21)
[2017-05-07] MEDS: POLYETHYLENE GLYCOL 3350 17 GM/Dose PACKET PO SCH (10:45)
[2017-05-07] MEDS: Potassium Chloride 20 mEq ER Tab PO SCH ×2 (10:45→17:26)
--- NOTE | 2017-05-07 11:11 | PN ---
DATE: 05/07/2017 SUBJECTIVE: The patient is seen in bed early this morning in 271, bed 1. No fevers. No chills. No chest pain. PHYSICAL EXAMINATION: VITAL SIGNS: Temperature is 97, blood pressure is 120/70, and respiratory rate of 18. HEENT: Unremarkable. NECK: Supple. LUNGS: Decreased breath sounds. HEART: Normal S1 and S2. ABDOMEN: Soft and nontender. LABORATORY DATA: Reveals white count of 7.7, hemoglobin of 13, and platelets of 160. Chemistries reveals BUN of 56, creatinine of 0.8, and procalcitonin of 0.16. Urinalysis is noted. Influenza is negative. Urine strep pneumoniae antigen is negative. Microbiology reveals the blood cultures are negative. MRSA screen is negative. Review of orders reveals urine for Legionella antigen is pending. The patient is on p.o. doxycycline and IV cefepime. The patient is also on Solu-Medrol. Review of the procalcitonin reveals the patient's procalcitonin is 0.16, the first one was 0.05. Dr. Simental's note from today is reviewed. He writes in his assessment that the patient has syncope, dyspnea, COPD, coronary artery disease, congestive heart failure, and valvular heart disease. ASSESSMENT AND PLAN: An 86-year-old male, with coronary artery disease, congestive heart failure, cardiac arrhythmia, liver cirrhosis, hepatitis C, depression, and gastroesophageal reflux disease, was admitted with congestive heart failure and syncope, found to have infiltrates on the CAT scan, was hypoxic, tachycardic, low-grade fevers with severe sepsis with community-acquired pneumonia with acute systolic congestive heart failure on top of chronic congestive heart failure with reduced ejection fraction. His culture is negative. Procalcitonin is negative x2. Day #2 of Maxipime and doxycycline. Most likely, we will discontinue the cefepime in the next 24 hours and complete a short course of doxycycline. Shyam Kline MD
[2017-05-07 11:59] VITALS: O2SAT 95
--- NOTE | 2017-05-07 19:30 | PN ---
DATE: SUBJECTIVE: The patient is sitting in the chair, telemetry floor, doing better. Saturating good. No dyspnea. No chest pain. PHYSICAL EXAMINATION VITAL SIGNS: Temperature 97.4, heart rate 85, blood pressure 128/84 and respirations 19. HEAD AND NECK: Normal. No JVD, no thyromegaly. CHEST: Clear. Good air entry. CARDIAC: First sound and second sound normal. ABDOMEN: Soft and nontender. EXTREMITIES: No edema. NEUROLOGIC: Normal. LABORATORY DATA: Sodium 145, potassium 4.4, chloride 107, bicarb 26, BUN 56, creatinine 0.8, blood sugar 114 and calcium 9.5. IMPRESSION AND PLAN: 1. Acute congestive heart failure secondary to ischemic cardiac disease, diminished systolic functions and significant mitral regurgitation and aortic regurgitation. Continue IV Lasix and continue current medications. Follow up with Cardiology. 2. Emphysema, pneumonia. Continue IV antibiotics. Continue inhaled bronchodilators and IV bronchodilators. 3. Chronic atrial fibrillation. Continue Coumadin. We will monitor INR. Continue metoprolol 100 mg b.i.d. The patient seem stable on current medications. 4. Generalized weakness, deconditioning. Continue current therapy. The patient will need physical therapy, TCU evaluation. Right now, the patient is getting antibiotics, doxycycline/meropenem IV and Solu-Medrol IV. Continue current medicines and we will follow up clinically. The patient is otherwise stable. His PT/INR is therapeutic 2.16. Continue current medicines. Nathaniel Zhang MD
--- NOTE | 2017-05-07 22:36 | PN ---
PULMONARY PROGRESS NOTE DATE: 05/07/2017 REFERRING PHYSICIAN: Nathaniel Zhang MD SUBJECTIVE: The patient is sitting up in a chair. Family and friend at the bedside. Night was unremarkable. Feels okay. Still have some cough and sputum production. No nausea. No vomiting, diarrhea, leg pain or leg swelling. PHYSICAL EXAMINATION: GENERAL: In no acute distress. VITAL SIGNS: Temperature is 98, heart rate is 95, respiratory rate is 20, blood pressure is 107/52, and pulse oximetry 95% on 6 L nasal cannula. HEENT: Moist mucous membranes. Crowded airway. NECK: Supple. No JVD. LUNGS: Has decreased breath sounds at left lung. HEART: S1 and S2. ABDOMEN: Soft and nontender. No organomegaly. EXTREMITIES: Trace edema. NEUROLOGIC: Awake and alert. Follows simple commands. MEDICATIONS: He is on aspirin 81 mg daily, Colace 100 mg twice a day, Coumadin 5 mg will be given today, Cozaar 50 mg daily, doxycycline 100 mg twice a day, potassium 20 mEq twice a day, Lasix 40 mg q.12 hours, metoprolol tartrate 100 mg twice a day, cefepime 1 g IV q.8 hours, MiraLax 17 g daily, primidone 100 mg twice a day, Protonix 40 mg daily, Solu-Medrol 20 mg q.12 hours, Tylenol p.r.n., Xopenex inhaled q.6 hours, and Zoloft 25 mg daily. LABORATORY DATA: Reviewed and shows INR is 2.16. Sodium 145, potassium 4.4, chloride 107, bicarbonate is 26, BUN 56, creatinine 0.8, glucose 114, and calcium is 9.5. IMPRESSION AND PLAN: Status post respiratory failure, presently extubated on nasal cannula, has a chronic obstructive lung disease, also has cardiomyopathy with systolic and diastolic dysfunction, pulmonary hypertension, atrial fibrillation, cirrhotic liver, hepatitis C, esophageal varices, history of gastroesophageal reflux disease, coronary artery disease, history of coronary stent, depression, and may have sleep apnea syndrome. 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 We will repeat chest x-ray. Followup labs in the morning. Thank you and we will follow with you. Smooth Roche MD
[2017-05-08] MEDS: Levalbuterol 1.25 MG/3 ML Inhal Soln UD IH SCH ×3 (02:50→13:50)
[2017-05-08] MEDS: Cefepime 1gm in NS 100ml 1 GM/100 ML BAG IVPB SCH (05:50)
[2017-05-08 06:37] LABS: INR 2.57 (0.93-1.08)
[2017-05-08 07:10] LABS: BLOOD UREA NITROGEN 61 mg/dL (7-21); GFR AFRICAN-AMERICAN > 60; GLUCOSE,RANDOM 127 mg/dL (70-110); POTASSIUM 4.4 mmol/L (3.6-5.0); SODIUM 146 mmol/L (132-148)
[2017-05-08 07:11] LABS: ALKALINE PHOSPHATASE 99 U/L (38-126); ALT/SGPT 47 U/L (7-56); AST/SGOT 45 U/L (17-59); BILIRUBIN,TOTAL 1.7 mg/dL (0.2-1.3); CALCIUM 9.7 mg/dL (8.4-10.5); CARBON DIOXIDE 26 mmol/L (21-33); CHLORIDE 106 mmol/L (98-107); TOTAL PROTEIN 8.8 g/dL (5.8-8.3)
--- NOTE | 2017-05-08 08:09 | CP.PCM.PN ---
Subjective - Date & Time of Evaluation Date of Evaluation: 05/08/17 Time of Evaluation: 07:00 - Subjective Subjective: Stable on 2R now.. No CP or SOB. N/C now. He feels well. V/S noted. AF, PVC's PE: Lungs: rhonchi Cor: irreg S1S2 Abd.: soft Ext.: min edema Neuro.: alert Labs noted: INR= 2.57, BMP OK Echo noted. Mild LVD, Mod. MR and TR. Mod/Sev. AI. Severe PH V/Q: low prob. CT chest noted: LLL pneumonia. Small werner. pl. effusions CXR 05/07 not read yet. Lungs improved by my reading. BC x2 NG at 5 days and BC x2 NG at 24 hrs. Objective - Vital Signs/Intake and Output Vital Signs (last 24 hours): Temp Pulse Resp BP Pulse Ox 98.2 F 90 18 101/57 L 95 05/08/17 06:00 05/08/17 06:00 05/08/17 06:00 05/08/17 06:00 05/08/17 06:00 Intake and Output: 05/08/17 05/08/17 06:59 18:59 Intake Total 220 Balance 220 - Medications Medications: Current Medications Acetaminophen (Tylenol 325mg Tab) 650 mg PO Q4H PRN PRN Reason: Pain, moderate (4-7) Last Admin: 05/01/17 09:46 Dose: 650 mg Aspirin (Aspirin Chewable) 81 mg PO DAILY [facility] Last Admin: 05/07/17 10:45 Dose: 81 mg Docusate Sodium (Colace) 100 mg PO TID [facility] Last Admin: 05/07/17 17:25 Dose: 100 mg Doxycycline Hyclate (Doryx) 100 mg PO Q12 [facility] PRN Reason: Protocol Stop: 05/15/17 22:01 Last Admin: 05/07/17 22:21 Dose: 100 mg Furosemide (Lasix) 40 mg PO DAILY [facility] Cefepime HCl (Maxipime 1gm) 1 gm in 100 mls @ 100 mls/hr IVPB Q8 [facility] PRN Reason: Protocol Stop: 05/15/17 14:01 Last Admin: 05/08/17 05:50 Dose: 100 mls/hr Levalbuterol HCl (Xopenex) 1.25 mg IH [id number] [facility] Last Admin: 05/08/17 02:50 Dose: Not Given Losartan Potassium (Cozaar) 50 mg PO DAILY [facility] Last Admin: 05/07/17 10:44 Dose: 50 mg Methylprednisolone (Solu-Medrol) 20 mg IVP Q12 [facility] Last Admin: 05/07/17 22:21 Dose: 20 mg Metoprolol Tartrate (Lopressor) 100 mg PO BID [facility] Last Admin: 05/07/17 17:26 Dose: 100 mg Pantoprazole Sodium (Protonix Ec Tab) 40 mg PO ACB [facility] Last Admin: 05/07/17 08:04 Dose: 40 mg Polyethylene Glycol (Miralax) 17 gm PO DAILY [facility] Last Admin: 05/07/17 10:45 Dose: Not Given Potassium Chloride (K-Dur 20 Meq Er Tab) 20 meq PO DAILY [facility] Primidone (Mysoline) 100 mg PO BID [facility] Last Admin: 05/07/17 17:26 Dose: 100 mg Sertraline HCl (Zoloft) 25 mg PO DAILY [facility] Last Admin: 05/07/17 10:45 Dose: 25 mg Warfarin Sodium (Coumadin) 4 mg PO 1800 [facility] PRN Reason: Protocol - Labs Labs: 05/06/17 05:30 05/08/17 05:45 PT 28.8 SECONDS (9.4-12.5) H 05/08/17 05:45 INR 2.57 (0.93-1.08) H 05/08/17 05:45 APTT 33.9 Seconds (25.1-36.5) 04/30/17 21:50 Assessment and Plan - Assessment and Plan (Free Text) Assessment: Syncope Dyspnea COPD/PH/Former Smoker CAD/Remote PCI/LVD CHF Valvular Heart Disease: Mod. MR and TR, Mod/Sev. AI A. Fib./ PVC's Hepatitis C Esophageal Varices H/O GIB GERD Werner. THR Tremor Plan: As per pulmonary and ID: AB, respiratory tx. IV > PO Lasix, continue PO metoprolol Decrease warfarin to 4 mg./day OOB to chair as sowmya./PT Monitor INR's. Warfarin by INR daily Monitor labs, I/O, sats., etc. As per Dr. Zhang. Will follow.
[2017-05-08] MEDS: Pantoprazole 40 mg EC Tab PO SCH (09:02)
[2017-05-08] MEDS ORDERED: Potassium Chloride 20 mEq ER Tab PO SCH (10:00)
--- NOTE | 2017-05-08 10:12 | RAD ---
HISTORY: Congestive heart failure, syncope. Infiltrate suspected COMPARISON: 05/05/2017 TECHNIQUE: Chest PA and lateral FINDINGS: LUNGS: Lower lobe infiltrates/atelectasis new findings compared to the prior study. PLEURA: No significant pleural effusion identified. No pneumothorax apparent. CARDIOVASCULAR: Cardiomegaly. No evidence of acute, significant cardiovascular disease. OSSEOUS STRUCTURES: No significant abnormalities. VISUALIZED UPPER ABDOMEN: Normal. OTHER FINDINGS: None. IMPRESSION: New lower lobe Infiltrates/atelectasis.
[2017-05-08] MEDS: POLYETHYLENE GLYCOL 3350 17 GM/Dose PACKET PO SCH (10:14)
[2017-05-08] MEDS: MethylPREDNISolone 40 mg Vial IVP SCH (10:14)
--- NOTE | 2017-05-08 12:14 | PN ---
DATE: 05/08/2017 SUBJECTIVE: The patient was seen early this morning. No fevers and no chills. No nausea and no vomiting. PHYSICAL EXAMINATION: VITAL SIGNS: On exam, temperature is 98, blood pressure is 101/60, and respiratory rate of 18. HEENT: Examination of HEENT is unremarkable. NECK: Supple. LUNGS: Have decreased breath sounds. HEART: Normal S1 and S2. GASTROINTESTINAL: Abdominal examination is soft and nontender. LABORATORY DATA: Laboratory examination reveals a white count of 7.7 and hemoglobin of 13. Chemistries reveals a BUN of 61 and creatinine of 1.0. Procalcitonin is 0.16. Urinalysis is noted. Serology reveals influenza is negative. Microbiology reveals the blood cultures are negative. Urine cultures are no growth. DIAGNOSTIC DATA: Chest x-ray reveals lower lobe atelectasis and infiltrates. ASSESSMENT AND PLAN: This is an 86-year-old male with coronary artery disease, congestive heart failure, cardiac arrhythmia and liver cirrhosis, hepatitis C, depression and gastroesophageal reflux disease, admitted with congestive heart failure and syncope. Found to have infiltrates on the CT scan, hypoxia, tachycardia, low-grade fevers, severe sepsis, community-acquired pneumonia with acute systolic congestive heart failure on top of chronic congestive heart failure, and reduced ejection fraction. Cultures negative. Procalcitonin is negative times 2, today is day number 3 of Maxipime and doxycycline. We will discontinue the Maxipime and may complete five days of doxycycline, today is day number 3 of 5 days. The patient is also on Solu-Medrol. Shyam Kline MD
[2017-05-08 12:20] VITALS: BP 96/61; RESP 20; TEMP 97.4
[2017-05-08 18:30] VITALS: PULSE 97
--- NOTE | 2017-05-08 20:52 | PN ---
PULMONARY PROGRESS NOTE DATE: 05/08/2017 REFERRING PHYSICIAN: Nathaniel Zhang MD SUBJECTIVE: He is out of bed to chair. Night was unremarkable. Feels better. Still have some cough and shortness of breath. No nausea. No vomiting. No diarrhea, leg pain or leg swelling. OBJECTIVE: GENERAL: In no acute distress. VITAL SIGNS: Temperature is 98, heart rate is 97, respiratory rate is 20, blood pressure is 96/61, and pulse oximetry is 94% on nasal cannula. HEENT: Moist mucous membranes. Crowded airway. NECK: Supple. No JVD. LUNGS: Has a few crackles, scattered rhonchi. HEART: S1 and S2. ABDOMEN: Soft and nontender. No organomegaly. EXTREMITIES: There is no edema. NEUROLOGIC: Awake and alert. Follows simple commands. MEDICATIONS: He is on aspirin 81 mg daily, Colace 100 mg 3 times a day, Coumadin mg daily, Cozaar 50 mg daily, doxycycline 100 mg twice a day, potassium 20 mEq daily, Lasix 40 mg daily, metoprolol tartrate 10 mg twice a day, MiraLax 17 g p.o. daily, primidone 100 mg twice a day, Protonix 40 mg daily, Solu-Medrol 20 mg twice a day, Tylenol p.r.n., Xopenex 1.25 mg q.6 hours, and Zoloft 25 mg daily. IMPRESSION AND PLAN: Status post respiratory failure, presently extubated on nasal cannula, chronic obstructive lung disease, cardiomyopathy with systolic and diastolic dysfunction, pulmonary hypertension, atrial fibrillation, cirrhotic liver, hepatitis C, esophageal varices, history of gastroesophageal reflux disease, coronary artery disease, history of coronary stent, depression, and may have sleep apnea syndrome. I spoke to patient in detail. Continue bronchodilator and diuretics. We will place him on CPAP while sleeping. Thank you and we will follow with you. Smooth Roche MD
--- NOTE | 2017-05-09 19:44 | DS ---
DATE: 05/08/2017 HISTORY OF PRESENT ILLNESS: Patient is on telemetry, he is comfortable, no distress, seen by specialist. PHYSICAL EXAMINATION: VITAL SIGNS: Temperature 98.2, heart rate 89, blood pressure 101/57, respirations 18, saturation 95%. HEAD AND NECK: Normal. No JVD. No thyromegaly. CHEST: Clear with good air entry. CARDIAC: First sound and second sound normal. ABDOMEN: Soft, nontender. EXTREMITIES: No edema. NEUROLOGIC: General weakness otherwise normal. LABORATORY DATA: He had on day of discharge sodium 146, potassium 4.4, chloride 106, bicarbonate 26, BUN 61, creatinine 1. Blood sugar 127 and his total bilirubin 1.7. Liver enzymes are normal otherwise. Albumin is 8.8. HOSPITAL COURSE: Patient was admitted initially to ICU with respiratory failure due to combined cardiac and pulmonary etiology. Patient has acute worsening of his chronic status with congestive heart failure. He does have echo shows mild impaired LV function and moderate severity in mitral regurgitation or more in addition to aortic regurgitations. Patient has also history of coronary artery disease, cardiac stenting, and he is [id number]. Medical treatment was preferred therapy at this time and patient continued improving on IV Lasix, IV Dobutrex, and patient saturation initially was difficult to arise on high flow oxygen, but eventually patient improved with the treating underlying cardiac status plus his COPD, pneumonia in addition to that. Patient improved and transferred to telemetry, seems doing well. We ordered his BUN and creatinine. BUN is elevated due to cardiac status, on Lasix. We will monitor blood pressure. Patient improved and was ready to be discharged to for conservation of rehabilitation. DISCHARGE DIAGNOSES: 1. Acute systolic heart failure on top of chronic. 2. Acute community-acquired pneumonia. 3. Acute chronic obstructive pulmonary disease exacerbation. 4. Tremors. 5. Chronic atrial fibrillations. PLAN: Discharge the patient to rehab. Continues his medications; aspirin, Colace, Coumadin, Cozaar 50 mg p.o. daily which has been hold for blood pressure is low, doxycycline 100 b.i.d., potassium 20, Lasix 40 p.o., Lopressor 100 b.i.d., MiraLax for constipation, Mysoline 100 p.o. bi.d., sodium, Protonix, Solu-Medrol 20 q. 12, Xopenex nebulizer, Zoloft 25 p.o. daily. Continue all meds, followup. Nathaniel Zhang MD
== END 2017-05-08 20:26 | DRG 291 ==
LOC: ED 21:22 → ERH 05-01 00:09 → CCU 05-01 03:10 → 2RSO 05-06 15:04
PROVIDERS: ADMIT Internal Medicine; ATTEND Internal Medicine
PROC: 3E0F7GC Introduction of Other Therapeutic Substance into Respiratory Tract, Via Natural or Artificial Opening (ICD-10-PCS; principal; 2017-05-01)
DX: I11.0 Hypertensive heart disease with heart failure (principal); J96.01 Acute respiratory failure with hypoxia; I50.43 Acute on chronic combined systolic (congestive) and diastolic (congestive) heart failure; J18.9 Pneumonia, unspecified organism; I27.20 Pulmonary hypertension, unspecified; J44.0 Chronic obstructive pulmonary disease with (acute) lower respiratory infection; I85.00 Esophageal varices without bleeding; I48.2 Chronic atrial fibrillation; J44.1 Chronic obstructive pulmonary disease with (acute) exacerbation; B19.20 Unspecified viral hepatitis C without hepatic coma; K21.9 Gastro-esophageal reflux disease without esophagitis; I25.10 Atherosclerotic heart disease of native coronary artery without angina pectoris; R25.1 Tremor, unspecified; I08.0 Rheumatic disorders of both mitral and aortic valves; I25.5 Ischemic cardiomyopathy; F32.9 Major depressive disorder, single episode, unspecified; K74.60 Unspecified cirrhosis of liver; I25.2 Old myocardial infarction; R29.6 Repeated falls; Z91.19 Patient's noncompliance with other medical treatment and regimen; Z79.01 Long term (current) use of anticoagulants; Z95.5 Presence of coronary angioplasty implant and graft; Z96.653 Presence of artificial knee joint, bilateral; Z87.891 Personal history of nicotine dependence

== ENCOUNTER 2017-05-08 20:32 | Inpatient (IN) | payer OTHER, BC ==
[2017-05-08 21:00] VITALS: BMI 20.2
[2017-05-08] MEDS: MethylPREDNISolone 40 mg Vial IVP SCH (22:14)
[2017-05-09] MEDS: Levalbuterol 1.25 MG/3 ML Inhal Soln UD IH SCH ×4 (01:27→20:29)
[2017-05-09] MEDS: Pantoprazole 40 mg EC Tab PO SCH (06:17)
[2017-05-09 06:44] LABS: BASO # 0.02 K/mm3 (0.0-2.0); BASO % 0.2 % (0.0-3.0); EOS % 0.2 % (1.5-5.0); GRAN # 10.59 (1.4-6.5); GRAN % 84.1 % (50.0-68.0); HEMOGLOBIN 13.2 g/dL (14.0-18.0); LYMPH # 1.1 (1.2-3.4); MEAN CORPUSCULAR HEMOGLOBIN 32.7 pg (25.0-35.0); MEAN CORPUSCULAR HGB CONC 32.7 g/dl (31.0-37.0); MEAN PLATELET VOLUME 11.2 fl (7.0-11.0); MONO # 0.8 (0.1-0.6); MONO % 6.5 % (1.0-6.0); RBC 4.04 10^6/uL (3.5-6.1); WHITE BLOOD COUNT 12.6 10^3/ul (4.5-11.0)
[2017-05-09 07:34] LABS: PROTHROMBIN TIME 39.8 SECONDS (9.4-12.5)
[2017-05-09 07:35] LABS: INR 3.53 (0.93-1.08)
--- NOTE | 2017-05-09 07:49 | CP.PCM.PN ---
Subjective - Date & Time of Evaluation Date of Evaluation: 05/09/17 Time of Evaluation: 07:00 - Subjective Subjective: Stable in TCU now. NO CP or SOB. Slept OK V/S noted. 90's systolic PE: Lungs: clear Cor: irreg, S1S2, sys murmur Abd.: soft Ext.: no edema Neuro.: alert Labs noted> WBC 12,600, INR 3.53 Objective - Vital Signs/Intake and Output Vital Signs (last 24 hours): Temp Pulse Resp BP Pulse Ox 97.6 F 69 18 91/59 L 96 05/09/17 06:00 05/09/17 06:00 05/09/17 06:00 05/09/17 06:00 05/09/17 06:00 - Medications Medications: Current Medications Acetaminophen (Tylenol 325mg Tab) 650 mg PO Q4H PRN; Protocol PRN Reason: Pain, moderate (4-7) Aspirin (Aspirin Chewable) 81 mg PO DAILY [facility] PRN Reason: Protocol Docusate Sodium (Colace) 100 mg PO TID [facility] PRN Reason: Protocol Doxycycline Hyclate (Doryx) 100 mg PO Q12 [facility] PRN Reason: Protocol Last Admin: 05/08/17 22:13 Dose: 100 mg Furosemide (Lasix) 40 mg PO DAILY [facility] PRN Reason: Protocol Levalbuterol HCl (Xopenex) 1.25 mg IH [id number] [facility] PRN Reason: Protocol Last Admin: 05/09/17 01:27 Dose: 1.25 mg Losartan Potassium (Cozaar) 50 mg PO DAILY [facility] PRN Reason: Protocol Methylprednisolone (Solu-Medrol) 20 mg IVP Q12 [facility] PRN Reason: Protocol Last Admin: 05/08/17 22:14 Dose: 20 mg Metoprolol Tartrate (Lopressor) 100 mg PO BID [facility] PRN Reason: Protocol Pantoprazole Sodium (Protonix Ec Tab) 40 mg PO 0600 [facility] PRN Reason: Protocol Last Admin: 05/09/17 06:17 Dose: 40 mg Polyethylene Glycol (Miralax) 17 gm PO DAILY [facility] PRN Reason: Protocol Potassium Chloride (K-Dur 20 Meq Er Tab) 20 meq PO DAILY [facility] PRN Reason: Protocol Primidone (Mysoline) 100 mg PO BID [facility] PRN Reason: Protocol Sertraline HCl (Zoloft) 25 mg PO DAILY [facility] PRN Reason: Protocol Warfarin Sodium (Coumadin) 4 mg PO 1800 [facility] PRN Reason: Protocol - Labs Labs: 05/09/17 06:00 PT 39.8 SECONDS (9.4-12.5) H 05/09/17 06:00 INR 3.53 (0.93-1.08) H* 05/09/17 06:00 Assessment and Plan - Assessment and Plan (Free Text) Assessment: Syncope Dyspnea COPD/PH/Former Smoker CAD/PCI/LVD CHF Valvular Heart Disease: Mod. MR and TR, Mod/Sev. AI Chronic AF on warfarin PVC's Hepatitis C Esophageal Varices H/O GIB GERD Werner. THR Plan: Hold warfarin. Monitor INR's daily Hold losartan today for low BP OOB/PT/Rehab Efforts AB as per ID Wean steroids, as per pulm. CPAP HS. Will follow.
[2017-05-09 07:54] LABS: ALBUMIN 4.1 g/dL (3.0-4.8); ALT/SGPT 52 U/L (7-56); AST/SGOT 44 U/L (17-59); BLOOD UREA NITROGEN 74 mg/dL (7-21); CALCIUM 9.4 mg/dL (8.4-10.5); GFR AFRICAN-AMERICAN > 60; GFR NON-AFRICAN AMERICAN > 60
[2017-05-09] MEDS ORDERED: Potassium Chloride 20 mEq ER Tab PO SCH (10:00)
[2017-05-09] MEDS: POLYETHYLENE GLYCOL 3350 17 GM/Dose PACKET PO SCH (11:20)
[2017-05-09] MEDS: MethylPREDNISolone 40 mg Vial IVP SCH ×2 (11:20→22:08)
--- NOTE | 2017-05-09 21:40 | CON ---
PULMONARY CONSULTATION DATE: 05/09/2017 REFERRING PHYSICIAN: Nathaniel Zhang MD REASON FOR CONSULTATION: Cough, shortness of breath, pulmonary hypertension, may have sleep apnea syndrome. HISTORY OF PRESENT ILLNESS: The patient is an 86-year-old gentleman with known history of cardiomyopathy, coronary artery disease, history of coronary stent, atrial fibrillation, chronic obstructive lung disease, history of hepatitis C, cirrhotic liver, esophageal varices, hypertension, who came in with respiratory insufficiencies, treated with IV and inhaled bronchodilator, antibiotics, also Primacor was used for severe pulmonary hypertension. He done well, presently admitted to TCU to continue care. He is lying in the bed, family at bedside, still have cough and sputum production, known snoring, daytime sleepy and tired. PAST MEDICAL HISTORY: As per history of present illness. ALLERGIES: NONE KNOWN. SOCIAL HISTORY: Stop smoking few years ago. Denies any alcohol use. FAMILY HISTORY: No significant cardiopulmonary disease reported. MEDICATIONS: He is on aspirin 81 mg daily, Colace 100 mg three times a day, Coumadin 4 mg will be given tonight, Cozaar 50 mg daily, doxycycline 100 mg twice a day, potassium 20 mEq daily, Lasix 40 mg daily, metoprolol tartrate 100 mg twice a day, MiraLax 17 g daily, primidone 100 mg twice a day, Protonix 40 mg daily, Solu-Medrol 20 mg twice a day, Tylenol p.r.n. basis, Xopenex inhaled q.6 hours, Zoloft 25 mg daily. REVIEW OF SYSTEMS: No headache. No rhinitis. Has a cough, sputum production, short of breath. No chest pain. No nausea. No vomiting. No diarrhea. No dysuria. No leg pain or leg swelling. Admit to have snoring, daytime sleepy and tired. PHYSICAL EXAMINATION: GENERAL: No acute distress. VITAL SIGNS: Temperature is 98, heart rate is 70, respiratory rate is 18, blood pressure is 100/59, pulse oximetry is 96% on 5 L nasal cannula. HEENT: Moist mucous membrane. Crowded airway. NECK: Supple. No JVD. LUNGS: Have scattered rhonchi and few wheezing. HEART: S1 and S2. ABDOMEN: Soft, nontender, no organomegaly. EXTREMITIES: There is no edema. NEUROLOGIC: Awake, alert, and follows simple command. LABORATORY DATA: Shows hemoglobin 13.2, hematocrit 40.4, WBC 12.6, platelet is 166. INR 3.53. Sodium 142, potassium 4.3, chloride 106, bicarbonate 23, BUN 74, creatinine 0.8, glucose 105, calcium 9.4, AST 44, ALT 52, alkaline phosphatase is 100, albumin is 4.1. IMPRESSION AND PLAN: Status post respiratory failure, presently extubated on nasal cannula, chronic obstructive lung disease, cardiomyopathy with systolic and diastolic dysfunction, pulmonary hypertension, atrial fibrillation, cirrhotic liver, hepatitis C, esophageal varices, history of gastroesophageal reflux disease, coronary artery disease, history of coronary stent, depression, may have a component of sleep apnea syndrome. I spoke to the patient's family at bedside, all the questions answered. We will place him on CPAP while sleeping. Keep head elevated at 45 degrees, bronchodilator, gastric prophylaxis, anticoagulation, fall precaution. Thank you and we will follow with you. Smooth Roche MD
--- NOTE | 2017-05-10 01:09 | HP ---
HISTORY OF PRESENT ILLNESS: An 86-year-old male with history of ischemic cardiomyopathy, hypertension, valvular heart disease, COPD, recently came in with respiratory failure to ICU, went to telemetry with IV Lasix, Dobutrex, beta-blockers. The patient improved with IV antibiotic and nebulizer treatment and steroids. The patient improved slowly and right now on nasal cannula. He is generally weak from deconditioning and was admitted to Transitional Care Unit for continuation of therapy and physical therapy. The patient also noted that he has some trouble swallowing and we will further evaluate that. He denied any new complaints today. He is stable hemodynamically. He eats. No nausea, no vomiting, no other complaints. PAST MEDICAL HISTORY: As I mentioned, ischemic heart disease, moderate mitral regurgitation and aortic regurgitation, COPD, emphysema, pneumonia, tremors, hypertension, chronic atrial fibrillation. ALLERGIES: NO KNOWN ALLERGIES. SOCIAL HISTORY: No smoking or drinking. The patient lives at his home with his 2 children. They support him. He lost his a year ago or more. 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 He does have memory problem on and off. Dyspnea with exertions. No chest pain. No leg edema. PHYSICAL EXAMINATION: VITAL SIGNS: Temperature 97.3, heart rate 97, blood pressure 100/59, respirations 18, saturation 96% on nasal cannula. HEAD AND NECK: Normal. No JVD. No thyromegaly. CARDIAC: First and second sounds normal. CHEST: Clear. ABDOMEN: Soft and nontender. EXTREMITIES: No edema. NEUROLOGIC: Normal except gait disorder and notably he has some problem with swallowing according to the daughter which seems chronic in nature. LABORATORY DATA: White count 12.6, hemoglobin 13.2, hematocrit 40.4, platelets 166. His PT/INR today is 3.5 which is elevated. Chemistry, sodium 142, potassium 4.6, chloride 106, bicarbonate 23, BUN 74, creatinine 0.8. Total bilirubin 1.8. AST, ALT and alkaline phosphatase normal. IMPRESSION AND PLAN: 1. Acute congestive heart failure complicated with community-acquired pneumonia, chronic obstructive pulmonary disease, emphysema. Continue current therapy. We are tapering the steroids and seems doing well. Heart rate below 100, and we will follow up clinically. Continue beta-blockers. Continue Lasix and continue Coumadin. We will monitor PT/INR on daily basis. We will hold the Coumadin tonight and repeat PT/INR in the morning. 2. Chronic atrial fibrillation. Repeat PT/INR. Continue beta-amrita. 3. Community-acquired pneumonia. Continue doxycycline 200 mg b.i.d. 4. Ischemic heart disease. Continue metoprolol, aspirin. 6. Chronic constipation. Continue MiraLax. 7. Dysphagia. We will get a swallow evaluation and we will give the patient some nutritional supplement Ensure, so he can use the straw may help. 8. Depression, tremors. Continue Mysoline. We will increase Mysoline to 150 mg as before now, and we will follow up clinically. Continue physical therapy on daily basis. Nathaniel Zhang MD
[2017-05-10] MEDS: Levalbuterol 1.25 MG/3 ML Inhal Soln UD IH SCH ×4 (02:04→20:48)
--- NOTE | 2017-05-10 04:53 | CON ---
DATE: 05/09/2017 LOCATION: The patient seen in room 327, bed 2. CHIEF COMPLAINT: Weakness times several days. HISTORY OF PRESENT ILLNESS: This is an 86-year-old male with past medical history significant for coronary artery disease, cardiac stents, congestive heart failure, cardiac arrhythmia, atrial fibrillation, GI bleed, hypertension, admitted with heart failure and syncope on 05/01/2017. The patient was requested to have Infectious Disease consultation because of pneumonia, for antibiotic choices, and was given antibiotics. He completed the antibiotics and now transferred to Transitional Care where the patient is in physical therapy. REVIEW OF SYSTEMS: Reveals the patient has no fevers and no chills. No nausea. No vomiting. He is doing much better. PAST MEDICAL HISTORY: Significant for coronary artery disease, congestive heart failure, cardiac arrhythmias, liver cirrhosis, hepatitis C, depression, GERD. PAST SURGICAL HISTORY: Significant for cardiac stents. ALLERGIES: THE PATIENT HAS NO KNOWN ALLERGIES. PHYSICAL EXAMINATION: VITAL SIGNS: On exam, temperature is 98, blood pressure is 120/70, respiratory rate of 16. HEENT: Unremarkable. NECK: Supple. LUNGS: Have decreased breath sounds. HEART: Normal S1, S2. ABDOMEN: Soft, nontender. LABORATORY DATA: Reveals the patient has white count of 7, hemoglobin of 13. BUN and creatinine are noted. Procalcitonin in acute care was 0.16. Influenza was negative. Blood cultures are negative. Urine cultures are negative. ASSESSMENT AND PLAN: This is an 86-year-old male with coronary artery disease, congestive heart failure, cardiac arrhythmia, liver cirrhosis, hepatitis C, depression, and gastroesophageal reflux disease, admitted to the acute care with hypoxia and tachycardia, low grade fevers and found to have severe sepsis with a community-acquired pneumonia with acute systolic congestive heart failure with reduced ejection fraction on top of chronic congestive heart failure with negative procalcitonin and had completed 3 days of Maxipime and doxycycline, and today is day #4 of doxycycline with complete 5 days. We will follow with you. The patient is at risk for developing nosocomial infections. Review of medications confirms the patient to be on p.o. doxycycline and Solu-Medrol. The patient is also on Zoloft. We will follow with you. Shyam Kline MD [facility] # [id number]
[2017-05-10] MEDS: Pantoprazole 40 mg EC Tab PO SCH (05:57)
[2017-05-10 07:00] LABS: BLOOD UREA NITROGEN 74 mg/dL (7-21); CALCIUM 9.3 mg/dL (8.4-10.5); GFR AFRICAN-AMERICAN > 60; GFR NON-AFRICAN AMERICAN > 60
[2017-05-10 07:18] LABS: INR 3.36 (0.93-1.08); PROTHROMBIN TIME 37.9 SECONDS (9.4-12.5)
--- NOTE | 2017-05-10 08:01 | CP.PCM.PN ---
Subjective - Date & Time of Evaluation Date of Evaluation: 05/10/17 Time of Evaluation: 07:00 - Subjective Subjective: Stable in TCU now. NO CP or SOB. Slept OK V/S noted. PE: Lungs: clear Cor: irreg, S1S2, sys murmur Abd.: soft Ext.: no edema Neuro.: alert Labs noted: INR = 3.36, BMP OK Objective - Vital Signs/Intake and Output Vital Signs (last 24 hours): Temp Pulse Resp BP Pulse Ox 97.3 F L 73 14 142/68 91 L 05/09/17 10:00 05/09/17 18:12 05/09/17 10:00 05/09/17 18:12 05/09/17 10:00 - Medications Medications: Current Medications Acetaminophen (Tylenol 325mg Tab) 650 mg PO Q4H PRN; Protocol PRN Reason: Pain, moderate (4-7) Aspirin (Aspirin Chewable) 81 mg PO 0800 ANA LAURA PRN Reason: Protocol Docusate Sodium (Colace) 100 mg PO TID ANA LAURA PRN Reason: Protocol Last Admin: 05/09/17 18:12 Dose: 100 mg Doxycycline Hyclate (Doryx) 100 mg PO Q12 ANA LAURA PRN Reason: Protocol Last Admin: 05/09/17 22:08 Dose: 100 mg Furosemide (Lasix) 40 mg PO DAILY ANA LAURA PRN Reason: Protocol Last Admin: 05/09/17 11:18 Dose: 40 mg Levalbuterol HCl (Xopenex) 1.25 mg IH [id number] ANA LAURA PRN Reason: Protocol Last Admin: 05/10/17 07:49 Dose: 1.25 mg Losartan Potassium (Cozaar) 50 mg PO DAILY ANA LAURA PRN Reason: Protocol Methylprednisolone (Solu-Medrol) 20 mg IVP Q12 ANA LAURA PRN Reason: Protocol Last Admin: 05/09/17 22:08 Dose: 20 mg Metoprolol Tartrate (Lopressor) 100 mg PO BID ANA LAURA PRN Reason: Protocol Last Admin: 05/09/17 18:12 Dose: 100 mg Pantoprazole Sodium (Protonix Ec Tab) 40 mg PO 0600 ANA LAURA PRN Reason: Protocol Last Admin: 05/10/17 05:57 Dose: 40 mg Polyethylene Glycol (Miralax) 17 gm PO DAILY ANA LAURA PRN Reason: Protocol Last Admin: 05/09/17 11:20 Dose: 17 gm Potassium Chloride (K-Dur 20 Meq Er Tab) 20 meq PO 0800 ANA LAURA PRN Reason: Protocol Primidone (Mysoline) 100 mg PO BID ANA LAURA PRN Reason: Protocol Last Admin: 05/09/17 18:13 Dose: 100 mg Sertraline HCl (Zoloft) 25 mg PO DAILY ANA LAURA PRN Reason: Protocol Last Admin: 05/09/17 11:20 Dose: 25 mg Warfarin Sodium (Coumadin) 4 mg PO 1800 ANA LAURA PRN Reason: Protocol - Labs Labs: 05/09/17 06:00 05/10/17 06:30 PT 37.9 SECONDS (9.4-12.5) H 05/10/17 06:30 INR 3.36 (0.93-1.08) H 05/10/17 06:30 Assessment and Plan - Assessment and Plan (Free Text) Assessment: Syncope Dyspnea COPD/PH/Former Smoker CAD/PCI/LVD CHF Valvular Heart Disease: Mod. MR and TR, Mod/Sev. AI Chronic AF on warfarin PVC's Hepatitis C Esophageal Varices H/O GIB GERD Werner. THR Plan: Hold warfarin. Monitor INR's daily Hold losartan today OOB/PT/Rehab Efforts AB as per ID Swallowing Evaluation Wean steroids, as per pulm. CPAP HS. Will follow.
[2017-05-10] MEDS: Potassium Chloride 20 mEq ER Tab PO SCH (08:53)
[2017-05-10] MEDS: POLYETHYLENE GLYCOL 3350 17 GM/Dose PACKET PO SCH (11:00)
[2017-05-10] MEDS: MethylPREDNISolone 40 mg Vial IVP SCH ×2 (11:00→22:05)
--- NOTE | 2017-05-10 18:13 | PN ---
DATE: 05/10/2017 SUBJECTIVE: The patient is in bed, in no acute distress, nontoxic. PHYSICAL EXAMINATION VITAL SIGNS: Temperature is 97, blood pressure is 120/70, respiratory rate of 18. HEENT: Unremarkable. NECK: Supple. LUNGS: Have decreased breath sounds. HEART: Normal S1, S2. ABDOMEN: Soft, nontender. LABORATORY DATA: Reveals a white count of 12,600, hemoglobin of 13, platelets of 166. Chemistries; reveals a BUN of 74, creatinine of 0.9. Microbiology is noted. ASSESSMENT AND PLAN: This is an 86-year-old male with past medical history of coronary artery disease, cardiac stents, congestive heart failure, cardiac arrhythmia, atrial fibrillation, gastrointestinal bleed, hypertension, admitted with heart failure, syncope with hepatitis C and found to have severe sepsis with community-acquired pneumonia, acute systolic congestive heart failure with reduced ejection fraction on top of chronic congestive heart failure and negative procalcitonin, had completed 3 days of Maxipime and doxycycline and today is day #5 of doxycycline. Would discontinue doxycycline after today's last dose. The patient is on Solu-Medrol also. Shyam Kline MD
[2017-05-11] MEDS: Levalbuterol 1.25 MG/3 ML Inhal Soln UD IH SCH ×4 (01:16→19:54)
[2017-05-11] MEDS: Pantoprazole 40 mg EC Tab PO SCH (05:11)
[2017-05-11 07:26] LABS: INR 2.34 (0.93-1.08); PROTHROMBIN TIME 26.2 SECONDS (9.4-12.5)
--- NOTE | 2017-05-11 08:07 | CP.PCM.PN ---
Subjective - Date & Time of Evaluation Date of Evaluation: 05/11/17 Time of Evaluation: 07:00 - Subjective Subjective: Stable in TCU now. NO CP or SOB. Slept OK V/S noted. PE: Lungs: clear Cor: irreg, S1S2, sys murmur Abd.: soft Ext.: no edema Neuro.: alert Labs noted: INR = 2.34 Objective - Vital Signs/Intake and Output Vital Signs (last 24 hours): Temp Pulse Resp BP Pulse Ox 98.6 F 78 14 124/74 90 L 05/10/17 18:01 05/10/17 21:59 05/10/17 18:01 05/10/17 18:01 05/10/17 18:01 - Medications Medications: Current Medications Acetaminophen (Tylenol 325mg Tab) 650 mg PO Q4H PRN; Protocol PRN Reason: Pain, moderate (4-7) Aspirin (Aspirin Chewable) 81 mg PO 0800 ANA LAURA PRN Reason: Protocol Last Admin: 05/10/17 08:52 Dose: 81 mg Docusate Sodium (Colace) 100 mg PO TID ANA LAURA PRN Reason: Protocol Last Admin: 05/10/17 17:46 Dose: 100 mg Doxycycline Hyclate (Doryx) 100 mg PO Q12 ANA LAURA PRN Reason: Protocol Last Admin: 05/10/17 22:06 Dose: 100 mg Furosemide (Lasix) 40 mg PO DAILY ANA LAURA PRN Reason: Protocol Last Admin: 05/10/17 11:00 Dose: 40 mg Levalbuterol HCl (Xopenex) 1.25 mg IH [id number] ANA LAURA PRN Reason: Protocol Last Admin: 05/11/17 07:46 Dose: 1.25 mg Losartan Potassium (Cozaar) 50 mg PO DAILY ANA LAURA PRN Reason: Protocol Methylprednisolone (Solu-Medrol) 20 mg IVP Q12 ANA LAURA PRN Reason: Protocol Last Admin: 05/10/17 22:05 Dose: 20 mg Metoprolol Tartrate (Lopressor) 100 mg PO BID ANA LAURA PRN Reason: Protocol Last Admin: 05/10/17 17:47 Dose: 100 mg Pantoprazole Sodium (Protonix Ec Tab) 40 mg PO 0600 ANA LAURA PRN Reason: Protocol Last Admin: 05/11/17 05:11 Dose: 40 mg Polyethylene Glycol (Miralax) 17 gm PO DAILY ANA LAURA PRN Reason: Protocol Last Admin: 05/10/17 11:00 Dose: 17 gm Potassium Chloride (K-Dur 20 Meq Er Tab) 20 meq PO 0800 ANA LAURA PRN Reason: Protocol Last Admin: 05/10/17 08:53 Dose: 20 meq Primidone (Mysoline) 100 mg PO BID ANA LAURA PRN Reason: Protocol Last Admin: 05/10/17 17:48 Dose: 100 mg Sertraline HCl (Zoloft) 25 mg PO DAILY ANA LAURA PRN Reason: Protocol Last Admin: 05/10/17 11:00 Dose: 25 mg Warfarin Sodium (Coumadin) 4 mg PO 1800 ANA LAURA PRN Reason: Protocol - Labs Labs: 05/09/17 06:00 05/10/17 06:30 PT 26.2 SECONDS (9.4-12.5) H 05/11/17 06:00 INR 2.34 (0.93-1.08) H 05/11/17 06:00 Assessment and Plan - Assessment and Plan (Free Text) Assessment: Syncope Dyspnea COPD/PH/Former Smoker CAD/PCI/LVD CHF Valvular Heart Disease: Mod. MR and TR, Mod/Sev. AI Chronic AF on warfarin PVC's Hepatitis C Esophageal Varices H/O GIB GERD Werner. THR Plan: Warfarin 2 mg. today. Monitor INR's daily Resume losartan today. Monitor BP's OOB/PT/Rehab Efforts AB as per ID. Off AB now. Swallowing Evaluation Wean steroids, as per pulm. As per Dr. Zhang. CPAP HS. Will follow.
[2017-05-11] MEDS: Potassium Chloride 20 mEq ER Tab PO SCH (08:17)
[2017-05-11] MEDS: MethylPREDNISolone 40 mg Vial IVP SCH ×2 (10:31→22:18)
[2017-05-11] MEDS: POLYETHYLENE GLYCOL 3350 17 GM/Dose PACKET PO SCH (10:31)
--- NOTE | 2017-05-11 13:21 | PN ---
DATE: 05/11/2017 SUBJECTIVE: The patient is in bed, in no acute distress, nontoxic. PHYSICAL EXAMINATION: VITAL SIGNS: Temperature is 98, blood pressure is 120/70, respiratory rate of 16. HEENT: Unremarkable. NECK: Supple. LUNGS: Have decreased breath sounds. HEART: Normal S1 and S2. ABDOMEN: Soft and nontender. LABORATORY EXAMINATION: Reveals a white count of 12,600, hemoglobin of 13, platelets of 166. Chemistries reveal a BUN of 74 and creatinine of 0.9. Microbiology is noted. MEDICATIONS: The patient is on p.o. doxycycline and the patient is also on Solu-Medrol and Zoloft. ASSESSMENT AND PLAN: This is an 86-year-old male with past medical history of coronary artery disease, cardiac stents, congestive heart failure, cardiac arrhythmia, atrial fibrillation, gastroesophageal bleed, hypertension, admitted with heart failure, syncope, hepatitis C and found to have severe sepsis, community-acquired pneumonia, acute systolic congestive heart failure, reduced ejection fraction on top of the chronic congestive heart failure and negative procalcitonin and had completed 3 days of Maxipime and doxycycline and today is day #6 of doxycycline. We will discontinue the doxycycline. No further antibiotics. The mild leukocytosis is probably secondary to the Solu-Medrol. The patient is at risk for developing nosocomial infections. We will follow with you. Shyam Kline MD
--- NOTE | 2017-05-12 01:09 | PN ---
DATE: 05/11/2017 SUBJECTIVE: Patient complained of feeling nauseous. He has been on CPAP overnight, not used, but he feels like his CPAP make him feel nauseous. He has no chest pain, no short of breath. Feels better breathing bronson and did not have exercise or physical therapy today. PHYSICAL EXAMINATION VITAL SIGNS: As follows: Temperature 98.1, heart rate is 100, blood pressure is 117/63, respirations 18 and saturation 98% on 2 L. HEAD AND NECK: Normal. No JVD. No thyromegaly. CHEST: Clear. Good air entry. CARDIAC: First sound and second sound normal. ABDOMEN: Soft and nontender. EXTREMITIES: No edema. NEUROLOGIC: Normal. IMPRESSION AND PLAN: 1. Acute congestive heart failure due to mild systolic heart failure plus valvular heart disease, seems doing well with Lasix and beta amrita. Continue current therapy. 2. Acute chronic obstructive pulmonary disease exacerbation plus community acquired pneumonia. Continue Maxipime and doxycycline. We will follow up his Infectious Disease consult. Continue inhaled bronchodilators and also we will decrease steroids, taper down the steroids. 3. Chronic atrial fibrillation. Continue Coumadin. Monitor PT, INR. Today PT, INR is 2.34, so we will continue Coumadin. 4. Patient does have dysuria, could not pass his urine, so, we will get a straight cath and put him on Flomax once a day. 5. Depression and anxiety, tremors. Continue Mysoline. Continue Zoloft. Continue current therapy. Continue current medications, that I am going to mention it; aspirin, Colace, Coumadin, Cozaar 50, Flomax started 0.4 once a day, K-Dur 20, Lasix 40, Lopressor 100 b.i.d., MiraLax, Mysoline 100 b.i.d., Proscar 5 mg once a day, Protonix 40 mg once a day, Solu-Medrol 20 IV q. 12, Xopenex, Zofran and Zoloft. Continue current therapy and followup. Nathaniel Zhang MD
--- NOTE | 2017-05-12 02:47 | PN ---
DATE: 05/11/2017 PULMONARY PROGRESS NOTE REFERRING PHYSICIAN: Dr. Zhang SUBJECTIVE: He is lying in the bed, family is at bedside, could not tolerate CPAP last night, still has some cough and shortness of breath, but feels better. No nausea, no vomiting, no diarrhea. No leg pain or leg swelling OBJECTIVE: GENERAL: In no acute distress. VITAL SIGNS: Temperature is 98, heart rate is 102, respiratory rate is 20, blood pressure is 117/63, and pulse oximetry is 98% on nasal cannula. HEENT: Small oral cavity. NECK: Supple. No JVD. LUNGS: Has a scattered rhonchi, . HEART: S1 and S2. ABDOMEN: Soft, nontender. No organomegaly. EXTREMITIES: No edema. NEUROLOGIC: Awake, alert, follows simple commands. MEDICATIONS: Reviewed. He is on aspirin 81 mg daily, Colace 100 mg 3 times a day, Coumadin 4 mg which is on hold, Cozaar 50 mg daily, Flomax 0.4 mg daily, potassium supplement, Lasix 40 mg daily, metoprolol tartrate 100 mg twice a day, MiraLax 17 g daily, Proscar 5 mg daily, Protonix 40 mg daily, Solu-Medrol 20 mg twice a day, Tylenol p.r.n., Xopenex inhaled q. 6 hours, Zofran p.r.n., Zoloft 25 mg daily. LABORATORY DATA: Shows INR 2.34. IMPRESSION AND PLAN: Status post respiratory failure, presently extubated on nasal cannula, chronic obstructive lung disease, cardiomyopathy with systolic and diastolic dysfunction with pulmonary hypertension, atrial fibrillation, cirrhotic liver, hepatitis C, esophageal varices, history of gastrointestinal bleed in the past, coronary artery disease, history of coronary stent, depression, may have sleep apnea syndrome, could not tolerate CPAP last night. We will continue IV inhaled bronchodilator. Keep head at 45 degrees. Encourage CPAP use. Gastric prophylaxis. Anticoagulation. Fall precaution. Continue with therapy. Thank you and we will follow with you. Smooth Roche MD
--- NOTE | 2017-05-12 03:00 | PN ---
DATE: 05/10/2017 SUBJECTIVE: The patient is clinically stable, feels better, less short of breath, and eating better. PHYSICAL EXAMINATION VITAL SIGNS: Temperature 98.6, heart rate 89, blood pressure 124/74, respirations 14, saturation 90% on FiO2 35%. HEAD AND NECK: Normal. No JVD. No thyromegaly. CHEST: Clear, good air entry. CARDIAC: First sound and second sound normal. ABDOMEN: Soft, nontender. EXTREMITIES: No edema. NEUROLOGIC: Normal. LABORATORY DATA: Today, sodium 143, potassium 4, chloride 108, bicarb 24, BUN 74, creatinine 0.9, and calcium 9.3. IMPRESSION AND PLAN: 1. Acute congestive heart failure, resolving, he is doing better. 2. Acute chronic obstructive pulmonary disease exacerbation, community-acquired pneumonia, seems doing better. Continue current therapy. The patient currently on Lasix 40 mg p.o., inhaled bronchodilators and seems doing well. 3. Chronic atrial fibrillation. Continue Coumadin. We will monitor PT/INR. 4. Chronic tremors. Continue Mysoline. Continue current therapy. Continue tapering steroids, Solu-Medrol, we will decrease it to 20 mg q. 12 hours and we will follow up. For his cardiac conditions and his hypertension, continue metoprolol 100 mg p.o. daily and Cozaar 50 mg p.o. daily. 5. Ischemic heart disease, stable, currently on beta amrita plus Coumadin and aspirin for underlying chronic atrial fibrillation. Continue monitoring PT/INR. The patient INR 3.36, we will hold off on Coumadin. PLAN: Continue current therapy as above. Nathaniel Zhang MD
[2017-05-12] MEDS: Levalbuterol 1.25 MG/3 ML Inhal Soln UD IH SCH ×4 (04:38→19:45)
[2017-05-12] MEDS: Pantoprazole 40 mg EC Tab PO SCH (05:24)
[2017-05-12 08:13] LABS: INR 1.73 (0.93-1.08); PROTHROMBIN TIME 19.2 SECONDS (9.4-12.5)
[2017-05-12] MEDS: Potassium Chloride 20 mEq ER Tab PO SCH (08:50)
[2017-05-12] MEDS: POLYETHYLENE GLYCOL 3350 17 GM/Dose PACKET PO SCH (11:00)
[2017-05-12] MEDS: MethylPREDNISolone 40 mg Vial IVP SCH ×2 (11:00→22:25)
--- NOTE | 2017-05-12 19:04 | PN ---
DATE: 05/12/2017 SUBJECTIVE: The patient is in bed in no acute distress, nontoxic. No fevers and no chills. PHYSICAL EXAMINATION: VITAL SIGNS: Temperature is 98, blood pressure is 112/70, respiratory rate of 16. HEENT: Unremarkable. NECK: Supple. LUNGS: Have decreased breath sounds. HEART: Normal S1, S2. ABDOMEN: Soft. LABORATORY EXAMINATION: Reveals the patient's white count of 12,600, hemoglobin of 13, platelets of 166. Chemistries reveals a BUN of 74, creatinine of 0.9. ASSESSMENT AND PLAN: An 86-year-old female with past medical history of coronary artery disease, cardiac stents, congestive heart failure, cardiac arrhythmia, atrial fibrillation, gastroesophageal bleed, hypertension, admitted with heart failure, syncope, history of hepatitis C and found on this admission to the acute care. 1. Severe sepsis with community-acquired pneumonia with acute systolic congestive heart failure with reduced ejection fraction on top of chronic congestive heart failure. The patient had negative procalcitonin, completed 3 days of Maxipime and doxycycline 6 days and currently off of antibiotics, afebrile, the patient does have mild leukocytosis of 12,600, most likely consistent with the patient on Solu-Medrol 20 mg IV q. 12 h. We will follow with you. Shyam Kline MD
--- NOTE | 2017-05-12 22:17 | PN ---
PULMONARY PROGRESS NOTE DATE: 05/12/2017 REFERRING PHYSICIAN: Nathaniel Zhang MD SUBJECTIVE: He is out of bed to chair. Night was unremarkable, could not use CPAP. Mild cough. No nausea. No vomiting. No diarrhea. No leg pain or leg swelling. OBJECTIVE GENERAL: In no acute distress. VITAL SIGNS: Temperature is 98, heart rate is 108, respiratory rate is 20, blood pressure is 121/70, pulse oximetry is 96% on nasal cannula. HEENT: Moist mucous membranes. Crowded airway. NECK: Supple. No JVD. LUNGS: Have a scattered rhonchi, though overall fair airflow. HEART: S1 and S2. ABDOMEN: Soft and nontender. No organomegaly. EXTREMITIES: No edema. NEUROLOGIC: Awake, alert and follows simple commands. MEDICATIONS: He is on aspirin 81 mg daily, Colace 100 mg three times a day, Coumadin 4 mg which is on hold, Cozaar 50 mg daily, Flomax 0.4 mg daily, potassium 20 mEq daily, Lasix 40 mg daily, metoprolol tartrate 100 mg twice a day, MiraLax 17 g daily, primidone 100 mg twice a day, Proscar 5 mg daily, Protonix 40 mg daily, Solu-Medrol 20 mg twice a day, Tylenol p.r.n., Xopenex 1.25 mg q.6 hours, Zofran p.r.n., Zoloft 25 mg daily. LABORATORY DATA: Reviewed. INR today 1.73. IMPRESSION AND PLAN: Status post respiratory failure, presently extubated, on nasal canula; chronic obstructive lung disease; cardiomyopathy with systolic and diastolic dysfunction; pulmonary hypertension; atrial fibrillation; cirrhotic liver; hepatitis C; esophageal varices; history of gastrointestinal bleed; coronary artery disease; history of coronary stent; depression, may have sleep apnea syndrome, will suggest avoiding sedative at night and keep head at 45 degrees, p.o. and inhaled bronchodilator, gastric prophylaxis, anticoagulation fall precaution. Continue therapy. Thank you and we will follow with you. Smooth Roche MD
--- NOTE | 2017-05-13 02:53 | PN ---
SUBJECTIVE: The patient in the TCU, seems comfortable, no distress, no nausea. He could not use the BiPAP overnight, but seems improving. He is getting physical therapy, sitting on a chair, in no distress. PHYSICAL EXAMINATION VITAL SIGNS: As follows; temperature is 98, heart rate is 107, blood pressure is 121/70, and saturating 96% on room air. HEAD AND NECK: Normal. No JVD. No thyromegaly. CHEST: Clear. Good air entry. CARDIAC: First sound and second sound normal. ABDOMEN: Soft, nontender. EXTREMITIES: No edema. NEUROLOGIC: Normal. LABORATORY DATA: Today date, his PT was 19.2 and INR was 1.73. IMPRESSION AND PLAN: 1. Acute congestive heart failure, mild systolic heart failure plus significant valvular regurgitations. Continue potassium, Lasix, Cozaar 50 mg daily in addition to his beta-amrita, Lopressor 100 b.i.d. 2. Chronic obstructive pulmonary disease, pneumonia, improved significantly. We will continue inhaled bronchodilators. We will taper down Solu-Medrol, currently on 20 mg IV q.12, seems doing well. 3. Tremors. Continue Mysoline. 4. The patient does have some urinary retentions. We will straight cath him one time, put him back on Flomax 0.4 and we will continue to follow on that. 5. Dysphagia, seen by swallow evaluation, she can eat regular food and we will continue encouraging him. 6. Depression. Continue Zoloft. The patient seems better clinically and psychologically seems cooperative, and we will follow up on that. PLAN: Continue current therapy. Continue physical therapy. Monitor pulmonary status and we will repeat PT/INR in the morning. We will give 4 mg of Coumadin tonight and we will follow up clinically. Continue aspirin. Continue Colace, Coumadin, Lasix 40 mg daily, and potassium 20 p.o. daily. Continue Lopressor, MiraLax, Mysoline, Proscar , Protonix 40 mg, Tylenol, Xopenex, Zoloft and Zofran. He is off Zofran now, doing well. Continue Tylenol for any headaches. Nathaniel Zhang MD
[2017-05-13] MEDS: Levalbuterol 1.25 MG/3 ML Inhal Soln UD IH SCH ×4 (02:56→21:02)
[2017-05-13] MEDS: Pantoprazole 40 mg EC Tab PO SCH (05:34)
[2017-05-13 08:21] LABS: INR 1.58 (0.93-1.08); PROTHROMBIN TIME 17.5 SECONDS (9.4-12.5)
[2017-05-13] MEDS: Potassium Chloride 20 mEq ER Tab PO SCH (08:41)
[2017-05-13] MEDS: POLYETHYLENE GLYCOL 3350 17 GM/Dose PACKET PO SCH (10:45)
[2017-05-13] MEDS: MethylPREDNISolone 40 mg Vial IVP SCH ×2 (10:46→22:13)
--- NOTE | 2017-05-13 15:45 | PN ---
DATE: 05/13/2017 SUBJECTIVE: The patient is in bed in no acute distress, nontoxic. PHYSICAL EXAMINATION: VITAL SIGNS: Temperature is 97, blood pressure is 120/70, respiratory rate of 18, and heart rate of 107. HEENT: Unremarkable. NECK: Supple. LUNGS: Have decreased breath sounds. HEART: Normal S1 and S2. ABDOMEN: Soft and nontender. LABORATORY EXAMINATION: Reveals a white count of 12,600, hemoglobin of 13, and platelets of 166. Chemistries reveals a BUN of 74 and creatinine 0.8. Microbiology is noted. ASSESSMENT AND PLAN: This is an 86-year-old female with past medical history of coronary artery disease, cardiac stents, congestive heart failure, cardiac arrhythmia, atrial fibrillation, gastroesophageal reflux, gastroesophageal bleed, and hypertension admitted with heart failure, and syncope. The patient with history of hepatitis C. The patient was found to have severe sepsis, community-acquired pneumonia with acute systolic congestive heart failure, reduced ejection fraction on top of chronic congestive heart failure with a negative procalcitonin, had completed therapy with 3 days on Maxipime and 6 days of doxycycline. Currently, the patient is off of antibiotics. Review of the orders confirms the patient to be off of antibiotics, however, the patient is on Solu-Medrol and does have a white count of 12,600. The patient is at risk for developing nosocomial infections. Shyam Kline MD
--- NOTE | 2017-05-14 00:03 | PN ---
PULMONARY PROGRESS NOTE DATE: 05/13/2017 REFERRING PHYSICIAN: Nathaniel Zhang MD SUBJECTIVE: He is out of bed to chair, watching football game, and has some cough and shortness of breath. No nausea. No vomiting, diarrhea, leg pain, or leg swelling. OBJECTIVE: GENERAL: In no acute distress. VITAL SIGNS: Temperature is 98, heart rate is 81, respiratory rate is 20, blood pressure is 110/61, and pulse ox is 96% on nasal cannula. HEENT: Moist mucous membranes. Crowded airway. NECK: Supple. No JVD. LUNGS: Has a decreased breath sounds at bases with crackles and scattered rhonchi. HEART: S1 and S2. ABDOMEN: Soft and nontender. No organomegaly. EXTREMITIES: No leg edema. NEUROLOGIC: Awake, alert, and follows simple commands. MEDICATIONS: The patient is on aspirin 81 mg daily, Colace 100 mg three times a day, Coumadin 4 mg will be given today, Cozaar 50 mg daily, Flomax 0.4 mg daily, potassium 20 mEq daily, Lasix 40 mg daily, metoprolol tartrate 100 mg twice a day, MiraLax 17 g daily, primidone 100 mg twice a day, Proscar 5 mg daily, Protonix 40 mg daily, Remeron 50 mg at bedtime, Solu-Medrol 20 mg IV q.12 hours, Tylenol p.r.n., Xopenex 1.25 mg q.6 hours, Zofran p.r.n. and Zoloft 25 mg daily. LABORATORY DATA: Shows INR 1.58. IMPRESSION AND PLAN: Status post respiratory failure, presently extubated, on nasal cannula; chronic obstructive lung disease; cardiomyopathy with systolic and diastolic dysfunction; pulmonary hypertension; atrial fibrillation; cirrhotic liver; hepatitis C; esophageal varices; history of gastrointestinal bleed in the past; coronary artery disease; history of coronary stent; depression, activities of daily living dysfunction, may have sleep apnea syndrome, claustrophobic, could not tolerate continuous positive airway pressure, continue p.o. and inhaled bronchodilator, continue diuretics, pulmonary toilet, sleep apnea precaution, and avoid sedation. Thank you and we will follow with you. Smooth Roche MD
[2017-05-14] MEDS: Levalbuterol 1.25 MG/3 ML Inhal Soln UD IH SCH ×4 (01:31→21:01)
[2017-05-14] MEDS: Pantoprazole 40 mg EC Tab PO SCH (06:32)
[2017-05-14 07:55] LABS: INR 1.52 (0.93-1.08); PROTHROMBIN TIME 16.9 SECONDS (9.4-12.5)
[2017-05-14] MEDS: Potassium Chloride 20 mEq ER Tab PO SCH (08:32)
[2017-05-14] MEDS: POLYETHYLENE GLYCOL 3350 17 GM/Dose PACKET PO SCH (09:48)
[2017-05-14] MEDS: MethylPREDNISolone 40 mg Vial IVP SCH (09:49)
--- NOTE | 2017-05-14 15:08 | PN ---
DATE: 05/14/2017 SUBJECTIVE: The patient is in bed in no acute distress. PHYSICAL EXAMINATION: VITAL SIGNS: Temperature is 98, blood pressure is 92/55, and respiratory rate of 16. HEENT: Unremarkable. NECK: Supple. LUNGS: Have decreased breath sounds. HEART: Normal S1 and S2. ABDOMEN: Soft. LABORATORY EXAMINATION: Reveals a white count of 12,600. MEDICATIONS: The patient's review of medication reveals the patient is off of antibiotics. The patient is on Solu-Medrol. Dr. Roche is note is reviewed from yesterday. ASSESSMENT AND PLAN: This is an 86-year-old male with past medical history of coronary artery disease, cardiac stents, congestive heart failure, cardiac arrhythmia, atrial fibrillation, gastroesophageal reflux disease, gastrointestinal bleeding, and hypertension admitted with heart failure and syncope, history of hepatitis C, found to have severe sepsis with community-acquired pneumonia with acute systolic congestive heart failure, reduced ejection fraction on top of chronic congestive heart failure with reduced ejection fraction, and negative procalcitonin, had completed the antibiotics of Maxipime and doxycycline; currently now off of antibiotics, afebrile on Solu-Medrol and mild leukocytosis. The patient is at risk for developing nosocomial infection. Shyam Kline MD
--- NOTE | 2017-05-14 16:39 | PN ---
DATE: 05/13/2017 SUBJECTIVE: The patient seems doing well. He is walking with a walker, physical therapy. No respiratory distress. No chest pain. Doing very well. PHYSICAL EXAMINATION: VITAL SIGNS: As follows, temperature 97, heart rate 81, blood pressure 110/61, respirations 18, saturating good above 95% on 2 L nasal cannula. HEAD AND NECK: Normal. No JVD. No thyromegaly. CHEST: Clear. Good air entry. CARDIAC: First sound and second sound normal. ABDOMEN: Soft, obese, nontender. EXTREMITIES: No edema. NEUROLOGIC: Normal. IMPRESSION AND PLAN: 1. Generalized weakness. Continue physical therapy on daily basis. 2. Acute congestive heart failure, stable on Lasix and cardiac medications losartan doing well. 3. The patient has coronary artery disease with mild left ventricular dysfunction. Continue beta-amrita and aspirin. 4. History of atrial fibrillation. PT/INR is low. We will increase his Coumadin and we will follow up clinically. We will repeat PT/INR tomorrow. 5. The patient has tremors and poor appetite. We will give Remeron at night. Continue Protonix. Continue Proscar and primidone. Nathaniel Zhang MD
--- NOTE | 2017-05-15 00:29 | PN ---
DATE: 05/14/2017 PULMONARY PROGRESS NOTE REFERRING PHYSICIAN: Nathaniel Zhang MD SUBJECTIVE: The patient is out of bed to chair. Nights was unremarkable, doing well in therapy, ambulated well, could not tolerate CPAP. No nausea, no vomiting, no diarrhea. No leg pain or swelling. OBJECTIVE: GENERAL: In no acute distress. VITAL SIGNS: Temperature is 98, heart is 110, respiratory rate is 18, blood pressure 114/66, pulse ox is 96% on 3 L nasal cannula. HEENT: Moist mucous membranes. No ulcer or thrush noted. NECK: Supple. No JVD. LUNGS: Has a two crackles and scattered rhonchi. HEART: S1 and S2. ABDOMEN: Soft and nontender. No organomegaly. EXTREMITIES: Not much edema. NEUROLOGIC: Awake, alert, and follows simple commands. MEDICATIONS: He is on aspirin 81 mg daily, Colace 100 mg three times a day, Coumadin 6 mg will be given tonight, Cozaar 50 mg daily, Flomax 0.4 mg daily, potassium 20 mEq daily, Lasix 40 mg daily, metoprolol tartrate 100 mg twice a day, MiraLax 17 g daily, primidone 100 mg twice a day, Proscar 5 mg daily, Protonix 40 mg daily, Remeron 50 mg p.o. bedtime, Solu-Medrol 20 mg twice a day, Tylenol p.r.n. bases, Xopenex inhaled q. 6 hours, Zofran p.r.n. and Zoloft 25 mg daily. LABORATORY DATA: Shows INR today 1.52. IMPRESSION AND PLAN: Status post respiratory failure, presently extubated, on nasal cannula; chronic obstructive lung disease; cardiomyopathy with systolic and diastolic dysfunction; pulmonary hypertension; atrial fibrillation; cirrhotic liver; hepatitis C; esophageal varices; history of gastroesophageal reflux disease; coronary artery disease; history of coronary stent; depression; activities of daily living dysfunction; may have sleep apnea syndrome; claustrophobic, could not use continuous positive airway pressure. Pulmonary point of view, doing okay. We will recommend sleep study upon discharge as an outpatient. Decrease Solu-Medrol to 20 mg IV daily, diuretics and anticoagulation. Thank you and we will follow with you. Mohammad Kaley, MD
--- NOTE | 2017-05-15 00:44 | PN ---
SUBJECTIVE: Patient is in TCU. He seems doing well, less short of breath, walking better on a walker, otherwise, no new complains. He feels fine. PHYSICAL EXAMINATION VITAL SIGNS: Today, temperature 97, heart rate 77, blood pressure 100/45, respirations 16. HEAD AND NECK: Normal. No JVD. No thyromegaly. CHEST: Clear. Good air entry. CARDIAC: First sound and second sound normal. ABDOMEN: Soft, nontender. EXTREMITIES: No edema. NEUROLOGIC: Normal. LABORATORY DATA: INR is still subtherapeutic. We will give him 6 mg of Coumadin today and we will follow up tomorrow his INR. IMRRESSION: 1. Generalized weakness, continue physical therapy. 2. Status post acute congestive heart failure, systolic heart failure secondary to coronary artery disease, valvular heart disease. Continue Lasix. Continue current therapy. 3. Chronic obstructive pulmonary disease, community acquired pneumonia. Continue inhaled bronchodilators and steroids. Continue nebulizer treatment and we will follow up clinically. Patient may require oxygen. We will check his oxygen saturation on the room air in the morning and will discuss further with the deputy controller. 4. History of paroxysmal atrial fibrillation. Continue Coumadin. Monitor. Continue aspirin. 5. Tremors and anxiety. Patient will continue on primidone, seems doing okay on 100 b.i.d. 6. Prostate enlargement. Continue Proscar and Flomax, doing well. We will follow up clinically. Nathaniel Zhang MD
[2017-05-15] MEDS: Levalbuterol 1.25 MG/3 ML Inhal Soln UD IH SCH ×4 (02:12→20:50)
[2017-05-15] MEDS: Pantoprazole 40 mg EC Tab PO SCH (06:26)
[2017-05-15 06:43] LABS: INR 1.7 (0.93-1.08); PROTHROMBIN TIME 18.9 SECONDS (9.4-12.5)
[2017-05-15 06:44] LABS: BLOOD UREA NITROGEN 35 mg/dL (7-21); CALCIUM 8.5 mg/dL (8.4-10.5); GFR AFRICAN-AMERICAN > 60; GFR NON-AFRICAN AMERICAN > 60
--- NOTE | 2017-05-15 08:16 | PN ---
DATE: 05/12/2017 SUBJECTIVE: The patient is seen lying in bed, in TCU. He is comfortable at present time. He has had no lightheadedness. CURRENT MEDICATIONS: Include aspirin, Colace, Coumadin, Cozaar 50 mg daily, Flomax, potassium, Lasix 40 mg daily metoprolol 100 mg b.i.d., MiraLax, Mysoline 100 mg b.i.d., Proscar, Protonix, Solu-Medrol, Xopenex and Zoloft 25 mg daily. OBJECTIVE: GENERAL: He is a very elderly man who appears comfortable at rest. VITAL SIGNS: Blood pressure 112/68 with a pulse of 90, respirations are 16. He is afebrile. HEENT: No JVD. CHEST: Clear to auscultation percussion. HEART: PMI displaced laterally with soft systolic murmur is present at lower left sternal border and apex. Diastolic murmur is present at the left sternal border as well. ABDOMEN: Soft with normoactive bowel sounds. EXTREMITIES: No edema. DIAGNOSTIC DATA: Morning blood work pending. IMPRESSION: 1. Recent syncope, etiology unclear with no clear evidence for recurrence. 2. Multivalvular heart disease with moderate mitral and tricuspid regurgitation as well as mildly severe aortic insufficiency. 3. Coronary disease status post prior PCI. 4. Left ventricular dysfunction. 5. Chronic atrial fibrillation. Rest of problems as noted. RECOMMENDATIONS: His current medications should be continued. Increased activity. Exercise as advised. If he has recurrent syncopal events, additional diagnostic evaluation can be planned. We will be happy to follow him as needed. Jose Stein MD
[2017-05-15 08:25] LABS: HEMOGLOBIN 12.1 g/dL (14.0-18.0); MEAN CELL VOLUME 100.5 fl (80.0-105.0); MEAN CORPUSCULAR HEMOGLOBIN 32.7 pg (25.0-35.0); MEAN CORPUSCULAR HGB CONC 32.5 g/dl (31.0-37.0); MEAN PLATELET VOLUME 12.1 fl (7.0-11.0); RBC 3.7 10^6/uL (3.5-6.1); RED CELL DISTRIBUTION WIDTH 15.6 % (11.5-14.5); WHITE BLOOD COUNT 9.9 10^3/ul (4.5-11.0)
[2017-05-15] MEDS: Potassium Chloride 20 mEq ER Tab PO SCH (08:36)
[2017-05-15] MEDS ORDERED: MethylPREDNISolone 40 mg Vial IVP SCH (10:00)
[2017-05-15] MEDS: POLYETHYLENE GLYCOL 3350 17 GM/Dose PACKET PO SCH (11:00)
--- NOTE | 2017-05-15 12:49 | CP.PCM.PN ---
Subjective - Date & Time of Evaluation Date of Evaluation: 05/15/17 Time of Evaluation: 11:30 - Subjective Subjective: Comfortable, no fevers. Objective - Vital Signs/Intake and Output Vital Signs (last 24 hours): Temp Pulse Resp BP Pulse Ox 97.9 F 86 18 93/68 L 96 05/15/17 12:07 05/15/17 12:07 05/15/17 12:07 05/15/17 12:07 05/12/17 10:00 - Medications Medications: Current Medications Acetaminophen (Tylenol 325mg Tab) 650 mg PO Q4H PRN; Protocol PRN Reason: Pain, moderate (4-7) Aspirin (Aspirin Chewable) 81 mg PO 0800 ANA LAURA PRN Reason: Protocol Last Admin: 05/15/17 08:35 Dose: 81 mg Docusate Sodium (Colace) 100 mg PO TID ANA LAURA PRN Reason: Protocol Last Admin: 05/15/17 11:00 Dose: 100 mg Finasteride (Proscar) 5 mg PO DAILY ANA LAURA PRN Reason: Protocol Last Admin: 05/15/17 11:00 Dose: 5 mg Furosemide (Lasix) 40 mg PO DAILY ANA LAURA PRN Reason: Protocol Last Admin: 05/15/17 11:00 Dose: Not Given Levalbuterol HCl (Xopenex) 1.25 mg IH [id number] ANA LAURA PRN Reason: Protocol Last Admin: 05/15/17 07:17 Dose: 1.25 mg Losartan Potassium (Cozaar) 50 mg PO DAILY ANA LAURA PRN Reason: Protocol Last Admin: 05/15/17 11:00 Dose: Not Given Metoprolol Tartrate (Lopressor) 100 mg PO 0800,1800 ANA LAURA PRN Reason: Protocol Mirtazapine (Remeron) 15 mg PO HS [facility] Last Admin: 05/14/17 21:21 Dose: 15 mg Ondansetron HCl (Zofran Inj) 4 mg IVP Q6H PRN PRN Reason: Nausea/Vomiting Last Admin: 05/11/17 18:03 Dose: 4 mg Pantoprazole Sodium (Protonix Ec Tab) 40 mg PO 0600 ANA LAURA PRN Reason: Protocol Last Admin: 05/15/17 06:26 Dose: 40 mg Polyethylene Glycol (Miralax) 17 gm PO DAILY ANA LAURA PRN Reason: Protocol Last Admin: 05/15/17 11:00 Dose: 17 gm Potassium Chloride (K-Dur 20 Meq Er Tab) 20 meq PO 0800 ANA LAURA PRN Reason: Protocol Last Admin: 05/15/17 08:36 Dose: 20 meq Prednisone (Prednisone Tab) 20 mg PO 0800 ANA LAURA PRN Reason: Protocol Primidone (Mysoline) 100 mg PO BID ANA LAURA PRN Reason: Protocol Last Admin: 05/15/17 11:00 Dose: 100 mg Sertraline HCl (Zoloft) 25 mg PO DAILY ANA LAURA PRN Reason: Protocol Last Admin: 05/15/17 11:00 Dose: 25 mg Tamsulosin HCl (Flomax) 0.4 mg PO 1830 ANA LAURA PRN Reason: Protocol Last Admin: 05/14/17 18:19 Dose: 0.4 mg Warfarin Sodium (Coumadin) 6 mg PO 1800 ANA LAURA PRN Reason: Protocol Last Admin: 05/14/17 18:20 Dose: 6 mg - Labs Labs: 05/15/17 08:15 05/15/17 06:00 PT 18.9 SECONDS (9.4-12.5) H 05/15/17 06:00 INR 1.70 (0.93-1.08) H 05/15/17 06:00 - Constitutional Appears: Non-toxic - Head Exam Head Exam: NORMAL INSPECTION - Respiratory Exam Respiratory Exam: Decreased Breath Sounds - Cardiovascular Exam Cardiovascular Exam: +S1, +S2 - GI/Abdominal Exam GI & Abdominal Exam: Soft. absent: Tenderness Assessment and Plan - Assessment and Plan (Free Text) Plan: Assessment S/P community-acquired pneumonia on top of acute CHF CAD S/P PCI GERD history of GI bleed history of hepatitis C Plan Continue to monitor off antibiotics since he is at risk for nosocomial infections Hep. C should be addressed as an outpatient
--- NOTE | 2017-05-15 23:05 | PN ---
DATE: 05/15/2017 PULMONARY PROGRESS NOTE REFERRING PHYSICIAN: Nathaniel Zhang MD SUBJECTIVE: He is out of bed to reclining chair. Night was unremarkable, did better in therapy, gets short of breath, still needs supplemental oxygen, pulse ox dropped to low 90. No nausea. No vomiting. No diarrhea. leg swelling. OBJECTIVE: GENERAL: In no acute distress. VITAL SIGNS: Temperature is 98, heart rate is 59, respiratory rate is 16, and blood pressure 99/76. HEENT: Moist mucous membranes. No ulcer or thrush noted. NECK: Supple. No JVD. LUNGS: Have a few crackles and scattered rhonchi. HEART: S1 and S2. ABDOMEN: Soft and nontender. No organomegaly. EXTREMITIES: There is no edema. NEUROLOGIC: Awake, alert, and follows simple commands. MEDICATIONS: He is on aspirin 81 mg daily, Colace 100 mg three times a day, Coumadin 6 mg will be given today, Flomax 0.4 mg daily, potassium supplement, metoprolol tartrate 100 mg twice a day, MiraLax 17 g daily, primidone 100 mg twice a day, prednisone 20 mg daily, Proscar 5 mg daily, Protonix 40 mg daily, Remeron 15 mg h.s., Tylenol p.r.n., Xopenex inhaled q.6 hours, Zofran p.r.n., Zoloft 25 mg daily, and Lasix p.r.n. basis. LABORATORY DATA: Shows hemoglobin 12.1, hematocrit 37.2, WBC 9.9, and platelet is 135. INR 1.70. Sodium 137, potassium 4.2, chloride 104, bicarbonate 25, BUN 35, creatinine 0.6, glucose 97, and calcium 8.5. IMPRESSION AND PLAN: Status post respiratory failure, extubated on nasal canula; chronic obstructive lung disease; cardiomyopathy with systolic and diastolic dysfunction; pulmonary hypertension; atrial fibrillation; cirrhotic liver disease; hepatitis C; esophageal varices; history of gastrointestinal bleed; urinary tract infection; coronary stent; depression. Pulmonary point of view, doing okay. Continue bronchodilator. Continue diuretics, fall precautions, inhaled bronchodilator, continue therapy. Thank you and we will follow with you. Smooth Roche MD [facility] # [id number]
[2017-05-16] MEDS: Pantoprazole 40 mg EC Tab PO SCH (05:49)
--- NOTE | 2017-05-16 06:36 | PN ---
DATE: 05/15/2017 SUBJECTIVE: The patient seems doing well, getting physical therapy, no distress noted. His saturation is low, is 92% on 4 L and with exertion on 4 L, it go down to 87%. In room air, it is less than 90%, it is 87% and it will go down to 85% on the room air, with exertion it can go lower. PHYSICAL EXAMINATION VITAL SIGNS: Temperature is 97.1, heart rate is 59, blood pressure is 99/76, and respirations are 16. HEAD AND NECK: Normal. No JVD. No thyromegaly. CHEST: Clear. CARDIAC: First sound and second sound normal. ABDOMEN: Soft and nontender. EXTREMITIES: No edema. NEUROLOGIC: Normal. LABORATORY DATA: His INR and PT are 18.9 and INR of 1.70. His chemistry noted, sodium 137, potassium 4.2, chloride 104, bicarb 25, BUN 35, creatinine 0.6. CBC shows white count 9.9, hemoglobin 12.1, hematocrit 37.2, and platelets 135. IMPRESSION: 1. Deconditioning. Continue physical therapy. 2. Status post respiratory failure secondary to multifactorial congestive heart failure, pneumonia, and chronic obstructive pulmonary disease. Continue current therapy. Continue inhaled bronchodilators, beta-amrita, metoprolol, Lasix, oxygen and follow up clinically. 3. Chronic atrial fibrillation. Continue Coumadin. We will monitor PT and INR. 4. Also hypoxemia on 4 L of oxygen and also on room air saturation drop down to 85%. The patient will need oxygen at home. PLAN: Continue current therapy. Continue Mysoline, we will taper dose prednisone to 10 mg, and we will follow up clinically. Continue current therapy, follow up clinically. MEDICATIONS: Aspirin; Colace; Coumadin, he will get 6 mg on 05/15/2017, we will repeat PT and INR; Cozaar 50 mg; Flomax 0.4; K-Dur 20; Lasix 40 p.o. daily; Lopressor 100 b.i.d.; MiraLax; Mysoline 100 mg b.i.d.; prednisone 20 mg daily; Proscar 5 mg; Protonix; Remeron 15 mg q.h.s.; Xopenex; Tylenol; Zofran; and Zoloft 25 mg p.o. daily. Continue current therapy. Nathaniel Zhang MD
[2017-05-16 06:51] VITALS: O2SAT 98
[2017-05-16] MEDS: Levalbuterol 1.25 MG/3 ML Inhal Soln UD IH SCH ×2 (07:27→13:12)
[2017-05-16] MEDS: Potassium Chloride 20 mEq ER Tab PO SCH (09:00)
[2017-05-16] MEDS: POLYETHYLENE GLYCOL 3350 17 GM/Dose PACKET PO SCH (11:00)
[2017-05-16 11:42] LABS: INR 1.75 (0.93-1.08); PROTHROMBIN TIME 20.3 SECONDS (9.4-12.5)
--- NOTE | 2017-05-16 16:26 | CP.PCM.PN ---
Subjective - Date & Time of Evaluation Date of Evaluation: 05/16/17 Time of Evaluation: 12:40 - Subjective Subjective: No fevers, not in distress. Objective - Vital Signs/Intake and Output Vital Signs (last 24 hours): Temp Pulse Resp BP Pulse Ox 97.4 F L 73 16 100/63 98 05/16/17 06:00 05/16/17 11:00 05/16/17 06:00 05/16/17 11:00 05/16/17 06:00 - Medications Medications: Current Medications Acetaminophen (Tylenol 325mg Tab) 650 mg PO Q4H PRN; Protocol PRN Reason: Pain, moderate (4-7) Aspirin (Aspirin Chewable) 81 mg PO 0800 ANA LAURA PRN Reason: Protocol Last Admin: 05/16/17 09:00 Dose: 81 mg Docusate Sodium (Colace) 100 mg PO TID ANA LAURA PRN Reason: Protocol Last Admin: 05/16/17 13:23 Dose: 100 mg Finasteride (Proscar) 5 mg PO DAILY ANA LAURA PRN Reason: Protocol Last Admin: 05/16/17 11:00 Dose: 5 mg Furosemide (Lasix) 40 mg PO DAILY ANA LAURA PRN Reason: Protocol Last Admin: 05/16/17 11:00 Dose: 40 mg Levalbuterol HCl (Xopenex) 1.25 mg IH [id number] ANA LAURA PRN Reason: Protocol Last Admin: 05/16/17 13:12 Dose: 1.25 mg Losartan Potassium (Cozaar) 50 mg PO DAILY ANA LAURA PRN Reason: Protocol Last Admin: 05/16/17 11:00 Dose: 50 mg Metoprolol Tartrate (Lopressor) 100 mg PO 0800,1800 ANA LAURA PRN Reason: Protocol Last Admin: 05/16/17 09:00 Dose: Not Given Mirtazapine (Remeron) 15 mg PO HS ANA LAURA Last Admin: 05/15/17 21:12 Dose: 15 mg Ondansetron HCl (Zofran Inj) 4 mg IVP Q6H PRN PRN Reason: Nausea/Vomiting Last Admin: 05/11/17 18:03 Dose: 4 mg Pantoprazole Sodium (Protonix Ec Tab) 40 mg PO 0600 ANA LAURA PRN Reason: Protocol Last Admin: 05/16/17 05:49 Dose: 40 mg Polyethylene Glycol (Miralax) 17 gm PO DAILY ANA LAURA PRN Reason: Protocol Last Admin: 05/16/17 11:00 Dose: 17 gm Potassium Chloride (K-Dur 20 Meq Er Tab) 20 meq PO 0800 ANA LAURA PRN Reason: Protocol Last Admin: 05/16/17 09:00 Dose: 20 meq Prednisone (Prednisone Tab) 15 mg PO DAILY [facility] Last Admin: 05/16/17 11:00 Dose: 15 mg Primidone (Mysoline) 100 mg PO BID ANA LAURA PRN Reason: Protocol Last Admin: 05/16/17 11:00 Dose: 100 mg Sertraline HCl (Zoloft) 25 mg PO DAILY ANA LAURA PRN Reason: Protocol Last Admin: 05/16/17 11:00 Dose: 25 mg Tamsulosin HCl (Flomax) 0.4 mg PO 1830 ANA LAURA PRN Reason: Protocol Last Admin: 05/15/17 18:02 Dose: 0.4 mg Warfarin Sodium (Coumadin) 6 mg PO 1800 ANA LAURA PRN Reason: Protocol Last Admin: 05/15/17 18:04 Dose: 6 mg - Labs Labs: 05/15/17 08:15 05/15/17 06:00 PT 20.3 SECONDS (9.4-12.5) H 05/16/17 11:15 INR 1.75 (0.93-1.08) H 05/16/17 11:15 - Constitutional Appears: Non-toxic - Head Exam Head Exam: NORMAL INSPECTION - Respiratory Exam Respiratory Exam: Decreased Breath Sounds - Cardiovascular Exam Cardiovascular Exam: +S1, +S2 - GI/Abdominal Exam GI & Abdominal Exam: Soft. absent: Tenderness Assessment and Plan - Assessment and Plan (Free Text) Plan: Assessment S/P community-acquired pneumonia on top of acute CHF CAD S/P PCI GERD history of GI bleed history of hepatitis C Plan Continue to monitor off antibiotics since he is at risk for healthcare- associated infections Hep. C should be addressed as an outpatient
[2017-05-16 17:14] VITALS: BP 99/68; PULSE 103
[2017-05-16 17:44] VITALS: RESP 18; TEMP 97.6
--- NOTE | 2017-05-16 23:47 | PN ---
DATE: 05/16/2017 PULMONARY PROGRESS NOTE REFERRING PHYSICIAN: Dr. Zhang. SUBJECTIVE: The patient is sitting up in the chair, social media marketing manager is at bedside, being discharged home, son is at bedside. Night was unremarkable. Feels better. Denies any cough or shortness of breath. No nausea. No vomiting. No diarrhea. No leg swelling. OBJECTIVE: GENERAL: In no acute distress. VITAL SIGNS: Temperature is 98, heart rate is 73, respiratory rate is 18, and blood pressure 100/63, pulse ox 98% on 5 liters nasal cannula. HEENT: Moist mucous membranes. Crowded airway. NECK: Supple. No JVD. LUNGS: Have a fair airflow with few rhonchi. HEART: S1 and S2. ABDOMEN: Soft and nontender. No organomegaly. EXTREMITIES: No edema. NEUROLOGIC: Awake, alert, and follows simple commands. MEDICATIONS: Reviewed and noted no new changes in the medication reported since yesterday. LABORATORY DATA: Reviewed. INR today is 1.75. No other lab is available since yesterday. IMPRESSION AND PLAN: Status post respiratory failure, presently extubated on room air. Chronic obstructive lung disease, cardiomyopathy with cardiac diastolic and systolic dysfunction with pulmonary hypertension, atrial fibrillation, cirrhotic liver, hepatitis C, esophageal varices, history of gastrointestinal bleed in the past, also had a coronary artery disease and coronary stent, depression. Pulmonary point of view, doing okay. Continue bronchodilator. Keep head at 45 degrees. Outpatient need, attended sleep study, PFT. Thank you and we will follow with you. Smooth Roche MD
--- NOTE | 2017-05-17 11:18 | DS ---
HISTORY OF PRESENT ILLNESS: The patient is stable, comfortable, happy to go home. He has no new complaint. PHYSICAL EXAMINATION: VITAL SIGNS: Temperature 97.6, heart rate 73, blood pressure 100/63, respirations 18, saturation 98% on 5 liters. HEAD AND NECK: Normal. No JVD. No thyromegaly. CHEST: Clear with systolic murmur. CARDIAC: Irregular. ABDOMEN: Soft, nontender. EXTREMITIES: No edema. NEUROLOGIC: Normal. The patient is stable. LABORATORY DATA: Last laboratory study, white count 9.9, hemoglobin 12.1, hematocrit 37.2, platelets 137 to 135. Chemistry; sodium 137, potassium 4.2, chloride 104, bicarbonate 25, BUN 35, creatinine 0.6, blood sugar 97, calcium 8.5. Last PT/INR, PT was 20.3, INR 1.75. The patient will be getting today before discharge 6 mg Coumadin and then resume his 4 mg everyday and followup with Dr. Simental's office for monitoring the PT/INR. The patient also was given a prescription for oxygen and also nebulizer treatment. All prescription was given and written to him and including Lasix and all medications, also prednisone tapering the dose to be over 4-5 days, prednisone 5 mg, will start like 15 mg for 2 days, 10 mg for 2 days, 5 mg for 2 days and then stop. We will continue Coumadin 4 mg p.o. daily. Continue Flomax 0.4, vitamin B complex, Zoloft 25 mg, Mysoline 100 mg b.i.d., potassium 20 p.o. daily, MiraLax 17 g b.i.d., Protonix 40 mg p.o. daily, Remeron 15 mg p.o. at bedtime to help his appetite and help him sleep better, Lopressor 100 mg b.i.d., Cozaar 50 mg p.o. daily, Lasix 40 mg p.o. daily, Proscar 5 mg p.o. daily due to prostate enlargement and frequent urination and retaining urine while doing a bladder scan, Colace 100 mg p.o. t.i.d., vitamin D 50,000 once a week, baby aspirin everyday 81 mg daily. DISCHARGE DIAGNOSES: 1. Acute systolic heart failure due to ischemic cardiomyopathy. 2. Severe valvular heart disease, mitral valve heart disease, moderate aortic regurgitation, stable at this time. Continue current therapy, give him angiotensin receptor amrita. He is getting Lasix. He is getting Diovan, aspirin and Coumadin. Continue current therapy. 3. Chronic paroxysmal atrial fibrillation. Continue Coumadin. Monitor PT/INR as an outpatient. 4. Depression. Continue Remeron, Zoloft. 5. Essential tremors. Continue Mysoline. 6. Prostate enlargement. Continue Flomax and Proscar. 7. Generalized weakness and unsteady gait. The patient has a walker at home and was given a walker also. 8. Chronic emphysema with acute chronic obstructive pulmonary disease exacerbation that improved. Continue prednisone. Continue nebulizer treatment and continue oxygen therapy on daily basis continuously. 9. Pneumonia that resolved. 10. Deconditioning and weakness. The patient received physical therapy, doing very well and will be discharged home to be followed closely appointment was in a week. We will see the patient within a week. Nathaniel Zhang MD
== END 2017-05-16 18:35 | disposition home or self-care (01) | DRG 945 ==
LOC: TRCU 20:32
PROVIDERS: ADMIT Internal Medicine; ATTEND Internal Medicine
PROC: F07Z9ZZ Gait Training/Functional Ambulation Treatment (ICD-10-PCS; principal; 2017-05-09)
PROC: 3E0F7GC Introduction of Other Therapeutic Substance into Respiratory Tract, Via Natural or Artificial Opening (ICD-10-PCS; 2017-05-09)
PROC: F08Z4ZZ Home Management Treatment (ICD-10-PCS; 2017-05-10)
DX: R53.1 Weakness (principal); R26.81 Unsteadiness on feet; J18.9 Pneumonia, unspecified organism; I50.23 Acute on chronic systolic (congestive) heart failure; I27.20 Pulmonary hypertension, unspecified; I48.0 Paroxysmal atrial fibrillation; J44.0 Chronic obstructive pulmonary disease with (acute) lower respiratory infection; I85.00 Esophageal varices without bleeding; I11.0 Hypertensive heart disease with heart failure; I48.2 Chronic atrial fibrillation; I08.3 Combined rheumatic disorders of mitral, aortic and tricuspid valves; J44.1 Chronic obstructive pulmonary disease with (acute) exacerbation; I25.5 Ischemic cardiomyopathy; R13.10 Dysphagia, unspecified; I25.10 Atherosclerotic heart disease of native coronary artery without angina pectoris; K59.09 Other constipation; F32.9 Major depressive disorder, single episode, unspecified; N40.0 Benign prostatic hyperplasia without lower urinary tract symptoms; G25.0 Essential tremor; B19.20 Unspecified viral hepatitis C without hepatic coma; K74.60 Unspecified cirrhosis of liver; K21.9 Gastro-esophageal reflux disease without esophagitis; I49.3 Ventricular premature depolarization; F41.9 Anxiety disorder, unspecified; Z79.01 Long term (current) use of anticoagulants; Z95.5 Presence of coronary angioplasty implant and graft; Z87.891 Personal history of nicotine dependence

== ENCOUNTER 2017-11-03 02:52 | Inpatient (IN) | payer MEDICARE, BC ==
[2017-11-03 02:52] VITALS: PULSE 110
[2017-11-03 03:00] VITALS: BMI 20.9
[2017-11-03] MEDS ORDERED: Albuterol-Ipratrop 3 mg / 0.5 (3 ml) UD IH STA (03:15)
--- NOTE | 2017-11-03 03:16 | ED PDOC ---
Arrival/HPI - Critical Care Critical Care Minutes: 45 minutes <Lino Noe - Last Filed: 11/03/17 05:15> - General Historian: Patient, Family - History of Present Illness Time/Duration: 1-3 hours Symptom Onset: Sudden Symptom Course: Worsening <Arnoldo Callaway - Last Filed: 11/03/17 05:49> - General Chief Complaint: Shortness Of Breath Time Seen by Provider: 11/03/17 03:01 - History of Present Illness Narrative History of Present Illness (Text): 11/03/17 03:43 This is an 86 yo M with PMH of atrial fibrillation on coumadin, CHF, CA, CAD s/ p LAD stent, hx UGIB 2/2 esophageal varices, Hep C, HTN, depression, and tremors who presents with complaint of hemoptysis that began several hours prior and shortness of breath. As per patient, no prior episodes of hemoptysis , but began having a cough, productive of clear-yellow sputum and then dark red blood. Denies coughing clots, denies hematemesis, denies coffee-ground emesis. Admits to feeling malaise for last 3 days, sensation of "being out of gas," but denies fevers, chills, nausea, emesis, cough (at that time), focal weakness , shortness of breath (at that time), or chest pain. Now complains of shortness of breath, productive cough (last hemoptysis approx 1 hr prior to presentation, shown to examiner by daughter), wet breathing, and worsening weakness. No syncope, near-syncope, room spinning, lightheadedness, pain with respiration, diarrhea, constipation. All other ROS in 12-system review negative. PMH: as above PSH: Cardiac cath and stenting Soc Hx: prior tobacco abuse (~1 ppd for > 25 yrs, quit 1985), denies alcohol/ illicits Fam Hx: non-contributory PMD: Dr. Zhang (Arnoldo Callaway) Associated Symptoms (Text): 11/03/17 03:58 hemoptysis, shortness of breath at rest, wet cough (Arnoldo Callaway) Past Medical History - Provider Review Nursing Documentation Reviewed: Yes - Infectious Disease Hx of Infectious Diseases: None - Tetanus Immunization Tetanus Immunization: Unknown - Cardiac Hx Cardiac Disorders: Yes Hx Congestive Heart Failure: Yes Hx Hypertension: Yes - Pulmonary Hx Chronic Obstructive Pulmonary Disease (COPD): Yes - Neurological Other/Comment: Tremors - HEENT Hx HEENT Disorder: No - Renal Hx Renal Disorder: No - Endocrine/Metabolic Hx Endocrine Disorders: No - Hematological/Oncological Hx Hepatitis C: Yes - Integumentary Hx Dermatological Disorder: No - Musculoskeletal/Rheumatological Hx Musculoskeletal Disorders: Yes Hx Falls: Yes Other/Comment: h/o B/L Hip replacement - Gastrointestinal Hx Gastrointestinal Disorders: Yes (GI bleed, Liver disease) Hx Gastroesophageal Reflux: Yes Other/Comment: Esophageal tear - Genitourinary/Gynecological Hx Genitourinary Disorders: No - Psychiatric Hx Depression: Yes Hx Substance Use: No - Past Surgical History Past Surgical History: No Previous - Surgical History Hx Cardiac Catheterization: Yes Hx Coronary Stent: Yes Hx Joint Replacement: Yes (B/L hip replacement) Hx Musculoskeletal Surgery: Yes - Anesthesia Hx Anesthesia: No Hx Anesthesia Reactions: No Hx Malignant Hyperthermia: No - Suicidal Assessment Feels Threatened In Home Enviroment: No <Arnoldo Callaway - Last Filed: 11/03/17 05:49> Family/Social History - Physician Review Nursing Documentation Reviewed: Yes Family/Social History: No Known Family HX Smoking Status: Former Smoker Hx Alcohol Use: No Hx Substance Use: No Hx Substance Use Treatment: No <Arnoldo Callaway - Last Filed: 11/03/17 05:49> Allergies/Home Meds <Lino Noe - Last Filed: 11/03/17 05:15> <Arnoldo Callaway - Last Filed: 11/03/17 05:49> Allergies/Adverse Reactions: Allergies No Known Allergies Allergy (Verified 05/20/17 13:09) Review of Systems - Physician Review All systems were reviewed & negative as marked: Yes (as per HPI) - Review of Systems Constitutional: Fatigue. absent: Fevers Eyes: Normal. absent: Vision Changes ENT: Normal. absent: Sore Throat, Rhinorrhea, Epistaxis, Sinus Congestion Respiratory: SOB, Cough, Sputum, Other (Hemoptysis) Cardiovascular: Normal. absent: Chest Pain, Palpitations, Syncope Gastrointestinal: Normal. absent: Abdominal Pain, Diarrhea, Nausea, Vomiting Genitourinary Male: Normal. absent: Dysuria Musculoskeletal: Normal. absent: Back Pain, Neck Pain Skin: Normal. absent: Rash, Pruritis Neurological: Normal. absent: Headache, Dizziness <Arnoldo Callaway - Last Filed: 11/03/17 05:49> Physical Exam <Lino Noe - Last Filed: 11/03/17 05:15> Vital Signs Reviewed: Yes Temperature: Afebrile Blood Pressure: Normal Pulse: Tachycardic Respiratory Rate: Tachypneic Appearance: Positive for: Ill-Appearing, Uncomfortable Pain Distress: Mild Mental Status: Positive for: Alert and Oriented X 3 - Systems Exam Head: Present: Atraumatic, Normocephalic. No: Tenderness, Contusion, Swelling, Ecchymosis, Abrasion, Laceration Pupils: No: Pinpoint Extroacular Muscles: Present: EOMI Conjunctiva: Present: Normal. No: Injected, Icteric Mouth: Present: Moist Mucous Membranes, Normal Lips, Normal Tounge, Normal Teeth , Other (no active bleeding in the mouth, wearing non-rebreather for breathing tx at time of exam). No: Dry, Drooling Nose (External): Present: Atraumatic. No: Abrasion, Laceration Nose (Internal): Present: No Active Bleeding. No: Epistaxis Neck: Present: Normal Range of Motion, Trachea Midline. No: MIDLINE TENDERNESS , JVD Respiratory/Chest: Present: Respiratory Distress, Accessory Muscle Use, Decreased Breath Sounds (moderately decreased breath sounds all milligan), Rhonchi (loud ronchi in all milligan, more prominent in upper [place]), Tachypneic. No: Clear to Auscultation, Good Air Exchange, Wheezes, Rales, Tender to Palpation Cardiovascular: Present: Normal S1, S2, Irregular Rhythm, Peripheal Pulses Present (+1 radials, unable to palpate dorsalis pedis bilaterally), Tachycardic. No: Regular Rate and Rhythm, Murmurs, Bradycardic Abdomen: Present: Normal Bowel Sounds. No: Tenderness, Distention, Guarding Upper Extremity: Present: Normal Inspection, Normal ROM, NORMAL PULSES. No: Cyanosis, Edema, Tenderness, Swelling, Erythema, Deformity Lower Extremity: Present: Edema (+1 pitting edema from mid nur to 1-2 cm above ankles), NORMAL PULSES, Normal ROM. No: Normal Inspection, CALF TENDERNESS, Cyanosis, Tenderness, Erythema, Deformity Neurological: Present: GCS=15, Motor Func Grossly Intact. No: Speech Normal ( wet-sounding breath sounds and wet speech, otherwise normal speech) Skin: Present: Dry, Pale, Other (cool hands and feet on palpation, otherwise warm skin). No: Rashes Lymphatic: No: Cervical Adenopathy Psychiatric: Present: Alert, Oriented x 3, Normal Insight, Normal Concentration , Normal Affect, Normal Mood <Arnoldo Callaway - Last Filed: 11/03/17 05:49> Vital Signs Temp Pulse Resp BP Pulse Ox 11/03/17 05:14 98.3 F 92/53 L 11/03/17 03:33 26 H 11/03/17 03:01 106 H 26 H 92 L Medical Decision Making <Lino Noe - Last Filed: 11/03/17 05:15> Reassessment Condition: Re-examined, Improved - Critical Care Critical Care Minutes: 45 minutes <Arnoldo Callaway - Last Filed: 11/03/17 05:49> ED Course and Treatment: 11/03/17 04:46 Bernard Diane is an 86 year old male who presents to the emergency department for a complaint of shortness of breath and coughing up blood this evening. In agreement with resident note, which includes further HPI details. Patient was seen and evaluated with resident, came up with plan and treatment together. (Lino Noe) 11/03/17 03:02 Ddx: COPD exacerbation vs CHF exacerbation vs PNA vs PE vs Upper GI bleed, likely multifactorial CBC, CMP, Mg, Phos, Trop, BNP ordered, f/u EKG ordered: afib without RVR, rate 95 CXR ordered, f/u Duonebs x1 stat, supplemental O2 4L NC (baseline at home) ABG shock panel ordered Given hx of Afib on coumadin in setting of hemoptysis, PT/PTT/INR ordered, may need to reverse with Vit K or FFP if INR elevated Type and screen ordered f/u and dispo 11/03/17 04:09 CXR concerning for RUL consolidation, starting on Rocephin and Zithromax IV, procal and blood/urine cultures ordered Nursing reports desating on NC O2 on pulse ox monitor, switched to Non- rebreather pending ABG results and possible BIPAP 11/03/17 04:33 ABG concerning for pH 7.47, pCO2 27, pO2 56; drawn while still on NC O2, remains on rebreather Lactate 1.0, less likely active GI bleed Chemistries notable for Cr 0.6, BUN 18, will obtain CTA chest to rule out PE given persistent tachypnea and borderline hypoxia on ABG 11/03/17 05:03 Hgb 11, but INR 7.86, concerning in setting of hemoptysis and hx GI bleed, Vit K 10mg x1 IV ordered [place], [place] [address], concerning for CHF exacerbation PMD (Dr. Zhang) paged for admission for CHF exacerbation, possible PNA, and hemoptysis with INR > 7 11/03/17 05:18 Now increasingly hypotensive, SBP 80's-90's, ICU consulted; case discussed with logistics team leader plant operations engineer, Dr. Cathy Kohler, who agrees to come and evaluate patient for possible ICU placement. ICU resident plant operations engineer notified. 11/03/17 05:47 Dr. Zhang states currently on vacation, requests admission to hospitalist. Intesivist covering for hospitalist service as well, notified and is aware. Admission order for ICU placed. Seen, reviewed, and discussed with attending, [facility] ([facility] - Lab Interpretations Lab Results: 11/03/17 03:45 11/03/17 03:45 Lab Results 11/03/17 03:45: PT 93.5 H, INR 7.86 H*, APTT 53.7 H 11/03/17 03:45: WBC 14.2 H D, RBC 3.47 L, Hgb 11.0 L, Hct 32.5 L, MCV 93.7 D, MCH 31.7, MCHC 33.8, RDW 14.7 H, Plt Count 280, MPV 11.0, Gran % 84.7 H, Lymph % (Auto) 9.1 L, Placer % (Auto) 6.0, Eos % (Auto) 0.1 L, Baso % (Auto) 0.1, Gran # 12.01 H, Lymph # (Auto) 1.3, Placer # (Auto) 0.9 H, Eos # (Auto) 0.0, Baso # ( Auto) 0.01 11/03/17 03:45: Sodium 135, Chloride 101, Potassium 4.3, Carbon Dioxide 21, Anion Gap 18, BUN 18, Creatinine 0.6 L, Est GFR ( Amer) > 60, Est GFR ( Non-Af Amer) > 60, Random Glucose 132 H, Calcium 7.9 L, Phosphorus 2.6, Magnesium 2.2, Total Bilirubin 0.9, AST 48, ALT 35, Alkaline Phosphatase 81, Troponin I < 0.01, NT-Pro-B Natriuret Pep 83000 H, Total Protein 7.7, Albumin 3.7, Globulin 4.0, Albumin/Globulin Ratio 0.9 L 11/03/17 03:30: Blood Type O POSITIVE, Antibody Screen Negative, BBK History Checked No verified bt 11/03/17 03:30: pCO2 27 L, pO2 56.0 L, HCO3 19.7 L, ABG pH 7.47 H, ABG Total CO2 20.5 L, ABG O2 Saturation 93.7 L, ABG Base Excess -2.6 L, ABG Potassium 3.7 , Sodium 133.0, Chloride 106.0, Glucose 146 H, Lactate 1.0, FiO2 40.0, Arterial Blood Potassium 3.7 - RAD Interpretation Radiology Orders: 11/03/17 03:04 CHEST PORTABLE [RAD] Stat 11/03/17 04:31 ANGIO CHEST PE PROTOCOL [CT] Stat - Medication Orders Current Medication Orders: Discontinued Medications Albuterol/Ipratropium (Duoneb 3 Mg/0.5 Mg (3 Ml) Ud) 3 ml IH STAT STA Stop: 11/03/17 03:16 Last Admin: 11/03/17 03:53 Dose: 3 ml Furosemide (Lasix) 40 mg IVP STAT STA Stop: 11/03/17 04:42 Last Admin: 11/03/17 05:16 Dose: Not Given Non-Admin Reason: BP Parameters Not Met Ceftriaxone Sodium (Rocephin 2 Gm Ivpb) 2 gm in 100 mls @ 100 mls/hr IVPB STAT STA PRN Reason: Protocol Stop: 11/03/17 04:51 Last Admin: 11/03/17 04:09 Dose: 100 mls/hr eMAR Start Stop Document 11/03/17 04:09 IT (Rec: 11/03/17 04:09 IT [id number]) Intravenous Solution Start Date 11/03/17 Start Time 04:09 Azithromycin (Zithromax 500mg In Ns) 500 mg in 250 mls @ 167 mls/hr IVPB STAT STA PRN Reason: Protocol Stop: 11/03/17 05:21 Last Admin: 11/03/17 05:45 Dose: 167 mls/hr Phytonadione 10 mg/ Sodium (Chloride) 51 mls @ 100 mls/hr IV ONCE ONE Stop: 11/03/17 05:20 Last Admin: 11/03/17 05:16 Dose: 100 mls/hr eMAR Start Stop Document 11/03/17 05:16 IT (Rec: 11/03/17 05:16 IT [id number]) Intravenous Solution Start Date 11/03/17 Start Time 05:16 - PA / BUSINESS MACHINE MECHANIC / Resident Statement MD/DO has reviewed & agrees with the documentation as recorded. MD/DO has examined the patient and agrees with the treatment plan. - Scribe Statement The provider has reviewed the documentation as recorded by the Scribe <Lino Noe - Last Filed: 11/03/17 05:15> <Arnoldo Callaway - Last Filed: 11/03/17 05:49> - Scribe Statement Jo Ann Ross Provider Scribe Attestation: All medical record entries made by the Scribe were at my direction and personally dictated by me. I have reviewed the chart and agree that the record accurately reflects my personal performance of the history, physical exam, medical decision making, and the department course for this patient. I have also personally directed, reviewed, and agree with the discharge instructions and disposition. (Lino Noe) Disposition/Present on Arrival <Lino Noe - Last Filed: 11/03/17 05:15> - Present on Arrival Any Indicators Present on Arrival: No History of DVT/PE: No History of Uncontrolled Diabetes: No Urinary Catheter: No History of Decub. Ulcer: No History Surgical Site Infection Following: None - Disposition Have Diagnosis and Disposition been Completed?: Yes Disposition Time: 05:48 Patient Plan: Admission, ICU <Arnoldo Callaway - Last Filed: 11/03/17 05:49> - Disposition Diagnosis: Acute on chronic systolic CHF (congestive heart failure), Acute exacerbation of chronic obstructive pulmonary disease (COPD), Hemoptysis, Pneumonia Disposition: HOSPITALIZED Patient Problems: Current Active Problems Problem Status Onset Acute exacerbation of chronic obstructive pulmonary disease (COPD) Acute Acute on chronic systolic CHF (congestive heart failure) Acute Hemoptysis Acute Pneumonia Acute Condition: CRITICAL Discharge Instructions (ExitCare): Heart Failure (ED) Referrals: Nathaniel Zhang MD [Primary Care Provider] - Follow up with primary Forms: [employer] ([employer])
[2017-11-03 03:52] LABS: ARTERIAL BLOOD GAS HCO3 19.7 mmol/L (21-28); ARTERIAL BLOOD GAS O2 SAT 93.7 % (95-98); ARTERIAL BLOOD GAS PCO2 27 mm/Hg (35-45); ARTERIAL BLOOD GAS PH 7.47 (7.35-7.45); ARTERIAL BLOOD GAS TCO2 20.5 mmol.L (22-28)
[2017-11-03] MEDS ORDERED: Azithromycin 500MG/NS 250ml 500 MG/250 ML BAG IVPB STA (03:52)
[2017-11-03] MEDS ORDERED: cefTRIAXone 2 GM IN NS 2 GM/100 ML BAG IVPB STA (03:52)
[2017-11-03 04:19] LABS: ALB/GLOB RATIO 0.9 (1.1-1.8); ALBUMIN 3.7 g/dL (3.0-4.8); CALCIUM 7.9 mg/dL (8.4-10.5); GFR AFRICAN-AMERICAN > 60; GFR NON-AFRICAN AMERICAN > 60
[2017-11-03 04:24] LABS: BASO # 0.01 K/mm3 (0.0-2.0); BASO % 0.1 % (0.0-3.0); EOS % 0.1 % (1.5-5.0); GRAN # 12.01 (1.4-6.5); GRAN % 84.7 % (50.0-68.0); LYMPH # 1.3 (1.2-3.4); LYMPH % 9.1 % (22.0-35.0); MEAN CELL VOLUME 93.7 fl (80.0-105.0); MEAN CORPUSCULAR HEMOGLOBIN 31.7 pg (25.0-35.0); MEAN CORPUSCULAR HGB CONC 33.8 g/dl (31.0-37.0); MONO # 0.9 (0.1-0.6); RBC 3.47 10^6/uL (3.5-6.1); RED CELL DISTRIBUTION WIDTH 14.7 % (11.5-14.5); WHITE BLOOD COUNT 14.2 10^3/ul (4.5-11.0)
[2017-11-03 04:29] LABS: ALT/SGPT 35 U/L (7-56); AST/SGOT 48 U/L (17-59); BLOOD UREA NITROGEN 18 mg/dL (7-21)
[2017-11-03 04:31] LABS: B-TYPE NATRIURETIC PEPTIDE 14400 pg/mL (0-450); TROPONIN I < 0.01 ng/mL
[2017-11-03] MEDS ORDERED: Iodixanol 320 MG/ML 100 ML BOTTLE IV ONE (04:37)
[2017-11-03 04:47] LABS: PROTHROMBIN TIME 93.5 SECONDS (9.4-12.5)
[2017-11-03 04:49] LABS: INR 7.86 (0.93-1.08); PARTIAL THROMBOPLASTIN TIME 53.7 Seconds (25.1-36.5)
[2017-11-03] MEDS ORDERED: Phytonadione 10 MG in Sodium Chloride 0.9% 50 ML IV ONE (04:50)
--- NOTE | 2017-11-03 05:43 | CP.PCM.HP ---
<Kena Castillo - Last Filed: 11/03/17 07:07> History of Present Illness - History of Present Illness History of Present Illness: CC: I'm spitting up blood Patient is an 86 y/o with PMH of atrial fibrillation on coumadin, CHF, COPD on 4 litters of home oxygen, [place], CAD s/p LAD stent, hx UGIB 2/2 esophageal varices , Hep C (treated in the 80s), HTN, depression, BPH and tremors who presents with complaint of hemoptysis. The hemoptysis began several hours prior to presenting. Patient last took his Coumadin last night, states he took his normal dose of 4 mg. Denies cp, admits to sob, states he has been having shortness of breath for several days. Admits to cough, states clots of blood comes up when he coughs. Denies coffee-ground emesis, have normal brown stool, no tarry black stools. Denies fever, chills, admits to poor appetite, no nausea or vomiting. No dysurea, or abdominal pain. Patient was started on oxygen after his lst admission. In the ICU was found to be tachypneic, saturating 90s on 4 litters, was also had transient episode of hypotension with sbp of 80-90s. PMH: atrial fibrillation on coumadin, CHF, COPD on 4 litters of home oxygen, [place] , CAD s/p LAD stent, hx UGIB 2/2 esophageal varices, Hep C (treated in the 80s) , HTN, depression, BPH and tremors PSH: Cardiac cath and stenting, unknown abdominal surgery Soc Hx: prior tobacco abuse (~1 ppd for > 25 yrs, quit 1985), denies alcohol/ illicits Fam Hx: non-contributory Allergy: nkda Home meds: as per emr. PMD: Dr. Zhang Present on Admission - Present on Admission Any Indicators Present on Admission: No History of DVT/PE: No History of Uncontrolled Diabetes: No Urinary Catheter: No Decubitus Ulcer Present: No Review of Systems - Review of Systems All systems: reviewed and no additional remarkable complaints except Review of Systems: 12 point ROS reviewed, all negative except as per HPI. Past Patient History - Infectious Disease Hx of Infectious Diseases: None - Tetanus Immunizations Tetanus Immunization: Unknown - Past Social History Smoking Status: Former Smoker Alcohol: None Drugs: Denies Home Situation {Lives}: With Family - CARDIAC Hx Cardiac Disorders: Yes Hx Congestive Heart Failure: Yes Hx Hypertension: Yes - PULMONARY Hx Chronic Obstructive Pulmonary Disease (COPD): Yes - NEUROLOGICAL Other/Comment: Tremors - HEENT Hx HEENT Problems: No - RENAL Hx Chronic Kidney Disease: No - ENDOCRINE/METABOLIC Hx Endocrine Disorders: No - HEMATOLOGICAL/ONCOLOGICAL Hx Hepatitis C: Yes - INTEGUMENTARY Hx Dermatological Problems: No - MUSCULOSKELETAL/RHEUMATOLOGICAL Hx Musculoskeletal Disorders: Yes Hx Falls: Yes Other/Comment: h/o B/L Hip replacement - GASTROINTESTINAL Hx Gastrointestinal Disorders: Yes (GI bleed, Liver disease) Hx Gastroesophageal Reflux: Yes Other/Comment: Esophageal tear - GENITOURINARY/GYNECOLOGICAL Hx Genitourinary Disorders: No - PSYCHIATRIC Hx Depression: Yes Hx Substance Use: No - SURGICAL HISTORY Hx Cardiac Catheterization: Yes Hx Coronary Stent: Yes Hx Joint Replacement: Yes (B/L hip replacement) Hx Musculoskeletal Surgery: Yes - ANESTHESIA Hx Anesthesia: No Hx Anesthesia Reactions: No Hx Malignant Hyperthermia: No Meds Allergies/Adverse Reactions: Allergies Allergy/AdvReac Type Severity Reaction Status Date / Time No Known Allergies Allergy Verified 05/20/17 13:09 Physical Exam - Constitutional Appears: No Acute Distress, Cachectic, Chronically Ill - Head Exam Head Exam: ATRAUMATIC, NORMAL INSPECTION, NORMOCEPHALIC - Eye Exam Eye Exam: EOMI, Normal appearance, PERRL. absent: Scleral icterus Pupil Exam: NORMAL ACCOMODATION - ENT Exam ENT Exam: Mucous Membranes Dry - Neck Exam Neck exam: Positive for: Normal Inspection - Respiratory Exam Respiratory Exam: Prolonged Expiratory Phase, Rhonchi (right upper lobe). absent: Accessory Muscle Use, Decreased Breath Sounds, Clear to Auscultation Bilateral, Rales, Wheezes, Respiratory Distress, Stridor, NORMAL BREATHING PATTERN - Cardiovascular Exam Cardiovascular Exam: Irregular Rhythm, +S1, +S2. absent: Bradycardia, Tachycardia, Gallop, JVD, Rubs, Systolic Murmur - GI/Abdominal Exam GI & Abdominal Exam: Normal Bowel Sounds, Soft. absent: Distended, Firm, Guarding, Rebound, Rigid, Tenderness - Extremities Exam Extremities exam: Positive for: normal inspection. Negative for: pedal edema - Back Exam Back exam: NORMAL INSPECTION - Neurological Exam Neurological exam: Alert, Oriented x3 - Psychiatric Exam Psychiatric exam: Normal Affect, Normal Mood - Skin Skin Exam: Dry, Intact, Normal Color, Warm Results - Vital Signs Recent Vital Signs: Last Vital Signs Temp 98.3 F 11/03/17 05:14 Pulse 106 H 11/03/17 03:01 Resp 26 H 11/03/17 03:33 BP 92/53 L 11/03/17 05:14 Pulse Ox 92 L 11/03/17 03:01 - Labs Result Diagrams: 11/03/17 03:45 11/03/17 03:45 Labs: Laboratory Results - last 24 hr 11/03/17 11/03/17 11/03/17 03:30 03:30 03:45 WBC RBC Hgb Hct MCV MCH MCHC RDW Plt Count MPV Gran % Lymph % (Auto) [place] % (Auto) Eos % (Auto) Baso % (Auto) Gran # Lymph # (Auto) [place] # (Auto) Eos # (Auto) Baso # (Auto) PT INR APTT pCO2 27 L pO2 56.0 L HCO3 19.7 L ABG pH 7.47 H ABG Total CO2 20.5 L ABG O2 Saturation 93.7 L ABG Base Excess -2.6 L ABG Potassium 3.7 Sodium 133.0 135 Chloride 106.0 101 Glucose 146 H Lactate 1.0 FiO2 40.0 Potassium 4.3 Carbon Dioxide 21 Anion Gap 18 BUN 18 Creatinine 0.6 L Est GFR ( Amer) > 60 Est GFR (Non-Af Amer) > 60 Random Glucose 132 H Calcium 7.9 L Phosphorus 2.6 Magnesium 2.2 Total Bilirubin 0.9 AST 48 ALT 35 Alkaline Phosphatase 81 Troponin I < 0.01 NT-Pro-B Natriuret Pep 21974 H Total Protein 7.7 Albumin 3.7 Globulin 4.0 Albumin/Globulin Ratio 0.9 L Arterial Blood Potassium 3.7 Blood Type O POSITIVE Antibody Screen Negative BBK History Checked No verified bt 11/03/17 11/03/17 03:45 03:45 WBC 14.2 H D RBC 3.47 L Hgb 11.0 L Hct 32.5 L MCV 93.7 D MCH 31.7 MCHC 33.8 RDW 14.7 H Plt Count 280 MPV 11.0 Gran % 84.7 H Lymph % (Auto) 9.1 L [place] % (Auto) 6.0 Eos % (Auto) 0.1 L Baso % (Auto) 0.1 Gran # 12.01 H Lymph # (Auto) 1.3 [place] # (Auto) 0.9 H Eos # (Auto) 0.0 Baso # (Auto) 0.01 PT 93.5 H INR 7.86 H* APTT 53.7 H pCO2 pO2 HCO3 ABG pH ABG Total CO2 ABG O2 Saturation ABG Base Excess ABG Potassium Sodium Chloride Glucose Lactate FiO2 Potassium Carbon Dioxide Anion Gap BUN Creatinine Est GFR ( Amer) Est GFR (Non-Af Amer) Random Glucose Calcium Phosphorus Magnesium Total Bilirubin AST ALT Alkaline Phosphatase Troponin I NT-Pro-B Natriuret Pep Total Protein Albumin Globulin Albumin/Globulin Ratio Arterial Blood Potassium Blood Type Antibody Screen BBK History Checked - EKG Data EKG Interpreted by: Myself Assessment & Plan - Assessment and Plan (Free Text) Assessment: Patient is an 86 y/o with PMH of atrial fibrillation on coumadin, CHF, COPD on 4 litters of home oxygen, [place], CAD s/p LAD stent, hx UGIB 2/2 esophageal varices , Hep C (treated in the 80s), HTN, depression, BPH and tremors who presents with complaint of hemoptysis found to have right upper lobe pneumonia, had transient episode of hypotension which has since resolved. Patient is being admitted to icu for transient episode of hypotension and hypoxemia. Plan: Neuro: stable at baseline. Pulm: Right upper lobe pneumonia official read on CT chest pending Respiratory acidosis on ABG, and hypoxemia Will place on venti mask, and repeat ABG in 1-2 hours head of bed above 35 Duoneb standing and prn doses Tessalon pearls started on abx pulm consulted Cardio: Transient episode of hypotension- currently map above 65%, will monitor and maintain H/O CHF with elevated pro bnp- will hold of Lasix at this time due to labile hypotension, Cardio consulted Holding bp meds due to hypotension last echo LVEF of 38.9 ( 04/29) ID: pneumonia- afebrile, + leukocytosis, started on Rocephin, Zithromax. - Procal ordered - cultures sent Renal: stable, monitor and maintain h/o bph: holding meds due to hypotensive episode. Endo: stable GI: No active signs of Gi bleeding noted in the ED. h/o constipation, continue miralax. On ppi for Gi prophylaxis. NPO for now Heme: Normocytic anemia - hbg 11, no active bleeding noted in the ER, baseline hgb of around 12. Supra-therapeutic INR- s/p vitamin K, will check INR this am, holding Coumadin. Psych: h/o depression and tremors: holding primidone due to dyspnea, continue remeron and zoloft. DVT prophylaxis: VTE, holding Coumadin Dispo: pending PT eval Patient seen, examined and case discussed with the attending. - Date & Time Date: 11/03/17 Time: 06:00 <Justa Kohler - Last Filed: 11/05/17 03:31> Results - Vital Signs Recent Vital Signs: Last Vital Signs Temp 98.6 F 11/04/17 16:00 Pulse 80 11/05/17 01:30 Resp 27 H 11/04/17 19:40 BP 93/57 L 11/04/17 19:00 Pulse Ox 97 11/04/17 19:40 - Labs Result Diagrams: 11/04/17 06:00 11/04/17 06:00 Labs: Laboratory Results - last 24 hr 11/04/17 11/04/17 11/04/17 06:00 06:00 06:00 WBC 12.3 H RBC 3.46 L Hgb 10.8 L Hct 32.6 L MCV 94.2 MCH 31.2 MCHC 33.1 RDW 14.8 H Plt Count 269 MPV 10.2 Gran % 85.8 H Lymph % (Auto) 8.1 L [place] % (Auto) 5.8 Eos % (Auto) 0.2 L Baso % (Auto) 0.1 Gran # 10.55 H Lymph # (Auto) 1.0 L [place] # (Auto) 0.7 H Eos # (Auto) 0.0 Baso # (Auto) 0.01 PT 19.8 H INR 1.70 H pCO2 pO2 HCO3 ABG pH ABG Total CO2 ABG O2 Saturation ABG O2 Content ABG Base Excess ABG Hemoglobin ABG Carboxyhemoglobin POC ABG HHb (Measured) ABG Methemoglobin ABG O2 Capacity Hgb O2 Saturation FiO2 Sodium 142 Potassium 3.6 Chloride 104 Carbon Dioxide 23 Anion Gap 18 BUN 16 Creatinine 0.6 L Est GFR ( Amer) > 60 Est GFR (Non-Af Amer) > 60 Random Glucose 111 H Calcium 8.2 L Total Bilirubin 1.3 AST 36 ALT 37 Alkaline Phosphatase 74 NT-Pro-B Natriuret Pep Total Protein 6.7 Albumin 3.2 Globulin 3.5 Albumin/Globulin Ratio 0.9 L 11/04/17 11/04/17 10:00 14:25 WBC RBC Hgb Hct MCV MCH MCHC RDW Plt Count MPV Gran % Lymph % (Auto) [place] % (Auto) Eos % (Auto) Baso % (Auto) Gran # Lymph # (Auto) [place] # (Auto) Eos # (Auto) Baso # (Auto) PT INR pCO2 27 L pO2 44.0 L* HCO3 21.1 ABG pH 7.50 H ABG Total CO2 21.9 L ABG O2 Saturation 86.3 L ABG O2 Content 12.2 L ABG Base Excess -1.2 ABG Hemoglobin 10.4 L ABG Carboxyhemoglobin 2.1 H POC ABG HHb (Measured) 13.2 H ABG Methemoglobin 1.2 ABG O2 Capacity 14.1 L Hgb O2 Saturation 83.5 L FiO2 90.0 Sodium Potassium Chloride Carbon Dioxide Anion Gap BUN Creatinine Est GFR ( Amer) Est GFR (Non-Af Amer) Random Glucose Calcium Total Bilirubin AST ALT Alkaline Phosphatase NT-Pro-B Natriuret Pep 32873 H Total Protein Albumin Globulin Albumin/Globulin Ratio
[2017-11-03] MEDS ORDERED: Albuterol-Ipratrop 3 mg / 0.5 (3 ml) UD IH PRN (05:50)
[2017-11-03 06:25] LABS: URINE BILIRUBIN NEGATIVE (NEGATIVE); URINE BLOOD NEGATIVE (NEGATIVE); URINE GLUCOSE (UA) NEGATIVE (NEGATIVE); URINE LEUKOCYTE ESTERASE NEGATIVE Leu/uL (NEGATIVE); URINE PROTEIN TRACE mg/dL (<30 mg/dL)
[2017-11-03 06:30] LABS: URINE APPEARANCE CLEAR (CLEAR); URINE COLOR YELLOW (YELLOW)
[2017-11-03] MEDS: Pantoprazole 40 mg EC Tab PO SCH (06:36)
[2017-11-03 07:12] LABS: URINE BACTERIA SMALL (NEG); URINE EPITHELIAL CELLS 0 - 2 /hpf (0-5)
[2017-11-03] MEDS ORDERED: Albuterol-Ipratrop 3 mg / 0.5 (3 ml) UD IH SCH (07:30)
--- NOTE | 2017-11-03 08:12 | CON ---
DATE: 11/03/2017 INDICATIONS: Shortness of breath, cough, hemoptysis, pneumonia. 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 His son brought him to the emergency room. He is resting comfortably on the stretcher with supplemental O2. Chest x-ray shows right upper lobe pneumonia. He has no chest pain, orthopnea, PND, syncope, palpitations, edema, claudication, fever, chills, rigors, sweats, abdominal pain, nausea, vomiting, diarrhea, constipation or melena. PAST MEDICAL HISTORY: Notable for coronary artery disease with remote coronary intervention. He has moderate LV dysfunction; hypertension; atrial fibrillation, on warfarin; hepatitis C; PVCs; GI bleeding; esophageal varices. He is a former smoker. MEDICATIONS: At the time of admission include aspirin, warfarin, losartan, Flomax, Lasix, potassium chloride, metoprolol, MiraLax, Mysoline, Proscar, Protonix, Remeron, vitamin D, Zoloft. ALLERGIES: THERE ARE NO MEDICATION ALLERGIES REPORTED. SOCIAL HISTORY: He lives at home with his son. He is ambulatory, but limited. He does not smoke currently. He does not drink alcohol significantly. REVIEW OF SYSTEMS: A 10-point review of systems otherwise unremarkable except that is noted above. FAMILY HISTORY: Noncontributory. PHYSICAL EXAMINATION GENERAL: He is a well-developed elderly male, lying on the stretcher in the emergency room, in no acute distress. VITAL SIGNS: Heart rate is 90 to 100 beats per minute. He is in atrial fibrillation. Temperature 98.3, blood pressure 107/45, respirations 18-20, O2 saturation 90% on a Venturi mask. HEENT: Reveals no neck vein distention, thyromegaly, or carotid bruits. Mucous membranes moist. Conjunctivae are pink. NECK: Supple. LUNG: Lung milligan reveals scattered rhonchi, especially, in the right side. HEART: Revealed an irregular rhythm. Normal first and second heart sounds, somewhat obscured. ABDOMEN: Soft. Bowel sounds present. No mass, organomegaly, tenderness, rebound, or guarding, CVA tenderness or palpable abdominal aortic aneurysm. EXTREMITIES: Revealed no cyanosis, clubbing, or edema. NEUROLOGIC: He was awake, alert, and oriented. SKIN: Warm and dry. No rash or cellulitis. PSYCHIATRIC: Normal as to mood and affect. LABORATORY AND IMAGING: Chest x-ray reveals a portable study with extensive right upper lobe infiltrate. EKG demonstrated atrial fibrillation, CT of the chest was done. Results are pending. Hemoglobin 11, hematocrit 32.5, white count 14,200, platelet count normal. PT 93.5, INR 7.86, PTT 53.7. Blood gases are noted. Electrolytes normal. BUN and creatinine unremarkable. Calcium 7.9, blood sugar 132. Phosphorus, magnesium, bilirubin, AST, ALT, alkaline phosphatase, troponin all normal. BNP 14,400. Urinalysis is noted. IMPRESSION: Bernard Diane is an 86-year-old man with a 1-week history of worsening symptoms including shortness of breath, cough, sputum production and recently hemoptysis. He has a markedly prolonged INR. He is on warfarin therapy for atrial fibrillation with poor appetite this week. He is being admitted to the intensive care unit. He has been cultured. He got antibiotics and vitamin K. He is getting supplemental O2. I will continue his aspirin and his metoprolol at 50 mg b.i.d. He will have a Pulmonary consultation. We await the results of the CT angiogram. We will monitor inputs and outputs, check stool for occult blood. There is Pulmonary and Infectious Disease consultation requested. I will follow along with you. I have reviewed his old records. I will make additional recommendations based on his clinical course. I have spoken with his sons at the bedside. Franklin Simental MD [facility]
[2017-11-03 09:08] LABS: INR 3.97 (0.93-1.08)
--- NOTE | 2017-11-03 09:23 | CON ---
DATE: HISTORY OF PRESENT ILLNESS: This is an 86-year-old gentleman with multiple cardiopulmonary risk factors and comorbidities who presented with some shortness of breath and hemoptysis. Upon inquiry to quantitate how much hemoptysis he has had, it turns out that there were three episodes of about 2 mL of bright red blood over the last 24 hours. Of note, the patient is on Coumadin for atrial fibrillation and his INR in Emergency Room was found to be more than 7. Vitamin K was given in the ER as well. The patient denies chest pain, nausea, vomiting, diarrhea, or constipation. In Emergency Room, the patient was found to have dense right upper lobe and right middle lobe consolidation and oxygen saturation about 87 to 91% on partial NRB. PAST MEDICAL HISTORY: CHF; COPD; atrial fibrillation; coronary artery disease, status post LAD stent placement more than 1 year ago; history of upper GI bleed due to esophageal varices; hepatitis C, reportedly treated in ; hypertension; depression; BPH. PAST SURGICAL HISTORY: Cardiac catheterization and stenting. SOCIAL HISTORY: The patient is ex-smoker. He used to smoke one pack a day for more than 25 years, quit in 1985. He denies alcohol or illicit drug abuse. FAMILY HISTORY: Noncontributory. ALLERGIES: NKDA. HOME MEDICATIONS: Lasix, Proscar, vitamin D, aspirin, Protonix, Remeron, metoprolol, Cozaar, Flomax, Zoloft, primidone, potassium, Coumadin, vitamin D. REVIEW OF SYSTEMS: Review of 12-organ system other than mentioned in history of an present illness is negative. FAMILY HISTORY: Noncontributory. PHYSICAL EXAMINATION: VITAL SIGNS: Blood pressure 107/45, heart rate 100, respiratory rate 24, oxygen saturation 90% on Venti mask (partial nonrebreather). The patient will be switched to high-flow oxygen, FiO2 will be titrated. ENT: Head and neck atraumatic. LUNGS: Few crackles on the right upper zone (anteriorly). HEART: Irregular rate and rhythm. S1, S2 distant. ABDOMEN: Soft, nontender, nondistended. MUSCULOSKELETAL: Trace bilateral pedal and ankle edema. NEUROLOGICAL: The patient moves all extremities spontaneously. SKIN: Moist. PSYCHIATRIC: The patient is alert, awake and oriented x3. He reports that his breathing substantially improved since his admission to [facility]. Please note the patient is using oxygen at home for his severe COPD. LABORATORY DATA: WBC 14.2, hemoglobin 11, platelet count 280. Sodium 135, potassium 4.3, chloride 101, carbon dioxide 21, BUN 18, creatinine 0.6, glucose 132. ProBNP 14,400, AST 48, ALT 35, total bilirubin 0.9, albumin 3.7. INR 7.86. PT 53.7. ABG is 7.47/20/93. Lactic acid 1, FiO2 40%. Urine negative for nitrites and leukocyte esterase. CAT scan showed dense consolidation in the right upper lobe. ASSESSMENT AND PLAN: This is an 86-year-old gentleman who presented with severe community-acquired pneumonia with hypoxemic respiratory failure. At present time, the patient will be on vancomycin, ceftriaxone and azithromycin. ID consult will adjust antibiotic therapy. Meanwhile, blood culture, urine culture, procalcitonin, urine for Legionella and Streptococcal antigens will be sent. Because of recent hemoptysis and supratherapeutic INR, four units of FFP will be given and vitamin K was already given. This hemoptysis is not massive (about 4-6 cc of bloody sputum over the last 24 hrs) and he is protecting his airways. The patient will be switched from partial non-rebreather to high-flow oxygen with FiO2 titrated for O2 saturation more than 90% and flow rate more than 50 liters per minute. We will continue to maintain euvolemia, euglycemia, normothermia and oxygen saturation more than 90%. We will continue with DVT, GI prophylaxes. Echocardiogram will be done. Low-dose steroids will be started. MRSA nasal screen will be sent. I also started the patient on vancomycin due to concern for CA-MRSA based on the patient's imaging and clinical presentation. I would be careful with Zyvox as the patient is on SSRI at home. NPO and low threshold for intubation Addendum: Patient requires 95% fi02 on high flow to maintain 02sat 90-92, but surprisingly not in distress, talks full sentences, smiling, no paradoxical respiration, not using accessory muscles. Of note patient is using 4L/min 02 at home for severe COPD-related hypoxemia. Will continue to monitor respiratory status ccm time 40 min Sammy Mayer MD [facility] # [id number] [facility]
[2017-11-03 09:27] LABS: TROPONIN I < 0.01 ng/mL
[2017-11-03] MEDS: Vancomycin 1gm in NS 250ml 1 GM/250 ML BAG IVPB SCH ×2 (09:50→20:22)
[2017-11-03] MEDS: Meropenem IV 1 gm in NS 50 ML IVPB SCH ×3 (09:51→22:10)
[2017-11-03] MEDS: MethylPREDNISolone 40 mg Vial IVP SCH ×2 (09:52→21:34)
[2017-11-03] MEDS ORDERED: POLYETHYLENE GLYCOL 3350 17 GM/Dose PACKET PO SCH (10:00)
--- NOTE | 2017-11-03 11:14 | CP.PCM.CON ---
History of Present Illness - History of Present Illness History of Present Illness: 86 year old male with PMH of community-acquired pneumonia on top of acute CHF, CAD S/P PCI, GERD, history of GI bleed, history of hepatitis C S/P treatment, BPH, atrial fibrillation on anticoagulation came in to [facility] [place], [place] complaining of blood in phlegm for the past 2 days, associated with cough for about a week with initially whitish phlegm. He denies fevers or night sweats, denies weight loss, no headache or dizziness, no chest pain, no SOB currently but had it when he was in the ED and at home, no abdominal pain, no nausea or vomiting, no hematemesis, melena or hematochezia, no diarrhea, no dysuria, no dysphagia. He states that he lives with his two sons at home and has lived in the same house for 50 years. He denies animal contacts, no travel outside of [place] recently. In the ED, the patient was noted to be hypoxic and is now in the ICU on high flow oxygen. His INR is also markedly elevated. CT chest was done which is showing dense consolidation in the right upper lobe. Infectious diseases consult is requested to further evaluate and manage. Review of Systems - Review of Systems All systems: reviewed and no additional remarkable complaints except (as per HPI ) Past Patient History - Infectious Disease Hx of Infectious Diseases: None - Tetanus Immunizations Tetanus Immunization: Unknown - Past Social History Smoking Status: Former Smoker Alcohol: None Drugs: Denies Home Situation {Lives}: With Family - CARDIAC Hx Cardiac Disorders: Yes Hx Congestive Heart Failure: Yes Hx Hypertension: Yes - PULMONARY Hx Chronic Obstructive Pulmonary Disease (COPD): Yes - NEUROLOGICAL Other/Comment: Tremors - HEENT Hx HEENT Problems: No - RENAL Hx Chronic Kidney Disease: No - ENDOCRINE/METABOLIC Hx Endocrine Disorders: No - HEMATOLOGICAL/ONCOLOGICAL Hx Hepatitis C: Yes - INTEGUMENTARY Hx Dermatological Problems: No - MUSCULOSKELETAL/RHEUMATOLOGICAL Hx Musculoskeletal Disorders: Yes Hx Falls: Yes Other/Comment: h/o B/L Hip replacement - GASTROINTESTINAL Hx Gastrointestinal Disorders: Yes (GI bleed, Liver disease) Hx Gastroesophageal Reflux: Yes Other/Comment: Esophageal tear - GENITOURINARY/GYNECOLOGICAL Hx Genitourinary Disorders: No - PSYCHIATRIC Hx Depression: Yes Hx Substance Use: No - SURGICAL HISTORY Hx Cardiac Catheterization: Yes Hx Coronary Stent: Yes Hx Joint Replacement: Yes (B/L hip replacement) Hx Musculoskeletal Surgery: Yes - ANESTHESIA Hx Anesthesia: No Hx Anesthesia Reactions: No Hx Malignant Hyperthermia: No Meds Allergies/Adverse Reactions: Allergies Allergy/AdvReac Type Severity Reaction Status Date / Time No Known Allergies Allergy Verified 05/20/17 13:09 - Medications Medications: Current Medications Albuterol/Ipratropium (Duoneb 3 Mg/0.5 Mg (3 Ml) Ud) 3 ml IH Q2H PRN PRN Reason: Shortness of Breath Albuterol/Ipratropium (Duoneb 3 Mg/0.5 Mg (3 Ml) Ud) 3 ml IH [id number] ANA LAURA Aspirin (Aspirin Chewable) 81 mg PO DAILY ANA LAURA Benzonatate (Tessalon Perles) 100 mg PO TID ANA LAURA Cholecalciferol (Vitamin D) 0 intlu PO WED ANA LAURA Azithromycin (Zithromax 500mg In Ns) 500 mg in 250 mls @ 167 mls/hr IVPB DAILY ANA LAURA PRN Reason: Protocol Vancomycin HCl (Vancomycin 1gm) 1 gm in 250 mls @ 167 mls/hr IVPB Q12H ANA LAURA PRN Reason: Protocol Metoprolol Tartrate (Lopressor) 50 mg PO BID ANA LAURA Mirtazapine (Remeron) 15 mg PO HS ANA LAURA Pantoprazole Sodium (Protonix Ec Tab) 40 mg PO 0600 [facility] Last Admin: 11/03/17 06:36 Dose: 40 mg Polyethylene Glycol (Miralax) 17 gm PO BID ANA LAURA Sertraline HCl (Zoloft) 25 mg PO DAILY [facility] Physical Exam - Constitutional Appears: Cachectic, Chronically Ill - Head Exam Head Exam: NORMAL INSPECTION - ENT Exam ENT Exam: Mucous Membranes Moist - Neck Exam Neck exam: Negative for: Lymphadenopathy, Meningismus - Respiratory Exam Respiratory Exam: Decreased Breath Sounds - Cardiovascular Exam Cardiovascular Exam: +S1, +S2 - GI/Abdominal Exam GI & Abdominal Exam: Soft. absent: Tenderness Results - Vital Signs Recent Vital Signs: Last Vital Signs Temp 98.3 F 11/03/17 05:14 Pulse 100 H 11/03/17 07:00 Resp 24 11/03/17 07:44 BP 107/45 L 11/03/17 07:00 Pulse Ox 90 L 11/03/17 07:00 - Labs Result Diagrams: 11/03/17 03:45 11/03/17 03:45 Labs: Laboratory Results - last 24 hr 11/03/17 06:00 Urine Color Yellow Urine Appearance Clear Urine pH 7.0 Ur Specific [place] <= 1.005 Urine Protein Trace H Urine Glucose (UA) Negative Urine Ketones Negative Urine Blood Negative Urine Nitrate Negative Urine Bilirubin Negative Urine Urobilinogen 2.0 H Ur Leukocyte Esterase Negative Urine RBC 1 - 3 Urine WBC 2 - 5 Ur Epithelial Cells 0 - 2 Urine Bacteria Small Assessment & Plan - Assessment and Plan (Free Text) Plan: Assessment severe sepsis with acute hypoxic respiratory failure due to right upper lobe severe community-acquired pneumonia, with associated hemoptysis probably from coagulopathy from Coumadin history of community-acquired pneumonia on top of acute CHF CAD S/P PCI GERD history of GI bleed history of hepatitis C Plan Started patient on Vancomycin, Merrem and Zithromax pending blood, sputum cx, PCT; reviewed CT chest which is showing dense consolidation without cavitation - will check official report and Pulmonary evaluation and recommendations reviewed history of patient - patient does not have classic risk factors for TB , did not present with fevers or night sweats, did not have long-standing cough , no travel to TB areas, has lived in [place] most of his life and CT chest does not show cavitation - less likely TB will monitor clinically discussed with Dr. Mayer
--- NOTE | 2017-11-03 11:50 | CARD ---
APPROVED REPORT EKG Measurement Heart [id number] <Conclusion> Atrial fibrillation Rightward axis Abnormal ECG
--- NOTE | 2017-11-03 12:26 | CARD ---
APPROVED REPORT EXAM: Two-dimensional and M-mode echocardiogram with Doppler and color Doppler. INDICATION 2D DIMENSIONS Left Atrium (2D)5.5 (1.6-4.0cm)IVSd0.8 (0.7-1.1cm) LVDd4.1 (3.9-5.9cm)PWd0.9 (0.7-1.1cm) LVDs3.1 (2.5-4.0cm)FS (%) 24.3 % LVEF (%)48.9 (>50%) M-Mode DIMENSIONS Aortic Root3.40 (2.2-3.7cm)Aortic Cusp Exc.2.00 (1.5-2.0cm) Aortic Valve AoV Peak Ztfzxpvr388.0cm/Leonard Peak GR.6mmHgAI P 1/2 [id number] Mitral Valve MV E Kntkzrrx78.8cm/s TDI Lateral E' Peak V10.90cm/sMedial E' Peak V6.53cm/sE/Lateral E'8.3 E/Medial E'13.9 Tricuspid Valve TR Peak Dagatemy078ws/sRAP [id number] Peak Gr.79mmHg [id number] LEFT VENTRICLE The left ventricle is normal size. There is normal left ventricular wall thickness. Left ventricle ejection fraction is low normal.EF-50% There is a flattened septum consistent with right ventricle volume and pressure overload. A fib ,can not be assessed No left ventricle thrombus noted on this study. There is no ventricular septal defect visualized. There is no left ventricular aneurysm. There is no mass noted in the left ventricle. RIGHT VENTRICLE The right ventricle is moderately dilated. There is normal right ventricular wall thickness. Systolic function of RV is moderately reduced. ATRIA The left atrium is severely dilated. The right atrium is moderately dilated. The interatrial septum is intact with no evidence for an atrial septal defect. AORTIC VALVE The aortic valve is thickened but opens well. There is mild to moderate aortic regurgitation. There is no aortic valvular stenosis. There is no aortic valvular vegetation. MITRAL VALVE The mitral valve is thickened but opens well. Mitral regurgitation is mild to moderate. There is no mitral valve stenosis. There is no evidence of mitral valve prolapse. TRICUSPID VALVE The tricuspid valve leaflets are thickened , but open well. There is moderate to severe tricuspid regurgitation.RVSP-89 mmof hg There is severe pulmonary hypertension. There is no tricuspid valve stenosis. There is no tricuspid valve prolapse or vegetation. PULMONIC VALVE The pulmonary valve is normal in structure. There is trace pulmonic valvular regurgitation. There is no pulmonic valvular stenosis. GREAT VESSELS The aortic root is normal in size. The ascending aorta is normal in size. The pulmonary artery is normal. The IVC is dilated. PERICARDIAL EFFUSION There is no pleural effusion. There is no pericardial effusion. <Conclusion> The left ventricle is normal size. There is normal left ventricular wall thickness. Left ventricle ejection fraction is low normal.EF-50% There is a flattened septum consistent with right ventricle volume and pressure overload. The right ventricle is moderately dilated. Systolic function of RV is moderately reduced. There is mild to moderate aortic regurgitation. Mitral regurgitation is mild to moderate. There is moderate to severe tricuspid regurgitation.RVSP-89 mmof hg There is severe pulmonary hypertension. There is no pericardial effusion. No vegetation noted.
--- NOTE | 2017-11-03 12:44 | RAD ---
HISTORY: short of breath COMPARISON: Comparison chest 05/20/2017. . FINDINGS: LUNGS: Patchy infiltrate right upper lobe. PLEURA: No significant pleural effusion identified, no pneumothorax apparent. Mild left basilar atelectasis. CARDIOVASCULAR: Heart appears enlarged. Aorta ectatic and uncoiled. Enlarged bilateral hilar region suggesting a prominent pulmonary arteries OSSEOUS STRUCTURES: No significant abnormalities. VISUALIZED UPPER ABDOMEN: Normal. OTHER FINDINGS: None. IMPRESSION: Patchy infiltrate right upper lobe. Cardiomegaly with enlarged bilateral hilar regions the appearance the appearance of which suggests on prominent pulmonary arteries.
[2017-11-03] MEDS: Albuterol-Ipratrop 3 mg / 0.5 (3 ml) UD IH SCH ×2 (13:02→20:00)
--- NOTE | 2017-11-03 13:19 | CT ---
PROCEDURE: CT Chest with contrast (Pulmonary Angiogram) HISTORY: short of breath, hemoptysis, r/o PE COMPARISON: Shortness of breath comparison made with CT chest dated 05/01/2017. The the TECHNIQUE: Axial computed tomography images were obtained of the chest in the pulmonary arterial phase of enhancement. Coronal and sagittal reformatted images were created and reviewed. Intravenous contrast dose: 100 cc Visipaque 320 contrast material Radiation dose: Total exam DLP = 483.51 mGy-cm. This CT exam was performed using one or more of the following dose reduction techniques: Automated exposure control, adjustment of the mA and/or kV according to patient size, and/or use of iterative reconstruction technique. FINDINGS: PULMONARY ARTERIES: The visualized pulmonary trunk,, right and left main, lobar, segmental and proximal subsegmental branches of the pulmonary arteries are well opacified with no definitive filling defects seen to suggest acute pulmonary embolus. AORTA: Ascending thoracic aorta measures 3.64 cm and descending thoracic aorta measures 2.8 cm. LUNGS: Patchy masslike infiltrate right upper lobe likely representing pneumonia within its concomitant atelectasis on. Atelectasis and/or infiltrate extend into the right hilar region. These findings are not felt to represent hilar adenopathy however of followup CT scan at until resolution recommended to exclude underlying mass. . Underlying centrilobular emphysematous changes upper lobe predominance. PLEURAL SPACES: Unremarkable. No effusion or pneumothorax. . Localized pleural thickening right posterior sulcus mild right basilar atelectasis HEART: Heart is enlarged. Prominent pulmonary arteries. Rule out underlying pulmonary arterial hypertension. . Small amount of fluid felt be present within the pericardial recess. LYMPH NODES: Few small nonspecific mediastinal lymph nodes are felt be present. Consolidation changes related to right upper lobe infiltrate extending to the right hilar region. These findings are not felt to represent adenopathy however CT scan at interval recommended to assess resolution and exclude adenopathy or mass above BONES, CHEST WALL: Diffuse demineralization of the entire cyst visualized thoracic lower cervical and upper lumbar spine. Chronic anterior wedge compression fracture of the T11 segment with mild chronic anterior wedging of the T12 segment. Additional acute compression fractures of T10, T7, T6, T5, T8 and T4 vertebral bodies. OTHER FINDINGS: Cholelithiasis. Small cyst right kidney. Small nonobstructing calculus upper pole right kidney. Postoperative changes of the stomach with questionable wall thickening. This could be due to collapse however the possibility of an intrinsic/invasive wall lesion (Including gastric carcinoma) not excluded. Consider followup endoscopy if clinically indicated. IMPRESSION: No evidence of acute pulmonary embolus. Patchy right upper lobe infiltrate associate with more dense consolidation possibly representing atelectasis. Underlying mass not excluded. Follow-up CT scan on total resolution recommended to exclude underlying mass. Cardiomegaly. Multilevel on chronic anterior wedge compression fractures throughout the thoracic spine as detailed above. . Postoperative changes of the stomach with questionable wall thickening. This could be due to collapse however the possibility of an intrinsic/invasive wall lesion (including gastric carcinoma) not excluded. Consider followup endoscopy if clinically indicated. See above incidental findings related to the upper abdomen. This report was placed in [facility] review folder for followup
[2017-11-03] MEDS: Milrinone 20mg/100ml D5W 100 ML IV PRN (18:56)
[2017-11-03] MEDS: Acetylcysteine 20% Inhal Soln (4ml) INH SCH (20:00)
[2017-11-04] MEDS: Albuterol-Ipratrop 3 mg / 0.5 (3 ml) UD IH SCH ×4 (02:10→20:05)
[2017-11-04] MEDS: Meropenem IV 1 gm in NS 50 ML IVPB SCH ×3 (05:08→21:00)
--- NOTE | 2017-11-04 05:24 | CON ---
DATE: 11/03/2017 PULMONARY CRITICAL CARE CONSULTATION REFERRING PHYSICIAN: Dr. Estevez REASON FOR CONSULTATION: Hemoptysis, chronic lung disease, cough, shortness of breath. HISTORY OF PRESENT ILLNESS This is a 86-year-old gentleman with past medical history significant for chronic obstructive lung disease, heart failure, atrial fibrillation, coronary artery disease, history of coronary stent, also has a history of hepatitis C with esophageal varices and GI bleed in the past, hypertension, depression, comes into ER with hemoptysis, cough and shortness of breath. According to family, he had been having some cough and congestion for last few days, but now started having hemoptysis. He had been on anticoagulation. His INR was 7 in ER, which was reversed by giving vitamin K. Presently, admit to Intensive Care Unit, lying in the bed, requiring high-flow nasal oxygen, pulse ox is about 90 to 95%, hemoptysis is decreased, but still have cough and sputum production. No nausea, no vomiting, diarrhea, leg pain or leg swelling. PAST MEDICAL HISTORY: As per history of present illness. ALLERGIES: NONE KNOWN. SOCIAL HISTORY: The patient is ex-smoker. Denies any alcohol use. FAMILY HISTORY: No significant cardiopulmonary disease reported. MEDICATIONS: He is on aspirin which is on hold, DuoNeb every 2 hours p.r.n. and every 6 hours [id number], Lasix 40 mg every 12 hour, metoprolol tartrate 50 mg twice a day, meropenem 1 g IV every 8 hours, MiraLax 17 g twice a day, Protonix 40 mg daily, Solu-Medrol 20 mg every 12 hours, Tessalon Perles 100 mg three times a day, vancomycin 1 g IV every 12 hours, vitamin D is weekly, Zithromax 500 mg daily, Zoloft 25 mg daily. REVIEW OF SYSTEMS: No headache, no rhinitis. Has cough, status post hemoptysis, has some clear sputum this morning. No chest pain. No nausea. No vomiting. No diarrhea, dysuria, not much leg swelling. PHYSICAL EXAMINATION: GENERAL: Lying in the bed, requiring high-flow oxygen. VITAL SIGNS: Temperature is 98, heart rate 87, respiratory rate is 30, blood pressure 98/66, pulse ox 94% on high-flow nasal cannula. HEENT: Moist mucous membranes. Crowded airway. NECK: Supple. No JVD. LUNGS: Have decreased breath sounds at the bases, expiratory few wheezing. HEARY: S1 and S2. ABDOMEN: Soft, nontender. No organomegaly. EXTREMITIES: No edema. NEUROLOGIC: Awake and alert. Follows simple commands. LABORATORY DATA: Shows hemoglobin 11, hematocrit 32.5, WBC 14.2, platelet is 280. INR today 3.97. Has a ABG done which shows pH 7.47, pCO2 27, O2 is 56. Sodium 135, potassium 4.3, chloride 101, bicarbonate 21, BUN 18, creatinine 0.6, glucose 132, calcium 7.9, phosphorus 2.6, magnesium 2.2, AST 48, ALT 35, alk phos is 81. C-reactive protein 240. Troponin less than 0.01. ProBNP 14,400. Albumin is 3.7, procalcitonin 0.05. Urinalysis is unremarkable with 2 to 5 wbcs, 1 to 3 rbcs. Had echocardiogram done today which shows right ventricle systolic pressure is 89. There is normal left ventricular wall thickening. Left ventricle ejection fraction is about 50%, flattened septum consistent with a right ventricle volume overload. CT of the chest is done, which shows no evidence of pulmonary embolism. Patchy right upper lobe infiltrate associated with more dense consolidation, possibly representing atelectasis, underlying mass not excluded, multilevel on chronic anterior wedge compression fracture throughout the thoracic spine. There is questionable stomach wall thickening. IMPRESSION AND PLAN: Pulmonary infiltrate with respiratory failure requiring high-flow oxygen. Has a cardiomyopathy with severe pulmonary hypertension, echogenic coagulopathy. Case discussed with the family at bedside. All the questions answered. Also spoke with respiratory therapist. Continue antibiotics. Keep head at 45 degrees. Continue IV and inhaled bronchodilator. 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 We will place him on noninvasive ventilation at nighttime and may continue high-flow nasal cannula during the daytime. Gastric prophylaxis. Follow up ABG, chest x-ray, CBC, in the morning. Thank you and we will follow with you. Smooth Roche MD
[2017-11-04] MEDS: Milrinone 20mg/100ml D5W 100 ML IV PRN (06:29)
[2017-11-04 06:32] LABS: BASO # 0.01 K/mm3 (0.0-2.0); BASO % 0.1 % (0.0-3.0); EOS % 0.2 % (1.5-5.0); GRAN # 10.55 (1.4-6.5); GRAN % 85.8 % (50.0-68.0); HEMOGLOBIN 10.8 g/dL (14.0-18.0); LYMPH % 8.1 % (22.0-35.0); MEAN CELL VOLUME 94.2 fl (80.0-105.0); MEAN CORPUSCULAR HEMOGLOBIN 31.2 pg (25.0-35.0); MEAN CORPUSCULAR HGB CONC 33.1 g/dl (31.0-37.0); MEAN PLATELET VOLUME 10.2 fl (7.0-11.0); MONO # 0.7 (0.1-0.6); MONO % 5.8 % (1.0-6.0); RBC 3.46 10^6/uL (3.5-6.1); RED CELL DISTRIBUTION WIDTH 14.8 % (11.5-14.5); WHITE BLOOD COUNT 12.3 10^3/ul (4.5-11.0)
[2017-11-04 06:34] LABS: ALB/GLOB RATIO 0.9 (1.1-1.8); ALBUMIN 3.2 g/dL (3.0-4.8); ALT/SGPT 37 U/L (7-56); AST/SGOT 36 U/L (17-59); BLOOD UREA NITROGEN 16 mg/dL (7-21); CALCIUM 8.2 mg/dL (8.4-10.5); GFR AFRICAN-AMERICAN > 60; GFR NON-AFRICAN AMERICAN > 60; INR 1.7 (0.93-1.08); PROTHROMBIN TIME 19.8 SECONDS (9.4-12.5)
[2017-11-04] MEDS: Pantoprazole 40 mg EC Tab PO SCH (06:43)
[2017-11-04] MEDS: Acetylcysteine 20% Inhal Soln (4ml) INH SCH ×2 (07:03→20:04)
[2017-11-04] MEDS: Vancomycin 1gm in NS 250ml 1 GM/250 ML BAG IVPB SCH (08:00)
--- NOTE | 2017-11-04 08:05 | CP.CCUPN ---
Addendum entered and electronically signed by Richa Fried DO 11/04/17 18:08 : Medical Power of attorney law clerk, daughter, June Christine (Yamilet) [phone] Original Note: <Richa Fried - Last Filed: 11/04/17 15:12> CCU Subjective - Physician Review Subjective (Free Text): 11/04/17 08:17 Stop milrinon gtt u/o 1900 on lasix still npo 11/04/17 10:45 Back on milrinont gtt for RHF start diet EKG: A fib rvr at 101. ST depression more pronounce V2,3,4 but asymptpmatic 11/04/17 14:55 soft diet with thin liquid Hypoxemia PaO2 44 on 92% Back on bipap CCU Objective - Vital Signs / Intake & Output Vital Signs (Last 4 hours): Vital Signs Pulse Resp BP 11/04/17 07:07 28 H 11/04/17 06:29 101 H 111/54 L 11/04/17 06:00 108 H Intake and Output (Last 8hrs): Intake & Output 11/03/17 11/04/17 11/04/17 22:59 06:59 14:59 Intake Total 460 440.375 Output Total 2150 1900 Balance -1690 -1459.625 Weight 130 lb Intake: IV 460 90.375 Right Wrist 460 24 primacor 66 Oral 0 Other 350 Output: Urine 2150 1900 Urethral (Tai) 350 1900 Urine, Voided 1800 Other: Voiding Method Urinal # Voids Urine, Voided 4 # Bowel Movements 0 0 - Physical Exam Head: Positive for: Atraumatic, Normocephalic. Negative for: Tenderness, Contusion, Swelling, Ecchymosis, Abrasion, Laceration Pupils: Negative for: Pinpoint Extroacular Muscles: Positive for: EOMI Conjunctiva: Positive for: Normal. Negative for: Injected, Icteric Mouth: Positive for: Moist Mucous Membranes, Normal Lips, Normal Tounge, Normal Teeth, Other (no active bleeding in the mouth, back on bipap ). Negative for: Dry, Drooling Nose (External): Positive for: Atraumatic. Negative for: Abrasion, Laceration Nose (Internal): Positive for: No Active Bleeding. Negative for: Epistaxis Neck: Positive for: Normal Range of Motion, Trachea Midline. Negative for: MIDLINE TENDERNESS, JVD Respiratory/Chest: Positive for: Respiratory Distress, Accessory Muscle Use, Decreased Breath Sounds (moderately decreased breath sounds all [place]), Rhonchi (loud ronchi in all [place], more prominent in upper [place]), Tachypneic. Negative for: Clear to Auscultation, Good Air Exchange, Wheezes, Rales, Tender to Palpation Cardiovascular: Positive for: Normal S1, S2, Irregular Rhythm, Peripheal Pulses Present (+1 radials, unable to palpate dorsalis pedis bilaterally), Tachycardic. Negative for: Regular Rate and Rhythm, Murmurs, Bradycardic Abdomen: Positive for: Normal Bowel Sounds. Negative for: Tenderness, Distention, Guarding Upper Extremity: Positive for: Normal Inspection, Normal ROM, NORMAL PULSES. Negative for: Cyanosis, Edema, Tenderness, Swelling, Erythema, Deformity Lower Extremity: Positive for: Edema (+1 pitting edema from mid nur to 1-2 cm above ankles), NORMAL PULSES, Normal ROM. Negative for: Normal Inspection, CALF TENDERNESS, Cyanosis, Tenderness, Erythema, Deformity Neurological: Positive for: GCS=15, Motor Func Grossly Intact Skin: Positive for: Warm, Dry, Pale. Negative for: Rashes Lymphatic: Negative for: Cervical Adenopathy Psychiatric: Positive for: Alert, Oriented x 3, Normal Insight, Normal Concentration, Normal Affect, Normal Mood - Medications Active Medications: Active Medications Generic Name Dose Route Start Last Admin Trade Name Freq PRN Reason Stop Dose Admin Acetylcysteine 3 ml 11/03/17 18:45 11/04/17 07:03 Acetylcysteine 20% INH 2 ml BID ANA LAURA Administration Albuterol/Ipratropium 3 ml 11/03/17 05:50 11/03/17 08:09 Duoneb 3 Mg/0.5 Mg (3 Ml) Ud IH 3 ml Q2H PRN Administration Shortness of Breath Albuterol/Ipratropium 3 ml 11/03/17 14:00 11/04/17 07:04 Duoneb 3 Mg/0.5 Mg (3 Ml) Ud IH 3 ml [id number] ANA LAURA Administration Aspirin 81 mg 11/03/17 10:00 11/03/17 10:18 Aspirin Chewable PO Not Given DAILY ANA LAURA Benzonatate 100 mg 11/03/17 10:00 11/03/17 14:41 Tessalon Perles PO 100 mg TID ANA LAURA Administration Furosemide 40 mg 11/03/17 22:00 11/03/17 21:34 Lasix IVP 40 mg Q12 ANA LAURA Administration Azithromycin 500 mg in 250 mls @ 167 mls/hr 11/04/17 10:00 Zithromax 500mg In Ns IVPB DAILY ANA LAURA Protocol Vancomycin HCl 1 gm in 250 mls @ 167 mls/hr 11/03/17 07:30 11/03/17 20:22 Vancomycin 1gm IVPB 167 mls/hr Q12H ANA LAURA Administration Protocol Meropenem 50 mls @ 100 mls/hr 11/03/17 07:45 11/04/17 05:08 Merrem Iv 1 Gm Premix IVPB 100 mls/hr Q8 ANA LAURA Administration Protocol Milrinone Lactate/Dextrose 100 mls @ 6.634 mls/hr 11/03/17 18:47 11/04/17 06: 29 Primacor 20mg/100ml D5w IV 0.375 mcg/kg/min .Q15H5M PRN 6.634 mls/hr TITRATE PER MD ORDER Administration Protocol 0.375 MCG/KG/MIN Methylprednisolone 20 mg 11/03/17 10:00 11/03/17 21:34 Solu-Medrol IVP 20 mg Q12 ANA LAURA Administration Metoprolol Tartrate 50 mg 11/03/17 10:00 11/03/17 17:57 Lopressor PO Not Given BID ANA LAURA Pantoprazole Sodium 40 mg 11/03/17 06:00 11/04/17 06:43 Protonix Ec Tab PO Not Given 0600 ANA LAURA Pantoprazole Sodium 40 mg 11/04/17 10:00 Protonix Inj IVP DAILY ANA LAURA Polyethylene Glycol 17 gm 11/03/17 10:00 11/03/17 09:51 Miralax PO 17 gm BID ANA LAURA Administration Sertraline HCl 25 mg 11/03/17 10:00 11/03/17 09:51 Zoloft PO 25 mg DAILY ANA LAURA Administration - Patient Studies Lab Studies: Lab Studies 11/04/17 11/04/17 11/04/17 Range/Units 06:00 06:00 06:00 WBC 12.3 H (4.5-11.0) 10^3/ul RBC 3.46 L (3.5-6.1) 10^6/uL Hgb 10.8 L (14.0-18.0) g/dL Hct 32.6 L (42.0-52.0) % MCV 94.2 (80.0-105.0) fl MCH 31.2 (25.0-35.0) pg MCHC 33.1 (31.0-37.0) g/dl RDW 14.8 H (11.5-14.5) % Plt Count 269 (120.0-450.0) 10^3/uL MPV 10.2 (7.0-11.0) fl Gran % 85.8 H (50.0-68.0) % Lymph % (Auto) 8.1 L (22.0-35.0) % Gulf % (Auto) 5.8 (1.0-6.0) % Eos % (Auto) 0.2 L (1.5-5.0) % Baso % (Auto) 0.1 (0.0-3.0) % Gran # 10.55 H (1.4-6.5) Lymph # (Auto) 1.0 L (1.2-3.4) Gulf # (Auto) 0.7 H (0.1-0.6) Eos # (Auto) 0.0 (0.0-0.7) Baso # (Auto) 0.01 (0.0-2.0) K/mm3 PT 19.8 H (9.4-12.5) SECONDS INR 1.70 H (0.93-1.08) Sodium 142 (132-148) mmol/L Potassium 3.6 (3.6-5.0) mmol/L Chloride 104 (98-107) mmol/L Carbon Dioxide 23 (21-33) mmol/L Anion Gap 18 (10-20) BUN 16 (7-21) mg/dL Creatinine 0.6 L (0.8-1.5) mg/dl Est GFR ( Amer) > 60 Est GFR (Non-Af Amer) > 60 Random Glucose 111 H (70-110) mg/dL Calcium 8.2 L (8.4-10.5) mg/dL Total Bilirubin 1.3 (0.2-1.3) mg/dL AST 36 (17-59) U/L ALT 37 (7-56) U/L Alkaline Phosphatase 74 (38-126) U/L Troponin I ng/mL C-Reactive Protein (0.0-9.9) mg/L Total Protein 6.7 (5.8-8.3) g/dL Albumin 3.2 (3.0-4.8) g/dL Globulin 3.5 gm/dL Albumin/Globulin Ratio 0.9 L (1.1-1.8) Ur L.pneumophila Ag (NEGATIVE) Blood Type Confirm 11/03/17 11/03/17 11/03/17 Range/Units 15:05 08:30 08:10 WBC (4.5-11.0) 10^3/ul RBC (3.5-6.1) 10^6/uL Hgb (14.0-18.0) g/dL Hct (42.0-52.0) % MCV (80.0-105.0) fl MCH (25.0-35.0) pg MCHC (31.0-37.0) g/dl RDW (11.5-14.5) % Plt Count (120.0-450.0) 10^3/uL MPV (7.0-11.0) fl Gran % (50.0-68.0) % Lymph % (Auto) (22.0-35.0) % Gulf % (Auto) (1.0-6.0) % Eos % (Auto) (1.5-5.0) % Baso % (Auto) (0.0-3.0) % Gran # (1.4-6.5) Lymph # (Auto) (1.2-3.4) Gulf # (Auto) (0.1-0.6) Eos # (Auto) (0.0-0.7) Baso # (Auto) (0.0-2.0) K/mm3 PT 47.0 H (9.4-12.5) SECONDS INR 3.97 H* (0.93-1.08) Sodium (132-148) mmol/L Potassium (3.6-5.0) mmol/L Chloride (98-107) mmol/L Carbon Dioxide (21-33) mmol/L Anion Gap (10-20) BUN (7-21) mg/dL Creatinine (0.8-1.5) mg/dl Est GFR ( Amer) Est GFR (Non-Af Amer) Random Glucose (70-110) mg/dL Calcium (8.4-10.5) mg/dL Total Bilirubin (0.2-1.3) mg/dL AST (17-59) U/L ALT (7-56) U/L Alkaline Phosphatase (38-126) U/L Troponin I < 0.01 ng/mL C-Reactive Protein 240.60 H (0.0-9.9) mg/L Total Protein (5.8-8.3) g/dL Albumin (3.0-4.8) g/dL Globulin gm/dL Albumin/Globulin Ratio (1.1-1.8) Ur L.pneumophila Ag Negative (NEGATIVE) Blood Type Confirm 11/03/17 Range/Units 08:10 WBC (4.5-11.0) 10^3/ul RBC (3.5-6.1) 10^6/uL Hgb (14.0-18.0) g/dL Hct (42.0-52.0) % MCV (80.0-105.0) fl MCH (25.0-35.0) pg MCHC (31.0-37.0) g/dl RDW (11.5-14.5) % Plt Count (120.0-450.0) 10^3/uL MPV (7.0-11.0) fl Gran % (50.0-68.0) % Lymph % (Auto) (22.0-35.0) % Gulf % (Auto) (1.0-6.0) % Eos % (Auto) (1.5-5.0) % Baso % (Auto) (0.0-3.0) % Gran # (1.4-6.5) Lymph # (Auto) (1.2-3.4) Gulf # (Auto) (0.1-0.6) Eos # (Auto) (0.0-0.7) Baso # (Auto) (0.0-2.0) K/mm3 PT (9.4-12.5) SECONDS INR (0.93-1.08) Sodium (132-148) mmol/L Potassium (3.6-5.0) mmol/L Chloride (98-107) mmol/L Carbon Dioxide (21-33) mmol/L Anion Gap (10-20) BUN (7-21) mg/dL Creatinine (0.8-1.5) mg/dl Est GFR ( Amer) Est GFR (Non-Af Amer) Random Glucose (70-110) mg/dL Calcium (8.4-10.5) mg/dL Total Bilirubin (0.2-1.3) mg/dL AST (17-59) U/L ALT (7-56) U/L Alkaline Phosphatase (38-126) U/L Troponin I ng/mL C-Reactive Protein (0.0-9.9) mg/L Total Protein (5.8-8.3) g/dL Albumin (3.0-4.8) g/dL Globulin gm/dL Albumin/Globulin Ratio (1.1-1.8) Ur L.pneumophila Ag (NEGATIVE) Blood Type Confirm O POSITIVE Laboratory Results - last 24 hr 11/03/17 11/03/17 11/03/17 08:10 08:10 08:30 WBC RBC Hgb Hct MCV MCH MCHC RDW Plt Count MPV Gran % Lymph % (Auto) Gulf % (Auto) Eos % (Auto) Baso % (Auto) Gran # Lymph # (Auto) Gulf # (Auto) Eos # (Auto) Baso # (Auto) PT 47.0 H INR 3.97 H* Sodium Potassium Chloride Carbon Dioxide Anion Gap BUN Creatinine Est GFR ( Amer) Est GFR (Non-Af Amer) Random Glucose Calcium Total Bilirubin AST ALT Alkaline Phosphatase Troponin I < 0.01 C-Reactive Protein 240.60 H Total Protein Albumin Globulin Albumin/Globulin Ratio Ur L.pneumophila Ag Blood Type Confirm O POSITIVE 11/03/17 11/04/17 11/04/17 15:05 06:00 06:00 WBC 12.3 H RBC 3.46 L Hgb 10.8 L Hct 32.6 L MCV 94.2 MCH 31.2 MCHC 33.1 RDW 14.8 H Plt Count 269 MPV 10.2 Gran % 85.8 H Lymph % (Auto) 8.1 L Gulf % (Auto) 5.8 Eos % (Auto) 0.2 L Baso % (Auto) 0.1 Gran # 10.55 H Lymph # (Auto) 1.0 L Gulf # (Auto) 0.7 H Eos # (Auto) 0.0 Baso # (Auto) 0.01 PT 19.8 H INR 1.70 H Sodium Potassium Chloride Carbon Dioxide Anion Gap BUN Creatinine Est GFR ( Amer) Est GFR (Non-Af Amer) Random Glucose Calcium Total Bilirubin AST ALT Alkaline Phosphatase Troponin I C-Reactive Protein Total Protein Albumin Globulin Albumin/Globulin Ratio Ur L.pneumophila Ag Negative Blood Type Confirm 11/04/17 06:00 WBC RBC Hgb Hct MCV MCH MCHC RDW Plt Count MPV Gran % Lymph % (Auto) Gulf % (Auto) Eos % (Auto) Baso % (Auto) Gran # Lymph # (Auto) Gulf # (Auto) Eos # (Auto) Baso # (Auto) PT INR Sodium 142 Potassium 3.6 Chloride 104 Carbon Dioxide 23 Anion Gap 18 BUN 16 Creatinine 0.6 L Est GFR ( Amer) > 60 Est GFR (Non-Af Amer) > 60 Random Glucose 111 H Calcium 8.2 L Total Bilirubin 1.3 AST 36 ALT 37 Alkaline Phosphatase 74 Troponin I C-Reactive Protein Total Protein 6.7 Albumin 3.2 Globulin 3.5 Albumin/Globulin Ratio 0.9 L Ur L.pneumophila Ag Blood Type Confirm Critical Care Progress Note - Nutrition Nutrition: Nutrition Category Date Time Status NPO Diet [DIET] Diets 11/03/17 Breakfast Ordered Assessment/Plan - Assessment and Plan (Free Text) Plan: Mr Bernard Hooks, 86 M, with PMH of atrial fibrillation on coumadin, CHF, COPD on 4 litters of home oxygen, CAD s/p LAD stent, hx UGIB 2/2 esophageal varices, Hep C (treated in the 80s), HTN, depression, BPH and tremors who presents with complaint of hemoptysis found to have right upper lobe pneumonia, had transient episode of hypotension which has since resolved. Patient is being admitted to icu for transient episode of hypotension and hypoxemia. VS T 98.4, 101, 111/54, RR 28, 93% high flow 50L 90%. Repeat ABG in afternoon showed hypoxemia PaO2 at 44, back on Bipap 10//rr14 (34)/100% A: Acute hypoxic respiratory failure due to sepsis, CAP, and R Heart failure due to pulmonary hypertension hemoptysis probably from supratherapeutic from Coumadin - resolved. INR 1.7 Severe sepsis likely from right upper lobe community-acquired pneumonia Doubt TB per ID Acute CHF, systolic, on chronic; RHF on milrinon gtt Hx COPD on 4L home; CAD S/P PCI; GERD history of GI bleed history of hepatitis C A fib RVR on metoprolol, coumadin on hold Neuro: stable at baseline. Maintain nomothermia Pulm: Hypoxic Respiratory distress 2/2 Right upper lobe pneumonia & CT chest (11/03): Negative for PE. Patchy R upper lobe infiltrate, cannot exclude mass, post-obstructive vs PNA head of bed above 35 Duoneb standing and prn doses Tessalon pearls started on abx pulm consulted Cardio: Transient episode of hypotension- currently map above 65%, will monitor and maintain H/O CHF with elevated pro bnp- will hold of Lasix at this time due to labile hypotension & U/O 4L yesterday Holding bp meds due to hypotension last echo LVEF of 38.9 ( 04/29) INR subthreapeutic, tomorrow, F/U Dr Simental re: restart coumadin Start heparin subq8 today ID: Merrem and Zithromax (day 2) pending blood, sputum cx, PCT < 0.05 Blooc Cx neg x 1d; D/C vanco Renal: stable, monitor and maintain h/o bph: holding meds due to hypotensive episode. Endo: Maintain sugar 140-10 GI: Postop stomach thickening (post op vs poss gastric carcinoma) Dr Louis suggested endoscopy No active signs of Gi bleeding noted h/o constipation, continue miralax. On ppi for Gi prophylaxis. Heme: Supra-therapeutic INR 7.86- s/p vitamin K, INR 1.7; holding Coumadin. Normocytic anemia - hbg 11, baseline hgb of around 12. Now Hb 10.8 Psych: h/o depression and tremors: holding primidone due to dyspnea, Hold remeron and zoloft. Prophylaxis: heparin sc q8, holding Coumadin, protonix IV Dispo: try not to intubate because it will worse RHF pending PT eval; pending decision of DNR/DNI Consult: Sabina Simental (CHF), Kaley (PNA) s/r/d/w Dr. Mayer <Sammy Mayer - Last Filed: 11/09/17 10:23> CCU Objective - Vital Signs / Intake & Output Vital Signs (Last 4 hours): Vital Signs Temp Pulse Resp BP 11/09/17 10:00 78 11/09/17 08:20 92 H 11/09/17 08:00 97.5 F L 11/09/17 07:07 24 11/09/17 06:23 79 102/74 Intake and Output (Last 8hrs): Intake & Output 11/08/17 11/09/17 11/09/17 22:59 06:59 14:59 Intake Total 572 680 Output Total 300 400 Balance 272 280 Weight 135 lb Intake: IV 172 280 Right Forearm 172 100 primacor 80 Oral 400 400 Output: Urine 300 400 Urethral (Tai) 300 400 - Medications Active Medications: Active Medications Generic Name Dose Route Start Last Admin Trade Name Freq PRN Reason Stop Dose Admin Acetylcysteine 3 ml 11/08/17 21:23 11/09/17 07:03 Acetylcysteine 20% INH 3 ml BIDRESP ANA LAURA Administration Albuterol/Ipratropium 3 ml 11/03/17 05:50 11/03/17 08:09 Duoneb 3 Mg/0.5 Mg (3 Ml) Ud IH 3 ml Q2H PRN Administration Shortness of Breath Albuterol/Ipratropium 3 ml 11/03/17 14:00 11/09/17 07:03 Duoneb 3 Mg/0.5 Mg (3 Ml) Ud IH 3 ml [id number] ANA LAURA Administration Aspirin 81 mg 11/03/17 10:00 11/09/17 09:16 Aspirin Chewable PO 81 mg DAILY ANA LAURA Administration Azithromycin 500 mg 11/05/17 10:00 11/08/17 09:49 Zithromax PO 500 mg DAILY ANA LAURA Administration Protocol Benzonatate 100 mg 11/03/17 10:00 11/03/17 14:41 Tessalon Perles PO 100 mg TID ANA LAURA Administration Furosemide 40 mg 11/03/17 22:00 11/04/17 09:42 Lasix IVP 40 mg Q12 ANA LAURA Administration Meropenem 50 mls @ 100 mls/hr 11/03/17 07:45 11/09/17 06:23 Merrem Iv 1 Gm Premix IVPB 100 mls/hr Q8 ANA LAURA Administration Protocol Milrinone Lactate/Dextrose 100 mls @ 6.634 mls/hr 11/04/17 09:59 11/09/17 02: 18 Primacor 20mg/100ml D5w IV 0.375 mcg/kg/min .Q15H5M PRN 6.634 mls/hr TITRATE PER MD ORDER Administration Protocol 0.375 MCG/KG/MIN Methylprednisolone 40 mg 11/06/17 11:00 11/09/17 02:18 Solu-Medrol IVP 40 mg Q8H ANA LAURA Administration Metoprolol Tartrate 50 mg 11/05/17 22:00 11/09/17 06:23 Lopressor PO 50 mg Q8 ANA LAURA Administration Pantoprazole Sodium 40 mg 11/07/17 07:30 11/09/17 09:16 Protonix Ec Tab PO 40 mg ACB ANA LAURA Administration Polyethylene Glycol 17 gm 11/03/17 10:00 11/03/17 09:51 Miralax PO 17 gm BID ANA LAURA Administration Sertraline HCl 25 mg 11/03/17 10:00 11/03/17 09:51 Zoloft PO 25 mg DAILY ANA LAURA Administration Vitamin A 1 applic 11/04/17 13:38 Vitamin A&D TP Q8 PRN dry skin Vitamin A 1 ea 11/04/17 13:55 Vitamin A & D Oint Ud Foilpak TOP Q8H PRN dry skin Warfarin Sodium 2.5 mg 11/07/17 18:00 11/07/17 18:58 Coumadin PO 2.5 mg 1800 ANA LAURA Administration Protocol - Patient Studies Lab Studies: Lab Studies 11/09/17 11/09/17 11/09/17 Range/Units 06:10 06:10 06:10 WBC 12.7 H D (4.5-11.0) 10^3/ul RBC 3.60 (3.5-6.1) 10^6/uL Hgb 11.2 L (14.0-18.0) g/dL Hct 34.3 L (42.0-52.0) % MCV 95.3 (80.0-105.0) fl MCH 31.1 (25.0-35.0) pg MCHC 32.7 (31.0-37.0) g/dl RDW 15.2 H (11.5-14.5) % Plt Count 240 (120.0-450.0) 10^3/uL MPV 10.1 (7.0-11.0) fl Gran % 93.4 H (50.0-68.0) % Lymph % (Auto) 4.3 L (22.0-35.0) % Gulf % (Auto) 2.1 (1.0-6.0) % Eos % (Auto) 0.1 L (1.5-5.0) % Baso % (Auto) 0.1 (0.0-3.0) % Gran # 11.87 H (1.4-6.5) Lymph # (Auto) 0.6 L (1.2-3.4) Gulf # (Auto) 0.3 (0.1-0.6) Eos # (Auto) 0.0 (0.0-0.7) Baso # (Auto) 0.01 (0.0-2.0) K/mm3 PT 28.2 H (9.4-12.5) SECONDS INR 2.41 H (0.93-1.08) pCO2 (35-45) mm/Hg pO2 (80-100) mm/Hg HCO3 (21-28) mmol/L ABG pH (7.35-7.45) ABG Total CO2 (22-28) mmol.L ABG O2 Saturation (95-98) % ABG O2 Content (15-23) ML/dl ABG Base Excess (-2.0-3.0) mmol/L ABG Hemoglobin (11.7-17.4) g/dL ABG Carboxyhemoglobin (0.5-1.5) % POC ABG HHb (Measured) (0-5) % ABG Methemoglobin (0.0-3.0) % ABG O2 Capacity (16-24) mL/dl Hgb O2 Saturation (95.0-98.0) % FiO2 % Sodium 140 (132-148) mmol/L Potassium 4.4 (3.6-5.0) mmol/L Chloride 107 (98-107) mmol/L Carbon Dioxide 25 (21-33) mmol/L Anion Gap 13 (10-20) BUN 22 H (7-21) mg/dL Creatinine 0.5 L (0.8-1.5) mg/dl Est GFR ( Amer) > 60 Est GFR (Non-Af Amer) > 60 Random Glucose 125 H (70-110) mg/dL Calcium 8.3 L (8.4-10.5) mg/dL Phosphorus 2.4 L (2.5-4.5) mg/dL Magnesium 2.4 H (1.7-2.2) mg/dL Total Bilirubin 1.2 (0.2-1.3) mg/dL AST 47 (17-59) U/L ALT 37 (7-56) U/L Alkaline Phosphatase 76 (38-126) U/L Total Protein 6.7 (5.8-8.3) g/dL Albumin 3.1 (3.0-4.8) g/dL Globulin 3.6 gm/dL Albumin/Globulin Ratio 0.9 L (1.1-1.8) 11/09/17 11/08/17 Range/Units 05:35 10:50 WBC (4.5-11.0) 10^3/ul RBC (3.5-6.1) 10^6/uL Hgb (14.0-18.0) g/dL Hct (42.0-52.0) % MCV (80.0-105.0) fl MCH (25.0-35.0) pg MCHC (31.0-37.0) g/dl RDW (11.5-14.5) % Plt Count (120.0-450.0) 10^3/uL MPV (7.0-11.0) fl Gran % (50.0-68.0) % Lymph % (Auto) (22.0-35.0) % Gulf % (Auto) (1.0-6.0) % Eos % (Auto) (1.5-5.0) % Baso % (Auto) (0.0-3.0) % Gran # (1.4-6.5) Lymph # (Auto) (1.2-3.4) Gulf # (Auto) (0.1-0.6) Eos # (Auto) (0.0-0.7) Baso # (Auto) (0.0-2.0) K/mm3 PT (9.4-12.5) SECONDS INR (0.93-1.08) pCO2 28 L 34 L (35-45) mm/Hg pO2 50.0 L 132.0 H (80-100) mm/Hg HCO3 21.8 25.9 (21-28) mmol/L ABG pH 7.50 H 7.49 H (7.35-7.45) ABG Total CO2 22.7 26.9 (22-28) mmol.L ABG O2 Saturation 91.0 L 100.2 H (95-98) % ABG O2 Content 14.2 L 14.1 L (15-23) ML/dl ABG Base Excess -0.5 2.7 (-2.0-3.0) mmol/L ABG Hemoglobin 11.4 L 10.2 L (11.7-17.4) g/dL ABG Carboxyhemoglobin 2.1 H 2.2 H (0.5-1.5) % POC ABG HHb (Measured) 8.7 H -0.2 L (0-5) % ABG Methemoglobin 0.8 1.4 (0.0-3.0) % ABG O2 Capacity 15.6 L 14.1 L (16-24) mL/dl Hgb O2 Saturation 88.4 L 96.6 (95.0-98.0) % FiO2 80.0 40.0 % Sodium (132-148) mmol/L Potassium (3.6-5.0) mmol/L Chloride (98-107) mmol/L Carbon Dioxide (21-33) mmol/L Anion Gap (10-20) BUN (7-21) mg/dL Creatinine (0.8-1.5) mg/dl Est GFR ( Amer) Est GFR (Non-Af Amer) Random Glucose (70-110) mg/dL Calcium (8.4-10.5) mg/dL Phosphorus (2.5-4.5) mg/dL Magnesium (1.7-2.2) mg/dL Total Bilirubin (0.2-1.3) mg/dL AST (17-59) U/L ALT (7-56) U/L Alkaline Phosphatase (38-126) U/L Total Protein (5.8-8.3) g/dL Albumin (3.0-4.8) g/dL Globulin gm/dL Albumin/Globulin Ratio (1.1-1.8) Laboratory Results - last 24 hr 11/08/17 11/09/17 11/09/17 10:50 05:35 06:10 WBC 12.7 H D RBC 3.60 Hgb 11.2 L Hct 34.3 L MCV 95.3 MCH 31.1 MCHC 32.7 RDW 15.2 H Plt Count 240 MPV 10.1 Gran % 93.4 H Lymph % (Auto) 4.3 L Gulf % (Auto) 2.1 Eos % (Auto) 0.1 L Baso % (Auto) 0.1 Gran # 11.87 H Lymph # (Auto) 0.6 L Gulf # (Auto) 0.3 Eos # (Auto) 0.0 Baso # (Auto) 0.01 PT INR pCO2 34 L 28 L pO2 132.0 H 50.0 L HCO3 25.9 21.8 ABG pH 7.49 H 7.50 H ABG Total CO2 26.9 22.7 ABG O2 Saturation 100.2 H 91.0 L ABG O2 Content 14.1 L 14.2 L ABG Base Excess 2.7 -0.5 ABG Hemoglobin 10.2 L 11.4 L ABG Carboxyhemoglobin 2.2 H 2.1 H POC ABG HHb (Measured) -0.2 L 8.7 H ABG Methemoglobin 1.4 0.8 ABG O2 Capacity 14.1 L 15.6 L Hgb O2 Saturation 96.6 88.4 L FiO2 40.0 80.0 Sodium Potassium Chloride Carbon Dioxide Anion Gap BUN Creatinine Est GFR ( Amer) Est GFR (Non-Af Amer) Random Glucose Calcium Phosphorus Magnesium Total Bilirubin AST ALT Alkaline Phosphatase Total Protein Albumin Globulin Albumin/Globulin Ratio 11/09/17 11/09/17 06:10 06:10 WBC RBC Hgb Hct MCV MCH MCHC RDW Plt Count MPV Gran % Lymph % (Auto) Gulf % (Auto) Eos % (Auto) Baso % (Auto) Gran # Lymph # (Auto) Gulf # (Auto) Eos # (Auto) Baso # (Auto) PT 28.2 H INR 2.41 H pCO2 pO2 HCO3 ABG pH ABG Total CO2 ABG O2 Saturation ABG O2 Content ABG Base Excess ABG Hemoglobin ABG Carboxyhemoglobin POC ABG HHb (Measured) ABG Methemoglobin ABG O2 Capacity Hgb O2 Saturation FiO2 Sodium 140 Potassium 4.4 Chloride 107 Carbon Dioxide 25 Anion Gap 13 BUN 22 H Creatinine 0.5 L Est GFR ( Amer) > 60 Est GFR (Non-Af Amer) > 60 Random Glucose 125 H Calcium 8.3 L Phosphorus 2.4 L Magnesium 2.4 H Total Bilirubin 1.2 AST 47 ALT 37 Alkaline Phosphatase 76 Total Protein 6.7 Albumin 3.1 Globulin 3.6 Albumin/Globulin Ratio 0.9 L Critical Care Progress Note - Nutrition Nutrition: Nutrition Category Date Time Status Heart Healthy Diet [DIET] Diets 11/04/17 Lunch Active Attending/Attestation - Attestation I have personally seen and examined this patient.: Yes I have fully participated in the care of the patient.: Yes I have reviewed all pertinent clinical information: Yes Notes (Text): 11/09/17 10:22 86 yo male with hypoxemic respiratory failure due to CAP+CHF. abx, low dose steroids, conservative fluid and 02 management, oob to chair, pulm toilet, IS, chest pt, DVT/gi prophylaxis, high flow 02 supp ccm time 40 min
[2017-11-04] MEDS: MethylPREDNISolone 40 mg Vial IVP SCH ×2 (09:41→21:02)
[2017-11-04] MEDS ORDERED: Azithromycin 500MG/NS 250ml 500 MG/250 ML BAG IVPB SCH (10:00)
[2017-11-04] MEDS ORDERED: cefTRIAXone 1 gm 1 GM/100 ML BAG IVPB SCH (10:00)
--- NOTE | 2017-11-04 11:31 | CP.PCM.PN ---
Subjective - Date & Time of Evaluation Date of Evaluation: 11/04/17 Time of Evaluation: 09:50 - Subjective Subjective: Patient is still having SOB at rest, no fevers, still feels weak. No more hemoptysis. Objective - Vital Signs/Intake and Output Vital Signs (last 24 hours): Temp Pulse Resp BP Pulse Ox 98.4 F 101 H 28 H 111/54 L 89 L 11/04/17 02:00 11/04/17 06:29 11/04/17 07:07 11/04/17 06:29 11/03/17 23:00 Intake and Output: 11/04/17 11/04/17 06:59 18:59 Intake Total 440.375 Output Total 1900 Balance -1459.625 - Medications Medications: Current Medications Acetylcysteine (Acetylcysteine 20%) 3 ml INH BID ANA LAURA Last Admin: 11/04/17 07:03 Dose: 2 ml Albuterol/Ipratropium (Duoneb 3 Mg/0.5 Mg (3 Ml) Ud) 3 ml IH Q2H PRN PRN Reason: Shortness of Breath Last Admin: 11/03/17 08:09 Dose: 3 ml Albuterol/Ipratropium (Duoneb 3 Mg/0.5 Mg (3 Ml) Ud) 3 ml IH [id number] ANA LAURA Last Admin: 11/04/17 07:04 Dose: 3 ml Aspirin (Aspirin Chewable) 81 mg PO DAILY ANA LAURA Last Admin: 11/03/17 10:18 Dose: Not Given Benzonatate (Tessalon Perles) 100 mg PO TID ANA LAURA Last Admin: 11/03/17 14:41 Dose: 100 mg Cholecalciferol (Vitamin D) 0 intlu PO WED [facility] Furosemide (Lasix) 40 mg IVP Q12 ANA LAURA Last Admin: 11/03/17 21:34 Dose: 40 mg Azithromycin (Zithromax 500mg In Ns) 500 mg in 250 mls @ 167 mls/hr IVPB DAILY ANA LAURA PRN Reason: Protocol Vancomycin HCl (Vancomycin 1gm) 1 gm in 250 mls @ 167 mls/hr IVPB Q12H ANA LAURA PRN Reason: Protocol Last Admin: 11/03/17 20:22 Dose: 167 mls/hr Meropenem (Merrem Iv 1 Gm Premix) 50 mls @ 100 mls/hr IVPB Q8 ANA LAURA PRN Reason: Protocol Last Admin: 11/04/17 05:08 Dose: 100 mls/hr Milrinone Lactate/Dextrose (Primacor 20mg/100ml D5w) 100 mls @ 6.634 mls/hr IV .Q15H5M PRN; Protocol; 0.375 MCG/KG/MIN PRN Reason: TITRATE PER MD ORDER Last Admin: 11/04/17 06:29 Dose: 0.375 mcg/kg/min, 6.634 mls/hr Methylprednisolone (Solu-Medrol) 20 mg IVP Q12 [facility] Last Admin: 11/03/17 21:34 Dose: 20 mg Metoprolol Tartrate (Lopressor) 50 mg PO BID [facility] Last Admin: 11/03/17 17:57 Dose: Not Given Pantoprazole Sodium (Protonix Ec Tab) 40 mg PO 0600 [facility] Last Admin: 11/04/17 06:43 Dose: Not Given Pantoprazole Sodium (Protonix Inj) 40 mg IVP DAILY [facility] Polyethylene Glycol (Miralax) 17 gm PO BID [facility] Last Admin: 11/03/17 09:51 Dose: 17 gm Sertraline HCl (Zoloft) 25 mg PO DAILY [facility] Last Admin: 11/03/17 09:51 Dose: 25 mg - Labs Labs: 11/04/17 06:00 11/04/17 06:00 PT 19.8 SECONDS (9.4-12.5) H 11/04/17 06:00 INR 1.70 (0.93-1.08) H 11/04/17 06:00 APTT 53.7 Seconds (25.1-36.5) H 11/03/17 03:45 - Constitutional Appears: Cachectic, Chronically Ill - Head Exam Head Exam: NORMAL INSPECTION - Neck Exam Neck Exam: absent: Meningismus - Respiratory Exam Respiratory Exam: Decreased Breath Sounds - Cardiovascular Exam Cardiovascular Exam: +S1, +S2 - GI/Abdominal Exam GI & Abdominal Exam: Soft. absent: Tenderness Assessment and Plan - Assessment and Plan (Free Text) Plan: Assessment severe sepsis with acute hypoxic respiratory failure due to right upper lobe severe community-acquired pneumonia vs. atelectasis vs. malignancy, with associated hemoptysis probably from coagulopathy from Coumadin history of community-acquired pneumonia on top of acute CHF with severe right sided heart failure CAD S/P PCI GERD history of GI bleed history of hepatitis C Plan continue Merrem and Zithromax day 2 and will d/c Vancomycin since blood are negative; will follow up sputum cx; PCT is normal; reviewed CT chest which is showing dense consolidation without cavitation - discussed with Dr. Roche and will do consevative management given the patient's condition reviewed history of patient - patient does not have classic risk factors for TB , did not present with fevers or night sweats, did not have long-standing cough , no travel to TB areas, has lived in [place] most of his life and CT chest does not show cavitation - less likely TB will monitor clinically discussed with Dr. Mayer as well
[2017-11-04] MEDS ORDERED: Vitamin A/D oint 60G TP PRN (13:38)
--- NOTE | 2017-11-04 13:42 | CARD ---
APPROVED REPORT EKG Measurement Heart [id number] <Conclusion> Atrial fibrillation with rapid ventricular response with premature ventricular or aberrantly conducted complexes ST depression, consider subendocardial injury or digitalis effect Abnormal ECG
[2017-11-04] MEDS ORDERED: Vitamins A & D Oint UD Foilpak TOP PRN (13:55)
[2017-11-04 14:29] LABS: ARTERIAL BLOOD GAS HCO3 21.1 mmol/L (21-28); ARTERIAL BLOOD GAS HEMOGLOBIN 10.4 g/dL (11.7-17.4); ARTERIAL BLOOD GAS O2 CAPACITY 14.1 mL/dl (16-24); ARTERIAL BLOOD GAS O2 CONTENT 12.2 ML/dl (15-23); ARTERIAL BLOOD GAS O2 SAT 86.3 % (95-98); ARTERIAL BLOOD GAS PCO2 27 mm/Hg (35-45); ARTERIAL BLOOD GAS TCO2 21.9 mmol.L (22-28)
--- NOTE | 2017-11-04 16:22 | RAD ---
HISTORY: chf COMPARISON: No prior. FINDINGS: LUNGS: Patchy infiltrate changes seen right upper lobe and probably left lung base. PLEURA: No significant pleural effusion identified, no pneumothorax apparent. CARDIOVASCULAR: Cardiomegaly. Prominent hilar regions bilaterally. OSSEOUS STRUCTURES: No significant abnormalities. VISUALIZED UPPER ABDOMEN: Normal. OTHER FINDINGS: None. IMPRESSION: Patchy infiltrate changes seen right upper lobe and probably left lung base.
--- NOTE | 2017-11-04 16:25 | CP.PCM.PN ---
<Lucy Lara - Last Filed: 11/04/17 16:49> Subjective - Date & Time of Evaluation Date of Evaluation: 11/04/17 Time of Evaluation: 16:24 - Subjective Subjective: Lucy Lara DO, PGY-1: Hospitalist Service Patient reports no more hemoptysis. Patient is NPO at the time of evaluation. ICU team adjusting Milrinone drip. Patient is rapid A-fib on monitor. He denies chest pain or dyspnea. He is on Bipap. Objective - Vital Signs/Intake and Output Vital Signs (last 24 hours): Temp Pulse Resp BP Pulse Ox 98.6 F 91 H 26 H 108/55 L 86 L 11/04/17 11:41 11/04/17 15:27 11/04/17 13:29 11/04/17 11:00 11/04/17 11:40 Intake and Output: 11/04/17 11/04/17 06:59 18:59 Intake Total 440.375 Output Total 1900 Balance -1459.625 - Medications Medications: Current Medications Acetylcysteine (Acetylcysteine 20%) 3 ml INH BID [facility] Last Admin: 11/04/17 07:03 Dose: 2 ml Albuterol/Ipratropium (Duoneb 3 Mg/0.5 Mg (3 Ml) Ud) 3 ml IH Q2H PRN PRN Reason: Shortness of Breath Last Admin: 11/03/17 08:09 Dose: 3 ml Albuterol/Ipratropium (Duoneb 3 Mg/0.5 Mg (3 Ml) Ud) 3 ml IH [id number] [facility] Last Admin: 11/04/17 13:23 Dose: 3 ml Aspirin (Aspirin Chewable) 81 mg PO DAILY [facility] Last Admin: 11/03/17 10:18 Dose: Not Given Benzonatate (Tessalon Perles) 100 mg PO TID [facility] Last Admin: 11/03/17 14:41 Dose: 100 mg Furosemide (Lasix) 40 mg IVP Q12 [facility]NA [facility] Last Admin: 11/04/17 09:42 Dose: 40 mg Heparin Sodium (Porcine) (Heparin) 5,000 units SC Q8 ANA LAURA PRN Reason: Protocol Last Admin: 11/04/17 13:45 Dose: 5,000 units Azithromycin (Zithromax 500mg In Ns) 500 mg in 250 mls @ 167 mls/hr IVPB DAILY ANA LAURA PRN Reason: Protocol Last Admin: 11/04/17 09:42 Dose: 167 mls/hr Meropenem (Merrem Iv 1 Gm Premix) 50 mls @ 100 mls/hr IVPB Q8 ANA LAURA PRN Reason: Protocol Last Admin: 11/04/17 13:43 Dose: 100 mls/hr Milrinone Lactate/Dextrose (Primacor 20mg/100ml D5w) 100 mls @ 6.634 mls/hr IV .Q15H5M PRN; Protocol; 0.375 MCG/KG/MIN PRN Reason: TITRATE PER MD ORDER Methylprednisolone (Solu-Medrol) 20 mg IVP Q12 [facility] Last Admin: 11/04/17 09:41 Dose: 20 mg Metoprolol Tartrate (Lopressor) 50 mg PO BID [facility] Last Admin: 11/04/17 09:43 Dose: 50 mg Pantoprazole Sodium (Protonix Inj) 40 mg IVP DAILY [facility] Last Admin: 11/04/17 09:42 Dose: 40 mg Polyethylene Glycol (Miralax) 17 gm PO BID [facility] Last Admin: 11/03/17 09:51 Dose: 17 gm Sertraline HCl (Zoloft) 25 mg PO DAILY [facility] Last Admin: 11/03/17 09:51 Dose: 25 mg Vitamin A (Vitamin A&D) 1 applic TP Q8 PRN PRN Reason: dry skin Vitamin A (Vitamin A & D Oint Ud Foilpak) 1 ea TOP Q8H PRN PRN Reason: dry skin - Labs Labs: 11/04/17 06:00 11/04/17 06:00 PT 19.8 SECONDS (9.4-12.5) H 11/04/17 06:00 INR 1.70 (0.93-1.08) H 11/04/17 06:00 APTT 53.7 Seconds (25.1-36.5) H 11/03/17 03:45 - Constitutional Appears: Well, Non-toxic - Head Exam Head Exam: ATRAUMATIC, NORMOCEPHALIC - Eye Exam Eye Exam: EOMI, Normal appearance - ENT Exam ENT Exam: Mucous Membranes Moist - Neck Exam Neck Exam: Normal Inspection - Respiratory Exam Respiratory Exam: Decreased Breath Sounds (right side), Rales (right sided), NORMAL BREATHING PATTERN. absent: Accessory Muscle Use - Cardiovascular Exam Cardiovascular Exam: Irregular Rhythm, +S1, +S2 - GI/Abdominal Exam GI & Abdominal Exam: Soft, Normal Bowel Sounds - Extremities Exam Extremities Exam: Normal Inspection. absent: Calf Tenderness - Back Exam Back Exam: NORMAL INSPECTION. absent: CVA tenderness (L), CVA tenderness (R) - Neurological Exam Neurological Exam: Alert, Awake, Oriented x3 - Psychiatric Exam Psychiatric exam: Normal Affect, Normal Mood - Skin Skin Exam: Dry, Intact, Normal Color, Warm Assessment and Plan - Assessment and Plan (Free Text) Assessment: Patient is an 86 y/o with PMH of atrial fibrillation on coumadin, CHF, COPD on 4 litters of home oxygen, [place], CAD s/p LAD stent, hx UGIB 2/2 esophageal varices , Hep C (treated in the 80s), HTN, depression, BPH and tremors who presents with complaint of hemoptysis found to have right upper lobe pneumonia, had transient episode of hypotension which has since resolved. Patient is being admitted to icu for transient episode of hypotension and hypoxemia. Plan: Neuro: stable at baseline. Pulm: Right upper lobe pneumonia CTA No evidence of acute pulmonary embolus. Patchy right upper lobe infiltrate associate with more dense consolidation possibly representing atelectasis. Underlying mass not excluded. Follow-up CT scan on total resolution recommended to exclude underlying mass. Cardiomegaly. Multilevel on chronic anterior wedge compression fractures throughout the thoracic spine as detailed above.Postoperative changes of the stomach with questionable wall thickening. This could be due to collapse however the possibility of an intrinsic/invasive wall lesion (including gastric carcinoma) not excluded. Consider followup endoscopy if clinically indicated. Respiratory acidosis on ABG, and hypoxemia Will place on venti mask, and repeat ABG in 1-2 hours head of bed above 35 Duoneb standing and prn doses Tessalon pearls started on abx pulm consulted Cardio: Transient episode of hypotension- currently map above 65%, will monitor and maintain H/O CHF with elevated pro bnp- will hold of Lasix at this time due to labile hypotension, Cardio consulted Holding bp meds due to hypotension - Echocardiogram reads as LV is normal in size with normal wall thickness. LVEF is 50%. There is a flattened septum consistent with RV volume and pressure overload. The right ventricle is moderately dilated. Systolic function of RV is moderately reduced. there is mild to moderate aortic regurgitation. Mitral regurgitation is mild to moderate. There is moderate to severe tricuspid regurgitation-RVSP 89. There is severe pulmonary hypertension. There is no pericardial effusion. ID: pneumonia- afebrile, + leukocytosis, started on Rocephin, Zithromax. - Procal ordered - cultures sent Renal: stable, monitor and maintain h/o bph: holding meds due to hypotensive episode. Endo: stable GI: No active signs of Gi bleeding noted in the ED. h/o constipation, continue miralax. On ppi for Gi prophylaxis. NPO for now Heme: Normocytic anemia - hbg 11, no active bleeding noted in the ER, baseline hgb of around 12. Supra-therapeutic INR- s/p vitamin K, will check INR this am, holding Coumadin. INR is 1.7 after FFP and Vitamin K administration Psych: h/o depression and tremors: holding primidone due to dyspnea, continue remeron and zoloft. DVT prophylaxis: VTE, holding Coumadin Dispo: pending PT eval Patient seen, examined and case discussed with the attending. <Jesus Estevez - Last Filed: 11/04/17 18:33> Objective - Vital Signs/Intake and Output Vital Signs (last 24 hours): Temp Pulse Resp BP Pulse Ox 98.6 F 94 H 26 H 108/55 L 86 L 11/04/17 16:00 11/04/17 18:11 11/04/17 13:29 11/04/17 11:00 11/04/17 11:40 Intake and Output: 11/04/17 11/04/17 06:59 18:59 Intake Total 440.375 Output Total 1900 Balance -1459.625 - Medications Medications: Current Medications Acetylcysteine (Acetylcysteine 20%) 3 ml INH BID [facility] Last Admin: 11/04/17 07:03 Dose: 2 ml Albuterol/Ipratropium (Duoneb 3 Mg/0.5 Mg (3 Ml) Ud) 3 ml IH Q2H PRN PRN Reason: Shortness of Breath Last Admin: 11/03/17 08:09 Dose: 3 ml Albuterol/Ipratropium (Duoneb 3 Mg/0.5 Mg (3 Ml) Ud) 3 ml IH [id number] [facility] Last Admin: 11/04/17 13:23 Dose: 3 ml Aspirin (Aspirin Chewable) 81 mg PO DAILY [facility] Last Admin: 11/03/17 10:18 Dose: Not Given Benzonatate (Tessalon Perles) 100 mg PO TID [facility] Last Admin: 11/03/17 14:41 Dose: 100 mg Furosemide (Lasix) 40 mg IVP Q12 [facility] Last Admin: 11/04/17 09:42 Dose: 40 mg Heparin Sodium (Porcine) (Heparin) 5,000 units SC Q8 ANA LAURA PRN Reason: Protocol Last Admin: 11/04/17 13:45 Dose: 5,000 units Azithromycin (Zithromax 500mg In Ns) 500 mg in 250 mls @ 167 mls/hr IVPB DAILY ANA LAURA PRN Reason: Protocol Last Admin: 11/04/17 09:42 Dose: 167 mls/hr Meropenem (Merrem Iv 1 Gm Premix) 50 mls @ 100 mls/hr IVPB Q8 ANA LAURA PRN Reason: Protocol Last Admin: 11/04/17 13:43 Dose: 100 mls/hr Milrinone Lactate/Dextrose (Primacor 20mg/100ml D5w) 100 mls @ 6.634 mls/hr IV .Q15H5M PRN; Protocol; 0.375 MCG/KG/MIN PRN Reason: TITRATE PER MD ORDER Methylprednisolone (Solu-Medrol) 20 mg IVP Q12 [facility] Last Admin: 11/04/17 09:41 Dose: 20 mg Metoprolol Tartrate (Lopressor) 50 mg PO BID [facility] Last Admin: 11/04/17 09:43 Dose: 50 mg Pantoprazole Sodium (Protonix Inj) 40 mg IVP DAILY [facility] Last Admin: 11/04/17 09:42 Dose: 40 mg Polyethylene Glycol (Miralax) 17 gm PO BID [facility] Last Admin: 11/03/17 09:51 Dose: 17 gm Sertraline HCl (Zoloft) 25 mg PO DAILY [facility] Last Admin: 11/03/17 09:51 Dose: 25 mg Vitamin A (Vitamin A&D) 1 applic TP Q8 PRN PRN Reason: dry skin Vitamin A (Vitamin A & D Oint Ud Foilpak) 1 ea TOP Q8H PRN PRN Reason: dry skin - Labs Labs: 11/04/17 06:00 11/04/17 06:00 PT 19.8 SECONDS (9.4-12.5) H 11/04/17 06:00 INR 1.70 (0.93-1.08) H 11/04/17 06:00 APTT 53.7 Seconds (25.1-36.5) H 11/03/17 03:45 Attending/Attestation - Attestation I have personally seen and examined this patient.: Yes I have fully participated in the care of the patient.: Yes I have reviewed all pertinent clinical information, including history, physical exam and plan: Yes Notes (Text): 11/04/17 18:27 86 year old male with past medical history of afib on coumadin, CHF, COPD, CAD s /p stent, hepatitis C, hypertension and depression who presented with complaint of hemoptysis. He was found to have supratherapeutic INR and RUL pneumonia. Continue with iv antibiotics as per ID. He received FFP and vitamin K. INR has improved to 1.7 today. Cardiology is following. He is on milrinone drip. Lasix was held due to hypotension. Will follow up with cardiology / pulmonary regarding anticoagulation and continue to monitor INR closely. Jesus Estevez MD Hospitalist.
--- NOTE | 2017-11-04 23:52 | PN ---
DATE: 11/04/2017 PULMONARY PROGRESS NOTE REFERRING PHYSICIAN: Dr. Estevez. SUBJECTIVE: Patient is lying in the bed, head at 45 degrees. Night was unremarkable, noninvasive ventilation, requiring high-flow nasal cannula oxygen, been on Primacor overnight. Feels a little better this morning. Blood pressure dropped down to 80. There is no more hemoptysis. Still has a cough, shortness of breath. No chest pain. No dysuria. No leg pain, no leg swelling. OBJECTIVE: GENERAL: Qynn-db-vyewwsuc distress. VITAL SIGNS: Temperature is 98, heart rate 91, respiratory rate is 26, pulse ox 90% on high-flow nasal cannula. Blood pressure was 80/60 in the morning, present was 108/55. HEENT: Moist mucous membrane. Crowded airway. NECK: Supple. No JVD. LUNGS: Crackles at bases. Scattered rhonchi. HEART: S1 and S2. ABDOMEN: Soft, nontender. No organomegaly. EXTREMITIES: No edema. NEUROLOGIC: Awake, alert, and follows simple command. MEDICATIONS: He is on Mucomyst 20% inhaled twice a day, aspirin 81 mg daily, DuoNeb every 2 hour p.r.n. and every 6 hour [id number], heparin 5000 units subcu every 8 hour, Lasix 40 mg twice a day, metoprolol tartrate 50 mg twice a day, meropenem 1 g IV every 8 hour, MiraLax 17 g twice a day, Primacor IV drip, Protonix 40 mg daily, Solu-Medrol 20 mg every 12 hour, Tessalon Perles 100 mg three times a day, vitamin A and D ointment to affected area, Zithromax 500 mg daily, Zoloft 25 mg daily. LABORATORY DATA: Shows hemoglobin 10.8, hematocrit 32.6, WBC 12.3, platelet count is 269. INR 1.7. ABG show pH 7.5, pCO2 of 27, O2 of 44. Sodium 142, potassium 3.6, chloride 104, bicarbonate 23, BUN 16, creatinine 0.6, glucose 111, calcium 8.2. AST is 36, ALT 37, alk phos is 74. ProBNP 13,400. Albumin 3.2. C-reactive protein 240. Microbiology: Blood culture, urine culture, there is no growth. Chest x-ray done today shows patchy infiltrate changes seen in the right upper lobe and probably left lung base. IMPRESSION AND PLAN: Pulmonary infiltrates with respiratory failure requiring high-flow oxygen. Cannot tolerate noninvasive ventilation, cardiomyopathy with severe pulmonary hypertension. Bronchitis. Case discussed with manufacturing plant technician, Dr. Mayer, in detail. Also spoke to Infectious Diseases. Procalcitonin is negative. Most likely this is not pneumonia; could be abscess (?) or could be just atelectasis. Of course, malignancy cannot be excluded. At present, he is no candidate for any lung biopsy or any therapeutic maneuver if it is a tumor anyway, so clinically what I think, we need to continue Primacor if blood pressures drop, may add Levophed small dose to titrate blood pressure 90 to 100. Inhaled bronchodilators. High-flow supplemental oxygen. Gastric prophylaxis. Follow up arterial blood gas, chest x-ray, CBC, and CMP in the morning. Critical care time, spent more than 35 minutes. Thank you and we will follow with you. Smooth Roche MD
[2017-11-05] MEDS: Albuterol-Ipratrop 3 mg / 0.5 (3 ml) UD IH SCH ×4 (03:25→20:48)
[2017-11-05] MEDS: Milrinone 20mg/100ml D5W 100 ML IV PRN (04:40)
[2017-11-05] MEDS: Meropenem IV 1 gm in NS 50 ML IVPB SCH ×3 (05:15→22:11)
[2017-11-05 07:00] LABS: ARTERIAL BLOOD GAS HCO3 23.5 mmol/L (21-28); ARTERIAL BLOOD GAS HEMOGLOBIN 10.6 g/dL (11.7-17.4); ARTERIAL BLOOD GAS O2 CAPACITY 14.6 mL/dl (16-24); ARTERIAL BLOOD GAS O2 CONTENT 14.4 ML/dl (15-23); ARTERIAL BLOOD GAS O2 SAT 98.7 % (95-98); ARTERIAL BLOOD GAS PCO2 33 mm/Hg (35-45); ARTERIAL BLOOD GAS PH 7.46 (7.35-7.45); ARTERIAL BLOOD GAS TCO2 24.5 mmol.L (22-28)
[2017-11-05 07:14] LABS: GRAN # 7.64 (1.4-6.5); GRAN % 84.9 % (50.0-68.0); HEMOGLOBIN 10.3 g/dL (14.0-18.0); LYMPH # 0.9 (1.2-3.4); MEAN CELL VOLUME 94.2 fl (80.0-105.0); MEAN CORPUSCULAR HEMOGLOBIN 31.5 pg (25.0-35.0); MEAN CORPUSCULAR HGB CONC 33.4 g/dl (31.0-37.0); MEAN PLATELET VOLUME 10.3 fl (7.0-11.0); MONO # 0.5 (0.1-0.6); MONO % 5.1 % (1.0-6.0); RBC 3.27 10^6/uL (3.5-6.1); RED CELL DISTRIBUTION WIDTH 14.7 % (11.5-14.5)
[2017-11-05 07:28] LABS: INR 1.61 (0.93-1.08); PROTHROMBIN TIME 18.7 SECONDS (9.4-12.5)
[2017-11-05 08:04] LABS: ALB/GLOB RATIO 0.9 (1.1-1.8); ALBUMIN 3.2 g/dL (3.0-4.8); ALT/SGPT 37 U/L (7-56); AST/SGOT 39 U/L (17-59); BLOOD UREA NITROGEN 26 mg/dL (7-21); CALCIUM 8.3 mg/dL (8.4-10.5); GFR AFRICAN-AMERICAN > 60; GFR NON-AFRICAN AMERICAN > 60
[2017-11-05] MEDS: Acetylcysteine 20% Inhal Soln (4ml) INH SCH ×4 (08:14→20:48)
--- NOTE | 2017-11-05 08:24 | PN ---
DATE: 11/04/2017 SUBJECTIVE: The patient is seen and examined at bedside. He is on high-flow oxygen with FiO2 90% and flow of 15 L/min. Heart rate 98, blood pressure 101/47, oxygen saturation 91% to 93%. He made 4000 of urine output yesterday and was negative about 3000 L over the last 24 hours. OBJECTIVE: VITAL SIGNS: Blood pressure 101/47, heart rate 100, oxygen saturation 93%, respiratory rate 20 to 25, heart rate 97. ENT, HEAD, AND NECK: Atraumatic. LUNGS: Few crackles anteriorly (right upper lobe, better than yesterday). HEART: Irregular rate and rhythm. S1, S2 distant. ABDOMEN: Soft, nontender, nondistended. MUSCULOSKELETAL: Trace bilateral pedal and ankle edema. NEURO: The patient moves all extremities spontaneously. SKIN: Moist. PSYCH: The patient is alert, awake, and oriented x3. LABORATORY DATA: Sodium 142, potassium 3.6, chloride 104, carbon dioxide 23. BUN 16, creatinine 0.6. Glucose 111. CRP 240. ProBNP 14,400. Procalcitonin less than 0.05. WBC 12.3, hemoglobin 10.8, and platelet count 269. Chest x-ray today is pending. MEDICATIONS: DuoNeb p.r.n., DuoNeb every 6 hours, meropenem, Solu-Medrol 20 mg IV every 12 hours, metoprolol, Protonix, milrinone, vancomycin, and azithromycin. ASSESSMENT: This is an 86-year-old gentleman who presented with severe community-acquired pneumonia with hypoxemic respiratory failure and was found to have severe pulmonary hypertension in the setting of right ventricular failure, most likely related to cor pulmonale. The patient was started on broad-spectrum antibiotics and septic workup initiated. Blood culture, urine culture, urine for Legionella streptococcal antigen were sent. Procalcitonin today came back very low (less than 0.05). That makes other than infectious etiology of his imaging findings less likely; however, definitely does not rule that out at present time. The broad-spectrum antibiotics will be continued until more data on septic workup available (blood and urine culture, Legionella, streptococcal urine antigen). The patient was very well diuresed and his creatinine remained stable and wnl. He is negative more than 3 L over the last 24 hours. I will hold diuretics at present time and we will start the patient on milrinone. If his blood pressure holds, we will reintroduce diuretics gradually. 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 I will restart the patient on heparin subcu for DVT prophylaxis. If no hemoptysis within 28 hours, I will contact cardiology service for consideration of reintroduction of therapeutic anticoagulation. If chest x-ray or repeated CT chest would not show signs of improvement within 1 month, diagnostic bronchoscopy with transbronchial biopsy might be indicated to rule out bronchoalveolar carcinoma. It appears that with this degree of pulmonary hypertension and right ventricular failure, the patient may not be a candidate for operative approach if intrathoracic malignancy would be diagnosed. We will continue to target euvolemia, euglycemia, normothermia, and oxygen saturation more than 100%. We will continue with DVT and GI prophylaxes. We will continue with high-flow oxygen and taper O2 as tolerated. We will continue with heart rate control and small dose of Solu-Medrol for severe community-acquired pneumonia. We will continue bronchodilators. ccm time 40 min Sammy Mayer MD MTDDaniel
--- NOTE | 2017-11-05 08:33 | CP.PCM.PN ---
Subjective - Date & Time of Evaluation Date of Evaluation: 11/04/17 Time of Evaluation: 07:00 - Subjective Subjective: Stable in CCU. He feels better today. He is on high flow O2 and getting resp. tx. V/S noted. AF PE: Lungs: rhonchi R/L Cor.: irreg S1S2 Abd.: soft Ext.: no edema Neuro.: alert I/O = 460/2150 Labs noted: WBC= 12,300, INR = 1.7, K+= 3.6, Cr.= 0.6, trops all neg. BC X2 NG at 24 hrs. Echo noted: NL LV fx., mild/mod AI, RVE, Mod/Sev. TR, Severe PH CTA Chest: No PE, RU infiltrate, etc Objective - Vital Signs/Intake and Output Vital Signs (last 24 hours): Temp Pulse Resp BP Pulse Ox 98.4 F 101 H 28 H 111/54 L 89 L 11/04/17 02:00 11/04/17 06:29 11/04/17 07:07 11/04/17 06:29 11/03/17 23:00 Intake and Output: 11/04/17 11/04/17 06:59 18:59 Intake Total 0.375 Balance 0.375 - Medications Medications: Current Medications Acetylcysteine (Acetylcysteine 20%) 3 ml INH BID [facility] Last Admin: 11/04/17 07:03 Dose: 2 ml Albuterol/Ipratropium (Duoneb 3 Mg/0.5 Mg (3 Ml) Ud) 3 ml IH Q2H PRN PRN Reason: Shortness of Breath Last Admin: 11/03/17 08:09 Dose: 3 ml Albuterol/Ipratropium (Duoneb 3 Mg/0.5 Mg (3 Ml) Ud) 3 ml IH [id number] [facility] Last Admin: 11/04/17 07:04 Dose: 3 ml Aspirin (Aspirin Chewable) 81 mg PO DAILY [facility] Last Admin: 11/03/17 10:18 Dose: Not Given Benzonatate (Tessalon Perles) 100 mg PO TID [facility] Last Admin: 11/03/17 14:41 Dose: 100 mg Cholecalciferol (Vitamin D) 0 intlu PO WED [facility] Furosemide (Lasix) 40 mg IVP Q12 [facility] Last Admin: 11/03/17 21:34 Dose: 40 mg Azithromycin (Zithromax 500mg In Ns) 500 mg in 250 mls @ 167 mls/hr IVPB DAILY [facility] PRN Reason: Protocol Vancomycin HCl (Vancomycin 1gm) 1 gm in 250 mls @ 167 mls/hr IVPB Q12H [facility] PRN Reason: Protocol Last Admin: 11/03/17 20:22 Dose: 167 mls/hr Meropenem (Merrem Iv 1 Gm Premix) 50 mls @ 100 mls/hr IVPB Q8 [facility] PRN Reason: Protocol Last Admin: 11/04/17 05:08 Dose: 100 mls/hr Milrinone Lactate/Dextrose (Primacor 20mg/100ml D5w) 100 mls @ 6.634 mls/hr IV .Q15H5M PRN; Protocol; 0.375 MCG/KG/MIN PRN Reason: TITRATE PER MD ORDER Last Admin: 11/04/17 06:29 Dose: 0.375 mcg/kg/min, 6.634 mls/hr Methylprednisolone (Solu-Medrol) 20 mg IVP Q12 [facility] Last Admin: 11/03/17 21:34 Dose: 20 mg Metoprolol Tartrate (Lopressor) 50 mg PO BID [facility] Last Admin: 11/03/17 17:57 Dose: Not Given Pantoprazole Sodium (Protonix Ec Tab) 40 mg PO 0600 [facility] Last Admin: 11/04/17 06:43 Dose: Not Given Polyethylene Glycol (Miralax) 17 gm PO BID [facility] Last Admin: 11/03/17 09:51 Dose: 17 gm Sertraline HCl (Zoloft) 25 mg PO DAILY [facility] Last Admin: 11/03/17 09:51 Dose: 25 mg - Labs Labs: 11/04/17 06:00 11/04/17 06:00 PT 19.8 SECONDS (9.4-12.5) H 11/04/17 06:00 INR 1.70 (0.93-1.08) H 11/04/17 06:00 APTT 53.7 Seconds (25.1-36.5) H 11/03/17 03:45 Assessment and Plan - Assessment and Plan (Free Text) Assessment: SOB/Cough/Hemoptysis Pneumonia Coagulopathy COPD/Severe PH CAD/Remote PCI Moderate LVD in the past, LV EF = ~ 50% on current echo Chronic AF on warfarin HBP Hep. C H/O Esopgageal varices and GIB Former Smoker Plan: AB Resp. Txs. Would D/C milrinone. Decrease Lasix to Daily Monitor INR's. Heparin IV infusion for AF. per ID As per Pulmonary As per Intensivists Monitor: cultures, I/O, labs, Sats., CXRs, etc. Will follow.
--- NOTE | 2017-11-05 08:42 | CP.PCM.PN ---
Subjective - Date & Time of Evaluation Date of Evaluation: 11/05/17 Time of Evaluation: 07:00 - Subjective Subjective: Stable in CCU. He feels better today. He is on BiPaP mask. V/S noted. AF PE: Lungs: rhonchi R>L Cor.: irreg S1S2 Abd.: soft Ext.: no edema Neuro.: alert I/O = 960/1050 recorded Labs and ABG's noted: WBC= 9000, INR = 1.61, K+= 3.5, Cr.= 0.5, trops all neg. BC X2 NG at 48 hrs. Echo noted: NL LV fx., mild/mod AI, RVE, Mod/Sev. TR, Severe PH CTA Chest: No PE, RU infiltrate, etc CXR today: not read yet. RUL infiltrate seems better. Objective - Vital Signs/Intake and Output Vital Signs (last 24 hours): Temp Pulse Resp BP Pulse Ox 97.7 F 91 H 20 96/69 L 96 11/05/17 04:00 11/05/17 08:15 11/05/17 06:50 11/05/17 06:00 11/05/17 06:50 Intake and Output: 11/05/17 11/05/17 06:59 18:59 Intake Total 210 Output Total 250 Balance -40 - Medications Medications: Current Medications Acetylcysteine (Acetylcysteine 20%) 3 ml INH BID [facility] Last Admin: 11/05/17 08:14 Dose: 3 ml Albuterol/Ipratropium (Duoneb 3 Mg/0.5 Mg (3 Ml) Ud) 3 ml IH Q2H PRN PRN Reason: Shortness of Breath Last Admin: 11/03/17 08:09 Dose: 3 ml Albuterol/Ipratropium (Duoneb 3 Mg/0.5 Mg (3 Ml) Ud) 3 ml IH [id number] [facility] Last Admin: 11/05/17 08:14 Dose: 3 ml Aspirin (Aspirin Chewable) 81 mg PO DAILY [facility] Last Admin: 11/03/17 10:18 Dose: Not Given Azithromycin (Zithromax) 500 mg PO DAILY [facility] PRN Reason: Protocol Benzonatate (Tessalon Perles) 100 mg PO TID [facility] Last Admin: 11/03/17 14:41 Dose: 100 mg Furosemide (Lasix) 40 mg IVP Q12 [facility] Last Admin: 11/04/17 09:42 Dose: 40 mg Heparin Sodium (Porcine) (Heparin) 5,000 units SC Q8 [facility] PRN Reason: Protocol Last Admin: 11/05/17 05:13 Dose: 5,000 units Meropenem (Merrem Iv 1 Gm Premix) 50 mls @ 100 mls/hr IVPB Q8 [facility] PRN Reason: Protocol Last Admin: 11/05/17 05:15 Dose: 100 mls/hr Milrinone Lactate/Dextrose (Primacor 20mg/100ml D5w) 100 mls @ 6.634 mls/hr IV .Q15H5M PRN; Protocol; 0.375 MCG/KG/MIN PRN Reason: TITRATE PER MD ORDER Last Admin: 11/05/17 04:40 Dose: 0.375 mcg/kg/min, 6.634 mls/hr Methylprednisolone (Solu-Medrol) 20 mg IVP Q12 [facility] Last Admin: 11/04/17 21:02 Dose: 20 mg Metoprolol Tartrate (Lopressor) 50 mg PO BID [facility] Last Admin: 11/04/17 18:18 Dose: Not Given Pantoprazole Sodium (Protonix Inj) 40 mg IVP DAILY [facility] Last Admin: 11/04/17 09:42 Dose: 40 mg Polyethylene Glycol (Miralax) 17 gm PO BID [facility] Last Admin: 11/03/17 09:51 Dose: 17 gm Sertraline HCl (Zoloft) 25 mg PO DAILY [facility] Last Admin: 11/03/17 09:51 Dose: 25 mg Vitamin A (Vitamin A&D) 1 applic TP Q8 PRN PRN Reason: dry skin Vitamin A (Vitamin A & D Oint Ud Foilpak) 1 ea TOP Q8H PRN PRN Reason: dry skin - Labs Labs: 11/05/17 06:00 11/05/17 06:00 PT 18.7 SECONDS (9.4-12.5) H 11/05/17 06:00 INR 1.61 (0.93-1.08) H 11/05/17 06:00 APTT 53.7 Seconds (25.1-36.5) H 11/03/17 03:45 Assessment and Plan - Assessment and Plan (Free Text) Assessment: SOB/Cough/Hemoptysis Pneumonia Coagulopathy COPD/Severe PH CAD/Remote PCI Moderate LVD in the past, LV EF = ~ 50% on current echo Chronic AF on warfarin HBP Hep. C H/O Esopgageal varices and GIB Former Smoker Plan: AB Resp. Txs. Would D/C milrinone. Replace K+ Warfarin 5 mg today. Monitor INRs daily. Continue Sq heparin for now per ID As per Pulmonary As per Intensivists Monitor: cultures, I/O, labs, Sats., CXRs, etc. Will follow.
[2017-11-05] MEDS ORDERED: Potassium Chloride 10 mEq ER Tab PO ONE (09:00)
--- NOTE | 2017-11-05 09:00 | RAD ---
HISTORY: SOB COMPARISON: CTA chest from 11/03/2017 FINDINGS: LUNGS: There is haziness and increased interstitial markings in the right upper lobe. There is bibasilar atelectasis. PLEURA: No significant pleural effusion identified, no pneumothorax apparent. CARDIOVASCULAR: There is moderate cardiomegaly. Atherosclerotic aortic arch calcifications are present. OSSEOUS STRUCTURES: No significant abnormalities. VISUALIZED UPPER ABDOMEN: Normal. OTHER FINDINGS: None. IMPRESSION: Findings are concerning for right upper lobe pulmonary edema versus pneumonia. Persistent moderate cardiomegaly.
[2017-11-05] MEDS: MethylPREDNISolone 40 mg Vial IVP SCH ×2 (09:47→22:12)
--- NOTE | 2017-11-05 11:22 | CP.CCUPN ---
<Richa Fried - Last Filed: 11/05/17 11:23> CCU Subjective - Physician Review Subjective (Free Text): 11/04/17 08:17 Stop milrinon gtt u/o 1900 on lasix still npo 11/04/17 10:45 Back on milrinont gtt for RHF start diet EKG: A fib rvr at 101. ST depression more pronounce V2,3,4 but asymptpmatic 11/04/17 14:55 soft diet with thin liquid Hypoxemia PaO2 44 on 92% Back on bipap 11/05/17 11:09 try on high flow now, per Dr. Erickson. O2 around high 80s, low 90s Most likely will be back on bipap in afternoon CCU Objective - Vital Signs / Intake & Output Vital Signs (Last 4 hours): Vital Signs Temp Pulse Resp BP Pulse Ox 11/05/17 10:40 100 H 29 H 88 L 11/05/17 10:30 105 H 19 90 L 11/05/17 10:20 108 H 21 91 L 11/05/17 10:10 100 H 24 91 L 11/05/17 10:02 103 H 15 114/52 L 93 L 11/05/17 10:00 97 H 29 H 93 L 11/05/17 09:52 104 H 118/83 11/05/17 09:50 100 H 25 H 91 L 11/05/17 09:45 94 H 22 118/83 88 L 11/05/17 09:40 106 H 22 95 11/05/17 09:30 97 H 24 100 11/05/17 09:20 92 H 26 H 97 11/05/17 09:14 92 H 115/68 11/05/17 09:10 98 H 22 97 11/05/17 09:01 105 H 27 H 115/68 96 11/05/17 09:00 107 H 27 H 94 L 11/05/17 08:50 96 H 30 H 97 11/05/17 08:40 101 H 19 96 11/05/17 08:30 97 H 27 H 97 11/05/17 08:20 94 H 41 H 93 L 11/05/17 08:15 91 H 11/05/17 08:10 98 H 24 89 L 11/05/17 08:00 97.7 F 87 26 H 112/76 96 11/05/17 07:50 101 H 26 H 92 L 11/05/17 07:40 102 H 35 H 75 L 11/05/17 07:30 89 33 H 84 L 11/05/17 07:20 92 H 27 H 88 L 11/05/17 07:10 82 24 95 Intake and Output (Last 8hrs): Intake & Output 11/04/17 11/05/17 11/05/17 22:59 06:59 14:59 Intake Total 750 210 Output Total 800 250 Balance -50 -40 Weight 126 lb 8 oz Intake: IV 550 110 Right Wrist 500 55 primacor 50 55 Oral 200 Other 100 Output: Urine 800 250 Urethral (Tai) 800 250 Other: # Bowel Movements 0 - Physical Exam Head: Positive for: Atraumatic, Normocephalic. Negative for: Tenderness, Contusion, Swelling, Ecchymosis, Abrasion, Laceration Pupils: Negative for: Pinpoint Extroacular Muscles: Positive for: EOMI Conjunctiva: Positive for: Normal. Negative for: Injected, Icteric Mouth: Positive for: Moist Mucous Membranes, Normal Lips, Normal Tounge, Normal Teeth. Negative for: Dry, Drooling Nose (External): Positive for: Atraumatic. Negative for: Abrasion, Laceration Nose (Internal): Positive for: No Active Bleeding. Negative for: Epistaxis Neck: Positive for: Normal Range of Motion, Trachea Midline. Negative for: MIDLINE TENDERNESS, JVD Respiratory/Chest: Positive for: Respiratory Distress, Accessory Muscle Use, Decreased Breath Sounds (moderately decreased breath sounds all [place]), Rhonchi (loud ronchi in all [place], more prominent in upper [place]), Tachypneic. Negative for: Clear to Auscultation, Good Air Exchange, Wheezes, Rales, Tender to Palpation Cardiovascular: Positive for: Normal S1, S2, Irregular Rhythm, Peripheal Pulses Present (+1 radials, unable to palpate dorsalis pedis bilaterally), Tachycardic. Negative for: Regular Rate and Rhythm, Murmurs, Bradycardic Abdomen: Positive for: Normal Bowel Sounds. Negative for: Tenderness, Distention, Guarding Upper Extremity: Positive for: Normal Inspection, Normal ROM, NORMAL PULSES. Negative for: Cyanosis, Edema, Tenderness, Swelling, Erythema, Deformity Lower Extremity: Positive for: Edema (+1 pitting edema from mid nur to 1-2 cm above ankles), NORMAL PULSES, Normal ROM. Negative for: Normal Inspection, CALF TENDERNESS, Cyanosis, Tenderness, Erythema, Deformity Neurological: Positive for: GCS=15, Motor Func Grossly Intact Skin: Positive for: Warm, Dry, Pale. Negative for: Rashes Lymphatic: Negative for: Cervical Adenopathy Psychiatric: Positive for: Alert, Oriented x 3, Normal Insight, Normal Concentration, Normal Affect, Normal Mood - Medications Active Medications: Active Medications Generic Name Dose Route Start Last Admin Trade Name Freq PRN Reason Stop Dose Admin Acetylcysteine 3 ml 11/03/17 18:45 11/05/17 08:14 Acetylcysteine 20% INH 3 ml BID ANA LAURA Administration Albuterol/Ipratropium 3 ml 11/03/17 05:50 11/03/17 08:09 Duoneb 3 Mg/0.5 Mg (3 Ml) Ud IH 3 ml Q2H PRN Administration Shortness of Breath Albuterol/Ipratropium 3 ml 11/03/17 14:00 11/05/17 08:14 Duoneb 3 Mg/0.5 Mg (3 Ml) Ud IH 3 ml [id number] ANA LAURA Administration Aspirin 81 mg 11/03/17 10:00 11/05/17 09:47 Aspirin Chewable PO 81 mg DAILY ANA LAURA Administration Azithromycin 500 mg 11/05/17 10:00 11/05/17 09:47 Zithromax PO 500 mg DAILY ANA LAURA Administration Protocol Benzonatate 100 mg 11/03/17 10:00 11/03/17 14:41 Tessalon Perles PO 100 mg TID ANA LAURA Administration Furosemide 40 mg 11/03/17 22:00 11/04/17 09:42 Lasix IVP 40 mg Q12 ANA LAURA Administration Heparin Sodium (Porcine) 5,000 units 11/04/17 09:15 11/05/17 05:13 Heparin SC 5,000 units Q8 ANA LAURA Administration Protocol Meropenem 50 mls @ 100 mls/hr 11/03/17 07:45 11/05/17 05:15 Merrem Iv 1 Gm Premix IVPB 100 mls/hr Q8 ANA LAURA Administration Protocol Milrinone Lactate/Dextrose 100 mls @ 6.634 mls/hr 11/04/17 09:59 11/05/17 04: 40 Primacor 20mg/100ml D5w IV 0.375 mcg/kg/min .Q15H5M PRN 6.634 mls/hr TITRATE PER MD ORDER Administration Protocol 0.375 MCG/KG/MIN Methylprednisolone 20 mg 11/03/17 10:00 11/05/17 09:47 Solu-Medrol IVP 20 mg Q12 ANA LAURA Administration Metoprolol Tartrate 50 mg 11/03/17 10:00 11/05/17 09:52 Lopressor PO 50 mg BID ANA LAURA Administration Pantoprazole Sodium 40 mg 11/04/17 10:00 11/05/17 09:49 Protonix Inj IVP 40 mg DAILY ANA LAURA Administration Polyethylene Glycol 17 gm 11/03/17 10:00 11/03/17 09:51 Miralax PO 17 gm BID ANA LAURA Administration Sertraline HCl 25 mg 11/03/17 10:00 11/03/17 09:51 Zoloft PO 25 mg DAILY ANA LAURA Administration Vitamin A 1 applic 11/04/17 13:38 Vitamin A&D TP Q8 PRN dry skin Vitamin A 1 ea 11/04/17 13:55 Vitamin A & D Oint Ud Foilpak TOP Q8H PRN dry skin - Patient Studies Lab Studies: Microbiology Studies 11/03/17 06:00 Urine Culture - Final Urine No Growth (<1,000 CFU/ML) Lab Studies 11/05/17 11/05/17 11/05/17 Range/Units 06:49 06:00 06:00 WBC 9.0 D (4.5-11.0) 10^3/ul RBC 3.27 L (3.5-6.1) 10^6/uL Hgb 10.3 L (14.0-18.0) g/dL Hct 30.8 L (42.0-52.0) % MCV 94.2 (80.0-105.0) fl MCH 31.5 (25.0-35.0) pg MCHC 33.4 (31.0-37.0) g/dl RDW 14.7 H (11.5-14.5) % Plt Count 268 (120.0-450.0) 10^3/uL MPV 10.3 (7.0-11.0) fl Gran % 84.9 H (50.0-68.0) % Lymph % (Auto) 10.0 L (22.0-35.0) % Valley % (Auto) 5.1 (1.0-6.0) % Eos % (Auto) 0.0 L (1.5-5.0) % Baso % (Auto) 0.0 (0.0-3.0) % Gran # 7.64 H (1.4-6.5) Lymph # (Auto) 0.9 L (1.2-3.4) Valley # (Auto) 0.5 (0.1-0.6) Eos # (Auto) 0.0 (0.0-0.7) Baso # (Auto) 0.00 (0.0-2.0) K/mm3 PT (9.4-12.5) SECONDS INR (0.93-1.08) pCO2 33 L (35-45) mm/Hg pO2 79.0 L (80-100) mm/Hg HCO3 23.5 (21-28) mmol/L ABG pH 7.46 H (7.35-7.45) ABG Total CO2 24.5 (22-28) mmol.L ABG O2 Saturation 98.7 H (95-98) % ABG O2 Content 14.4 L (15-23) ML/dl ABG Base Excess 0.1 (-2.0-3.0) mmol/L ABG Hemoglobin 10.6 L (11.7-17.4) g/dL ABG Carboxyhemoglobin 1.7 H (0.5-1.5) % POC ABG HHb (Measured) 1.3 (0-5) % ABG Methemoglobin 0.7 (0.0-3.0) % ABG O2 Capacity 14.6 L (16-24) mL/dl Hgb O2 Saturation 96.3 (95.0-98.0) % FiO2 80.0 % Sodium 145 (132-148) mmol/L Potassium 3.5 L (3.6-5.0) mmol/L Chloride 106 (98-107) mmol/L Carbon Dioxide 26 (21-33) mmol/L Anion Gap 16 (10-20) BUN 26 H (7-21) mg/dL Creatinine 0.5 L (0.8-1.5) mg/dl Est GFR ( Amer) > 60 Est GFR (Non-Af Amer) > 60 Random Glucose 106 (70-110) mg/dL Calcium 8.3 L (8.4-10.5) mg/dL Total Bilirubin 1.1 (0.2-1.3) mg/dL AST 39 (17-59) U/L ALT 37 (7-56) U/L Alkaline Phosphatase 72 (38-126) U/L Total Protein 6.7 (5.8-8.3) g/dL Albumin 3.2 (3.0-4.8) g/dL Globulin 3.5 gm/dL Albumin/Globulin Ratio 0.9 L (1.1-1.8) 11/05/17 11/04/17 Range/Units 06:00 14:25 WBC (4.5-11.0) 10^3/ul RBC (3.5-6.1) 10^6/uL Hgb (14.0-18.0) g/dL Hct (42.0-52.0) % MCV (80.0-105.0) fl MCH (25.0-35.0) pg MCHC (31.0-37.0) g/dl RDW (11.5-14.5) % Plt Count (120.0-450.0) 10^3/uL MPV (7.0-11.0) fl Gran % (50.0-68.0) % Lymph % (Auto) (22.0-35.0) % Valley % (Auto) (1.0-6.0) % Eos % (Auto) (1.5-5.0) % Baso % (Auto) (0.0-3.0) % Gran # (1.4-6.5) Lymph # (Auto) (1.2-3.4) Valley # (Auto) (0.1-0.6) Eos # (Auto) (0.0-0.7) Baso # (Auto) (0.0-2.0) K/mm3 PT 18.7 H (9.4-12.5) SECONDS INR 1.61 H (0.93-1.08) pCO2 27 L (35-45) mm/Hg pO2 44.0 L* (80-100) mm/Hg HCO3 21.1 (21-28) mmol/L ABG pH 7.50 H (7.35-7.45) ABG Total CO2 21.9 L (22-28) mmol.L ABG O2 Saturation 86.3 L (95-98) % ABG O2 Content 12.2 L (15-23) ML/dl ABG Base Excess -1.2 (-2.0-3.0) mmol/L ABG Hemoglobin 10.4 L (11.7-17.4) g/dL ABG Carboxyhemoglobin 2.1 H (0.5-1.5) % POC ABG HHb (Measured) 13.2 H (0-5) % ABG Methemoglobin 1.2 (0.0-3.0) % ABG O2 Capacity 14.1 L (16-24) mL/dl Hgb O2 Saturation 83.5 L (95.0-98.0) % FiO2 90.0 % Sodium (132-148) mmol/L Potassium (3.6-5.0) mmol/L Chloride (98-107) mmol/L Carbon Dioxide (21-33) mmol/L Anion Gap (10-20) BUN (7-21) mg/dL Creatinine (0.8-1.5) mg/dl Est GFR ( Amer) Est GFR (Non-Af Amer) Random Glucose (70-110) mg/dL Calcium (8.4-10.5) mg/dL Total Bilirubin (0.2-1.3) mg/dL AST (17-59) U/L ALT (7-56) U/L Alkaline Phosphatase (38-126) U/L Total Protein (5.8-8.3) g/dL Albumin (3.0-4.8) g/dL Globulin gm/dL Albumin/Globulin Ratio (1.1-1.8) Laboratory Results - last 24 hr 11/04/17 11/05/17 11/05/17 14:25 06:00 06:00 WBC 9.0 D RBC 3.27 L Hgb 10.3 L Hct 30.8 L MCV 94.2 MCH 31.5 MCHC 33.4 RDW 14.7 H Plt Count 268 MPV 10.3 Gran % 84.9 H Lymph % (Auto) 10.0 L Valley % (Auto) 5.1 Eos % (Auto) 0.0 L Baso % (Auto) 0.0 Gran # 7.64 H Lymph # (Auto) 0.9 L Valley # (Auto) 0.5 Eos # (Auto) 0.0 Baso # (Auto) 0.00 PT 18.7 H INR 1.61 H pCO2 27 L pO2 44.0 L* HCO3 21.1 ABG pH 7.50 H ABG Total CO2 21.9 L ABG O2 Saturation 86.3 L ABG O2 Content 12.2 L ABG Base Excess -1.2 ABG Hemoglobin 10.4 L ABG Carboxyhemoglobin 2.1 H POC ABG HHb (Measured) 13.2 H ABG Methemoglobin 1.2 ABG O2 Capacity 14.1 L Hgb O2 Saturation 83.5 L FiO2 90.0 Sodium Potassium Chloride Carbon Dioxide Anion Gap BUN Creatinine Est GFR ( Amer) Est GFR (Non-Af Amer) Random Glucose Calcium Total Bilirubin AST ALT Alkaline Phosphatase Total Protein Albumin Globulin Albumin/Globulin Ratio 11/05/17 11/05/17 06:00 06:49 WBC RBC Hgb Hct MCV MCH MCHC RDW Plt Count MPV Gran % Lymph % (Auto) Valley % (Auto) Eos % (Auto) Baso % (Auto) Gran # Lymph # (Auto) Valley # (Auto) Eos # (Auto) Baso # (Auto) PT INR pCO2 33 L pO2 79.0 L HCO3 23.5 ABG pH 7.46 H ABG Total CO2 24.5 ABG O2 Saturation 98.7 H ABG O2 Content 14.4 L ABG Base Excess 0.1 ABG Hemoglobin 10.6 L ABG Carboxyhemoglobin 1.7 H POC ABG HHb (Measured) 1.3 ABG Methemoglobin 0.7 ABG O2 Capacity 14.6 L Hgb O2 Saturation 96.3 FiO2 80.0 Sodium 145 Potassium 3.5 L Chloride 106 Carbon Dioxide 26 Anion Gap 16 BUN 26 H Creatinine 0.5 L Est GFR ( Amer) > 60 Est GFR (Non-Af Amer) > 60 Random Glucose 106 Calcium 8.3 L Total Bilirubin 1.1 AST 39 ALT 37 Alkaline Phosphatase 72 Total Protein 6.7 Albumin 3.2 Globulin 3.5 Albumin/Globulin Ratio 0.9 L Critical Care Progress Note - Nutrition Nutrition: Nutrition Category Date Time Status Heart Healthy Diet [DIET] Diets 11/04/17 Lunch Active Assessment/Plan - Assessment and Plan (Free Text) Plan: Mr Bernard Hooks, 86 M, with PMH of atrial fibrillation on coumadin, CHF, COPD on 4 litters of home oxygen, CAD s/p LAD stent, hx UGIB 2/2 esophageal varices, Hep C (treated in the 80s), HTN, depression, BPH and tremors who presents with complaint of hemoptysis found to have right upper lobe pneumonia, had transient episode of hypotension which has since resolved. Patient is being admitted to icu for transient episode of hypotension and hypoxemia. Yesterday, he was on high flow 50L 90%. Repeat ABG in yesterday afternoon showed hypoxemia PaO2 at 44 , back on Bipap 02/16/rr14 (34)/100% --> 80%. This AM he is on high flow: 50L on 100%. He is still on milrinone gtt. His INR is 1.6, per Dr Simental, 5 coumadin, check INR tomorrow. Dr Zhang wants to know if pt is good candidate for Eliquis. His GI bleed was more than 30 years ago but he uses walker at home. Dr Simental wants pt off milrinone gtt, now he is on 0.3. However, Dr Roche said his cor pulmonale has pressure of RVSP 90, not feeling comfortable to take milrinone off. I left message for Dr Simental, pending call back A: Acute hypoxic respiratory failure due to sepsis, CAP/muscus plug, and Cor Pulmonale due to pulmonary hypertension hemoptysis probably from supratherapeutic from Coumadin - resolved. INR 1.7 Severe sepsis likely from right upper lobe community-acquired pneumonia Doubt TB per ID Acute CHF, systolic, on chronic; RHF on milrinon gtt Hx COPD on 4L home; CAD S/P PCI; GERD history of GI bleed history of hepatitis C A fib RVR on metoprolol, coumadin 5 today Neuro: stable at baseline. Maintain nomothermia Pulm: CT chest (11/03): Negative for PE. Patchy R upper lobe infiltrate, cannot exclude mass, post-obstructive vs PNA CXR: RUL pna. slightly better head of bed above 35 Acetysytein BID; Duoneb Q6 ANA LAURA, Q2 PRN zithromax, merem; solu-medrol 20q12 Encourage coughing; Flutter valve; chest percussion Cardio: ASA, lopressor 50 bid, milrinone gtt 0.3 H/O CHF with elevated pro bnp- will hold of Lasix negative 3L balance yesterday, not fluidoverload today Holding bp meds due to hypotension Continue heparin subq8; started warfarin 5 today GI: Postop stomach thickening (post op vs poss gastric carcinoma) Dr Louis suggested endoscopy No active signs of Gi bleeding noted Hold miralax. protonx 40 IVP CU: stable, monitor and maintain h/o bph: holding meds due to hypotensive episode. ID: Merrem and Zithromax (day 3) PCT < 0.05 Blooc Cx neg x 2d; D/C vanco Endo: Maintain sugar 140-10 Heme: H/H stable. No more hemoptysis. Started wardarin Psych: h/o depression and tremors: holding primidone due to dyspnea, Hold remeron and zoloft. Prophylaxis: heparin sc q8, holding Coumadin, protonix IV Dispo: try not to intubate because it will worse RHF pending PT eval; family decided on full code Q: What type of AC? Q: Is he better or not better on milrinon gtt? Consult: Sabina Simental (CHF), Kaley (PNA) s/r/d/w Dr. Erickson <Mitchell Erickson - Last Filed: 11/05/17 13:03> CCU Objective - Vital Signs / Intake & Output Vital Signs (Last 4 hours): Vital Signs Temp Pulse Resp BP Pulse Ox 11/05/17 12:00 98.8 F 11/05/17 10:40 100 H 29 H 88 L 11/05/17 10:30 105 H 19 90 L 11/05/17 10:20 108 H 21 91 L 11/05/17 10:10 100 H 24 91 L 11/05/17 10:02 103 H 15 114/52 L 93 L 11/05/17 10:00 97 H 29 H 93 L 11/05/17 09:52 104 H 118/83 11/05/17 09:50 100 H 25 H 91 L 11/05/17 09:45 94 H 22 118/83 88 L 11/05/17 09:40 106 H 22 95 11/05/17 09:30 97 H 24 100 11/05/17 09:20 92 H 26 H 97 11/05/17 09:14 92 H 115/68 11/05/17 09:10 98 H 22 97 11/05/17 09:01 105 H 27 H 115/68 96 11/05/17 09:00 107 H 27 H 94 L Intake and Output (Last 8hrs): Intake & Output 11/04/17 11/05/17 11/05/17 22:59 06:59 14:59 Intake Total 750 210 Output Total 800 250 Balance -50 -40 Weight 126 lb 8 oz Intake: IV 550 110 Right Wrist 500 55 primacor 50 55 Oral 200 Other 100 Output: Urine 800 250 Urethral (Tai) 800 250 Other: # Bowel Movements 0 - Medications Active Medications: Active Medications Generic Name Dose Route Start Last Admin Trade Name Freq PRN Reason Stop Dose Admin Acetylcysteine 3 ml 11/03/17 18:45 11/05/17 08:14 Acetylcysteine 20% INH 3 ml BID ANA LAURA Administration Albuterol/Ipratropium 3 ml 11/03/17 05:50 11/03/17 08:09 Duoneb 3 Mg/0.5 Mg (3 Ml) Ud IH 3 ml Q2H PRN Administration Shortness of Breath Albuterol/Ipratropium 3 ml 11/03/17 14:00 11/05/17 08:14 Duoneb 3 Mg/0.5 Mg (3 Ml) Ud IH 3 ml [id number] ANA LAURA Administration Aspirin 81 mg 11/03/17 10:00 11/05/17 09:47 Aspirin Chewable PO 81 mg DAILY ANA LAURA Administration Azithromycin 500 mg 11/05/17 10:00 11/05/17 09:47 Zithromax PO 500 mg DAILY ANA LAURA Administration Protocol Benzonatate 100 mg 11/03/17 10:00 11/03/17 14:41 Tessalon Perles PO 100 mg TID ANA LAURA Administration Furosemide 40 mg 11/03/17 22:00 11/04/17 09:42 Lasix IVP 40 mg Q12 ANA LAURA Administration Heparin Sodium (Porcine) 5,000 units 11/04/17 09:15 11/05/17 05:13 Heparin SC 5,000 units Q8 ANA LAURA Administration Protocol Meropenem 50 mls @ 100 mls/hr 11/03/17 07:45 11/05/17 05:15 Merrem Iv 1 Gm Premix IVPB 100 mls/hr Q8 ANA LAURA Administration Protocol Milrinone Lactate/Dextrose 100 mls @ 6.634 mls/hr 11/04/17 09:59 11/05/17 04: 40 Primacor 20mg/100ml D5w IV 0.375 mcg/kg/min .Q15H5M PRN 6.634 mls/hr TITRATE PER MD ORDER Administration Protocol 0.375 MCG/KG/MIN Methylprednisolone 20 mg 11/03/17 10:00 11/05/17 09:47 Solu-Medrol IVP 20 mg Q12 ANA LAURA Administration Metoprolol Tartrate 50 mg 11/03/17 10:00 11/05/17 09:52 Lopressor PO 50 mg BID ANA LAURA Administration Pantoprazole Sodium 40 mg 11/04/17 10:00 11/05/17 09:49 Protonix Inj IVP 40 mg DAILY ANA LAURA Administration Polyethylene Glycol 17 gm 11/03/17 10:00 11/03/17 09:51 Miralax PO 17 gm BID ANA LAURA Administration Sertraline HCl 25 mg 11/03/17 10:00 11/03/17 09:51 Zoloft PO 25 mg DAILY ANA LAURA Administration Vitamin A 1 applic 11/04/17 13:38 Vitamin A&D TP Q8 PRN dry skin Vitamin A 1 ea 11/04/17 13:55 Vitamin A & D Oint Ud Foilpak TOP Q8H PRN dry skin - Patient Studies Lab Studies: Microbiology Studies 11/03/17 06:00 Urine Culture - Final Urine No Growth (<1,000 CFU/ML) Lab Studies 11/05/17 11/05/17 11/05/17 Range/Units 06:49 06:00 06:00 WBC 9.0 D (4.5-11.0) 10^3/ul RBC 3.27 L (3.5-6.1) 10^6/uL Hgb 10.3 L (14.0-18.0) g/dL Hct 30.8 L (42.0-52.0) % MCV 94.2 (80.0-105.0) fl MCH 31.5 (25.0-35.0) pg MCHC 33.4 (31.0-37.0) g/dl RDW 14.7 H (11.5-14.5) % Plt Count 268 (120.0-450.0) 10^3/uL MPV 10.3 (7.0-11.0) fl Gran % 84.9 H (50.0-68.0) % Lymph % (Auto) 10.0 L (22.0-35.0) % Valley % (Auto) 5.1 (1.0-6.0) % Eos % (Auto) 0.0 L (1.5-5.0) % Baso % (Auto) 0.0 (0.0-3.0) % Gran # 7.64 H (1.4-6.5) Lymph # (Auto) 0.9 L (1.2-3.4) Valley # (Auto) 0.5 (0.1-0.6) Eos # (Auto) 0.0 (0.0-0.7) Baso # (Auto) 0.00 (0.0-2.0) K/mm3 PT (9.4-12.5) SECONDS INR (0.93-1.08) pCO2 33 L (35-45) mm/Hg pO2 79.0 L (80-100) mm/Hg HCO3 23.5 (21-28) mmol/L ABG pH 7.46 H (7.35-7.45) ABG Total CO2 24.5 (22-28) mmol.L ABG O2 Saturation 98.7 H (95-98) % ABG O2 Content 14.4 L (15-23) ML/dl ABG Base Excess 0.1 (-2.0-3.0) mmol/L ABG Hemoglobin 10.6 L (11.7-17.4) g/dL ABG Carboxyhemoglobin 1.7 H (0.5-1.5) % POC ABG HHb (Measured) 1.3 (0-5) % ABG Methemoglobin 0.7 (0.0-3.0) % ABG O2 Capacity 14.6 L (16-24) mL/dl Hgb O2 Saturation 96.3 (95.0-98.0) % FiO2 80.0 % Sodium 145 (132-148) mmol/L Potassium 3.5 L (3.6-5.0) mmol/L Chloride 106 (98-107) mmol/L Carbon Dioxide 26 (21-33) mmol/L Anion Gap 16 (10-20) BUN 26 H (7-21) mg/dL Creatinine 0.5 L (0.8-1.5) mg/dl Est GFR ( Amer) > 60 Est GFR (Non-Af Amer) > 60 Random Glucose 106 (70-110) mg/dL Calcium 8.3 L (8.4-10.5) mg/dL Total Bilirubin 1.1 (0.2-1.3) mg/dL AST 39 (17-59) U/L ALT 37 (7-56) U/L Alkaline Phosphatase 72 (38-126) U/L Total Protein 6.7 (5.8-8.3) g/dL Albumin 3.2 (3.0-4.8) g/dL Globulin 3.5 gm/dL Albumin/Globulin Ratio 0.9 L (1.1-1.8) 11/05/17 11/04/17 Range/Units 06:00 14:25 WBC (4.5-11.0) 10^3/ul RBC (3.5-6.1) 10^6/uL Hgb (14.0-18.0) g/dL Hct (42.0-52.0) % MCV (80.0-105.0) fl MCH (25.0-35.0) pg MCHC (31.0-37.0) g/dl RDW (11.5-14.5) % Plt Count (120.0-450.0) 10^3/uL MPV (7.0-11.0) fl Gran % (50.0-68.0) % Lymph % (Auto) (22.0-35.0) % Valley % (Auto) (1.0-6.0) % Eos % (Auto) (1.5-5.0) % Baso % (Auto) (0.0-3.0) % Gran # (1.4-6.5) Lymph # (Auto) (1.2-3.4) Valley # (Auto) (0.1-0.6) Eos # (Auto) (0.0-0.7) Baso # (Auto) (0.0-2.0) K/mm3 PT 18.7 H (9.4-12.5) SECONDS INR 1.61 H (0.93-1.08) pCO2 27 L (35-45) mm/Hg pO2 44.0 L* (80-100) mm/Hg HCO3 21.1 (21-28) mmol/L ABG pH 7.50 H (7.35-7.45) ABG Total CO2 21.9 L (22-28) mmol.L ABG O2 Saturation 86.3 L (95-98) % ABG O2 Content 12.2 L (15-23) ML/dl ABG Base Excess -1.2 (-2.0-3.0) mmol/L ABG Hemoglobin 10.4 L (11.7-17.4) g/dL ABG Carboxyhemoglobin 2.1 H (0.5-1.5) % POC ABG HHb (Measured) 13.2 H (0-5) % ABG Methemoglobin 1.2 (0.0-3.0) % ABG O2 Capacity 14.1 L (16-24) mL/dl Hgb O2 Saturation 83.5 L (95.0-98.0) % FiO2 90.0 % Sodium (132-148) mmol/L Potassium (3.6-5.0) mmol/L Chloride (98-107) mmol/L Carbon Dioxide (21-33) mmol/L Anion Gap (10-20) BUN (7-21) mg/dL Creatinine (0.8-1.5) mg/dl Est GFR ( Amer) Est GFR (Non-Af Amer) Random Glucose (70-110) mg/dL Calcium (8.4-10.5) mg/dL Total Bilirubin (0.2-1.3) mg/dL AST (17-59) U/L ALT (7-56) U/L Alkaline Phosphatase (38-126) U/L Total Protein (5.8-8.3) g/dL Albumin (3.0-4.8) g/dL Globulin gm/dL Albumin/Globulin Ratio (1.1-1.8) Laboratory Results - last 24 hr 11/04/17 11/05/17 11/05/17 14:25 06:00 06:00 WBC 9.0 D RBC 3.27 L Hgb 10.3 L Hct 30.8 L MCV 94.2 MCH 31.5 MCHC 33.4 RDW 14.7 H Plt Count 268 MPV 10.3 Gran % 84.9 H Lymph % (Auto) 10.0 L [place] % (Auto) 5.1 Eos % (Auto) 0.0 L Baso % (Auto) 0.0 Gran # 7.64 H Lymph # (Auto) 0.9 L [place] # (Auto) 0.5 Eos # (Auto) 0.0 Baso # (Auto) 0.00 PT 18.7 H INR 1.61 H pCO2 27 L pO2 44.0 L* HCO3 21.1 ABG pH 7.50 H ABG Total CO2 21.9 L ABG O2 Saturation 86.3 L ABG O2 Content 12.2 L ABG Base Excess -1.2 ABG Hemoglobin 10.4 L ABG Carboxyhemoglobin 2.1 H POC ABG HHb (Measured) 13.2 H ABG Methemoglobin 1.2 ABG O2 Capacity 14.1 L Hgb O2 Saturation 83.5 L FiO2 90.0 Sodium Potassium Chloride Carbon Dioxide Anion Gap BUN Creatinine Est GFR ( Amer) Est GFR (Non-Af Amer) Random Glucose Calcium Total Bilirubin AST ALT Alkaline Phosphatase Total Protein Albumin Globulin Albumin/Globulin Ratio 11/05/17 11/05/17 06:00 06:49 WBC RBC Hgb Hct MCV MCH MCHC RDW Plt Count MPV Gran % Lymph % (Auto) Valley % (Auto) Eos % (Auto) Baso % (Auto) Gran # Lymph # (Auto) Valley # (Auto) Eos # (Auto) Baso # (Auto) PT INR pCO2 33 L pO2 79.0 L HCO3 23.5 ABG pH 7.46 H ABG Total CO2 24.5 ABG O2 Saturation 98.7 H ABG O2 Content 14.4 L ABG Base Excess 0.1 ABG Hemoglobin 10.6 L ABG Carboxyhemoglobin 1.7 H POC ABG HHb (Measured) 1.3 ABG Methemoglobin 0.7 ABG O2 Capacity 14.6 L Hgb O2 Saturation 96.3 FiO2 80.0 Sodium 145 Potassium 3.5 L Chloride 106 Carbon Dioxide 26 Anion Gap 16 BUN 26 H Creatinine 0.5 L Est GFR ( Amer) > 60 Est GFR (Non-Af Amer) > 60 Random Glucose 106 Calcium 8.3 L Total Bilirubin 1.1 AST 39 ALT 37 Alkaline Phosphatase 72 Total Protein 6.7 Albumin 3.2 Globulin 3.5 Albumin/Globulin Ratio 0.9 L Critical Care Progress Note - Nutrition Nutrition: Nutrition Category Date Time Status Heart Healthy Diet [DIET] Diets 11/04/17 Lunch Active Attending/Attestation - Attestation I have personally seen and examined this patient.: Yes I have fully participated in the care of the patient.: Yes I have reviewed all pertinent clinical information: Yes Notes (Text): 11/05/17 12:54 The patient was seen and examined at the bedside. Patient care was discussed with resident Medical records, lab studies were reviewed and management issues were discussed and formulated. Last 24H events reviewed. Agree with above treatment plans as outlined in 's note with addition of the following: Acute Respiratory Failure \ Hypoxemia \ COPD \ PNA \ Sepsis \ Afib \ CHF \ -hemodynamic monitoring to maintain MAP>65; continue milrinone as per cardiology team who are following closely -o2 supplementation and Bipap PRN to maintain Spo2 90-92 Pao2>60 -ABG and CXR reviewed ; will switch to high-flow humidified O2 canula with 50LPM and 100% Fio2 -continue nebs and steroids and aggressive pulmonary toileting -monitor closely for intubation -broad spectrum abx as per ID team; f\u cultures -f\u Bun\Cr and U\o; replace e-lites -PO diet and aspiration precautions -continue coumadin as per primary team and monitor INR and for bleeding -DVT \ PUD prophylaxis CCM f\u 30min
--- NOTE | 2017-11-05 12:15 | CP.PCM.PN ---
Subjective - Date & Time of Evaluation Date of Evaluation: 11/05/17 Time of Evaluation: 09:40 - Subjective Subjective: Still needing high flow oxygen but breathing a little better, no fevers, no more hemoptysis. Objective - Vital Signs/Intake and Output Vital Signs (last 24 hours): Temp Pulse Resp BP Pulse Ox 97.7 F 91 H 20 96/69 L 96 11/05/17 04:00 11/05/17 06:50 11/05/17 06:50 11/05/17 06:00 11/05/17 06:50 Intake and Output: 11/05/17 11/05/17 06:59 18:59 Intake Total 210 Output Total 250 Balance -40 - Medications Medications: Current Medications Acetylcysteine (Acetylcysteine 20%) 3 ml INH BID ANA LAURA Last Admin: 11/04/17 20:04 Dose: 3 ml Albuterol/Ipratropium (Duoneb 3 Mg/0.5 Mg (3 Ml) Ud) 3 ml IH Q2H PRN PRN Reason: Shortness of Breath Last Admin: 11/03/17 08:09 Dose: 3 ml Albuterol/Ipratropium (Duoneb 3 Mg/0.5 Mg (3 Ml) Ud) 3 ml IH [id number] ANA LAURA Last Admin: 11/05/17 03:25 Dose: 3 ml Aspirin (Aspirin Chewable) 81 mg PO DAILY ANA LAURA Last Admin: 11/03/17 10:18 Dose: Not Given Azithromycin (Zithromax) 500 mg PO DAILY ANA LAURA PRN Reason: Protocol Benzonatate (Tessalon Perles) 100 mg PO TID ANA LAURA Last Admin: 11/03/17 14:41 Dose: 100 mg Furosemide (Lasix) 40 mg IVP Q12 ANA LAURA Last Admin: 11/04/17 09:42 Dose: 40 mg Heparin Sodium (Porcine) (Heparin) 5,000 units SC Q8 ANA LAURA PRN Reason: Protocol Last Admin: 11/05/17 05:13 Dose: 5,000 units Meropenem (Merrem Iv 1 Gm Premix) 50 mls @ 100 mls/hr IVPB Q8 ANA LAURA PRN Reason: Protocol Last Admin: 11/05/17 05:15 Dose: 100 mls/hr Milrinone Lactate/Dextrose (Primacor 20mg/100ml D5w) 100 mls @ 6.634 mls/hr IV .Q15H5M PRN; Protocol; 0.375 MCG/KG/MIN PRN Reason: TITRATE PER MD ORDER Last Admin: 11/05/17 04:40 Dose: 0.375 mcg/kg/min, 6.634 mls/hr Methylprednisolone (Solu-Medrol) 20 mg IVP Q12 [facility] Last Admin: 11/04/17 21:02 Dose: 20 mg Metoprolol Tartrate (Lopressor) 50 mg PO BID [facility] Last Admin: 11/04/17 18:18 Dose: Not Given Pantoprazole Sodium (Protonix Inj) 40 mg IVP DAILY [facility] Last Admin: 11/04/17 09:42 Dose: 40 mg Polyethylene Glycol (Miralax) 17 gm PO BID [facility] Last Admin: 11/03/17 09:51 Dose: 17 gm Sertraline HCl (Zoloft) 25 mg PO DAILY [facility] Last Admin: 11/03/17 09:51 Dose: 25 mg Vitamin A (Vitamin A&D) 1 applic TP Q8 PRN PRN Reason: dry skin Vitamin A (Vitamin A & D Oint Ud Foilpak) 1 ea TOP Q8H PRN PRN Reason: dry skin - Labs Labs: 11/04/17 06:00 11/04/17 06:00 PT 19.8 SECONDS (9.4-12.5) H 11/04/17 06:00 INR 1.70 (0.93-1.08) H 11/04/17 06:00 APTT 53.7 Seconds (25.1-36.5) H 11/03/17 03:45 - Constitutional Appears: Chronically Ill - Head Exam Head Exam: NORMAL INSPECTION - ENT Exam ENT Exam: Mucous Membranes Moist - Neck Exam Neck Exam: absent: Lymphadenopathy, Meningismus - Respiratory Exam Respiratory Exam: Decreased Breath Sounds - Cardiovascular Exam Cardiovascular Exam: +S1, +S2 - GI/Abdominal Exam GI & Abdominal Exam: Soft. absent: Tenderness Assessment and Plan - Assessment and Plan (Free Text) Plan: Assessment severe sepsis with acute hypoxic respiratory failure due to right upper lobe severe community-acquired pneumonia or atelectasis R/O malignancy on top of severe pulmonary HTN, with associated hemoptysis probably from coagulopathy from Coumadin history of community-acquired pneumonia on top of acute CHF with severe right sided heart failure CAD S/P PCI GERD history of GI bleed history of hepatitis C Plan continue Merrem and Zithromax day 3 and d/c'ed Vancomycin since blood are negative; will follow up sputum cx; PCT is normal; reviewed CT chest which is showing dense consolidation without cavitation - discussed with Dr. Roche and will do consevative management given the patient's condition - aim for 4-7 days of antibiotics (if cultures continue to be negative, will de-escalate antibiotics by tomorrow) reviewed history of patient - patient does not have classic risk factors for TB , did not present with fevers or night sweats, did not have long-standing cough , no travel to TB areas, has lived in [place] most of his life and CT chest does not show cavitation - less likely TB will monitor clinically discussed with Dr. Zhang
--- NOTE | 2017-11-05 22:12 | PN ---
DATE: 11/05/2017 PULMONARY CRITICAL CARE PROGRESS NOTE REFERRING PHYSICIAN: Dr. Estevez. SUBJECTIVE: He is lying in the bed, head at 45 degrees, used noninvasive ventilation overnight, presently on high-flow oxygen. Feels a little better, still has a cough, sputum production. No hemoptysis. No chest pain. No nausea, vomiting, or diarrhea. No leg pain or leg swelling. PHYSICAL EXAMINATION: GENERAL: [id number] distress. VITAL SIGNS: Temperature is 98, heart rate is 106, respiratory rate is 20, blood pressure 100/63, pulse ox 92% on high-flow nasal cannula. HEENT: Moist mucous membrane. Crowded airway. NECK: Supple. No JVD. LUNGS: Have a scattered rhonchi, prolonged expiratory phase. HEART: S1 and S2. Tachycardic. ABDOMEN: Soft, nontender. No organomegaly. EXTREMITIES: No edema. NEUROLOGIC: Awake, alert, and follows simple command. MEDICATIONS: He is on Mucomyst inhaled twice a day, aspirin 81 mg daily, albuterol and Atrovent nebulizer every 2 hours p.r.n. and every 6 hours [id number], heparin 5000 units subcu every 8 hours, Lasix 40 mg twice a day, metoprolol tartrate 50 mg twice a day, meropenem 1 g IV every 8 hours, MiraLax 17 g daily, Primacor IV drip, Protonix 40 mg daily, Solu-Medrol 20 mg every 12 hours, Tessalon Perles 100 mg three times a day, vitamin A and D at affected area, Zoloft 25 mg daily, and Zithromax 500 mg daily. LABORATORY DATA: Shows hemoglobin 10.3, hematocrit 30.8, WBC 9, platelet is 268. INR 1.61. ABG show pH 7.46, pCO2 of 33, and pO2 is 79, this is on high-flow oxygen 80%. Sodium 145, potassium 3.5, chloride 106, bicarbonate 26, BUN 26, creatinine 0.5, calcium 8.3. AST 39, ALT 37, alkaline phosphatase is 72. ProBNP 13,400. Microbiology: Blood culture, urine culture, and naris culture are unremarkable. Chest x-ray done today, right upper lobe pulmonary edema versus pneumonia, persistent moderate cardiomegaly. IMPRESSION AND PLAN: Severe pulmonary hypertension, right upper lobe pulmonary infiltrate, respiratory failure requiring high-flow nasal cannula oxygen and BiPAP at nighttime, mucus plugging. Case discussed with medical parasitologist. Also, spoke to family at bedside. All the questions answered. As long as the patient's heart rate allows, I will suggest continue Primacor as the only treatment we have at present time. Cannot use pulmonary vasodilator because of hypotension. If increased heart rate, may use beta-blockers. Continue high-flow oxygen, noninvasive ventilation, antibiotics as per Infectious Diseases, steroids, gastric prophylaxis. May start anticoagulation. Follow up ABG, chest x-ray, CBC, and CMP in the morning. Critical care time, spent more than 35 minutes. Thank you and we will follow with you. Smooth Roche MD
[2017-11-06] MEDS: Albuterol-Ipratrop 3 mg / 0.5 (3 ml) UD IH SCH ×4 (03:02→19:32)
[2017-11-06] MEDS: Milrinone 20mg/100ml D5W 100 ML IV PRN ×2 (03:56→17:25)
[2017-11-06] MEDS: Meropenem IV 1 gm in NS 50 ML IVPB SCH ×3 (05:43→21:05)
[2017-11-06 06:37] LABS: EOS % 0.1 % (1.5-5.0); GRAN # 6.81 (1.4-6.5); GRAN % 83.9 % (50.0-68.0); HEMOGLOBIN 10.3 g/dL (14.0-18.0); LYMPH # 0.9 (1.2-3.4); LYMPH % 11.6 % (22.0-35.0); MEAN CELL VOLUME 94.6 fl (80.0-105.0); MEAN CORPUSCULAR HGB CONC 32.8 g/dl (31.0-37.0); MEAN PLATELET VOLUME 10.1 fl (7.0-11.0); MONO # 0.4 (0.1-0.6); MONO % 4.4 % (1.0-6.0); RBC 3.32 10^6/uL (3.5-6.1); RED CELL DISTRIBUTION WIDTH 14.8 % (11.5-14.5); WHITE BLOOD COUNT 8.1 10^3/ul (4.5-11.0)
[2017-11-06 06:45] LABS: INR 1.82 (0.93-1.08); PROTHROMBIN TIME 21.2 SECONDS (9.4-12.5)
[2017-11-06 07:02] LABS: ARTERIAL BLOOD GAS HCO3 22.9 mmol/L (21-28); ARTERIAL BLOOD GAS HEMOGLOBIN 10.5 g/dL (11.7-17.4); ARTERIAL BLOOD GAS O2 CAPACITY 14.5 mL/dl (16-24); ARTERIAL BLOOD GAS O2 CONTENT 13.9 ML/dl (15-23); ARTERIAL BLOOD GAS PCO2 33 mm/Hg (35-45); ARTERIAL BLOOD GAS PH 7.45 (7.35-7.45); ARTERIAL BLOOD GAS TCO2 23.9 mmol.L (22-28)
[2017-11-06 07:18] LABS: BLOOD UREA NITROGEN 34 mg/dL (7-21); GFR AFRICAN-AMERICAN > 60; GFR NON-AFRICAN AMERICAN > 60
[2017-11-06 07:19] LABS: ALB/GLOB RATIO 0.9 (1.1-1.8); ALBUMIN 3.2 g/dL (3.0-4.8); ALT/SGPT 40 U/L (7-56); AST/SGOT 48 U/L (17-59); CALCIUM 8.6 mg/dL (8.4-10.5)
[2017-11-06] MEDS: Acetylcysteine 20% Inhal Soln (4ml) INH SCH ×2 (07:55→19:38)
--- NOTE | 2017-11-06 07:55 | CP.CCUPN ---
<Richa Fried - Last Filed: 11/06/17 09:44> CCU Subjective - Physician Review Subjective (Free Text): 11/04/17 08:17 Stop milrinon gtt u/o 1900 on lasix still npo 11/04/17 10:45 Back on milrinont gtt for RHF start diet EKG: A fib rvr at 101. ST depression more pronounce V2,3,4 but asymptpmatic 11/04/17 14:55 soft diet with thin liquid Hypoxemia PaO2 44 on 92% Back on bipap 11/05/17 11:09 try on high flow now, per Dr. Erickson. O2 around high 80s, low 90s Most likely will be back on bipap in afternoon 11/06/17 07:53 Back on bipap at night tolerated well. Switch to percussion bed to promote cough. pt tolerated well No N/V, CHAVEZ, CP, f/c CCU Objective - Vital Signs / Intake & Output Vital Signs (Last 4 hours): Vital Signs Temp Pulse BP 11/06/17 06:00 74 11/06/17 05:42 79 102/68 11/06/17 04:00 98.1 F 69 105/64 11/06/17 03:56 93 H 122/68 Intake and Output (Last 8hrs): Intake & Output 11/05/17 11/06/17 11/06/17 22:59 06:59 14:59 Intake Total 1766 Output Total 260 Balance 1506 Weight 131 lb 12.8 oz Intake: IV 275 Left Forearm 110 Right Wrist 65 Oral 1491 Output: Urine 260 Urethral (Tai) 260 Other: # Bowel Movements 0 - Physical Exam Head: Positive for: Atraumatic, Normocephalic. Negative for: Tenderness, Contusion, Swelling, Ecchymosis, Abrasion, Laceration Pupils: Negative for: Pinpoint Extroacular Muscles: Positive for: EOMI Conjunctiva: Positive for: Normal. Negative for: Injected, Icteric Mouth: Positive for: Dry, Normal Lips, Normal Tounge, Normal Teeth. Negative for: Drooling Nose (External): Positive for: Atraumatic. Negative for: Abrasion, Laceration Nose (Internal): Positive for: No Active Bleeding. Negative for: Epistaxis Neck: Positive for: Normal Range of Motion, Trachea Midline. Negative for: MIDLINE TENDERNESS, JVD Respiratory/Chest: Positive for: Respiratory Distress, Accessory Muscle Use, Decreased Breath Sounds (moderately decreased breath sounds all [place]), Rhonchi (loud ronchi in all [place], more prominent in upper [place]), Tachypneic. Negative for: Clear to Auscultation, Good Air Exchange, Wheezes, Rales, Tender to Palpation Cardiovascular: Positive for: Normal S1, S2, Irregular Rhythm, Peripheal Pulses Present (+1 radials, unable to palpate dorsalis pedis bilaterally), Tachycardic. Negative for: Regular Rate and Rhythm, Murmurs, Bradycardic Abdomen: Positive for: Normal Bowel Sounds. Negative for: Tenderness, Distention, Guarding Upper Extremity: Positive for: Normal Inspection, Normal ROM, NORMAL PULSES. Negative for: Cyanosis, Edema, Tenderness, Swelling, Erythema, Deformity Lower Extremity: Positive for: Edema (+1 pitting edema from mid nur to 1-2 cm above ankles), NORMAL PULSES, Normal ROM. Negative for: Normal Inspection, CALF TENDERNESS, Cyanosis, Tenderness, Erythema, Deformity Neurological: Positive for: GCS=15, Motor Func Grossly Intact Skin: Positive for: Warm, Dry, Pale. Negative for: Rashes Lymphatic: Negative for: Cervical Adenopathy Psychiatric: Positive for: Alert, Oriented x 3, Normal Insight, Normal Concentration, Normal Affect, Normal Mood - Medications Active Medications: Active Medications Generic Name Dose Route Start Last Admin Trade Name Freq PRN Reason Stop Dose Admin Acetylcysteine 3 ml 11/03/17 18:45 11/05/17 20:48 Acetylcysteine 20% INH 3 ml BID ANA LAURA Administration Albuterol/Ipratropium 3 ml 11/03/17 05:50 11/03/17 08:09 Duoneb 3 Mg/0.5 Mg (3 Ml) Ud IH 3 ml Q2H PRN Administration Shortness of Breath Albuterol/Ipratropium 3 ml 11/03/17 14:00 11/06/17 03:02 Duoneb 3 Mg/0.5 Mg (3 Ml) Ud IH 3 ml [id number] ANA LAURA Administration Aspirin 81 mg 11/03/17 10:00 11/05/17 09:47 Aspirin Chewable PO 81 mg DAILY ANA LAURA Administration Azithromycin 500 mg 11/05/17 10:00 11/05/17 09:47 Zithromax PO 500 mg DAILY ANA LAURA Administration Protocol Benzonatate 100 mg 11/03/17 10:00 11/03/17 14:41 Tessalon Perles PO 100 mg TID ANA LAURA Administration Furosemide 40 mg 11/03/17 22:00 11/04/17 09:42 Lasix IVP 40 mg Q12 ANA LAURA Administration Heparin Sodium (Porcine) 5,000 units 11/04/17 09:15 11/06/17 05:44 Heparin SC 5,000 units Q8 ANA LAURA Administration Protocol Meropenem 50 mls @ 100 mls/hr 11/03/17 07:45 11/06/17 05:43 Merrem Iv 1 Gm Premix IVPB 100 mls/hr Q8 ANA LAURA Administration Protocol Milrinone Lactate/Dextrose 100 mls @ 6.634 mls/hr 11/04/17 09:59 11/06/17 03: 56 Primacor 20mg/100ml D5w IV 0.375 mcg/kg/min .Q15H5M PRN 6.634 mls/hr TITRATE PER MD ORDER Administration Protocol 0.375 MCG/KG/MIN Methylprednisolone 20 mg 11/03/17 10:00 11/05/17 22:12 Solu-Medrol IVP 20 mg Q12 ANA LAURA Administration Metoprolol Tartrate 50 mg 11/05/17 22:00 11/06/17 05:42 Lopressor PO 50 mg Q8 ANA LAURA Administration Pantoprazole Sodium 40 mg 11/04/17 10:00 11/05/17 09:49 Protonix Inj IVP 40 mg DAILY ANA LAURA Administration Polyethylene Glycol 17 gm 11/03/17 10:00 11/03/17 09:51 Miralax PO 17 gm BID ANA LAURA Administration Sertraline HCl 25 mg 11/03/17 10:00 11/03/17 09:51 Zoloft PO 25 mg DAILY ANA LAURA Administration Vitamin A 1 applic 11/04/17 13:38 Vitamin A&D TP Q8 PRN dry skin Vitamin A 1 ea 11/04/17 13:55 Vitamin A & D Oint Ud Foilpak TOP Q8H PRN dry skin - Patient Studies Lab Studies: Microbiology Studies 11/04/17 10:20 MRSA Culture (Admit) - Final Naris MRSA NOT DETECTED Lab Studies 11/06/17 11/06/17 11/06/17 Range/Units 06:50 06:28 06:28 WBC 8.1 (4.5-11.0) 10^3/ul RBC 3.32 L (3.5-6.1) 10^6/uL Hgb 10.3 L (14.0-18.0) g/dL Hct 31.4 L (42.0-52.0) % MCV 94.6 (80.0-105.0) fl MCH 31.0 (25.0-35.0) pg MCHC 32.8 (31.0-37.0) g/dl RDW 14.8 H (11.5-14.5) % Plt Count 271 (120.0-450.0) 10^3/uL MPV 10.1 (7.0-11.0) fl Gran % 83.9 H (50.0-68.0) % Lymph % (Auto) 11.6 L (22.0-35.0) % Sandoval % (Auto) 4.4 (1.0-6.0) % Eos % (Auto) 0.1 L (1.5-5.0) % Baso % (Auto) 0.0 (0.0-3.0) % Gran # 6.81 H (1.4-6.5) Lymph # (Auto) 0.9 L (1.2-3.4) Sandoval # (Auto) 0.4 (0.1-0.6) Eos # (Auto) 0.0 (0.0-0.7) Baso # (Auto) 0.00 (0.0-2.0) K/mm3 PT 21.2 H (9.4-12.5) SECONDS INR 1.82 H (0.93-1.08) pCO2 33 L (35-45) mm/Hg pO2 65.0 L (80-100) mm/Hg HCO3 22.9 (21-28) mmol/L ABG pH 7.45 (7.35-7.45) ABG Total CO2 23.9 (22-28) mmol.L ABG O2 Saturation 96.0 (95-98) % ABG O2 Content 13.9 L (15-23) ML/dl ABG Base Excess -0.7 (-2.0-3.0) mmol/L ABG Hemoglobin 10.5 L (11.7-17.4) g/dL ABG Carboxyhemoglobin 1.6 H (0.5-1.5) % POC ABG HHb (Measured) 3.9 (0-5) % ABG Methemoglobin 0.8 (0.0-3.0) % ABG O2 Capacity 14.5 L (16-24) mL/dl Hgb O2 Saturation 93.6 L (95.0-98.0) % FiO2 80.0 % Sodium (132-148) mmol/L Potassium (3.6-5.0) mmol/L Chloride (98-107) mmol/L Carbon Dioxide (21-33) mmol/L Anion Gap (10-20) BUN (7-21) mg/dL Creatinine (0.8-1.5) mg/dl Est GFR ( Amer) Est GFR (Non-Af Amer) Random Glucose (70-110) mg/dL Calcium (8.4-10.5) mg/dL Total Bilirubin (0.2-1.3) mg/dL AST (17-59) U/L ALT (7-56) U/L Alkaline Phosphatase (38-126) U/L Total Protein (5.8-8.3) g/dL Albumin (3.0-4.8) g/dL Globulin gm/dL Albumin/Globulin Ratio (1.1-1.8) 11/06/17 11/05/17 Range/Units 05:30 06:00 WBC (4.5-11.0) 10^3/ul RBC (3.5-6.1) 10^6/uL Hgb (14.0-18.0) g/dL Hct (42.0-52.0) % MCV (80.0-105.0) fl MCH (25.0-35.0) pg MCHC (31.0-37.0) g/dl RDW (11.5-14.5) % Plt Count (120.0-450.0) 10^3/uL MPV (7.0-11.0) fl Gran % (50.0-68.0) % Lymph % (Auto) (22.0-35.0) % Sandoval % (Auto) (1.0-6.0) % Eos % (Auto) (1.5-5.0) % Baso % (Auto) (0.0-3.0) % Gran # (1.4-6.5) Lymph # (Auto) (1.2-3.4) Sandoval # (Auto) (0.1-0.6) Eos # (Auto) (0.0-0.7) Baso # (Auto) (0.0-2.0) K/mm3 PT (9.4-12.5) SECONDS INR (0.93-1.08) pCO2 (35-45) mm/Hg pO2 (80-100) mm/Hg HCO3 (21-28) mmol/L ABG pH (7.35-7.45) ABG Total CO2 (22-28) mmol.L ABG O2 Saturation (95-98) % ABG O2 Content (15-23) ML/dl ABG Base Excess (-2.0-3.0) mmol/L ABG Hemoglobin (11.7-17.4) g/dL ABG Carboxyhemoglobin (0.5-1.5) % POC ABG HHb (Measured) (0-5) % ABG Methemoglobin (0.0-3.0) % ABG O2 Capacity (16-24) mL/dl Hgb O2 Saturation (95.0-98.0) % FiO2 % Sodium 143 145 (132-148) mmol/L Potassium 4.9 3.5 L (3.6-5.0) mmol/L Chloride 106 106 (98-107) mmol/L Carbon Dioxide 27 26 (21-33) mmol/L Anion Gap 15 16 (10-20) BUN 34 H 26 H (7-21) mg/dL Creatinine 0.6 L 0.5 L (0.8-1.5) mg/dl Est GFR ( Amer) > 60 > 60 Est GFR (Non-Af Amer) > 60 > 60 Random Glucose 109 106 (70-110) mg/dL Calcium 8.6 8.3 L (8.4-10.5) mg/dL Total Bilirubin 0.9 1.1 (0.2-1.3) mg/dL AST 48 39 (17-59) U/L ALT 40 37 (7-56) U/L Alkaline Phosphatase 73 72 (38-126) U/L Total Protein 6.8 6.7 (5.8-8.3) g/dL Albumin 3.2 3.2 (3.0-4.8) g/dL Globulin 3.6 3.5 gm/dL Albumin/Globulin Ratio 0.9 L 0.9 L (1.1-1.8) Laboratory Results - last 24 hr 11/05/17 11/06/17 11/06/17 06:00 05:30 06:28 WBC RBC Hgb Hct MCV MCH MCHC RDW Plt Count MPV Gran % Lymph % (Auto) Sandoval % (Auto) Eos % (Auto) Baso % (Auto) Gran # Lymph # (Auto) Sandoval # (Auto) Eos # (Auto) Baso # (Auto) PT 21.2 H INR 1.82 H pCO2 pO2 HCO3 ABG pH ABG Total CO2 ABG O2 Saturation ABG O2 Content ABG Base Excess ABG Hemoglobin ABG Carboxyhemoglobin POC ABG HHb (Measured) ABG Methemoglobin ABG O2 Capacity Hgb O2 Saturation FiO2 Sodium 145 143 Potassium 3.5 L 4.9 Chloride 106 106 Carbon Dioxide 26 27 Anion Gap 16 15 BUN 26 H 34 H Creatinine 0.5 L 0.6 L Est GFR ( Amer) > 60 > 60 Est GFR (Non-Af Amer) > 60 > 60 Random Glucose 106 109 Calcium 8.3 L 8.6 Total Bilirubin 1.1 0.9 AST 39 48 ALT 37 40 Alkaline Phosphatase 72 73 Total Protein 6.7 6.8 Albumin 3.2 3.2 Globulin 3.5 3.6 Albumin/Globulin Ratio 0.9 L 0.9 L 11/06/17 11/06/17 06:28 06:50 WBC 8.1 RBC 3.32 L Hgb 10.3 L Hct 31.4 L MCV 94.6 MCH 31.0 MCHC 32.8 RDW 14.8 H Plt Count 271 MPV 10.1 Gran % 83.9 H Lymph % (Auto) 11.6 L Sandoval % (Auto) 4.4 Eos % (Auto) 0.1 L Baso % (Auto) 0.0 Gran # 6.81 H Lymph # (Auto) 0.9 L Sandoval # (Auto) 0.4 Eos # (Auto) 0.0 Baso # (Auto) 0.00 PT INR pCO2 33 L pO2 65.0 L HCO3 22.9 ABG pH 7.45 ABG Total CO2 23.9 ABG O2 Saturation 96.0 ABG O2 Content 13.9 L ABG Base Excess -0.7 ABG Hemoglobin 10.5 L ABG Carboxyhemoglobin 1.6 H POC ABG HHb (Measured) 3.9 ABG Methemoglobin 0.8 ABG O2 Capacity 14.5 L Hgb O2 Saturation 93.6 L FiO2 80.0 Sodium Potassium Chloride Carbon Dioxide Anion Gap BUN Creatinine Est GFR ( Amer) Est GFR (Non-Af Amer) Random Glucose Calcium Total Bilirubin AST ALT Alkaline Phosphatase Total Protein Albumin Globulin Albumin/Globulin Ratio Critical Care Progress Note - Nutrition Nutrition: Nutrition Category Date Time Status Heart Healthy Diet [DIET] Diets 11/04/17 Lunch Active Assessment/Plan - Assessment and Plan (Free Text) Plan: Mr Bernard Hooks, 86 M, with PMH of atrial fibrillation on coumadin, CHF, COPD on 4 litters of home oxygen, CAD s/p LAD stent, hx UGIB 2/2 esophageal varices, Hep C (treated in the 80s), HTN, depression, BPH and tremors who presents with complaint of hemoptysis found to have right upper lobe pneumonia, had transient episode of hypotension which has since resolved. Patient is being admitted to icu for transient episode of hypotension and hypoxemia. Yesterday, he was on high flow 50L 90%. Repeat ABG in yesterday afternoon showed hypoxemia PaO2 at 44 , back on Bipap 02/16/rr14 (34)/100% --> 80%. This AM he is on high flow: 50L on 100%. He is still on milrinone gtt. His INR is 1.6, per Dr Simental, 5 coumadin, check INR tomorrow. Dr Zhang wants to know if pt is good candidate for Eliquis. His GI bleed was more than 30 years ago but he uses walker at home. Dr Simental wants pt off milrinone gtt, now he is on 0.3. However, Dr Roche said his cor pulmonale has pressure of RVSP 90, not feeling comfortable to take milrinone off. A: hemoptysis probably from supratherapeutic from Coumadin - resolved. Acute hypoxic respiratory failure due to sepsis, CAP/muscus plug, and Cor Pulmonale due to pulmonary hypertension Severe sepsis likely from right upper lobe community-acquired pneumonia; Doubt TB per ID Acute CHF, systolic, on chronic; RHF on milrinon gtt Pulmonary hypertension Hx COPD on 4L home; CAD S/P PCI; GERD history of GI bleed history of hepatitis C A fib RVR on metoprolol, Continue coumadin 5 Neuro: stable at baseline. Maintain nomothermia Pulm: ProBNP 55598 (11/03) --> 03050 (11/04) CT chest (11/03): Negative for PE. Patchy R upper lobe infiltrate, cannot exclude mass, post-obstructive vs PNA CXR: RUL pna. slightly better High flow 50/100 in day PRN Bipap 10/6/R14/80% at night Acetysytein BID; Duoneb Q6 ANA LAURA, Q2 PRN zithromax, merem; solu-medrol 10q12 Encourage coughing; Flutter valve; chest percussion; HOB 30 Not candidate for Revatio due to BP Cardio: trops < 0.01 ASA, lopressor 50 bid, milrinone gtt 0.3 H/O CHF with elevated pro bnp- will hold of Lasix ----He is dry Holding bp meds due to hypotension Continue heparin subq8; started warfarin 5 on 11/05/17 GI: Postop stomach thickening (post op vs poss gastric carcinoma) Dr Louis suggested endoscopy No active signs of Gi bleeding noted Hold miralax. protonx 40 IVP : Oliguric, monitor and maintain K rising but still normal h/o bph: holding meds due to hypotensive episode. ID: Merrem and Zithromax (day 4) PCT < 0.05 Blooc Cx neg x 3d; D/C vanco Leginella negative UCx neg Endo: Maintain sugar 140-10 Heme: H/H stable. No more hemoptysis. Started wardarin Psych: h/o depression and tremors: holding primidone due to dyspnea, Hold remeron and zoloft. Prophylaxis: heparin sc q8, holding Coumadin, protonix IV Dispo: try not to intubate because it will worsen RHF; Palliative consult: taper solumedrol; High flow AM/Bipap PM. Out of bed to chair as tolerated; pending PT eval Q: What type of AC? Q: Is he better or not better on milrinon gtt? Consult: Sabina Santos (PNA). Hola (CHF), Kaley (PNA) sVelmaremre Erickson <Mitchell Erickson - Last Filed: 11/06/17 10:48> CCU Objective - Vital Signs / Intake & Output Vital Signs (Last 4 hours): Vital Signs Pulse Resp BP Pulse Ox 11/06/17 07:56 71 11/06/17 07:50 70 38 H 85 L 11/06/17 07:40 76 19 99 11/06/17 07:30 73 26 H 92 L 11/06/17 07:20 70 22 82 L 11/06/17 07:10 71 29 H 96 11/06/17 07:00 79 98/57 L 96 11/06/17 06:50 73 20 92 L Intake and Output (Last 8hrs): Intake & Output 11/05/17 11/06/17 11/06/17 22:59 06:59 14:59 Intake Total 1766 200 Output Total 260 350 Balance 1506 -150 Weight 131 lb 8 oz Intake: IV 275 120 Left Forearm 110 50 Right Wrist 65 primacor 70 Oral 1491 80 Output: Urine 260 350 Urethral (Tai) 260 350 Other: # Bowel Movements 0 0 - Medications Active Medications: Active Medications Generic Name Dose Route Start Last Admin Trade Name Freq PRN Reason Stop Dose Admin Acetylcysteine 3 ml 11/03/17 18:45 11/06/17 07:55 Acetylcysteine 20% INH 3 ml BID ANA LAURA Administration Albuterol/Ipratropium 3 ml 11/03/17 05:50 11/03/17 08:09 Duoneb 3 Mg/0.5 Mg (3 Ml) Ud IH 3 ml Q2H PRN Administration Shortness of Breath Albuterol/Ipratropium 3 ml 11/03/17 14:00 11/06/17 07:55 Duoneb 3 Mg/0.5 Mg (3 Ml) Ud IH 3 ml [id number] ANA LAURA Administration Aspirin 81 mg 11/03/17 10:00 11/06/17 09:38 Aspirin Chewable PO 81 mg DAILY ANA LAURA Administration Azithromycin 500 mg 11/05/17 10:00 11/06/17 09:39 Zithromax PO 500 mg DAILY ANA LAURA Administration Protocol Benzonatate 100 mg 11/03/17 10:00 11/03/17 14:41 Tessalon Perles PO 100 mg TID ANA LAURA Administration Furosemide 40 mg 11/03/17 22:00 11/04/17 09:42 Lasix IVP 40 mg Q12 ANA LAURA Administration Heparin Sodium (Porcine) 5,000 units 11/04/17 09:15 11/06/17 05:44 Heparin SC 5,000 units Q8 ANA LAURA Administration Protocol Meropenem 50 mls @ 100 mls/hr 11/03/17 07:45 11/06/17 05:43 Merrem Iv 1 Gm Premix IVPB 100 mls/hr Q8 ANA LAURA Administration Protocol Milrinone Lactate/Dextrose 100 mls @ 6.634 mls/hr 11/04/17 09:59 11/06/17 03: 56 Primacor 20mg/100ml D5w IV 0.375 mcg/kg/min .Q15H5M PRN 6.634 mls/hr TITRATE PER MD ORDER Administration Protocol 0.375 MCG/KG/MIN Methylprednisolone 10 mg 11/06/17 09:42 11/06/17 10:09 Solu-Medrol IVP 10 mg Q12 ANA LAURA Administration Metoprolol Tartrate 50 mg 11/05/17 22:00 11/06/17 05:42 Lopressor PO 50 mg Q8 ANA LAURA Administration Pantoprazole Sodium 40 mg 11/04/17 10:00 11/06/17 09:37 Protonix Inj IVP 40 mg DAILY ANA LAURA Administration Polyethylene Glycol 17 gm 11/03/17 10:00 11/03/17 09:51 Miralax PO 17 gm BID ANA LAURA Administration Sertraline HCl 25 mg 11/03/17 10:00 11/03/17 09:51 Zoloft PO 25 mg DAILY ANA LAURA Administration Vitamin A 1 applic 11/04/17 13:38 Vitamin A&D TP Q8 PRN dry skin Vitamin A 1 ea 11/04/17 13:55 Vitamin A & D Oint Ud Foilpak TOP Q8H PRN dry skin - Patient Studies Lab Studies: Microbiology Studies 11/04/17 10:20 MRSA Culture (Admit) - Final Naris MRSA NOT DETECTED Lab Studies 11/06/17 11/06/17 11/06/17 Range/Units 06:50 06:28 06:28 WBC 8.1 (4.5-11.0) 10^3/ul RBC 3.32 L (3.5-6.1) 10^6/uL Hgb 10.3 L (14.0-18.0) g/dL Hct 31.4 L (42.0-52.0) % MCV 94.6 (80.0-105.0) fl MCH 31.0 (25.0-35.0) pg MCHC 32.8 (31.0-37.0) g/dl RDW 14.8 H (11.5-14.5) % Plt Count 271 (120.0-450.0) 10^3/uL MPV 10.1 (7.0-11.0) fl Gran % 83.9 H (50.0-68.0) % Lymph % (Auto) 11.6 L (22.0-35.0) % Sandoval % (Auto) 4.4 (1.0-6.0) % Eos % (Auto) 0.1 L (1.5-5.0) % Baso % (Auto) 0.0 (0.0-3.0) % Gran # 6.81 H (1.4-6.5) Lymph # (Auto) 0.9 L (1.2-3.4) Sandoval # (Auto) 0.4 (0.1-0.6) Eos # (Auto) 0.0 (0.0-0.7) Baso # (Auto) 0.00 (0.0-2.0) K/mm3 PT 21.2 H (9.4-12.5) SECONDS INR 1.82 H (0.93-1.08) pCO2 33 L (35-45) mm/Hg pO2 65.0 L (80-100) mm/Hg HCO3 22.9 (21-28) mmol/L ABG pH 7.45 (7.35-7.45) ABG Total CO2 23.9 (22-28) mmol.L ABG O2 Saturation 96.0 (95-98) % ABG O2 Content 13.9 L (15-23) ML/dl ABG Base Excess -0.7 (-2.0-3.0) mmol/L ABG Hemoglobin 10.5 L (11.7-17.4) g/dL ABG Carboxyhemoglobin 1.6 H (0.5-1.5) % POC ABG HHb (Measured) 3.9 (0-5) % ABG Methemoglobin 0.8 (0.0-3.0) % ABG O2 Capacity 14.5 L (16-24) mL/dl Hgb O2 Saturation 93.6 L (95.0-98.0) % FiO2 80.0 % Sodium (132-148) mmol/L Potassium (3.6-5.0) mmol/L Chloride (98-107) mmol/L Carbon Dioxide (21-33) mmol/L Anion Gap (10-20) BUN (7-21) mg/dL Creatinine (0.8-1.5) mg/dl Est GFR ( Amer) Est GFR (Non-Af Amer) Random Glucose (70-110) mg/dL Calcium (8.4-10.5) mg/dL Total Bilirubin (0.2-1.3) mg/dL AST (17-59) U/L ALT (7-56) U/L Alkaline Phosphatase (38-126) U/L Total Protein (5.8-8.3) g/dL Albumin (3.0-4.8) g/dL Globulin gm/dL Albumin/Globulin Ratio (1.1-1.8) //18 Range/Units 05:30 WBC (4.5-11.0) 10^3/ul RBC (3.5-6.1) 10^6/uL Hgb (14.0-18.0) g/dL Hct (42.0-52.0) % MCV (80.0-105.0) fl MCH (25.0-35.0) pg MCHC (31.0-37.0) g/dl RDW (11.5-14.5) % Plt Count (120.0-450.0) 10^3/uL MPV (7.0-11.0) fl Gran % (50.0-68.0) % Lymph % (Auto) (22.0-35.0) % Sandoval % (Auto) (1.0-6.0) % Eos % (Auto) (1.5-5.0) % Baso % (Auto) (0.0-3.0) % Gran # (1.4-6.5) Lymph # (Auto) (1.2-3.4) Sandoval # (Auto) (0.1-0.6) Eos # (Auto) (0.0-0.7) Baso # (Auto) (0.0-2.0) K/mm3 PT (9.4-12.5) SECONDS INR (0.93-1.08) pCO2 (35-45) mm/Hg pO2 (80-100) mm/Hg HCO3 (21-28) mmol/L ABG pH (7.35-7.45) ABG Total CO2 (22-28) mmol.L ABG O2 Saturation (95-98) % ABG O2 Content (15-23) ML/dl ABG Base Excess (-2.0-3.0) mmol/L ABG Hemoglobin (11.7-17.4) g/dL ABG Carboxyhemoglobin (0.5-1.5) % POC ABG HHb (Measured) (0-5) % ABG Methemoglobin (0.0-3.0) % ABG O2 Capacity (16-24) mL/dl Hgb O2 Saturation (95.0-98.0) % FiO2 % Sodium 143 (132-148) mmol/L Potassium 4.9 (3.6-5.0) mmol/L Chloride 106 (98-107) mmol/L Carbon Dioxide 27 (21-33) mmol/L Anion Gap 15 (10-20) BUN 34 H (7-21) mg/dL Creatinine 0.6 L (0.8-1.5) mg/dl Est GFR ( Amer) > 60 Est GFR (Non-Af Amer) > 60 Random Glucose 109 (70-110) mg/dL Calcium 8.6 (8.4-10.5) mg/dL Total Bilirubin 0.9 (0.2-1.3) mg/dL AST 48 (17-59) U/L ALT 40 (7-56) U/L Alkaline Phosphatase 73 (38-126) U/L Total Protein 6.8 (5.8-8.3) g/dL Albumin 3.2 (3.0-4.8) g/dL Globulin 3.6 gm/dL Albumin/Globulin Ratio 0.9 L (1.1-1.8) Laboratory Results - last 24 hr 11/06/17 11/06/17 11/06/17 05:30 06:28 06:28 WBC 8.1 RBC 3.32 L Hgb 10.3 L Hct 31.4 L MCV 94.6 MCH 31.0 MCHC 32.8 RDW 14.8 H Plt Count 271 MPV 10.1 Gran % 83.9 H Lymph % (Auto) 11.6 L Sandoval % (Auto) 4.4 Eos % (Auto) 0.1 L Baso % (Auto) 0.0 Gran # 6.81 H Lymph # (Auto) 0.9 L Sandoval # (Auto) 0.4 Eos # (Auto) 0.0 Baso # (Auto) 0.00 PT 21.2 H INR 1.82 H pCO2 pO2 HCO3 ABG pH ABG Total CO2 ABG O2 Saturation ABG O2 Content ABG Base Excess ABG Hemoglobin ABG Carboxyhemoglobin POC ABG HHb (Measured) ABG Methemoglobin ABG O2 Capacity Hgb O2 Saturation FiO2 Sodium 143 Potassium 4.9 Chloride 106 Carbon Dioxide 27 Anion Gap 15 BUN 34 H Creatinine 0.6 L Est GFR ( Amer) > 60 Est GFR (Non-Af Amer) > 60 Random Glucose 109 Calcium 8.6 Total Bilirubin 0.9 AST 48 ALT 40 Alkaline Phosphatase 73 Total Protein 6.8 Albumin 3.2 Globulin 3.6 Albumin/Globulin Ratio 0.9 L 11/06/17 06:50 WBC RBC Hgb Hct MCV MCH MCHC RDW Plt Count MPV Gran % Lymph % (Auto) Sandoval % (Auto) Eos % (Auto) Baso % (Auto) Gran # Lymph # (Auto) Sandoval # (Auto) Eos # (Auto) Baso # (Auto) PT INR pCO2 33 L pO2 65.0 L HCO3 22.9 ABG pH 7.45 ABG Total CO2 23.9 ABG O2 Saturation 96.0 ABG O2 Content 13.9 L ABG Base Excess -0.7 ABG Hemoglobin 10.5 L ABG Carboxyhemoglobin 1.6 H POC ABG HHb (Measured) 3.9 ABG Methemoglobin 0.8 ABG O2 Capacity 14.5 L Hgb O2 Saturation 93.6 L FiO2 80.0 Sodium Potassium Chloride Carbon Dioxide Anion Gap BUN Creatinine Est GFR ( Amer) Est GFR (Non-Af Amer) Random Glucose Calcium Total Bilirubin AST ALT Alkaline Phosphatase Total Protein Albumin Globulin Albumin/Globulin Ratio Critical Care Progress Note - Nutrition Nutrition: Nutrition Category Date Time Status Heart Healthy Diet [DIET] Diets 11/04/17 Lunch Active Attending/Attestation - Attestation I have personally seen and examined this patient.: Yes I have fully participated in the care of the patient.: Yes I have reviewed all pertinent clinical information: Yes Notes (Text): 11/06/17 10:46 The patient was seen and examined at the bedside. Patient care was discussed with resident Medical records, lab studies were reviewed and management issues were discussed and formulated. Last 24H events reviewed. Agree with above treatment plans as outlined in 's note with addition of the following: Acute Respiratory Failure \ Hypoxemia \ COPD \ PNA \ Sepsis \ Afib \ CHF \ -hemodynamic monitoring to maintain MAP>65; continue milrinone -o2 supplementation and Bipap PRN to maintain Spo2 90-92 Pao2>60 -ABG and CXR reviewed ; high-flow humidified O2 canula as tolerated -continue nebs and steroids and aggressive pulmonary toileting -monitor closely for intubation -broad spectrum abx as per ID team; f\u cultures -f\u Bun\Cr and U\o; replace e-lites -PO diet and aspiration precautions -continue coumadin as per primary team and monitor INR and for bleeding -Pt \Ot eval f\u -DVT \ PUD prophylaxis -Palliation team eval CCM f\u 30min
--- NOTE | 2017-11-06 07:57 | CP.PCM.PN ---
Subjective - Date & Time of Evaluation Date of Evaluation: 11/06/17 Time of Evaluation: 07:00 - Subjective Subjective: Stable in CCU. He feels better today. He is on BiPaP mask. V/S noted. AF PE: Lungs: rhonchi R>L Cor.: irreg S1S2 Abd.: soft Ext.: no edema Neuro.: alert I/O = 1766/260 recorded Labs and ABG's noted: INR = 1.82, K+= 4.9 BC X2 NG at 3 days hrs. Echo noted: NL LV fx., mild/mod AI, RVE, Mod/Sev. TR, Severe PH CTA Chest: No PE, RU infiltrate, etc CXR today: not read yet. RUL infiltrate seems better. Objective - Vital Signs/Intake and Output Vital Signs (last 24 hours): Temp Pulse Resp BP Pulse Ox 98.1 F 74 39 H 102/68 90 L 11/06/17 04:00 11/06/17 06:00 11/05/17 17:30 11/06/17 05:42 11/05/17 17:30 Intake and Output: 11/06/17 11/06/17 06:59 18:59 Intake Total 640 Output Total 100 Balance 540 - Medications Medications: Current Medications Acetylcysteine (Acetylcysteine 20%) 3 ml INH BID [facility] Last Admin: 11/05/17 20:48 Dose: 3 ml Albuterol/Ipratropium (Duoneb 3 Mg/0.5 Mg (3 Ml) Ud) 3 ml IH Q2H PRN PRN Reason: Shortness of Breath Last Admin: 11/03/17 08:09 Dose: 3 ml Albuterol/Ipratropium (Duoneb 3 Mg/0.5 Mg (3 Ml) Ud) 3 ml IH [id number] [facility] Last Admin: 11/06/17 03:02 Dose: 3 ml Aspirin (Aspirin Chewable) 81 mg PO DAILY [facility] Last Admin: 11/05/17 09:47 Dose: 81 mg Azithromycin (Zithromax) 500 mg PO DAILY [facility] PRN Reason: Protocol Last Admin: 11/05/17 09:47 Dose: 500 mg Benzonatate (Tessalon Perles) 100 mg PO TID [facility] Last Admin: 11/03/17 14:41 Dose: 100 mg Furosemide (Lasix) 40 mg IVP Q12 [facility] Last Admin: 11/04/17 09:42 Dose: 40 mg Heparin Sodium (Porcine) (Heparin) 5,000 units SC Q8 [facility] PRN Reason: Protocol Last Admin: 11/06/17 05:44 Dose: 5,000 units Meropenem (Merrem Iv 1 Gm Premix) 50 mls @ 100 mls/hr IVPB Q8 [facility] PRN Reason: Protocol Last Admin: 11/06/17 05:43 Dose: 100 mls/hr Milrinone Lactate/Dextrose (Primacor 20mg/100ml D5w) 100 mls @ 6.634 mls/hr IV .Q15H5M PRN; Protocol; 0.375 MCG/KG/MIN PRN Reason: TITRATE PER MD ORDER Last Admin: 11/06/17 03:56 Dose: 0.375 mcg/kg/min, 6.634 mls/hr Methylprednisolone (Solu-Medrol) 20 mg IVP Q12 [facility] Last Admin: 11/05/17 22:12 Dose: 20 mg Metoprolol Tartrate (Lopressor) 50 mg PO Q8 [facility] Last Admin: 11/06/17 05:42 Dose: 50 mg Pantoprazole Sodium (Protonix Inj) 40 mg IVP DAILY [facility] Last Admin: 11/05/17 09:49 Dose: 40 mg Polyethylene Glycol (Miralax) 17 gm PO BID [facility] Last Admin: 11/03/17 09:51 Dose: 17 gm Sertraline HCl (Zoloft) 25 mg PO DAILY [facility] Last Admin: 11/03/17 09:51 Dose: 25 mg Vitamin A (Vitamin A&D) 1 applic TP Q8 PRN PRN Reason: dry skin Vitamin A (Vitamin A & D Oint Ud Foilpak) 1 ea TOP Q8H PRN PRN Reason: dry skin - Labs Labs: 11/06/17 06:28 11/06/17 05:30 PT 21.2 SECONDS (9.4-12.5) H 11/06/17 06:28 INR 1.82 (0.93-1.08) H 11/06/17 06:28 APTT 53.7 Seconds (25.1-36.5) H 11/03/17 03:45 Assessment and Plan - Assessment and Plan (Free Text) Assessment: SOB/Cough, improved Hemoptysis, resolved Pneumonia, improving clinically and by CXR Coagulopathy, resolved COPD/Severe PH CAD/Remote PCI Moderate LVD in the past, LV EF = ~ 50% on current echo Chronic AF on warfarin HBP Hep. C H/O Esopgageal varices and GIB Former Smoker Plan: AB Resp. Txs. Would D/C milrinone. Warfarin 5 mg today. Monitor INRs daily. Continue Sq heparin for now per ID As per Pulmonary: Rx for PH As per Intensivists Monitor: cultures, I/O, labs, Sats., CXRs, etc. OOB to chair as sowmya. Will follow.
--- NOTE | 2017-11-06 08:38 | RAD ---
HISTORY: Shortness of breath COMPARISON: 11/05/2017. FINDINGS: LUNGS: The lungs are well inflated. There is interval improved aeration in the right upper lobe. There is persistent moderate pulmonary venous congestion. PLEURA: Small left pleural effusion, no pneumothorax apparent. CARDIOVASCULAR: Again seen is severe cardiomegaly and prominent central vasculature. OSSEOUS STRUCTURES: No significant abnormalities. VISUALIZED UPPER ABDOMEN: Normal. OTHER FINDINGS: None. IMPRESSION: Improving presumable right upper lobe pulmonary edema/consolidation. No other significant interval change.
[2017-11-06] MEDS ORDERED: MethylPREDNISolone 40 mg Vial IVP SCH (09:42)
--- NOTE | 2017-11-06 11:28 | CP.PCM.CON ---
History of Present Illness - History of Present Illness History of Present Illness: Palliative consult requested by Dr Franci Estevez Reason: Goals of care 86 year old male with history of A Fib, COPD,CHF, COPD who presented on 11/03/17 with shortness of breath and three episodes of hemoptysis in 24 hours. The patient takes Coumadin daily. He denied chest pain, diarrhea, abdominal pain, nausea, vomiting. CT scan showed dense consolidation in RU lobe of lung. Initial labs > leukocytosis, anemia, C reactive protein 240.60, troponin 0.01, INR 7.86, PT 93.5,APTT 53.7. Echo done 11/03/17 LV normal, EF 50%,flattened septum, RV moderate dilatation, moderate aortic/mitral regurgitation, severe tricuspid regurgitation, severe pulmonary hypertension. Vital Signs: T 98.0, BP 120/70, P 78, R 28, o2 sat 82 % PMHx; CAD s/p LAD stents, CHF, COPD, esophageal varices,GI bleed, Hep C, HTN, BPH Social History: Former heavy smoker 25 pk year, denies alcohol or illicit drug use. Family Hsiotry: Non contributory Review of Systems: As per HPI, hemoptysis resolved. 12 point review otherwise negative Past Patient History - Infectious Disease Hx of Infectious Diseases: None - Tetanus Immunizations Tetanus Immunization: Unknown - Past Social History Smoking Status: Former Smoker - CARDIAC Hx Cardiac Disorders: Yes (afib (on Coumadin), DE) Hx Congestive Heart Failure: Yes Hx Hypertension: Yes - PULMONARY Hx Chronic Obstructive Pulmonary Disease (COPD): Yes (on 4L O2 at home) - NEUROLOGICAL Other/Comment: Tremors - HEENT Hx HEENT Problems: No - RENAL Hx Chronic Kidney Disease: No - ENDOCRINE/METABOLIC Hx Endocrine Disorders: No - HEMATOLOGICAL/ONCOLOGICAL Hx Hepatitis C: Yes - INTEGUMENTARY Hx Dermatological Problems: No - MUSCULOSKELETAL/RHEUMATOLOGICAL Hx Falls: No - GASTROINTESTINAL Hx Gastrointestinal Disorders: Yes (GI bleed, Liver disease) Hx Gastroesophageal Reflux: Yes Other/Comment: Esophageal tear - GENITOURINARY/GYNECOLOGICAL Hx Genitourinary Disorders: No - PSYCHIATRIC Hx Depression: Yes Hx Substance Use: No - SURGICAL HISTORY Hx Cardiac Catheterization: Yes Hx Coronary Stent: Yes Hx Joint Replacement: Yes (B/L hip replacement) Hx Musculoskeletal Surgery: Yes - ANESTHESIA Hx Anesthesia: No Hx Anesthesia Reactions: No Hx Malignant Hyperthermia: No Meds Allergies/Adverse Reactions: Allergies Allergy/AdvReac Type Severity Reaction Status Date / Time No Known Allergies Allergy Verified 05/20/17 13:09 - Medications Medications: Current Medications Acetylcysteine (Acetylcysteine 20%) 3 ml INH BID [facility] Last Admin: 11/06/17 07:55 Dose: 3 ml Albuterol/Ipratropium (Duoneb 3 Mg/0.5 Mg (3 Ml) Ud) 3 ml IH Q2H PRN PRN Reason: Shortness of Breath Last Admin: 11/03/17 08:09 Dose: 3 ml Albuterol/Ipratropium (Duoneb 3 Mg/0.5 Mg (3 Ml) Ud) 3 ml IH [id number] [facility] Last Admin: 11/06/17 07:55 Dose: 3 ml Aspirin (Aspirin Chewable) 81 mg PO DAILY [facility] Last Admin: 11/06/17 09:38 Dose: 81 mg Azithromycin (Zithromax) 500 mg PO DAILY [facility] PRN Reason: Protocol Last Admin: 11/06/17 09:39 Dose: 500 mg Benzonatate (Tessalon Perles) 100 mg PO TID [facility] Last Admin: 11/03/17 14:41 Dose: 100 mg Furosemide (Lasix) 40 mg IVP Q12 [facility] Last Admin: 11/04/17 09:42 Dose: 40 mg Heparin Sodium (Porcine) (Heparin) 5,000 units SC Q8 [facility] PRN Reason: Protocol Last Admin: 11/06/17 05:44 Dose: 5,000 units Meropenem (Merrem Iv 1 Gm Premix) 50 mls @ 100 mls/hr IVPB Q8 [facility] PRN Reason: Protocol Last Admin: 11/06/17 05:43 Dose: 100 mls/hr Milrinone Lactate/Dextrose (Primacor 20mg/100ml D5w) 100 mls @ 6.634 mls/hr IV .Q15H5M PRN; Protocol; 0.375 MCG/KG/MIN PRN Reason: TITRATE PER MD ORDER Last Admin: 11/06/17 03:56 Dose: 0.375 mcg/kg/min, 6.634 mls/hr Methylprednisolone (Solu-Medrol) 40 mg IVP Q8H [facility] Metoprolol Tartrate (Lopressor) 50 mg PO Q8 [facility] Last Admin: 11/06/17 05:42 Dose: 50 mg Pantoprazole Sodium (Protonix Ec Tab) 40 mg PO ACB [facility] Polyethylene Glycol (Miralax) 17 gm PO BID [facility] Last Admin: 11/03/17 09:51 Dose: 17 gm Sertraline HCl (Zoloft) 25 mg PO DAILY [facility] Last Admin: 11/03/17 09:51 Dose: 25 mg Vitamin A (Vitamin A&D) 1 applic TP Q8 PRN PRN Reason: dry skin Vitamin A (Vitamin A & D Oint Ud Foilpak) 1 ea TOP Q8H PRN PRN Reason: dry skin Physical Exam - Constitutional Appears: Cachectic, Chronically Ill - Head Exam Head Exam: NORMOCEPHALIC - Eye Exam Eye Exam: Normal appearance, PERRL - ENT Exam ENT Exam: Mucous Membranes Moist Additional comments: lips cyanotic - Neck Exam Neck exam: Positive for: Normal Inspection - Respiratory Exam Respiratory Exam: Accessory Muscle Use, Decreased Breath Sounds, Rales, Rhonchi Additional comments: on Bipap - Cardiovascular Exam Cardiovascular Exam: Irregular Rhythm, +S1, +S2 - GI/Abdominal Exam GI & Abdominal Exam: Normal Bowel Sounds, Soft Additional comments: no tenderness - Extremities Exam Extremities exam: Positive for: normal inspection, pedal pulses present - Back Exam Back exam: NORMAL INSPECTION - Neurological Exam Neurological exam: Alert - Skin Skin Exam: Dry, Pallor - Additional Findings Additional findings: Palliative performance scale rating 30 % Results - Vital Signs Recent Vital Signs: Last Vital Signs Temp 98.1 F 11/06/17 04:00 Pulse 78 11/06/17 10:50 Resp 28 H 11/06/17 09:40 BP 98/57 L 11/06/17 07:00 Pulse Ox 85 L 11/06/17 07:50 - Labs Result Diagrams: 11/06/17 06:28 11/06/17 05:30 Labs: Laboratory Results - last 24 hr 11/06/17 11/06/17 11/06/17 05:30 06:28 06:28 WBC 8.1 RBC 3.32 L Hgb 10.3 L Hct 31.4 L MCV 94.6 MCH 31.0 MCHC 32.8 RDW 14.8 H Plt Count 271 MPV 10.1 Gran % 83.9 H Lymph % (Auto) 11.6 L [place] % (Auto) 4.4 Eos % (Auto) 0.1 L Baso % (Auto) 0.0 Gran # 6.81 H Lymph # (Auto) 0.9 L [place] # (Auto) 0.4 Eos # (Auto) 0.0 Baso # (Auto) 0.00 PT 21.2 H INR 1.82 H pCO2 pO2 HCO3 ABG pH ABG Total CO2 ABG O2 Saturation ABG O2 Content ABG Base Excess ABG Hemoglobin ABG Carboxyhemoglobin POC ABG HHb (Measured) ABG Methemoglobin ABG O2 Capacity Hgb O2 Saturation FiO2 Sodium 143 Potassium 4.9 Chloride 106 Carbon Dioxide 27 Anion Gap 15 BUN 34 H Creatinine 0.6 L Est GFR ( Amer) > 60 Est GFR (Non-Af Amer) > 60 Random Glucose 109 Calcium 8.6 Total Bilirubin 0.9 AST 48 ALT 40 Alkaline Phosphatase 73 Total Protein 6.8 Albumin 3.2 Globulin 3.6 Albumin/Globulin Ratio 0.9 L 11/06/ 06:50 WBC RBC Hgb Hct MCV MCH MCHC RDW Plt Count MPV Gran % Lymph % (Auto) [place] % (Auto) Eos % (Auto) Baso % (Auto) Gran # Lymph # (Auto) [place] # (Auto) Eos # (Auto) Baso # (Auto) PT INR pCO2 33 L pO2 65.0 L HCO3 22.9 ABG pH 7.45 ABG Total CO2 23.9 ABG O2 Saturation 96.0 ABG O2 Content 13.9 L ABG Base Excess -0.7 ABG Hemoglobin 10.5 L ABG Carboxyhemoglobin 1.6 H POC ABG HHb (Measured) 3.9 ABG Methemoglobin 0.8 ABG O2 Capacity 14.5 L Hgb O2 Saturation 93.6 L FiO2 80.0 Sodium Potassium Chloride Carbon Dioxide Anion Gap BUN Creatinine Est GFR ( Amer) Est GFR (Non-Af Amer) Random Glucose Calcium Total Bilirubin AST ALT Alkaline Phosphatase Total Protein Albumin Globulin Albumin/Globulin Ratio Assessment & Plan - Assessment and Plan (Free Text) Assessment: 86 year old male with history of COD, A Fib who is admitted with sepsis, RUL pneumonia, respiratory insufficiency, severe pulmonary hypertension Met with patients son Shyam.Son and I discussed patients medical situation and prognosis. Son aware that his father is quite ill. Resuscitation status also discussed. Son states that his father has been DNR/DNI in the past but that this time he wanted to be full code. Son states that he prefers him to be DNR/ DNI but will not go against his father wishes. Son indicated that there is no dedicated healthcare POA and that family will collectively make decisions when father is unable to do so. I later met with the patient, two sons at bedside. Lengthy discussion with patient regarding medical issues, particularly right sided heart failure and severe pulmonary hypertension. Ramifications of CPR/intubation in patients with these medical conditions explained in detail. Questions answered. Patient states that he wants to think about or conversation and discuss with his children before changing decision regarding DNR/DNI. Time spent with patient and family regarding gaols of care and advance care planning, 60 minutes Plan: Goals of care and advance care planning Hemoptysis resolved, monitor INR Pulmonary:Monitor chest x ray daily, ABG's, Solumedrol, nebulizers, on Bipap, desat with high flow O2, continue antibiotics for pneumonia Cardio: On Milrinone IV, as per cardiology can wean, Lasix, Lopressor
[2017-11-06] MEDS: MethylPREDNISolone 40 mg Vial IVP SCH ×2 (13:01→18:33)
--- NOTE | 2017-11-06 23:28 | PN ---
DATE: 11/06/2017 SUBJECTIVE: Patient is in bed, in no acute distress, was seen earlier this morning in room 129, bed 7, in the ICU. PHYSICAL EXAMINATION: VITAL SIGNS: Temperature is 97, blood pressure is 119/80, respiratory rate of 18. HEENT: Unremarkable. NECK: Supple. LUNGS: Have decreased breath sounds. HEART: Normal S1, S2. ABDOMEN: Soft. LABORATORY DATA: Reveals a white count of 8.1, hemoglobin of 10. Chemistries reveal a BUN of 34, creatinine of 0.6. Procalcitonin reveals to be less than 0.05. Urinalysis is noted. Serology is negative. Microbiology: Cultures are negative. Nares MRSA is negative. Urine cultures are negative. Sputum cultures are pending. Review of orders reveals the patient to be on meropenem, azithromycin. Nayeli Black's consultation is reviewed. Dr. Mitchell Erickson's progress note is reviewed. ASSESSMENT AND PLAN: This is an 86 years old with severe sepsis with acute hypoxic respiratory failure due to a right upper lobe severe community-acquired pneumonia, must rule out malignancy on top of severe pulmonary hypertension associated with hemoptysis, on coagulopathy, top of acute congestive heart failure with severe right-sided heart failure, coronary artery disease, status post percutaneous coronary angioplasty, history of gastrointestinal bleed, history of sepsis, on meropenem, Zithromax, day number 4 with complete 4 to 7 days of antibiotics. Patient's procalcitonin is 0.05 bacterial pneumonia. We will check on the sputum culture. Shyam Kline MD
[2017-11-07] MEDS: Albuterol-Ipratrop 3 mg / 0.5 (3 ml) UD IH SCH ×4 (01:40→20:00)
--- NOTE | 2017-11-07 03:50 | PN ---
DATE: 11/06/2017 PULMONARY CRITICAL CARE PROGRESS NOTE REFERRING PHYSICIAN: Dr. Estevze. SUBJECTIVE: He is lying in the bed. Gets short of breath with minimal exertion, on noninvasive ventilation. Overnight events noted. Still has a cough, sputum production, hemoptysis. No hematemesis, no hematuria, no diarrhea reported. Still on Primacor drip. OBJECTIVE: GENERAL: [id number] distress. VITAL SIGNS: Temperature is 98, heart is 91, respiratory rate 18, blood pressure 107/64, pulse ox 94% on noninvasive ventilation. HEENT: Moist mucous membrane. Crowded airway. NECK: Supple. No JVD. LUNGS: Have scattered rhonchi and crackles. HEART: S1 and S2. ABDOMEN: Soft, nontender, no organomegaly. EXTREMITIES: No edema. NEUROLOGIC: Awake and alert, follows simple command. MEDICATIONS: He is on Mucomyst 20% inhaled twice a day, aspirin 81 mg daily, DuoNeb every 2 hour p.r.n. and every 6 hour [id number], heparin 5000 units subcu every 8 hour, Lasix 40 mg twice a day, metoprolol tartrate 50 mg every 8 hour, meropenem 1 g IV every 8 hour, MiraLax 17 g twice a day, Primacor IV drip, Protonix 40 mg daily, Solu-Medrol 40 mg every 8 hour, Tessalon Perles 100 mg three times a day, vitamin A and D ointment to affected area, Zithromax 500 mg daily, Zoloft 25 mg daily. LABORATORY DATA: Shows hemoglobin 10.3, hematocrit 31.4, WBC 8.1, platelet is 271. INR 1.82. ABG shows pH 7.45, pCO2 of 33, O2 of 65, this is on 80% oxygen on noninvasive ventilation. Sodium 143, potassium 4.9, chloride 106, bicarbonate is 27, BUN 34, creatinine 0.6, glucose is 109, calcium is 8.6. Total bili 0.9, AST 48, ALT 40, alk phos is 73. Albumin is 3.2. Chest x-ray shows improving presumed right upper lobe pulmonary edema/consolidation or mucus plugging. IMPRESSION AND PLAN: Severe pulmonary hypertension, right upper lobe atelectasis with probably mucous plugging. Case discussed with the family at bedside. All the questions answered. May continue BiPAP while sleeping. Try to use high-flow oxygen while awake. Continue beta-amrita. Do not discontinue Primacor except there is any cardiac arrhythmia. As long as he can tolerate, please continue Primacor helping the right heart because he has severe right heart failure. Overall, poor prognosis. Continue steroids, inhaled bronchodilator, gastric prophylaxis, anticoagulation. Follow up arterial blood gas, chest x-ray, CBC, and CMP in the morning. Critical care time, more than 35 minutes. Thank you and we will follow with you. Smooth Roche MD
[2017-11-07] MEDS: MethylPREDNISolone 40 mg Vial IVP SCH ×3 (03:52→18:55)
[2017-11-07] MEDS: Milrinone 20mg/100ml D5W 100 ML IV PRN ×2 (05:01→20:32)
[2017-11-07] MEDS: Meropenem IV 1 gm in NS 50 ML IVPB SCH ×3 (05:13→22:00)
[2017-11-07 06:17] LABS: ARTERIAL BLOOD GAS HCO3 23.8 mmol/L (21-28); ARTERIAL BLOOD GAS O2 CAPACITY 13.6 mL/dl (16-24); ARTERIAL BLOOD GAS O2 CONTENT 13.2 ML/dl (15-23); ARTERIAL BLOOD GAS O2 SAT 97.1 % (95-98); ARTERIAL BLOOD GAS PCO2 32 mm/Hg (35-45); ARTERIAL BLOOD GAS PH 7.48 (7.35-7.45); ARTERIAL BLOOD GAS TCO2 24.8 mmol.L (22-28)
[2017-11-07 07:06] LABS: ALBUMIN 3.3 g/dL (3.0-4.8); ALT/SGPT 37 U/L (7-56); AST/SGOT 54 U/L (17-59); BLOOD UREA NITROGEN 32 mg/dL (7-21); CALCIUM 8.6 mg/dL (8.4-10.5); GFR AFRICAN-AMERICAN > 60; GFR NON-AFRICAN AMERICAN > 60
[2017-11-07 07:16] LABS: INR 2.16 (0.93-1.08); PROTHROMBIN TIME 25.2 SECONDS (9.4-12.5)
[2017-11-07 07:22] LABS: BASO # 0.01 K/mm3 (0.0-2.0); BASO % 0.1 % (0.0-3.0); EOS % 0.4 % (1.5-5.0); GRAN # 6.21 (1.4-6.5); GRAN % 81.2 % (50.0-68.0); HEMOGLOBIN 10.9 g/dL (14.0-18.0); LYMPH % 12.4 % (22.0-35.0); MEAN CELL VOLUME 94.7 fl (80.0-105.0); MEAN CORPUSCULAR HEMOGLOBIN 32.1 pg (25.0-35.0); MEAN CORPUSCULAR HGB CONC 33.9 g/dl (31.0-37.0); MEAN PLATELET VOLUME 10.3 fl (7.0-11.0); MONO # 0.5 (0.1-0.6); MONO % 5.9 % (1.0-6.0); RBC 3.4 10^6/uL (3.5-6.1); RED CELL DISTRIBUTION WIDTH 14.9 % (11.5-14.5); WHITE BLOOD COUNT 7.7 10^3/ul (4.5-11.0)
--- NOTE | 2017-11-07 07:44 | CP.CCUPN ---
Addendum entered and electronically signed by Richa Fried DO 11/07/17 10:26 : Re-consult swallow oliverio. RN noted choking while feeding Original Note: <Richa Fried - Last Filed: 11/07/17 10:11> CCU Subjective - Physician Review Subjective (Free Text): 11/04/17 08:17 Stop milrinon gtt u/o 1900 on lasix still npo 11/04/17 10:45 Back on milrinont gtt for RHF start diet EKG: A fib rvr at 101. ST depression more pronounce V2,3,4 but asymptpmatic 11/04/17 14:55 soft diet with thin liquid Hypoxemia PaO2 44 on 92% Back on bipap 11/05/17 11:09 try on high flow now, per Dr. Erickson. O2 around high 80s, low 90s Most likely will be back on bipap in afternoon 11/06/17 07:53 Back on bipap at night tolerated well. Switch to percussion bed to promote cough. pt tolerated well No N/V, CHAVEZ, CP, f/c 11/07/17 07:41 Yesterday OOB but deSat to 70s. Back to bed and Bipap No acute event overnight Palliative team on board Daughter is June RIOS [phone] Pt is competent. Per Palliative, code status is a family decision CCU Objective - Vital Signs / Intake & Output Vital Signs (Last 4 hours): Vital Signs Temp Pulse Resp BP Pulse Ox 11/07/17 06:00 98 H 11/07/17 05:10 80 122/62 11/07/17 05:01 82 122/62 11/07/17 04:00 98.7 F 90 34 H 105/44 L 96 Intake and Output (Last 8hrs): Intake & Output 11/06/17 11/07/17 11/07/17 22:59 06:59 14:59 Intake Total 980 100 Output Total 250 Balance 730 100 Weight 171 lb 12.8 oz Intake: IV 620 100 Right Wrist 450 primacor 70 Oral 360 Output: Urine 250 Urethral (Tai) 250 Other: # Bowel Movements 0 - Physical Exam Head: Positive for: Atraumatic, Normocephalic. Negative for: Tenderness, Contusion, Swelling, Ecchymosis, Abrasion, Laceration Pupils: Negative for: Pinpoint Extroacular Muscles: Positive for: EOMI Conjunctiva: Positive for: Normal. Negative for: Injected, Icteric Mouth: Positive for: Dry, Normal Lips, Normal Tounge, Normal Teeth. Negative for: Drooling Nose (External): Positive for: Atraumatic. Negative for: Abrasion, Laceration Nose (Internal): Positive for: No Active Bleeding. Negative for: Epistaxis Neck: Positive for: Normal Range of Motion, Trachea Midline. Negative for: MIDLINE TENDERNESS, JVD Respiratory/Chest: Positive for: Respiratory Distress, Accessory Muscle Use, Decreased Breath Sounds (moderately decreased breath sounds all milligan), Rhonchi (loud ronchi in all milligan, improved), Tachypneic. Negative for: Clear to Auscultation, Good Air Exchange, Wheezes, Rales, Tender to Palpation Cardiovascular: Positive for: Normal S1, S2, Irregular Rhythm, Peripheal Pulses Present (+1 radials, unable to palpate dorsalis pedis bilaterally), Tachycardic. Negative for: Regular Rate and Rhythm, Murmurs, Bradycardic Abdomen: Positive for: Normal Bowel Sounds. Negative for: Tenderness, Distention, Guarding Upper Extremity: Positive for: Normal Inspection, Normal ROM, NORMAL PULSES. Negative for: Cyanosis, Edema, Tenderness, Swelling, Erythema, Deformity Lower Extremity: Positive for: Edema (+1 pitting edema from mid nur to 1-2 cm above ankles), NORMAL PULSES, Normal ROM. Negative for: Normal Inspection, CALF TENDERNESS, Cyanosis, Tenderness, Erythema, Deformity Neurological: Positive for: GCS=15, Motor Func Grossly Intact Skin: Positive for: Warm, Dry, Pale. Negative for: Rashes Lymphatic: Negative for: Cervical Adenopathy Psychiatric: Positive for: Alert, Oriented x 3, Normal Insight, Normal Concentration, Normal Affect, Normal Mood - Medications Active Medications: Active Medications Generic Name Dose Route Start Last Admin Trade Name Freq PRN Reason Stop Dose Admin Acetylcysteine 3 ml 11/03/17 18:45 11/06/17 19:38 Acetylcysteine 20% INH 3 ml BID ANA LAURA Administration Albuterol/Ipratropium 3 ml 11/03/17 05:50 11/03/17 08:09 Duoneb 3 Mg/0.5 Mg (3 Ml) Ud IH 3 ml Q2H PRN Administration Shortness of Breath Albuterol/Ipratropium 3 ml 11/03/17 14:00 11/06/17 19:32 Duoneb 3 Mg/0.5 Mg (3 Ml) Ud IH 3 ml [id number] ANA LAURA Administration Aspirin 81 mg 11/03/17 10:00 11/06/17 09:38 Aspirin Chewable PO 81 mg DAILY ANA LAURA Administration Azithromycin 500 mg 11/05/17 10:00 11/06/17 09:39 Zithromax PO 500 mg DAILY ANA LAURA Administration Protocol Benzonatate 100 mg 11/03/17 10:00 11/03/17 14:41 Tessalon Perles PO 100 mg TID ANA LAURA Administration Furosemide 40 mg 11/03/17 22:00 11/04/17 09:42 Lasix IVP 40 mg Q12 ANA LAURA Administration Heparin Sodium (Porcine) 5,000 units 11/04/17 09:15 11/07/17 05:11 Heparin SC 5,000 units Q8 ANA LAURA Administration Protocol Meropenem 50 mls @ 100 mls/hr 11/03/17 07:45 11/07/17 05:13 Merrem Iv 1 Gm Premix IVPB 100 mls/hr Q8 ANA LAURA Administration Protocol Milrinone Lactate/Dextrose 100 mls @ 6.634 mls/hr 11/04/17 09:59 11/07/17 05: 01 Primacor 20mg/100ml D5w IV 0.375 mcg/kg/min .Q15H5M PRN 6.634 mls/hr TITRATE PER MD ORDER Administration Protocol 0.375 MCG/KG/MIN Methylprednisolone 40 mg 11/06/17 11:00 11/07/17 03:52 Solu-Medrol IVP 40 mg Q8H ANA LAURA Administration Metoprolol Tartrate 50 mg 11/05/17 22:00 11/07/17 05:10 Lopressor PO 50 mg Q8 ANA LAURA Administration Pantoprazole Sodium 40 mg 11/07/17 07:30 Protonix Ec Tab PO ACB ANA LAURA Polyethylene Glycol 17 gm 11/03/17 10:00 11/03/17 09:51 Miralax PO 17 gm BID ANA LAURA Administration Sertraline HCl 25 mg 11/03/17 10:00 11/03/17 09:51 Zoloft PO 25 mg DAILY ANA LAURA Administration Vitamin A 1 applic 11/04/17 13:38 Vitamin A&D TP Q8 PRN dry skin Vitamin A 1 ea 11/04/17 13:55 Vitamin A & D Oint Ud Foilpak TOP Q8H PRN dry skin - Patient Studies Lab Studies: Microbiology Studies 11/05/17 23:01 Gram Stain - Final Sputum Lab Studies 11/07/17 11/07/17 11/07/17 Range/Units 06:00 06:00 06:00 WBC 7.7 (4.5-11.0) 10^3/ul RBC 3.40 L (3.5-6.1) 10^6/uL Hgb 10.9 L (14.0-18.0) g/dL Hct 32.2 L (42.0-52.0) % MCV 94.7 (80.0-105.0) fl MCH 32.1 (25.0-35.0) pg MCHC 33.9 (31.0-37.0) g/dl RDW 14.9 H (11.5-14.5) % Plt Count 265 (120.0-450.0) 10^3/uL MPV 10.3 (7.0-11.0) fl Gran % 81.2 H (50.0-68.0) % Lymph % (Auto) 12.4 L (22.0-35.0) % [place] % (Auto) 5.9 (1.0-6.0) % Eos % (Auto) 0.4 L (1.5-5.0) % Baso % (Auto) 0.1 (0.0-3.0) % Gran # 6.21 (1.4-6.5) Lymph # (Auto) 1.0 L (1.2-3.4) [place] # (Auto) 0.5 (0.1-0.6) Eos # (Auto) 0.0 (0.0-0.7) Baso # (Auto) 0.01 (0.0-2.0) K/mm3 PT 25.2 H (9.4-12.5) SECONDS INR 2.16 H (0.93-1.08) pCO2 (35-45) mm/Hg pO2 (80-100) mm/Hg HCO3 (21-28) mmol/L ABG pH (7.35-7.45) ABG Total CO2 (22-28) mmol.L ABG O2 Saturation (95-98) % ABG O2 Content (15-23) ML/dl ABG Base Excess (-2.0-3.0) mmol/L ABG Hemoglobin (11.7-17.4) g/dL ABG Carboxyhemoglobin (0.5-1.5) % POC ABG HHb (Measured) (0-5) % ABG Methemoglobin (0.0-3.0) % ABG O2 Capacity (16-24) mL/dl Hgb O2 Saturation (95.0-98.0) % FiO2 % Sodium 145 (132-148) mmol/L Potassium 4.4 (3.6-5.0) mmol/L Chloride 107 (98-107) mmol/L Carbon Dioxide 26 (21-33) mmol/L Anion Gap 16 (10-20) BUN 32 H (7-21) mg/dL Creatinine 0.5 L (0.8-1.5) mg/dl Est GFR ( Amer) > 60 Est GFR (Non-Af Amer) > 60 Random Glucose 100 (70-110) mg/dL Calcium 8.6 (8.4-10.5) mg/dL Phosphorus 3.2 (2.5-4.5) mg/dL Magnesium 2.6 H (1.7-2.2) mg/dL Total Bilirubin 1.0 (0.2-1.3) mg/dL AST 54 (17-59) U/L ALT 37 (7-56) U/L Alkaline Phosphatase 76 (38-126) U/L Total Protein 6.8 (5.8-8.3) g/dL Albumin 3.3 (3.0-4.8) g/dL Globulin 3.5 gm/dL Albumin/Globulin Ratio 1.0 L (1.1-1.8) Ur Strep pneumoniae Ag 11/07/17 11/03/17 Range/Units 05:45 15:05 WBC (4.5-11.0) 10^3/ul RBC (3.5-6.1) 10^6/uL Hgb (14.0-18.0) g/dL Hct (42.0-52.0) % MCV (80.0-105.0) fl MCH (25.0-35.0) pg MCHC (31.0-37.0) g/dl RDW (11.5-14.5) % Plt Count (120.0-450.0) 10^3/uL MPV (7.0-11.0) fl Gran % (50.0-68.0) % Lymph % (Auto) (22.0-35.0) % [place] % (Auto) (1.0-6.0) % Eos % (Auto) (1.5-5.0) % Baso % (Auto) (0.0-3.0) % Gran # (1.4-6.5) Lymph # (Auto) (1.2-3.4) [place] # (Auto) (0.1-0.6) Eos # (Auto) (0.0-0.7) Baso # (Auto) (0.0-2.0) K/mm3 PT (9.4-12.5) SECONDS INR (0.93-1.08) pCO2 32 L (35-45) mm/Hg pO2 70.0 L (80-100) mm/Hg HCO3 23.8 (21-28) mmol/L ABG pH 7.48 H (7.35-7.45) ABG Total CO2 24.8 (22-28) mmol.L ABG O2 Saturation 97.1 (95-98) % ABG O2 Content 13.2 L (15-23) ML/dl ABG Base Excess 0.7 (-2.0-3.0) mmol/L ABG Hemoglobin 10.0 L (11.7-17.4) g/dL ABG Carboxyhemoglobin 2.2 H (0.5-1.5) % POC ABG HHb (Measured) 2.8 (0-5) % ABG Methemoglobin 1.6 (0.0-3.0) % ABG O2 Capacity 13.6 L (16-24) mL/dl Hgb O2 Saturation 93.5 L (95.0-98.0) % FiO2 80.0 % Sodium (132-148) mmol/L Potassium (3.6-5.0) mmol/L Chloride (98-107) mmol/L Carbon Dioxide (21-33) mmol/L Anion Gap (10-20) BUN (7-21) mg/dL Creatinine (0.8-1.5) mg/dl Est GFR ( Amer) Est GFR (Non-Af Amer) Random Glucose (70-110) mg/dL Calcium (8.4-10.5) mg/dL Phosphorus (2.5-4.5) mg/dL Magnesium (1.7-2.2) mg/dL Total Bilirubin (0.2-1.3) mg/dL AST (17-59) U/L ALT (7-56) U/L Alkaline Phosphatase (38-126) U/L Total Protein (5.8-8.3) g/dL Albumin (3.0-4.8) g/dL Globulin gm/dL Albumin/Globulin Ratio (1.1-1.8) Ur Strep pneumoniae Ag Not detected Laboratory Results - last 24 hr 11/03/17 11/07/17 11/07/17 15:05 05:45 06:00 WBC RBC Hgb Hct MCV MCH MCHC RDW Plt Count MPV Gran % Lymph % (Auto) [place] % (Auto) Eos % (Auto) Baso % (Auto) Gran # Lymph # (Auto) [place] # (Auto) Eos # (Auto) Baso # (Auto) PT 25.2 H INR 2.16 H pCO2 32 L pO2 70.0 L HCO3 23.8 ABG pH 7.48 H ABG Total CO2 24.8 ABG O2 Saturation 97.1 ABG O2 Content 13.2 L ABG Base Excess 0.7 ABG Hemoglobin 10.0 L ABG Carboxyhemoglobin 2.2 H POC ABG HHb (Measured) 2.8 ABG Methemoglobin 1.6 ABG O2 Capacity 13.6 L Hgb O2 Saturation 93.5 L FiO2 80.0 Sodium Potassium Chloride Carbon Dioxide Anion Gap BUN Creatinine Est GFR ( Amer) Est GFR (Non-Af Amer) Random Glucose Calcium Phosphorus Magnesium Total Bilirubin AST ALT Alkaline Phosphatase Total Protein Albumin Globulin Albumin/Globulin Ratio Ur Strep pneumoniae Ag Not detected 11/07/17 11/07/17 06:00 06:00 WBC 7.7 RBC 3.40 L Hgb 10.9 L Hct 32.2 L MCV 94.7 MCH 32.1 MCHC 33.9 RDW 14.9 H Plt Count 265 MPV 10.3 Gran % 81.2 H Lymph % (Auto) 12.4 L [place] % (Auto) 5.9 Eos % (Auto) 0.4 L Baso % (Auto) 0.1 Gran # 6.21 Lymph # (Auto) 1.0 L [place] # (Auto) 0.5 Eos # (Auto) 0.0 Baso # (Auto) 0.01 PT INR pCO2 pO2 HCO3 ABG pH ABG Total CO2 ABG O2 Saturation ABG O2 Content ABG Base Excess ABG Hemoglobin ABG Carboxyhemoglobin POC ABG HHb (Measured) ABG Methemoglobin ABG O2 Capacity Hgb O2 Saturation FiO2 Sodium 145 Potassium 4.4 Chloride 107 Carbon Dioxide 26 Anion Gap 16 BUN 32 H Creatinine 0.5 L Est GFR ( Amer) > 60 Est GFR (Non-Af Amer) > 60 Random Glucose 100 Calcium 8.6 Phosphorus 3.2 Magnesium 2.6 H Total Bilirubin 1.0 AST 54 ALT 37 Alkaline Phosphatase 76 Total Protein 6.8 Albumin 3.3 Globulin 3.5 Albumin/Globulin Ratio 1.0 L Ur Strep pneumoniae Ag Critical Care Progress Note - Nutrition Nutrition: Nutrition Category Date Time Status Heart Healthy Diet [DIET] Diets 11/04/17 Lunch Active Assessment/Plan - Assessment and Plan (Free Text) Plan: Mr Bernard Hooks, 86 M, with PMH of atrial fibrillation on coumadin, CHF, COPD on 4 litters of home oxygen, CAD s/p LAD stent, hx UGIB 2/2 esophageal varices, Hep C (treated in the 80s), HTN, depression, BPH and tremors who presents with complaint of hemoptysis found to have right upper lobe pneumonia, had transient episode of hypotension which has since resolved. Patient is being admitted to icu for transient episode of hypotension and hypoxemia. He is on milrinone gtt for cor pulmonale. Dr Simental has restarted pt on Coumadin. His GI bleed was more than 30 years ago but he uses walker at home. Dr Simental wants pt off milrinone gtt, now he is on 0.3. However, Dr Roche said his cor pulmonale has pressure of RVSP 90, not feeling comfortable to take milrinone off. A: hemoptysis probably from supratherapeutic from Coumadin - resolved. Acute hypoxic respiratory failure due to sepsis, CAP/muscus plug, and Cor Pulmonale due to pulmonary hypertension Severe sepsis likely from right upper lobe community-acquired pneumonia; Doubt TB per ID Acute CHF, systolic, on chronic; RHF on milrinon gtt Pulmonary hypertension, RVSP 90 Hx COPD on 4L home; CAD S/P PCI; GERD history of GI bleed history of hepatitis C A fib RVR on metoprolol, coumadin Neuro: stable at baseline. Maintain nomothermia Pulm: ProBNP 33052 (11/03) --> 73719 (11/04) CT chest (11/03): Negative for PE. Patchy R upper lobe infiltrate, cannot exclude mass, post-obstructive vs PNA CXR: RUL pna. slightly better High flow 50/100 in day PRN Bipap 10/6/R14/80% at night & PRN Acetysytein BID; Duoneb Q6 ANA LAURA, Q2 PRN zithromax, merem; Increase solumedrol to 40q8 Encourage coughing; Flutter valve; chest percussion q4 h while awake; HOB 30; aggressive pulmonary toileting Not candidate for Revatio due to BP monitor closely for intubation Cardio: trops < 0.01 ASA, lopressor 50 bid, milrinone gtt 0.3 H/O CHF with elevated pro bnp- will hold of Lasix ----He is dry Holding bp meds due to hypotension warfarin 2.5 tonight GI: Postop stomach thickening (post op vs poss gastric carcinoma) Dr Louis suggested endoscopy No active signs of Gi bleeding noted Hold miralax. protonx 40 IVP : i/o 1080/250 Oliguric, monitor and maintain h/o bph: holding meds due to hypotensive episode. ID: Merrem and Zithromax (day 5) PCT < 0.05 Blooc Cx neg x 3d; D/C vanco Leginella negative; Strep Ag neg UCx neg Endo: Maintain sugar 140-10 Heme: H/H stable. No more hemoptysis. Started warfarin. Goal INR 2-3. D/C heparin SC Psych: h/o depression and tremors: holding primidone due to dyspnea, Hold remeron and zoloft. Prophylaxis: Coumadin, protonix IV Dispo: try not to intubate because it will worsen RHF, still on milrinon gtt; Palliative consult: High flow AM/Bipap PM. L tach eval. Palliative on board Consult: Sabina Santos (PNA). Hola (CHF), Kaley (PNA) s/r/d/w Dr. Erickson <Mitchell Erickson - Last Filed: 11/07/17 11:00> CCU Objective - Vital Signs / Intake & Output Vital Signs (Last 4 hours): Vital Signs Temp Pulse Resp BP Pulse Ox 11/07/17 10:00 92 H 123/68 84 L 11/07/17 09:00 83 24 102/69 96 11/07/17 08:10 87 11/07/17 08:00 97.5 F L 74 23 103/64 94 L 11/07/17 07:10 106/40 L 11/07/17 07:09 85 24 11/07/17 07:00 80 37 H Intake and Output (Last 8hrs): Intake & Output 11/06/17 11/07/17 11/07/17 22:59 06:59 14:59 Intake Total 980 100 Output Total 250 Balance 730 100 Weight 171 lb 12.8 oz Intake: IV 620 100 Right Wrist 450 primacor 70 Oral 360 Output: Urine 250 Urethral (Tai) 250 Other: # Bowel Movements 0 - Medications Active Medications: Active Medications Generic Name Dose Route Start Last Admin Trade Name Freq PRN Reason Stop Dose Admin Acetylcysteine 3 ml 11/03/17 18:45 11/07/17 08:09 Acetylcysteine 20% INH 3 ml BID ANA LAURA Administration Albuterol/Ipratropium 3 ml 11/03/17 05:50 11/03/17 08:09 Duoneb 3 Mg/0.5 Mg (3 Ml) Ud IH 3 ml Q2H PRN Administration Shortness of Breath Albuterol/Ipratropium 3 ml 11/03/17 14:00 11/07/17 08:09 Duoneb 3 Mg/0.5 Mg (3 Ml) Ud IH 3 ml [id number] ANA LAURA Administration Aspirin 81 mg 11/03/17 10:00 11/07/17 10:10 Aspirin Chewable PO 81 mg DAILY ANA LAURA Administration Azithromycin 500 mg 11/05/17 10:00 11/07/17 10:09 Zithromax PO 500 mg DAILY ANA LAURA Administration Protocol Benzonatate 100 mg 11/03/17 10:00 11/03/17 14:41 Tessalon Perles PO 100 mg TID ANA LAURA Administration Furosemide 40 mg 11/03/17 22:00 11/04/17 09:42 Lasix IVP 40 mg Q12 ANA LAURA Administration Meropenem 50 mls @ 100 mls/hr 11/03/17 07:45 11/07/17 05:13 Merrem Iv 1 Gm Premix IVPB 100 mls/hr Q8 ANA LAURA Administration Protocol Milrinone Lactate/Dextrose 100 mls @ 6.634 mls/hr 11/04/17 09:59 11/07/17 05: 01 Primacor 20mg/100ml D5w IV 0.375 mcg/kg/min .Q15H5M PRN 6.634 mls/hr TITRATE PER MD ORDER Administration Protocol 0.375 MCG/KG/MIN Methylprednisolone 40 mg 11/06/17 11:00 11/07/17 03:52 Solu-Medrol IVP 40 mg Q8H ANA LAURA Administration Metoprolol Tartrate 50 mg 11/05/17 22:00 11/07/17 05:10 Lopressor PO 50 mg Q8 ANA LAURA Administration Pantoprazole Sodium 40 mg 11/07/17 07:30 11/07/17 07:57 Protonix Ec Tab PO 40 mg ACB ANA LAURA Administration Polyethylene Glycol 17 gm 11/03/17 10:00 11/03/17 09:51 Miralax PO 17 gm BID ANA LAURA Administration Sertraline HCl 25 mg 11/03/17 10:00 11/03/17 09:51 Zoloft PO 25 mg DAILY ANA LAURA Administration Vitamin A 1 applic 11/04/17 13:38 Vitamin A&D TP Q8 PRN dry skin Vitamin A 1 ea 11/04/17 13:55 Vitamin A & D Oint Ud Foilpak TOP Q8H PRN dry skin Warfarin Sodium 2.5 mg 11/07/17 18:00 Coumadin PO 1800 [facility] Protocol - Patient Studies Lab Studies: Microbiology Studies 11/05/17 23:01 Gram Stain - Final Sputum Sputum Culture - Final Yeast Species Lab Studies 11/07/17 11/07/17 11/07/17 Range/Units 06:00 06:00 06:00 WBC 7.7 (4.5-11.0) 10^3/ul RBC 3.40 L (3.5-6.1) 10^6/uL Hgb 10.9 L (14.0-18.0) g/dL Hct 32.2 L (42.0-52.0) % MCV 94.7 (80.0-105.0) fl MCH 32.1 (25.0-35.0) pg MCHC 33.9 (31.0-37.0) g/dl RDW 14.9 H (11.5-14.5) % Plt Count 265 (120.0-450.0) 10^3/uL MPV 10.3 (7.0-11.0) fl Gran % 81.2 H (50.0-68.0) % Lymph % (Auto) 12.4 L (22.0-35.0) % [place] % (Auto) 5.9 (1.0-6.0) % Eos % (Auto) 0.4 L (1.5-5.0) % Baso % (Auto) 0.1 (0.0-3.0) % Gran # 6.21 (1.4-6.5) Lymph # (Auto) 1.0 L (1.2-3.4) [place] # (Auto) 0.5 (0.1-0.6) Eos # (Auto) 0.0 (0.0-0.7) Baso # (Auto) 0.01 (0.0-2.0) K/mm3 PT 25.2 H (9.4-12.5) SECONDS INR 2.16 H (0.93-1.08) pCO2 (35-45) mm/Hg pO2 (80-100) mm/Hg HCO3 (21-28) mmol/L ABG pH (7.35-7.45) ABG Total CO2 (22-28) mmol.L ABG O2 Saturation (95-98) % ABG O2 Content (15-23) ML/dl ABG Base Excess (-2.0-3.0) mmol/L ABG Hemoglobin (11.7-17.4) g/dL ABG Carboxyhemoglobin (0.5-1.5) % POC ABG HHb (Measured) (0-5) % ABG Methemoglobin (0.0-3.0) % ABG O2 Capacity (16-24) mL/dl Hgb O2 Saturation (95.0-98.0) % FiO2 % Sodium 145 (132-148) mmol/L Potassium 4.4 (3.6-5.0) mmol/L Chloride 107 (98-107) mmol/L Carbon Dioxide 26 (21-33) mmol/L Anion Gap 16 (10-20) BUN 32 H (7-21) mg/dL Creatinine 0.5 L (0.8-1.5) mg/dl Est GFR ( Amer) > 60 Est GFR (Non-Af Amer) > 60 Random Glucose 100 (70-110) mg/dL Calcium 8.6 (8.4-10.5) mg/dL Phosphorus 3.2 (2.5-4.5) mg/dL Magnesium 2.6 H (1.7-2.2) mg/dL Total Bilirubin 1.0 (0.2-1.3) mg/dL AST 54 (17-59) U/L ALT 37 (7-56) U/L Alkaline Phosphatase 76 (38-126) U/L Total Protein 6.8 (5.8-8.3) g/dL Albumin 3.3 (3.0-4.8) g/dL Globulin 3.5 gm/dL Albumin/Globulin Ratio 1.0 L (1.1-1.8) Ur Strep pneumoniae Ag 11/07/17 11/03/17 Range/Units 05:45 15:05 WBC (4.5-11.0) 10^3/ul RBC (3.5-6.1) 10^6/uL Hgb (14.0-18.0) g/dL Hct (42.0-52.0) % MCV (80.0-105.0) fl MCH (25.0-35.0) pg MCHC (31.0-37.0) g/dl RDW (11.5-14.5) % Plt Count (120.0-450.0) 10^3/uL MPV (7.0-11.0) fl Gran % (50.0-68.0) % Lymph % (Auto) (22.0-35.0) % [place] % (Auto) (1.0-6.0) % Eos % (Auto) (1.5-5.0) % Baso % (Auto) (0.0-3.0) % Gran # (1.4-6.5) Lymph # (Auto) (1.2-3.4) [place] # (Auto) (0.1-0.6) Eos # (Auto) (0.0-0.7) Baso # (Auto) (0.0-2.0) K/mm3 PT (9.4-12.5) SECONDS INR (0.93-1.08) pCO2 32 L (35-45) mm/Hg pO2 70.0 L (80-100) mm/Hg HCO3 23.8 (21-28) mmol/L ABG pH 7.48 H (7.35-7.45) ABG Total CO2 24.8 (22-28) mmol.L ABG O2 Saturation 97.1 (95-98) % ABG O2 Content 13.2 L (15-23) ML/dl ABG Base Excess 0.7 (-2.0-3.0) mmol/L ABG Hemoglobin 10.0 L (11.7-17.4) g/dL ABG Carboxyhemoglobin 2.2 H (0.5-1.5) % POC ABG HHb (Measured) 2.8 (0-5) % ABG Methemoglobin 1.6 (0.0-3.0) % ABG O2 Capacity 13.6 L (16-24) mL/dl Hgb O2 Saturation 93.5 L (95.0-98.0) % FiO2 80.0 % Sodium (132-148) mmol/L Potassium (3.6-5.0) mmol/L Chloride (98-107) mmol/L Carbon Dioxide (21-33) mmol/L Anion Gap (10-20) BUN (7-21) mg/dL Creatinine (0.8-1.5) mg/dl Est GFR ( Amer) Est GFR (Non-Af Amer) Random Glucose (70-110) mg/dL Calcium (8.4-10.5) mg/dL Phosphorus (2.5-4.5) mg/dL Magnesium (1.7-2.2) mg/dL Total Bilirubin (0.2-1.3) mg/dL AST (17-59) U/L ALT (7-56) U/L Alkaline Phosphatase (38-126) U/L Total Protein (5.8-8.3) g/dL Albumin (3.0-4.8) g/dL Globulin gm/dL Albumin/Globulin Ratio (1.1-1.8) Ur Strep pneumoniae Ag Not detected Laboratory Results - last 24 hr 11/03/17 11/07/17 11/07/17 15:05 05:45 06:00 WBC RBC Hgb Hct MCV MCH MCHC RDW Plt Count MPV Gran % Lymph % (Auto) [place] % (Auto) Eos % (Auto) Baso % (Auto) Gran # Lymph # (Auto) [place] # (Auto) Eos # (Auto) Baso # (Auto) PT 25.2 H INR 2.16 H pCO2 32 L pO2 70.0 L HCO3 23.8 ABG pH 7.48 H ABG Total CO2 24.8 ABG O2 Saturation 97.1 ABG O2 Content 13.2 L ABG Base Excess 0.7 ABG Hemoglobin 10.0 L ABG Carboxyhemoglobin 2.2 H POC ABG HHb (Measured) 2.8 ABG Methemoglobin 1.6 ABG O2 Capacity 13.6 L Hgb O2 Saturation 93.5 L FiO2 80.0 Sodium Potassium Chloride Carbon Dioxide Anion Gap BUN Creatinine Est GFR ( Amer) Est GFR (Non-Af Amer) Random Glucose Calcium Phosphorus Magnesium Total Bilirubin AST ALT Alkaline Phosphatase Total Protein Albumin Globulin Albumin/Globulin Ratio Ur Strep pneumoniae Ag Not detected 11/07/17 11/07/17 06:00 06:00 WBC 7.7 RBC 3.40 L Hgb 10.9 L Hct 32.2 L MCV 94.7 MCH 32.1 MCHC 33.9 RDW 14.9 H Plt Count 265 MPV 10.3 Gran % 81.2 H Lymph % (Auto) 12.4 L [place] % (Auto) 5.9 Eos % (Auto) 0.4 L Baso % (Auto) 0.1 Gran # 6.21 Lymph # (Auto) 1.0 L [place] # (Auto) 0.5 Eos # (Auto) 0.0 Baso # (Auto) 0.01 PT INR pCO2 pO2 HCO3 ABG pH ABG Total CO2 ABG O2 Saturation ABG O2 Content ABG Base Excess ABG Hemoglobin ABG Carboxyhemoglobin POC ABG HHb (Measured) ABG Methemoglobin ABG O2 Capacity Hgb O2 Saturation FiO2 Sodium 145 Potassium 4.4 Chloride 107 Carbon Dioxide 26 Anion Gap 16 BUN 32 H Creatinine 0.5 L Est GFR ( Amer) > 60 Est GFR (Non-Af Amer) > 60 Random Glucose 100 Calcium 8.6 Phosphorus 3.2 Magnesium 2.6 H Total Bilirubin 1.0 AST 54 ALT 37 Alkaline Phosphatase 76 Total Protein 6.8 Albumin 3.3 Globulin 3.5 Albumin/Globulin Ratio 1.0 L Ur Strep pneumoniae Ag Critical Care Progress Note - Nutrition Nutrition: Nutrition Category Date Time Status Heart Healthy Diet [DIET] Diets 11/04/17 Lunch Active Attending/Attestation - Attestation I have personally seen and examined this patient.: Yes I have fully participated in the care of the patient.: Yes I have reviewed all pertinent clinical information: Yes Notes (Text): 11/07/17 10:58 The patient was seen and examined at the bedside. Patient care was discussed with resident Medical records, lab studies were reviewed and management issues were discussed and formulated. Last 24H events reviewed. Agree with above treatment plans as outlined in 's note with addition of the following: Acute Respiratory Failure \ Hypoxemia \ COPD \ PNA \ Sepsis \ Afib \ CHF \ -hemodynamic monitoring to maintain MAP>65; continue milrinone for right heart failure -o2 supplementation and Bipap PRN to maintain Spo2 90-92 Pao2>60 -ABG and CXR reviewed ; high-flow humidified O2 canula as tolerated -continue nebs and steroids and aggressive pulmonary toileting -monitor closely for intubation -broad spectrum abx as per ID team; f\u cultures -f\u Bun\Cr and U\o; replace e-lites -PO diet and aspiration precautions -continue coumadin as per primary team and monitor INR and for bleeding -Pt \Ot eval f\u -DVT \ PUD prophylaxis -Palliation team eval appreciated CCM f\u 30min
[2017-11-07] MEDS: Pantoprazole 40 mg EC Tab PO SCH (07:57)
[2017-11-07] MEDS: Acetylcysteine 20% Inhal Soln (4ml) INH SCH ×2 (08:09→20:00)
--- NOTE | 2017-11-07 08:15 | RAD ---
HISTORY: SOB COMPARISON: Portable chest 11/06/2017. FINDINGS: LUNGS: Patient is now rotated toward the right. Increased reticular markings are reiterated bilaterally with dense infiltrate/mass again seen at the medial right upper lobe. PLEURA: No significant pleural effusion identified, no pneumothorax apparent. CARDIOVASCULAR: Cardiomegaly appears stable. Central pulmonary vascular prominence stable. OSSEOUS STRUCTURES: No significant abnormalities. VISUALIZED UPPER ABDOMEN: Normal. OTHER FINDINGS: None. IMPRESSION: Stable chest radiograph including medial right upper lobe mass/infiltrate and central bilateral hilar pulmonary vascular prominence.
[2017-11-07] MEDS ORDERED: Cholecalciferol 1,000 INTLU TAB PO SCH (10:00)
--- NOTE | 2017-11-07 14:39 | PN ---
DATE: 11/07/2017 LOCATION: The patient is in ICU in bed 7. SUBJECTIVE: Main complaint is shortness of breath, history of high-flow oxygen, BiPAP to maintain saturations. No chest pain. Patient is still clinically sick. PHYSICAL EXAMINATION: VITAL SIGNS: Temperature is 98.1, heart rate 69, blood pressure is 105/64 and on BiPAP, saturating 96%. HEAD AND NECK: Normal. No JVD. No thyromegaly. CHEST: A few basal rales; otherwise, clear. CARDIAC: First sound and second sound normal. Systolic murmur across the mitral area. ABDOMEN: Soft and nontender. EXTREMITIES: No edema. NEUROLOGICAL: Moves all extremities. He is alert and oriented and no focal weakness. DATA: Laboratory study shows sodium 143, potassium 4.9, chloride 106, bicarb 27, BUN 34, creatinine 0.6. Liver function test is normal. Also, white count is 8.1, hemoglobin 10.3, hematocrit 31.4 and platelets 271. 1. The patient is monitoring PT/INR. Last PT 1.82. We will continue Coumadin 2.5 mg. Repeat PT/INR in the morning. 2. Chest x-ray shows lung is well infiltrated. There is improving aeration in the right upper lobe and there is persistent moderate pulmonary venous congestion. IMPRESSION AND PLAN: 1. Chronic congestive heart failure with acute worsening secondary to ischemic plus valvular heart disease with decreased left ventricular function and also effective forward volume is reduced due to moderate and significant regurgitation, both aortic and mitral. We will continue current medications for the plan of Cardiology, continue milrinone and follow up with Cardiology, Dr. Simental. The patient is currently on metoprolol 50 mg p.o. every 8 hours controlling his heart rate, Lasix is still at home as per steamboat pilot because of and volume depletion in patient with pulmonary hypertension. We will continue current therapy. Continue aspirin. 2. Pulmonary bronson: Underlying chronic obstructive pulmonary disease and chronic pulmonary hypertension, another candidate for any permanent blood pressure therapy, oxygen may help and we will continue current medications. Continue intravenous and inhaled bronchodilators. Continue Mucomyst and follow up clinically. We will discuss this with Dr. Roche. 3. Community-acquired pneumonia. Continue Merrem and Zithromax, chest CT. 4. Patient has history of chronic atrial fibrillation. We will follow up the PT/INR as per Dr. Simental and the resident on the case, Dr. Doran. We discussed the case with her. Plan is to continue current medications. Follow up clinically. The patient is clinically sick, his prognosis is poor, the patient with end stage cardiac and pulmonary hypertension. 5. Code status: I will talk to the family about code status, in case of any cardiopulmonary arrest and we will discuss with them and the code status and palliative care. We will do Palliative Care consults and we will follow up clinically. Nathaniel Zhang MD
--- NOTE | 2017-11-07 16:16 | PN ---
DATE: 11/07/2017 SUBJECTIVE: The patient is seen earlier this morning in room 129, bed 7. He had an uneventful night. He is weak. Overall, he has had no fevers with mild shortness of breath. No chest pain. OBJECTIVE: VITAL SIGNS: On exam, temperature is 98, blood pressure is 105, respiratory rate of 26, heart rate of 98. HEENT: Examination is unremarkable. NECK: Supple. LUNGS: Have decreased breath sounds. HEART: Normal S1, S2. ABDOMEN: Soft, nontender. DATA: Laboratory examination reveals a white count of 7.7, hemoglobin of 10, platelets of 265. Chemistries reveal the patient's BUN of 35, creatinine of 0.5. Urinalysis is noted and urine for Legionella antigen is negative. Urine strep antigen is not detected. Microbiology reveals the patient's blood cultures are negative. Urine cultures are negative. MRSA is not detected. Sputum culture is pending and the patient had a chest x-ray early this morning, which was read by Dr. Medrano , which is stable. progress note from this morning is reviewed and Dr. Roche's progress note from yesterday is reviewed. ASSESSMENT AND PLAN: This is an 86-year-old with severe sepsis with acute hypoxic respiratory failure due to right upper lobe severe community-acquired pneumonia associated with hemoptysis, coagulopathy on top of acute congestive heart failure and severe right-sided heart failure, coronary artery disease status post percutaneous coronary intervention with a history of sepsis, currently on meropenem and Zithromax day #5 procalcitonin is 0.05. Bacterial pneumonia less likely and waiting for the sputum culture. We will complete 4 to 7 days of antibiotics. Review of medications revealed the patient to be on meropenem, which requires renewal; Solu-Medrol and Zithromax. Shyam Kline MD
--- NOTE | 2017-11-07 20:03 | PN ---
DATE: 11/07/2017 PULMONARY PROGRESS NOTE REFERRING PHYSICIAN: Nathaniel Zhang MD SUBJECTIVE: He is on high-flow oxygen. Overnight, he was on noninvasive ventilation. Still on Primacor drip. Cough and sputum production improving. Oxygen is little improving. No chest pain. No nausea. No vomiting. No diarrhea, dysuria, leg pain, leg swelling. OBJECTIVE: GENERAL: In no acute distress. VITAL SIGNS: Temperature is 98, heart rate is 87, respiratory rate is 18 to 30, blood pressure 105/57, pulse ox 95% on high-flow nasal cannula. HEENT: Moist mucous membrane. Crowded airway. NECK: Supple. No JVD. LUNGS: Scattered rhonchi. Prolonged expiratory phase, but airflow is a little improved. HEART: S1 and S2. ABDOMEN: Soft, nontender. No organomegaly. EXTREMITIES: There is no edema. NEUROLOGICAL: Awake and alert. Follows simple command. MEDICATIONS: He is on Mucomyst 20% 3 mL inhaled twice a day, aspirin 81 mg daily, Coumadin 2.5 mg daily, DuoNeb every 2 hours p.r.n. and DuoNeb every 6 hours [id number], Lasix 40 mg twice a day, metoprolol tartrate 50 mg every 8 hours, meropenem 1 g IV every 8 hours, MiraLax 17 g twice a day, Primacor IV drip, Protonix 40 mg daily, Solu-Medrol 40 mg every 8 hours, Tessalon Perles 100 mg three times a day, vitamin A and D to affected area every 8 hours, vitamin A is applied at affected area every 8 hours, Zithromax 500 mg daily, Zoloft 25 mg daily. LABORATORY DATA: Shows hemoglobin 10.9, hematocrit 32.2, WBC 7.7, platelet count is 265. INR 2.16. ABG showed pH 7.48, pCO2 of 32, O2 of 70, this is on 80% oxygen. Sodium 145, potassium 4.4, chloride 107, bicarbonate 26. BUN 32, creatinine 0.5. Glucose 100. Calcium is 8.6, magnesium 2.6. AST 54, ALT 37, alk phos is 76, albumin is 3.3. Sputum has some yeast, otherwise unremarkable. Chest x-ray done this morning shows stable chest x-ray. Right upper lobe infiltrate and hilar pulmonary vascular prominence. IMPRESSION AND PLAN: Severe pulmonary hypertension, right upper lobe infiltrate, mucous plugging/pneumonia/mass, respiratory failure requiring high-flow oxygen and also noninvasive ventilation. Case discussed with the medical insurance biller. Also spoke to the nursing staff. Also spoke to travel manager in detail. We will continue Primacor, continue inhaled bronchodilator, continue antibiotics. The patient is malnourished. We will suggest placing Dobhoff feeding tube, yes we can place with the high-flow oxygen and still use noninvasive ventilation on top of it. We may have nutritionally improved, but I will continue Primacor for now for severe pulmonary hypertension and right heart failure. Overall, poor prognosis. Follow up ABG, chest x-ray, CBC, CMP in the morning. Critical care time spent more than 35 minutes. We will follow with you. Concerning right upper lobe mass, even if it is malignant, at present time cannot do anything. He is at very poor risk for any biopsy and does not qualify for any therapy including radiation and chemo, so we will continue to observe at this time. Smooth Roche MD
[2017-11-08] MEDS: Albuterol-Ipratrop 3 mg / 0.5 (3 ml) UD IH SCH ×4 (01:18→21:00)
[2017-11-08] MEDS: MethylPREDNISolone 40 mg Vial IVP SCH ×3 (02:05→19:40)
[2017-11-08 05:39] LABS: ARTERIAL BLOOD GAS HCO3 23.7 mmol/L (21-28); ARTERIAL BLOOD GAS HEMOGLOBIN 10.5 g/dL (11.7-17.4); ARTERIAL BLOOD GAS O2 CAPACITY 14.3 mL/dl (16-24); ARTERIAL BLOOD GAS O2 CONTENT 13.1 ML/dl (15-23); ARTERIAL BLOOD GAS O2 SAT 91.8 % (95-98); ARTERIAL BLOOD GAS PCO2 29 mm/Hg (35-45); ARTERIAL BLOOD GAS PH 7.52 (7.35-7.45); ARTERIAL BLOOD GAS TCO2 24.6 mmol.L (22-28)
[2017-11-08] MEDS: Meropenem IV 1 gm in NS 50 ML IVPB SCH ×3 (06:04→22:10)
--- NOTE | 2017-11-08 06:12 | PN ---
DATE: 11/05/2017 SUBJECTIVE: The patient in the ICU on high-flow oxygen, BiPAP machine, still need oxygen to keep his saturation 90% and above. He does not seem to be in any respiratory distress, on current medications. Seems no fever. No nausea or vomiting. PHYSICAL EXAMINATION: VITAL SIGNS: Temperature is 98.1, heart rate 69, blood pressure 105/64, respirations 21, saturating 96% on BiPAP. HEAD AND NECK: Normal. No JVD. No thyromegaly. CHEST: Seems clear except few crackles, but mainly clear. CARDIAC: First sound and second sound normal. There is systolic murmur in the mitral area. ABDOMEN: Soft and nontender. EXTREMITIES: There is no edema. NEUROLOGIC: Normal. LABORATORY DATA: On 11/05/2017, as follows: White count 9, hemoglobin 10.3, hematocrit 30.8, and platelets 268. Chemistry: Sodium 145, potassium 3.5, chloride 106, bicarb 26. BUN 26, creatinine 0.5. Calcium 8.3. Liver function test is normal. His proBNP is 13,400, which is significantly elevated. The patient also has at that time chest x-ray. Chest x-ray shows there was haziness and increased interstitial marking in the right upper lobe. There is bibasilar atelectasis because the patient did not move much. IMPRESSION AND PLAN: 1. Acute congestive heart failure secondary to combination of ischemic cardiomyopathy plus valvular heart disease with moderate regurgitation, mitral and aortic, complicated with secondary pulmonary hypertension which is chronic in nature, pulmonary pressure 89, severe pulmonary hypertension with chronic persistent hypoxemia. Plan is to continue IV milrinone. We will follow up with Cardiology and Pulmonology. The case seems complicated and prognosis is poor. Continue diuretics. Continue current therapy. We will follow up with the pharmacist hospital. Currently, he is getting Lasix IV, milrinone, DuoNeb. We will follow up clinically. 2. Community-acquired pneumonia. He is on Zithromax. Spoke with the commercial lines underwriter. Spoke with Infectious Disease. He does not think much of the pneumonia, but we will continue the antibiotic Zithromax and continue Mucomyst nebulizer treatment, chest PT, bronchodilators inhaled, and IV bronchodilators currently in 40 mg IV every 8 hours. Continue current therapy. We will follow up closely. The patient getting azithromycin and meropenem plus inhaled bronchodilators. 3. Coronary artery disease. Metoprolol 50 every 8 hours. 4. Chronic pulmonary hypertension, severe. He is not a candidate for any really pulmonary, blood pressure, hypertension medications because of associated hypotension with sildenafil or other pulmonary hypertension medication for primary pulmonary hypertension. We will continue treating the cardiac condition, which may help the pulmonary hypertension somehow. Continue oxygen and we will follow up clinically. 5. Chronic atrial fibrillation. The patient does have a history of atrial fibrillation, on Coumadin. discussion about Eliquis, we will hold off that, but we will continue Coumadin as per recommendation by pharmacist hospital, currently on 2.5 mg daily. Monitor PT/INR and baby aspirin 81 mg daily. The patient has risk of fall. He walks with a walker and I agree with warfarin at this time because of lack of quick antidote for Eliquis and continue current therapy for now. We will monitor PT/INR. 6. Generalized weakness, gait disability. The patient will need rehabilitations and physical therapy. We may need to consider also palliative care. At this time, continue current therapy. Code status is not discussed with the family yet, but we will talk to them, has been raised in the past, but we will talk to them again. Nathaniel Zhang MD
[2017-11-08 06:34] LABS: BASO # 0.01 K/mm3 (0.0-2.0); BASO % 0.1 % (0.0-3.0); GRAN # 8.31 (1.4-6.5); GRAN % 90.9 % (50.0-68.0); HEMOGLOBIN 10.5 g/dL (14.0-18.0); LYMPH # 0.6 (1.2-3.4); LYMPH % 6.4 % (22.0-35.0); MEAN CORPUSCULAR HGB CONC 32.6 g/dl (31.0-37.0); MEAN PLATELET VOLUME 10.1 fl (7.0-11.0); MONO # 0.2 (0.1-0.6); MONO % 2.6 % (1.0-6.0); PLATELET COUNT 238 10^3/uL (120.0-450.0); RBC 3.39 10^6/uL (3.5-6.1); RED CELL DISTRIBUTION WIDTH 14.9 % (11.5-14.5); WHITE BLOOD COUNT 9.2 10^3/ul (4.5-11.0)
[2017-11-08 06:57] LABS: INR 2.48 (0.93-1.08); PROTHROMBIN TIME 29.1 SECONDS (9.4-12.5)
[2017-11-08] MEDS: Acetylcysteine 20% Inhal Soln (4ml) INH SCH ×3 (07:00→21:00)
[2017-11-08 07:19] LABS: ALB/GLOB RATIO 0.9 (1.1-1.8); ALBUMIN 3.1 g/dL (3.0-4.8); ALT/SGPT 31 U/L (7-56); AST/SGOT 44 U/L (17-59); BLOOD UREA NITROGEN 25 mg/dL (7-21); CALCIUM 8.3 mg/dL (8.4-10.5); GFR AFRICAN-AMERICAN > 60; GFR NON-AFRICAN AMERICAN > 60
--- NOTE | 2017-11-08 07:49 | CP.PCM.PN ---
Subjective - Date & Time of Evaluation Date of Evaluation: 11/08/17 Time of Evaluation: 07:00 - Subjective Subjective: Stable in CCU. He is on BiPaP mask. V/S noted. AF PE: Lungs: few rhonchi Cor.: irreg S1S2 Abd.: soft Ext.: no edema Neuro.: alert I/O = 1028/600 recorded Labs and ABG's noted: INR = 2.48 BC X2 NG at 5 days hrs. Echo noted: NL LV fx., mild/mod AI, RVE, Mod/Sev. TR, Severe PH CTA Chest: No PE, RU infiltrate, etc CXR today: not read yet. RUL infiltrate seems better. Objective - Vital Signs/Intake and Output Vital Signs (last 24 hours): Temp Pulse Resp BP Pulse Ox 97.6 F 97 H 28 H 107/50 L 81 L 11/08/17 04:00 11/08/17 06:26 11/08/17 07:02 11/08/17 06:26 11/08/17 03:00 Intake and Output: 11/08/17 11/08/17 06:59 18:59 Intake Total 480 Output Total 400 Balance 80 - Medications Medications: Current Medications Acetylcysteine (Acetylcysteine 20%) 3 ml INH BID [facility] Last Admin: 11/08/17 07:00 Dose: 3 ml Albuterol/Ipratropium (Duoneb 3 Mg/0.5 Mg (3 Ml) Ud) 3 ml IH Q2H PRN PRN Reason: Shortness of Breath Last Admin: 11/03/17 08:09 Dose: 3 ml Albuterol/Ipratropium (Duoneb 3 Mg/0.5 Mg (3 Ml) Ud) 3 ml IH [id number] [facility] Last Admin: 11/08/17 07:00 Dose: 3 ml Aspirin (Aspirin Chewable) 81 mg PO DAILY [facility] Last Admin: 11/07/17 10:10 Dose: 81 mg Azithromycin (Zithromax) 500 mg PO DAILY [facility] PRN Reason: Protocol Last Admin: 11/07/17 10:09 Dose: 500 mg Benzonatate (Tessalon Perles) 100 mg PO TID [facility] Last Admin: 11/03/17 14:41 Dose: 100 mg Furosemide (Lasix) 40 mg IVP Q12 [facility] Last Admin: 11/04/17 09:42 Dose: 40 mg Meropenem (Merrem Iv 1 Gm Premix) 50 mls @ 100 mls/hr IVPB Q8 [facility] PRN Reason: Protocol Last Admin: 11/08/17 06:04 Dose: 100 mls/hr Milrinone Lactate/Dextrose (Primacor 20mg/100ml D5w) 100 mls @ 6.634 mls/hr IV .Q15H5M PRN; Protocol; 0.375 MCG/KG/MIN PRN Reason: TITRATE PER MD ORDER Last Admin: 11/07/17 20:32 Dose: 0.375 mcg/kg/min, 6.634 mls/hr Methylprednisolone (Solu-Medrol) 40 mg IVP Q8H [facility] Last Admin: 11/08/17 02:05 Dose: 40 mg Metoprolol Tartrate (Lopressor) 50 mg PO Q8 [facility] Last Admin: 11/08/17 06:26 Dose: 50 mg Pantoprazole Sodium (Protonix Ec Tab) 40 mg PO ACB [facility] Last Admin: 11/07/17 07:57 Dose: 40 mg Polyethylene Glycol (Miralax) 17 gm PO BID [facility] Last Admin: 11/03/17 09:51 Dose: 17 gm Sertraline HCl (Zoloft) 25 mg PO DAILY [facility] Last Admin: 11/03/17 09:51 Dose: 25 mg Vitamin A (Vitamin A&D) 1 applic TP Q8 PRN PRN Reason: dry skin Vitamin A (Vitamin A & D Oint Ud Foilpak) 1 ea TOP Q8H PRN PRN Reason: dry skin Warfarin Sodium (Coumadin) 2.5 mg PO 1800 [facility] PRN Reason: Protocol Last Admin: 11/07/17 18:58 Dose: 2.5 mg - Labs Labs: 11/08/17 05:30 11/08/17 05:30 PT 29.1 SECONDS (9.4-12.5) H 11/08/17 05:30 INR 2.48 (0.93-1.08) H 11/08/17 05:30 APTT 53.7 Seconds (25.1-36.5) H 11/03/17 03:45 Assessment and Plan - Assessment and Plan (Free Text) Assessment: SOB/Cough, improved Hemoptysis, resolved Pneumonia, improving clinically and by CXR, R/O mass/adenopathy/cancer Coagulopathy, resolved COPD/Severe PH CAD/Remote PCI Moderate LVD in the past, LV EF = ~ 50% on current echo Chronic AF on warfarin HBP Hep. C H/O Esopgageal varices and GIB Former Smoker Plan: AB Resp. Txs. Would D/C milrinone. Hold warfarin today. Monitor INRs daily. per ID As per Pulmonary: Rx for PH As per Intensivists. As per Palliative Care Monitor: cultures, I/O, labs, Sats., CXRs, etc. OOB to chair as sowmya. Will follow.
[2017-11-08 07:51] LABS: LYMPHOCYTE 4 % (22.0-35.0); MONOCYTE 2 % (1.0-6.0); NEUTROPHIL 94 % (50.0-70.0)
[2017-11-08 07:52] LABS: LARGE PLATELETS PRESENT; PLATELET ESTIMATE NORMAL (NORMAL); POIKILOCYTOSIS 1+
--- NOTE | 2017-11-08 07:52 | PN ---
DATE: 11/08/2017 SUBJECTIVE: The patient is in bed, in no acute distress, nontoxic, was seen earlier in room 129 in the CCU, bed 7. The patient had an uneventful night. OBJECTIVE: VITAL SIGNS: On exam, temperature is 97, blood pressure is 107/40, respiratory rate of 18, heart rate of 79. HEENT: Examination is unremarkable. NECK: Supple. LUNGS: Have decreased breath sounds. HEART: Normal S1, S2. ABDOMEN: Soft, nontender. DATA: Laboratory examination reveals a white count of 7.7, hemoglobin of 10, BUN 32, creatinine of 0.5. Procalcitonin less than 0.05. Urinalysis is noted. Serology is noted to be negative. The patient's sputum has yeast, probable colonizer. Chest x-ray from yesterday reveals reticular markings, dense infiltrate/mass and stable upper lobe mass or infiltrate. Dr. Roche's note is reviewed and Dr. Zhang's note is reviewed. ASSESSMENT AND PLAN This is an 86-year-old male seen in 129, bed 7, chronically ill, debilitated who was admitted with severe sepsis, acute hypoxic respiratory failure due to a right upper lobe severe community-acquired pneumonia and that versus a mass associated with hemoptysis, coagulopathy on top of acute congestive heart failure and severe right-sided heart failure and coronary artery disease, status post percutaneous coronary intervention with a history of sepsis and with a normal procalcitonin, day #6 of Zithromax and meropenem. We will complete seven days of antibiotics. The patient's medication review reveals meropenem, Zithromax and Solu-Medrol. Today is day #6 of 7 days with a normal procalcitonin. WBC count is now normalized, afebrile. Shyam Kline MD
[2017-11-08 07:53] LABS: SCHISTOCYTES SLIGHT
[2017-11-08] MEDS: Pantoprazole 40 mg EC Tab PO SCH (09:49)
[2017-11-08 10:56] LABS: ARTERIAL BLOOD GAS HCO3 25.9 mmol/L (21-28); ARTERIAL BLOOD GAS HEMOGLOBIN 10.2 g/dL (11.7-17.4); ARTERIAL BLOOD GAS O2 CAPACITY 14.1 mL/dl (16-24); ARTERIAL BLOOD GAS O2 CONTENT 14.1 ML/dl (15-23); ARTERIAL BLOOD GAS O2 SAT 100.2 % (95-98); ARTERIAL BLOOD GAS PCO2 34 mm/Hg (35-45); ARTERIAL BLOOD GAS PH 7.49 (7.35-7.45); ARTERIAL BLOOD GAS TCO2 26.9 mmol.L (22-28)
[2017-11-08] MEDS: Milrinone 20mg/100ml D5W 100 ML IV PRN (12:31)
--- NOTE | 2017-11-08 13:25 | CP.PCM.PN ---
Subjective - Date & Time of Evaluation Date of Evaluation: 11/08/17 Time of Evaluation: 11:00 - Subjective Subjective: Alert, offers no complaints. Objective - Vital Signs/Intake and Output Vital Signs (last 24 hours): Temp Pulse Resp BP Pulse Ox 97.8 F 87 22 111/58 L 92 L 11/08/17 08:00 11/08/17 12:31 11/08/17 11:00 11/08/17 12:31 11/08/17 11:00 Intake and Output: 11/08/17 11/08/17 06:59 18:59 Intake Total 480 100 Output Total 400 Balance 80 100 - Medications Medications: Current Medications Acetylcysteine (Acetylcysteine 20%) 3 ml INH BID [facility] Last Admin: 11/08/17 07:00 Dose: 3 ml Albuterol/Ipratropium (Duoneb 3 Mg/0.5 Mg (3 Ml) Ud) 3 ml IH Q2H PRN PRN Reason: Shortness of Breath Last Admin: 11/03/17 08:09 Dose: 3 ml Albuterol/Ipratropium (Duoneb 3 Mg/0.5 Mg (3 Ml) Ud) 3 ml IH [id number] [facility] Last Admin: 11/08/17 07:00 Dose: 3 ml Aspirin (Aspirin Chewable) 81 mg PO DAILY [facility] Last Admin: 11/08/17 09:49 Dose: 81 mg Azithromycin (Zithromax) 500 mg PO DAILY [facility] PRN Reason: Protocol Last Admin: 11/08/17 09:49 Dose: 500 mg Benzonatate (Tessalon Perles) 100 mg PO TID [facility] Last Admin: 11/03/17 14:41 Dose: 100 mg Furosemide (Lasix) 40 mg IVP Q12 [facility] Last Admin: 11/04/17 09:42 Dose: 40 mg Meropenem (Merrem Iv 1 Gm Premix) 50 mls @ 100 mls/hr IVPB Q8 [facility] PRN Reason: Protocol Last Admin: 11/08/17 06:04 Dose: 100 mls/hr Milrinone Lactate/Dextrose (Primacor 20mg/100ml D5w) 100 mls @ 6.634 mls/hr IV .Q15H5M PRN; Protocol; 0.375 MCG/KG/MIN PRN Reason: TITRATE PER MD ORDER Last Admin: 11/08/17 12:31 Dose: 0.375 mcg/kg/min, 6.634 mls/hr Methylprednisolone (Solu-Medrol) 40 mg IVP Q8H [facility] Last Admin: 11/08/17 10:10 Dose: 40 mg Metoprolol Tartrate (Lopressor) 50 mg PO Q8 [facility] Last Admin: 11/08/17 06:26 Dose: 50 mg Pantoprazole Sodium (Protonix Ec Tab) 40 mg PO ACB [facility] Last Admin: 11/08/17 09:49 Dose: 40 mg Polyethylene Glycol (Miralax) 17 gm PO BID [facility] Last Admin: 11/03/17 09:51 Dose: 17 gm Sertraline HCl (Zoloft) 25 mg PO DAILY [facility] Last Admin: 11/03/17 09:51 Dose: 25 mg Vitamin A (Vitamin A&D) 1 applic TP Q8 PRN PRN Reason: dry skin Vitamin A (Vitamin A & D Oint Ud Foilpak) 1 ea TOP Q8H PRN PRN Reason: dry skin Warfarin Sodium (Coumadin) 2.5 mg PO 1800 [facility] PRN Reason: Protocol Last Admin: 11/07/17 18:58 Dose: 2.5 mg - Labs Labs: 11/08/17 05:30 11/08/17 05:30 PT 29.1 SECONDS (9.4-12.5) H 11/08/17 05:30 INR 2.48 (0.93-1.08) H 11/08/17 05:30 APTT 53.7 Seconds (25.1-36.5) H 11/03/17 03:45 - Constitutional Appears: Chronically Ill - Head Exam Head Exam: NORMAL INSPECTION - Eye Exam Eye Exam: Normal appearance, PERRL - ENT Exam ENT Exam: Mucous Membranes Moist - Respiratory Exam Respiratory Exam: Decreased Breath Sounds, Rales, Rhonchi - Cardiovascular Exam Cardiovascular Exam: +S1, +S2 - GI/Abdominal Exam GI & Abdominal Exam: Soft, Normal Bowel Sounds - Extremities Exam Extremities Exam: Pedal Edema - Back Exam Back Exam: NORMAL INSPECTION - Neurological Exam Neurological Exam: Alert, Oriented x3 - Skin Skin Exam: Dry, Pallor Assessment and Plan - Assessment and Plan (Free Text) Assessment: 86 year old male with history of A Fib, COPD, HTN who is admitted with pulmonary hypertension, RUL pneumonia,respiratory inefficiency The patient is alert, oriented, multiple family members at bedside. Patient states he spoke with Dr Zhang this morning regarding resuscitation status. Patient agrees to DNR/DNI. This was verified in discussion with Dr Zhang Will follow up with patient, intent to initiate POLST directive prior to discharge. Plan: Goals of care and advance care planning: DNR/DNI Cardio: On Milrinone drip , Lasix, Lopressor, cardiology follow up. Pulmonary:On High flow, BIPAP as needed, nebulizers,daily chest xray, Monitor ABG's Pneumonia; Continue antibiotic, follow ID recommendations
--- NOTE | 2017-11-08 14:29 | CP.CCUPN ---
<Josue Nolen - Last Filed: 11/08/17 14:12> CCU Subjective - Physician Review Events Since Last Encounter (Free Text): 11/08/17 07:20 Patient seen and examined at bedside. No acute events overnight. Patient is resting on HFNC. CCU Objective - Vital Signs / Intake & Output Vital Signs (Last 4 hours): Vital Signs Pulse Resp BP Pulse Ox 11/08/17 13:31 24 11/08/17 12:31 87 111/58 L 11/08/17 11:00 79 22 108/56 L 92 L Intake and Output (Last 8hrs): Intake & Output 11/07/17 11/08/17 11/08/17 22:59 06:59 14:59 Intake Total 648 380 100 Output Total 200 400 Balance 448 -20 100 Weight 59.874 kg Intake: IV 348 180 100 Left Forearm 200 Right Forearm 100 primacor 48 80 Oral 300 200 Output: Urine 200 400 Urethral (Tai) 200 400 Other: # Bowel Movements 3 0 - Physical Exam Head: Positive for: Atraumatic, Normocephalic. Negative for: Tenderness, Contusion, Swelling, Ecchymosis, Abrasion, Laceration Pupils: Negative for: Pinpoint Extroacular Muscles: Positive for: EOMI Conjunctiva: Positive for: Normal. Negative for: Injected, Icteric Mouth: Positive for: Dry, Normal Lips, Normal Tounge, Normal Teeth. Negative for: Drooling Nose (External): Positive for: Atraumatic. Negative for: Abrasion, Laceration Nose (Internal): Positive for: No Active Bleeding. Negative for: Epistaxis Neck: Positive for: Normal Range of Motion, Trachea Midline. Negative for: MIDLINE TENDERNESS, JVD Respiratory/Chest: Positive for: Respiratory Distress, Accessory Muscle Use, Decreased Breath Sounds (moderately decreased breath sounds all milligan), Rhonchi (loud ronchi in all milligan, improved), Tachypneic. Negative for: Clear to Auscultation, Good Air Exchange, Wheezes, Rales, Tender to Palpation Cardiovascular: Positive for: Normal S1, S2, Irregular Rhythm, Peripheal Pulses Present (+1 radials, unable to palpate dorsalis pedis bilaterally), Tachycardic. Negative for: Regular Rate and Rhythm, Murmurs, Bradycardic Abdomen: Positive for: Normal Bowel Sounds. Negative for: Tenderness, Distention, Guarding Upper Extremity: Positive for: Normal Inspection, Normal ROM, NORMAL PULSES. Negative for: Cyanosis, Edema, Tenderness, Swelling, Erythema, Deformity Lower Extremity: Positive for: Edema (+1 pitting edema from mid nur to 1-2 cm above ankles), NORMAL PULSES, Normal ROM. Negative for: Normal Inspection, CALF TENDERNESS, Cyanosis, Tenderness, Erythema, Deformity Neurological: Positive for: GCS=15, Motor Func Grossly Intact Skin: Positive for: Warm, Dry, Pale. Negative for: Rashes Lymphatic: Negative for: Cervical Adenopathy Psychiatric: Positive for: Alert, Oriented x 3, Normal Insight, Normal Concentration, Normal Affect, Normal Mood - Medications Active Medications: Active Medications Generic Name Dose Route Start Last Admin Trade Name Freq PRN Reason Stop Dose Admin Acetylcysteine 3 ml 11/03/17 18:45 11/08/17 13:25 Acetylcysteine 20% INH Not Given BID ANA LAURA Albuterol/Ipratropium 3 ml 11/03/17 05:50 11/03/17 08:09 Duoneb 3 Mg/0.5 Mg (3 Ml) Ud IH 3 ml Q2H PRN Administration Shortness of Breath Albuterol/Ipratropium 3 ml 11/03/17 14:00 11/08/17 13:25 Duoneb 3 Mg/0.5 Mg (3 Ml) Ud IH 3 ml [id number] ANA LAURA Administration Aspirin 81 mg 11/03/17 10:00 11/08/17 09:49 Aspirin Chewable PO 81 mg DAILY ANA LAURA Administration Azithromycin 500 mg 11/05/17 10:00 11/08/17 09:49 Zithromax PO 500 mg DAILY ANA LAURA Administration Protocol Benzonatate 100 mg 11/03/17 10:00 11/03/17 14:41 Tessalon Perles PO 100 mg TID ANA LAURA Administration Furosemide 40 mg 11/03/17 22:00 11/04/17 09:42 Lasix IVP 40 mg Q12 ANA LAURA Administration Meropenem 50 mls @ 100 mls/hr 11/03/17 07:45 11/08/17 06:04 Merrem Iv 1 Gm Premix IVPB 100 mls/hr Q8 ANA LAURA Administration Protocol Milrinone Lactate/Dextrose 100 mls @ 6.634 mls/hr 11/04/17 09:59 11/08/17 12: 31 Primacor 20mg/100ml D5w IV 0.375 mcg/kg/min .Q15H5M PRN 6.634 mls/hr TITRATE PER MD ORDER Administration Protocol 0.375 MCG/KG/MIN Methylprednisolone 40 mg 11/06/17 11:00 11/08/17 10:10 Solu-Medrol IVP 40 mg Q8H ANA LAURA Administration Metoprolol Tartrate 50 mg 11/05/17 22:00 11/08/17 06:26 Lopressor PO 50 mg Q8 ANA LAURA Administration Pantoprazole Sodium 40 mg 11/07/17 07:30 11/08/17 09:49 Protonix Ec Tab PO 40 mg ACB ANA LAURA Administration Polyethylene Glycol 17 gm 11/03/17 10:00 11/03/17 09:51 Miralax PO 17 gm BID ANA LAURA Administration Sertraline HCl 25 mg 11/03/17 10:00 11/03/17 09:51 Zoloft PO 25 mg DAILY ANA LAURA Administration Vitamin A 1 applic 11/04/17 13:38 Vitamin A&D TP Q8 PRN dry skin Vitamin A 1 ea 11/04/17 13:55 Vitamin A & D Oint Ud Foilpak TOP Q8H PRN dry skin Warfarin Sodium 2.5 mg 11/07/17 18:00 11/07/17 18:58 Coumadin PO 2.5 mg 1800 ANA LAURA Administration Protocol - Patient Studies Lab Studies: Lab Studies 11/08/17 11/08/17 11/08/17 Range/Units 10:50 05:30 05:30 WBC 9.2 (4.5-11.0) 10^3/ul RBC 3.39 L (3.5-6.1) 10^6/uL Hgb 10.5 L (14.0-18.0) g/dL Hct 32.2 L (42.0-52.0) % MCV 95.0 (80.0-105.0) fl MCH 31.0 (25.0-35.0) pg MCHC 32.6 (31.0-37.0) g/dl RDW 14.9 H (11.5-14.5) % Plt Count 238 (120.0-450.0) 10^3/uL MPV 10.1 (7.0-11.0) fl Gran % 90.9 H (50.0-68.0) % Lymph % (Auto) 6.4 L (22.0-35.0) % Bonner % (Auto) 2.6 (1.0-6.0) % Eos % (Auto) 0.0 L (1.5-5.0) % Baso % (Auto) 0.1 (0.0-3.0) % Gran # 8.31 H (1.4-6.5) Lymph # (Auto) 0.6 L (1.2-3.4) Bonner # (Auto) 0.2 (0.1-0.6) Eos # (Auto) 0.0 (0.0-0.7) Baso # (Auto) 0.01 (0.0-2.0) K/mm3 Neutrophils % (Manual) 94 H (50.0-70.0) % Lymphocytes % (Manual) 4 L (22.0-35.0) % Monocytes % (Manual) 2 (1.0-6.0) % Platelet Evaluation Normal (NORMAL) Large Platelets Present Poikilocytosis (manual 1+ Schistocytes Slight PT (9.4-12.5) SECONDS INR (0.93-1.08) pCO2 34 L (35-45) mm/Hg pO2 132.0 H (80-100) mm/Hg HCO3 25.9 (21-28) mmol/L ABG pH 7.49 H (7.35-7.45) ABG Total CO2 26.9 (22-28) mmol.L ABG O2 Saturation 100.2 H (95-98) % ABG O2 Content 14.1 L (15-23) ML/dl ABG Base Excess 2.7 (-2.0-3.0) mmol/L ABG Hemoglobin 10.2 L (11.7-17.4) g/dL ABG Carboxyhemoglobin 2.2 H (0.5-1.5) % POC ABG HHb (Measured) -0.2 L (0-5) % ABG Methemoglobin 1.4 (0.0-3.0) % ABG O2 Capacity 14.1 L (16-24) mL/dl Hgb O2 Saturation 96.6 (95.0-98.0) % FiO2 40.0 % Sodium 143 (132-148) mmol/L Potassium 4.3 (3.6-5.0) mmol/L Chloride 108 H (98-107) mmol/L Carbon Dioxide 25 (21-33) mmol/L Anion Gap 14 (10-20) BUN 25 H (7-21) mg/dL Creatinine 0.5 L (0.8-1.5) mg/dl Est GFR ( Amer) > 60 Est GFR (Non-Af Amer) > 60 Random Glucose 132 H (70-110) mg/dL Calcium 8.3 L (8.4-10.5) mg/dL Phosphorus 2.3 L (2.5-4.5) mg/dL Magnesium 2.5 H (1.7-2.2) mg/dL Total Bilirubin 0.8 (0.2-1.3) mg/dL AST 44 (17-59) U/L ALT 31 (7-56) U/L Alkaline Phosphatase 73 (38-126) U/L Total Protein 6.6 (5.8-8.3) g/dL Albumin 3.1 (3.0-4.8) g/dL Globulin 3.5 gm/dL Albumin/Globulin Ratio 0.9 L (1.1-1.8) 11/08/17 11/08/17 Range/Units 05:30 05:10 WBC (4.5-11.0) 10^3/ul RBC (3.5-6.1) 10^6/uL Hgb (14.0-18.0) g/dL Hct (42.0-52.0) % MCV (80.0-105.0) fl MCH (25.0-35.0) pg MCHC (31.0-37.0) g/dl RDW (11.5-14.5) % Plt Count (120.0-450.0) 10^3/uL MPV (7.0-11.0) fl Gran % (50.0-68.0) % Lymph % (Auto) (22.0-35.0) % Bonner % (Auto) (1.0-6.0) % Eos % (Auto) (1.5-5.0) % Baso % (Auto) (0.0-3.0) % Gran # (1.4-6.5) Lymph # (Auto) (1.2-3.4) Bonner # (Auto) (0.1-0.6) Eos # (Auto) (0.0-0.7) Baso # (Auto) (0.0-2.0) K/mm3 Neutrophils % (Manual) (50.0-70.0) % Lymphocytes % (Manual) (22.0-35.0) % Monocytes % (Manual) (1.0-6.0) % Platelet Evaluation (NORMAL) Large Platelets Poikilocytosis (manual Schistocytes PT 29.1 H (9.4-12.5) SECONDS INR 2.48 H (0.93-1.08) pCO2 29 L (35-45) mm/Hg pO2 49.0 L (80-100) mm/Hg HCO3 23.7 (21-28) mmol/L ABG pH 7.52 H (7.35-7.45) ABG Total CO2 24.6 (22-28) mmol.L ABG O2 Saturation 91.8 L (95-98) % ABG O2 Content 13.1 L (15-23) ML/dl ABG Base Excess 1.4 (-2.0-3.0) mmol/L ABG Hemoglobin 10.5 L (11.7-17.4) g/dL ABG Carboxyhemoglobin 2.1 H (0.5-1.5) % POC ABG HHb (Measured) 7.9 H (0-5) % ABG Methemoglobin 0.9 (0.0-3.0) % ABG O2 Capacity 14.3 L (16-24) mL/dl Hgb O2 Saturation 89.0 L (95.0-98.0) % FiO2 100.0 % Sodium (132-148) mmol/L Potassium (3.6-5.0) mmol/L Chloride (98-107) mmol/L Carbon Dioxide (21-33) mmol/L Anion Gap (10-20) BUN (7-21) mg/dL Creatinine (0.8-1.5) mg/dl Est GFR ( Amer) Est GFR (Non-Af Amer) Random Glucose (70-110) mg/dL Calcium (8.4-10.5) mg/dL Phosphorus (2.5-4.5) mg/dL Magnesium (1.7-2.2) mg/dL Total Bilirubin (0.2-1.3) mg/dL AST (17-59) U/L ALT (7-56) U/L Alkaline Phosphatase (38-126) U/L Total Protein (5.8-8.3) g/dL Albumin (3.0-4.8) g/dL Globulin gm/dL Albumin/Globulin Ratio (1.1-1.8) Laboratory Results - last 24 hr 11/08/17 11/08/17 11/08/17 05:10 05:30 05:30 WBC 9.2 RBC 3.39 L Hgb 10.5 L Hct 32.2 L MCV 95.0 MCH 31.0 MCHC 32.6 RDW 14.9 H Plt Count 238 MPV 10.1 Gran % 90.9 H Lymph % (Auto) 6.4 L Bonner % (Auto) 2.6 Eos % (Auto) 0.0 L Baso % (Auto) 0.1 Gran # 8.31 H Lymph # (Auto) 0.6 L Bonner # (Auto) 0.2 Eos # (Auto) 0.0 Baso # (Auto) 0.01 Neutrophils % (Manual) 94 H Lymphocytes % (Manual) 4 L Monocytes % (Manual) 2 Platelet Evaluation Normal Large Platelets Present Poikilocytosis (manual 1+ Schistocytes Slight PT 29.1 H INR 2.48 H pCO2 29 L pO2 49.0 L HCO3 23.7 ABG pH 7.52 H ABG Total CO2 24.6 ABG O2 Saturation 91.8 L ABG O2 Content 13.1 L ABG Base Excess 1.4 ABG Hemoglobin 10.5 L ABG Carboxyhemoglobin 2.1 H POC ABG HHb (Measured) 7.9 H ABG Methemoglobin 0.9 ABG O2 Capacity 14.3 L Hgb O2 Saturation 89.0 L FiO2 100.0 Sodium Potassium Chloride Carbon Dioxide Anion Gap BUN Creatinine Est GFR ( Amer) Est GFR (Non-Af Amer) Random Glucose Calcium Phosphorus Magnesium Total Bilirubin AST ALT Alkaline Phosphatase Total Protein Albumin Globulin Albumin/Globulin Ratio 11/08/17 11/08/17 05:30 10:50 WBC RBC Hgb Hct MCV MCH MCHC RDW Plt Count MPV Gran % Lymph % (Auto) Bonner % (Auto) Eos % (Auto) Baso % (Auto) Gran # Lymph # (Auto) Bonner # (Auto) Eos # (Auto) Baso # (Auto) Neutrophils % (Manual) Lymphocytes % (Manual) Monocytes % (Manual) Platelet Evaluation Large Platelets Poikilocytosis (manual Schistocytes PT INR pCO2 34 L pO2 132.0 H HCO3 25.9 ABG pH 7.49 H ABG Total CO2 26.9 ABG O2 Saturation 100.2 H ABG O2 Content 14.1 L ABG Base Excess 2.7 ABG Hemoglobin 10.2 L ABG Carboxyhemoglobin 2.2 H POC ABG HHb (Measured) -0.2 L ABG Methemoglobin 1.4 ABG O2 Capacity 14.1 L Hgb O2 Saturation 96.6 FiO2 40.0 Sodium 143 Potassium 4.3 Chloride 108 H Carbon Dioxide 25 Anion Gap 14 BUN 25 H Creatinine 0.5 L Est GFR ( Amer) > 60 Est GFR (Non-Af Amer) > 60 Random Glucose 132 H Calcium 8.3 L Phosphorus 2.3 L Magnesium 2.5 H Total Bilirubin 0.8 AST 44 ALT 31 Alkaline Phosphatase 73 Total Protein 6.6 Albumin 3.1 Globulin 3.5 Albumin/Globulin Ratio 0.9 L Critical Care Progress Note - Nutrition Nutrition: Nutrition Category Date Time Status Heart Healthy Diet [DIET] Diets 11/04/17 Lunch Active Assessment/Plan - Assessment and Plan (Free Text) Assessment: 86 male under ICU management for Hypoxic Hypercapneic Respiratory Failure and Cor Pulmonale requiring milrinone gtt. A: hemoptysis probably from supratherapeutic from Coumadin - resolved. Acute hypoxic respiratory failure due to sepsis, CAP/muscus plug, and Cor Pulmonale due to pulmonary hypertension Severe sepsis likely from right upper lobe community-acquired pneumonia; Doubt TB per ID Acute CHF, systolic, on chronic; RHF on milrinon gtt Pulmonary hypertension, RVSP 90 Hx COPD on 4L home; CAD S/P PCI; GERD history of GI bleed history of hepatitis C A fib RVR on metoprolol, coumadin Neuro: stable at baseline. Maintain nomothermia Pulm: ProBNP 69519 (11/03) --> 94442 (11/04) CT chest (11/03): Negative for PE. Patchy R upper lobe infiltrate, cannot exclude mass, post-obstructive vs PNA CXR: RUL pna. slightly better High flow 50/100 in day PRN Bipap 10/6/R14/80% at night & PRN Acetysytein BID; Duoneb Q6 ANA LAURA, Q2 PRN zithromax, merem; Maintain steroids today Encourage coughing; Flutter valve; chest percussion q4 h while awake; HOB 30; aggressive pulmonary toileting Not candidate for Revatio due to BP monitor closely for intubation Cardio: trops < 0.01 ASA, lopressor 50 bid, milrinone gtt 0.3 H/O CHF with elevated pro bnp- will hold of Lasix Holding bp meds due to hypotension Warfarin on hold GI: Postop stomach thickening (post op vs poss gastric carcinoma) Dr Louis suggested endoscopy No active signs of Gi bleeding noted Hold miralax. protonx 40 IVP : i/o 1080/250 Oliguric, monitor and maintain h/o bph: holding meds due to hypotensive episode. ID: Merrem and Zithromax (day 5) PCT < 0.05 Blooc Cx neg x 3d; D/C vanco Leginella negative; Strep Ag neg UCx neg Endo: Maintain sugar 140-10 Heme: H/H stable. No more hemoptysis. Started warfarin. Goal INR 2-3. D/C heparin SC Psych: h/o depression and tremors: holding primidone due to dyspnea, Hold remeron and zoloft. Prophylaxis: Coumadin, protonix IV <Sammy Mayer - Last Filed: 11/09/17 10:56> CCU Objective - Vital Signs / Intake & Output Vital Signs (Last 4 hours): Vital Signs Temp Pulse Resp 11/09/17 10:23 20 11/09/17 10:00 78 11/09/17 08:20 92 H 11/09/17 08:00 97.5 F L 11/09/17 07:07 24 Intake and Output (Last 8hrs): Intake & Output 11/08/17 11/09/17 11/09/17 22:59 06:59 14:59 Intake Total 572 680 Output Total 300 400 Balance 272 280 Weight 135 lb Intake: IV 172 280 Right Forearm 172 100 primacor 80 Oral 400 400 Output: Urine 300 400 Urethral (Tai) 300 400 - Medications Active Medications: Active Medications Generic Name Dose Route Start Last Admin Trade Name Freq PRN Reason Stop Dose Admin Acetylcysteine 3 ml 11/08/17 21:23 11/09/17 07:03 Acetylcysteine 20% INH 3 ml BIDRESP ANA LAURA Administration Albuterol/Ipratropium 3 ml 11/03/17 05:50 11/03/17 08:09 Duoneb 3 Mg/0.5 Mg (3 Ml) Ud IH 3 ml Q2H PRN Administration Shortness of Breath Albuterol/Ipratropium 3 ml 11/03/17 14:00 11/09/17 07:03 Duoneb 3 Mg/0.5 Mg (3 Ml) Ud IH 3 ml [id number] ANA LAURA Administration Aspirin 81 mg 11/03/17 10:00 11/09/17 09:16 Aspirin Chewable PO 81 mg DAILY ANA LAURA Administration Azithromycin 500 mg 11/05/17 10:00 11/09/17 10:25 Zithromax PO 500 mg DAILY ANA LAURA Administration Protocol Benzonatate 100 mg 11/03/17 10:00 11/03/17 14:41 Tessalon Perles PO 100 mg TID ANA LAURA Administration Furosemide 40 mg 11/03/17 22:00 11/04/17 09:42 Lasix IVP 40 mg Q12 ANA LAURA Administration Meropenem 50 mls @ 100 mls/hr 11/03/17 07:45 11/09/17 06:23 Merrem Iv 1 Gm Premix IVPB 100 mls/hr Q8 ANA LAURA Administration Protocol Milrinone Lactate/Dextrose 100 mls @ 6.634 mls/hr 11/04/17 09:59 11/09/17 02: 18 Primacor 20mg/100ml D5w IV 0.375 mcg/kg/min .Q15H5M PRN 6.634 mls/hr TITRATE PER MD ORDER Administration Protocol 0.375 MCG/KG/MIN Methylprednisolone 40 mg 11/06/17 11:00 11/09/17 10:18 Solu-Medrol IVP 40 mg Q8H ANA LAURA Administration Metoprolol Tartrate 50 mg 11/05/17 22:00 11/09/17 06:23 Lopressor PO 50 mg Q8 ANA LAURA Administration Pantoprazole Sodium 40 mg 11/07/17 07:30 11/09/17 09:16 Protonix Ec Tab PO 40 mg ACB ANA LAURA Administration Polyethylene Glycol 17 gm 11/03/17 10:00 11/03/17 09:51 Miralax PO 17 gm BID ANA LAURA Administration Sertraline HCl 25 mg 11/03/17 10:00 11/03/17 09:51 Zoloft PO 25 mg DAILY ANA LAURA Administration Vitamin A 1 applic 11/04/17 13:38 Vitamin A&D TP Q8 PRN dry skin Vitamin A 1 ea 11/04/17 13:55 Vitamin A & D Oint Ud Foilpak TOP Q8H PRN dry skin Warfarin Sodium 2.5 mg 11/07/17 18:00 11/07/17 18:58 Coumadin PO 2.5 mg 1800 ANA LAURA Administration Protocol - Patient Studies Lab Studies: Lab Studies 11/09/17 11/09/17 11/09/17 Range/Units 06:10 06:10 06:10 WBC 12.7 H D (4.5-11.0) 10^3/ul RBC 3.60 (3.5-6.1) 10^6/uL Hgb 11.2 L (14.0-18.0) g/dL Hct 34.3 L (42.0-52.0) % MCV 95.3 (80.0-105.0) fl MCH 31.1 (25.0-35.0) pg MCHC 32.7 (31.0-37.0) g/dl RDW 15.2 H (11.5-14.5) % Plt Count 240 (120.0-450.0) 10^3/uL MPV 10.1 (7.0-11.0) fl Gran % 93.4 H (50.0-68.0) % Lymph % (Auto) 4.3 L (22.0-35.0) % Bonner % (Auto) 2.1 (1.0-6.0) % Eos % (Auto) 0.1 L (1.5-5.0) % Baso % (Auto) 0.1 (0.0-3.0) % Gran # 11.87 H (1.4-6.5) Lymph # (Auto) 0.6 L (1.2-3.4) Bonner # (Auto) 0.3 (0.1-0.6) Eos # (Auto) 0.0 (0.0-0.7) Baso # (Auto) 0.01 (0.0-2.0) K/mm3 PT 28.2 H (9.4-12.5) SECONDS INR 2.41 H (0.93-1.08) pCO2 (35-45) mm/Hg pO2 (80-100) mm/Hg HCO3 (21-28) mmol/L ABG pH (7.35-7.45) ABG Total CO2 (22-28) mmol.L ABG O2 Saturation (95-98) % ABG O2 Content (15-23) ML/dl ABG Base Excess (-2.0-3.0) mmol/L ABG Hemoglobin (11.7-17.4) g/dL ABG Carboxyhemoglobin (0.5-1.5) % POC ABG HHb (Measured) (0-5) % ABG Methemoglobin (0.0-3.0) % ABG O2 Capacity (16-24) mL/dl Hgb O2 Saturation (95.0-98.0) % FiO2 % Sodium 140 (132-148) mmol/L Potassium 4.4 (3.6-5.0) mmol/L Chloride 107 (98-107) mmol/L Carbon Dioxide 25 (21-33) mmol/L Anion Gap 13 (10-20) BUN 22 H (7-21) mg/dL Creatinine 0.5 L (0.8-1.5) mg/dl Est GFR ( Amer) > 60 Est GFR (Non-Af Amer) > 60 Random Glucose 125 H (70-110) mg/dL Calcium 8.3 L (8.4-10.5) mg/dL Phosphorus 2.4 L (2.5-4.5) mg/dL Magnesium 2.4 H (1.7-2.2) mg/dL Total Bilirubin 1.2 (0.2-1.3) mg/dL AST 47 (17-59) U/L ALT 37 (7-56) U/L Alkaline Phosphatase 76 (38-126) U/L Total Protein 6.7 (5.8-8.3) g/dL Albumin 3.1 (3.0-4.8) g/dL Globulin 3.6 gm/dL Albumin/Globulin Ratio 0.9 L (1.1-1.8) 11/09/17 11/08/17 Range/Units 05:35 10:50 WBC (4.5-11.0) 10^3/ul RBC (3.5-6.1) 10^6/uL Hgb (14.0-18.0) g/dL Hct (42.0-52.0) % MCV (80.0-105.0) fl MCH (25.0-35.0) pg MCHC (31.0-37.0) g/dl RDW (11.5-14.5) % Plt Count (120.0-450.0) 10^3/uL MPV (7.0-11.0) fl Gran % (50.0-68.0) % Lymph % (Auto) (22.0-35.0) % Bonner % (Auto) (1.0-6.0) % Eos % (Auto) (1.5-5.0) % Baso % (Auto) (0.0-3.0) % Gran # (1.4-6.5) Lymph # (Auto) (1.2-3.4) Bonner # (Auto) (0.1-0.6) Eos # (Auto) (0.0-0.7) Baso # (Auto) (0.0-2.0) K/mm3 PT (9.4-12.5) SECONDS INR (0.93-1.08) pCO2 28 L 34 L (35-45) mm/Hg pO2 50.0 L 132.0 H (80-100) mm/Hg HCO3 21.8 25.9 (21-28) mmol/L ABG pH 7.50 H 7.49 H (7.35-7.45) ABG Total CO2 22.7 26.9 (22-28) mmol.L ABG O2 Saturation 91.0 L 100.2 H (95-98) % ABG O2 Content 14.2 L 14.1 L (15-23) ML/dl ABG Base Excess -0.5 2.7 (-2.0-3.0) mmol/L ABG Hemoglobin 11.4 L 10.2 L (11.7-17.4) g/dL ABG Carboxyhemoglobin 2.1 H 2.2 H (0.5-1.5) % POC ABG HHb (Measured) 8.7 H -0.2 L (0-5) % ABG Methemoglobin 0.8 1.4 (0.0-3.0) % ABG O2 Capacity 15.6 L 14.1 L (16-24) mL/dl Hgb O2 Saturation 88.4 L 96.6 (95.0-98.0) % FiO2 80.0 40.0 % Sodium (132-148) mmol/L Potassium (3.6-5.0) mmol/L Chloride (98-107) mmol/L Carbon Dioxide (21-33) mmol/L Anion Gap (10-20) BUN (7-21) mg/dL Creatinine (0.8-1.5) mg/dl Est GFR ( Amer) Est GFR (Non-Af Amer) Random Glucose (70-110) mg/dL Calcium (8.4-10.5) mg/dL Phosphorus (2.5-4.5) mg/dL Magnesium (1.7-2.2) mg/dL Total Bilirubin (0.2-1.3) mg/dL AST (17-59) U/L ALT (7-56) U/L Alkaline Phosphatase (38-126) U/L Total Protein (5.8-8.3) g/dL Albumin (3.0-4.8) g/dL Globulin gm/dL Albumin/Globulin Ratio (1.1-1.8) Laboratory Results - last 24 hr 11/08/17 11/09/17 11/09/17 10:50 05:35 06:10 WBC 12.7 H D RBC 3.60 Hgb 11.2 L Hct 34.3 L MCV 95.3 MCH 31.1 MCHC 32.7 RDW 15.2 H Plt Count 240 MPV 10.1 Gran % 93.4 H Lymph % (Auto) 4.3 L Bonner % (Auto) 2.1 Eos % (Auto) 0.1 L Baso % (Auto) 0.1 Gran # 11.87 H Lymph # (Auto) 0.6 L Bonner # (Auto) 0.3 Eos # (Auto) 0.0 Baso # (Auto) 0.01 PT INR pCO2 34 L 28 L pO2 132.0 H 50.0 L HCO3 25.9 21.8 ABG pH 7.49 H 7.50 H ABG Total CO2 26.9 22.7 ABG O2 Saturation 100.2 H 91.0 L ABG O2 Content 14.1 L 14.2 L ABG Base Excess 2.7 -0.5 ABG Hemoglobin 10.2 L 11.4 L ABG Carboxyhemoglobin 2.2 H 2.1 H POC ABG HHb (Measured) -0.2 L 8.7 H ABG Methemoglobin 1.4 0.8 ABG O2 Capacity 14.1 L 15.6 L Hgb O2 Saturation 96.6 88.4 L FiO2 40.0 80.0 Sodium Potassium Chloride Carbon Dioxide Anion Gap BUN Creatinine Est GFR ( Amer) Est GFR (Non-Af Amer) Random Glucose Calcium Phosphorus Magnesium Total Bilirubin AST ALT Alkaline Phosphatase Total Protein Albumin Globulin Albumin/Globulin Ratio 11/09/17 11/09/17 06:10 06:10 WBC RBC Hgb Hct MCV MCH MCHC RDW Plt Count MPV Gran % Lymph % (Auto) Bonner % (Auto) Eos % (Auto) Baso % (Auto) Gran # Lymph # (Auto) Bonner # (Auto) Eos # (Auto) Baso # (Auto) PT 28.2 H INR 2.41 H pCO2 pO2 HCO3 ABG pH ABG Total CO2 ABG O2 Saturation ABG O2 Content ABG Base Excess ABG Hemoglobin ABG Carboxyhemoglobin POC ABG HHb (Measured) ABG Methemoglobin ABG O2 Capacity Hgb O2 Saturation FiO2 Sodium 140 Potassium 4.4 Chloride 107 Carbon Dioxide 25 Anion Gap 13 BUN 22 H Creatinine 0.5 L Est GFR ( Amer) > 60 Est GFR (Non-Af Amer) > 60 Random Glucose 125 H Calcium 8.3 L Phosphorus 2.4 L Magnesium 2.4 H Total Bilirubin 1.2 AST 47 ALT 37 Alkaline Phosphatase 76 Total Protein 6.7 Albumin 3.1 Globulin 3.6 Albumin/Globulin Ratio 0.9 L Critical Care Progress Note - Nutrition Nutrition: Nutrition Category Date Time Status Heart Healthy Diet [DIET] Diets 11/04/17 Lunch Active Attending/Attestation - Attestation I have personally seen and examined this patient.: Yes I have fully participated in the care of the patient.: Yes I have reviewed all pertinent clinical information: Yes Notes (Text): 11/09/17 10:[address] Mayer's note
--- NOTE | 2017-11-08 14:52 | PN ---
DATE: 11/07/2017 SUBJECTIVE: The patient is still in ICU requiring high-flow oxygen. Still has significant respiratory symptoms. He has no chest pain, but he feels dyspneic with any exertion. Could not sit out of bed to chair today. The patient is afebrile. PHYSICAL EXAMINATION: GENERAL: The patient is lying in bed, high-flow oxygen. Comfortable, talkative, alert and awake. VITAL SIGNS: Temperature 98, heart rate 81, blood pressure is 101/58, respiration 26, saturations is in mid 80s, 85%. HEAD AND NECK: Normal. No JVD. No thyromegaly. CHEST: Clear with diminished breath sounds bilaterally. CARDIAC: First sound and second sound normal. Systolic murmur. ABDOMEN: Soft, nontender. EXTREMITIES: No edema. NEUROLOGICAL: Normal. Moves all extremities and good motor power. LABORATORY DATA: The patient had a PT 25.2, INR 2.16 and also a chest x-ray was done, which shows increased reticular marking bilaterally with dense infiltrates seen again in the medial right upper lobe. IMPRESSION AND PLAN: 1. Acute congestive heart failure due to ischemia plus valvular heart disease. Continue current therapy. The patient is getting milrinone IV infusion, seems an end stage. The patient does not want any intubations or any interventions done to him. 2. Acute chronic obstructive pulmonary disease exacerbation with community-acquired pneumonia. Continue meropenem plus Zithromax. Continue inhaled and IV bronchodilators. Prognosis is poor with comorbid illnesses including cardiac, pulmonary and respiratory conditions. Continue current therapy. 3. Chronic atrial fibrillations. PT/INR therapeutic. Continue current medications. The patient getting warfarin 2.5 mg everyday. CURRENT REGULAR MEDICATIONS: Mucomyst b.i.d.; aspirin 81 once a day; Coumadin 2.5 mg daily, is on hold today; DuoNeb every 2 hours p.r.n. and every 6 hours around the clock; Lasix 40 mg IV daily, has been on hold; Lopressor 50 every 8 hours; meropenem 1 g IV every 8 hours; MiraLax b.i.d. p.r.n.; Primacor drip 0.375 mcg/kg per minute, Protonix getting 40 once a day, Solu-Medrol 40 IV every 8 hours, Tessalon Perles, vitamin A and vitamin D ointment topically. The patient also getting Zithromax 500 IV daily and Zoloft has been on hold. Continue current therapy. Prognosis is poor. Time and again, discussed with daughter, she does not want any intubation and he agreed about it. We will put that in the chart. Nathaniel Zhang MD
--- NOTE | 2017-11-08 17:18 | PN ---
DATE: 11/08/2017 SUBJECTIVE: The patient was seen and examined at bedside. He is sitting in the chair. He appears to be more comfortable, even though he is still on 95% FiO2 via high-flow oxygen. His oxygen saturation varies between 92% and 96% on that. However, he clinically appears to be more comfortable when talking, when changing position, and was getting out of bed to chair. OBJECTIVE: VITAL SIGNS: Blood pressure 114/57 on 0.375 mcg/kg/min of Primacor. Heart rate 94, respiratory rate 18. ENT, HEAD, AND NECK: Atraumatic. LUNGS: Few crackles bilaterally, especially in the right upper lobe (anterior area). HEART: Regular rate and rhythm. S1, S2 distant. ABDOMEN: Soft, nontender, and nondistended. MUSCULOSKELETAL: Trace bilateral pedal and ankle edema. NEUROLOGIC: The patient moves all extremities spontaneously. SKIN: Moist. PSYCHIATRIC: The patient is alert, awake, and oriented x3. LABORATORY DATA: WBC 9.2, hemoglobin 10.5, and platelet count 238. Sodium 143, potassium 4.3, chloride 108, carbon dioxide 25. BUN 25, creatinine 0.5. Glucose 132. MEDICATIONS: Mucomyst, DuoNeb p.r.n. and every 6 hours, aspirin, Zithromax, meropenem, Solu-Medrol 40 mg IV every 8 hours, metoprolol, Protonix, milrinone, Zoloft. Chest x-ray appears to show some slight improvement in bilateral vascular congestion including right upper lobe. ASSESSMENT AND PLAN: This is an 86-year-old gentleman who presented to intensive care unit for hypoxemic respiratory failure secondary to severe community-acquired pneumonia in the setting of some congestive heart failure and right ventricular failure with severe pulmonary hypertension. The patient was treated with ionotropic support, conservative fluid, and oxygen management. He clinically somewhat improved, but still requires high FiO2 supplementation. He clinically looks better than one can think based on how much oxygen supplementation he requires. At present time, we will continue with conservative fluid and oxygen management. We will continue with ionotropic support, steroid taper, antibiotics, and ID followup. Pulmonary toilet, incentive spirometry, chest PT, optimization of hydration and nutrition. Once FiO2 tapered down a little bit more, may be a candidate for physical therapy. However, he desaturates pretty fast when off high flow. We will touch base with family about LTAC transfer. We will continue to target euvolemia, euglycemia, normothermia, and oxygen saturation more than 90%. We will continue with deep venous thrombosis and gastrointestinal prophylaxes. ccm time 40 min Sammy Mayer MD MTDD
--- NOTE | 2017-11-08 17:43 | RAD ---
HISTORY: SOB COMPARISON: Portable chest 11/07/2017 5:24 a.m.. FINDINGS: LUNGS: Reticular markings remain diffusely increased, potentially a function of CHF persisting. Medial apical density not significantly changed. PLEURA: No definite pleural effusion bilaterally. No pneumothorax either. CARDIOVASCULAR: Prominent cardiac silhouette stable. Borderline pulmonary vascular congestion. OSSEOUS STRUCTURES: No significant abnormalities. VISUALIZED UPPER ABDOMEN: Normal. OTHER FINDINGS: None. IMPRESSION: Increased interstitial pattern remains bilaterally without significant interval changes, possibly basis hs given prominent cardiac silhouette and borderline pulmonary vascular congestion. Medial right apical density unchanged.
--- NOTE | 2017-11-08 19:08 | PN ---
DATE: 11/08/2017 PULMONARY CRITICAL CARE PROGRESS NOTE REFERRING PHYSICIAN: Nathaniel Zhang MD. SUBJECTIVE: He is out of bed to chair, having lunch. Family is at bedside. Feels better than yesterday on high-flow nasal cannula. Still on Primacor. Still has a cough, clear sputum production. No hemoptysis or hematemesis. No hematuria or diarrhea, leg pain or leg swelling. OBJECTIVE: GENERAL: In no acute distress. VITAL SIGNS: Temperature is 98, heart rate 83, respiratory rate is 20 to 22, blood pressure 113/68, pulse ox 96% on high-flow nasal cannula. HEENT: Moist mucous membranes. No ulcer or thrush. NECK: Supple. No JVD. LUNGS: Have a fair airflow. Scattered rhonchi. HEART: S1 and S2. ABDOMEN: Soft, nontender, no organomegaly. EXTREMITIES: There is no edema. NEUROLOGICAL: Awake, alert, follows simple command. MEDICATIONS: He is on Mucomyst inhaled twice a day, aspirin 81 mg daily, Coumadin 2.5 mg daily given, DuoNeb every 2 hour p.r.n. and every 6 hour [id number], Lasix 40 mg twice a day which is on hold, meropenem is 1 g IV every 8 hour, MiraLax 17 g twice a day, Primacor IV drip, Protonix 40 mg daily, Solu-Medrol 40 mg every 8 hour, Tessalon Perles three times a day, vitamin A and D to affected area, Zithromax 500 mg daily, Zoloft 25 mg daily. LABORATORY DATA: Shows hemoglobin 10.5, hematocrit 32.2, WBC 9.2, platelet count is 238. INR 2.48. Blood gases show pH 7.49, pCO2 of 34, O2 of 132; this is on 40% oxygen on BiPAP. Sodium 142, potassium 4.3, chloride 108, bicarbonate 25, BUN 25, creatinine 0.5, glucose 132, calcium is 8.3, phosphorus 2.3, magnesium 2.5. AST is 44, ALT 31, alk phos is 73, albumin is 3.1. Interstitial infiltrate, prominent cardiac silhouette, congestion, still has a right apical density. IMPRESSION AND PLAN: Severe pulmonary retention, right upper lobe infiltrate, congestion, pneumonitis, respiratory failure requiring high-flow nasal cannula and also noninvasive ventilation. Case discussed with family at bedside. All the questions answered. We will continue Primacor. Hold off Lasix. Aspiration precaution. Continue steroids, gastric prophylaxis, anticoagulation. Follow up ABG, chest x-ray, CBC, CMP in the morning. Critical care time of 35 minutes. Thank you and we will follow with you. Smooth Roche MD
[2017-11-08] MEDS ORDERED: Acetylcysteine 20% Inhal Soln (4ml) INH SCH (21:23)
[2017-11-09] MEDS: MethylPREDNISolone 40 mg Vial IVP SCH ×2 (02:18→10:18)
[2017-11-09] MEDS: Milrinone 20mg/100ml D5W 100 ML IV PRN ×2 (02:18→17:45)
[2017-11-09] MEDS: Albuterol-Ipratrop 3 mg / 0.5 (3 ml) UD IH SCH ×3 (02:30→13:25)
[2017-11-09 05:50] LABS: ARTERIAL BLOOD GAS HCO3 21.8 mmol/L (21-28); ARTERIAL BLOOD GAS HEMOGLOBIN 11.4 g/dL (11.7-17.4); ARTERIAL BLOOD GAS O2 CAPACITY 15.6 mL/dl (16-24); ARTERIAL BLOOD GAS O2 CONTENT 14.2 ML/dl (15-23); ARTERIAL BLOOD GAS PCO2 28 mm/Hg (35-45); ARTERIAL BLOOD GAS TCO2 22.7 mmol.L (22-28)
[2017-11-09] MEDS: Meropenem IV 1 gm in NS 50 ML IVPB SCH ×2 (06:23→15:15)
[2017-11-09 06:55] LABS: ALB/GLOB RATIO 0.9 (1.1-1.8); ALBUMIN 3.1 g/dL (3.0-4.8); ALT/SGPT 37 U/L (7-56); AST/SGOT 47 U/L (17-59); BLOOD UREA NITROGEN 22 mg/dL (7-21); CALCIUM 8.3 mg/dL (8.4-10.5); GFR AFRICAN-AMERICAN > 60; GFR NON-AFRICAN AMERICAN > 60
[2017-11-09 07:03] LABS: INR 2.41 (0.93-1.08); PROTHROMBIN TIME 28.2 SECONDS (9.4-12.5)
[2017-11-09 07:05] LABS: BASO # 0.01 K/mm3 (0.0-2.0); BASO % 0.1 % (0.0-3.0); EOS % 0.1 % (1.5-5.0); GRAN # 11.87 (1.4-6.5); GRAN % 93.4 % (50.0-68.0); HEMOGLOBIN 11.2 g/dL (14.0-18.0); LYMPH # 0.6 (1.2-3.4); LYMPH % 4.3 % (22.0-35.0); MEAN CELL VOLUME 95.3 fl (80.0-105.0); MEAN CORPUSCULAR HEMOGLOBIN 31.1 pg (25.0-35.0); MEAN CORPUSCULAR HGB CONC 32.7 g/dl (31.0-37.0); MEAN PLATELET VOLUME 10.1 fl (7.0-11.0); MONO # 0.3 (0.1-0.6); MONO % 2.1 % (1.0-6.0); RBC 3.6 10^6/uL (3.5-6.1); RED CELL DISTRIBUTION WIDTH 15.2 % (11.5-14.5); WHITE BLOOD COUNT 12.7 10^3/ul (4.5-11.0)
--- NOTE | 2017-11-09 08:19 | CP.PCM.PN ---
Subjective - Date & Time of Evaluation Date of Evaluation: 11/09/17 Time of Evaluation: 07:00 - Subjective Subjective: Stable in CCU. He is on high flow nasal O2. He feels better. He was OOB to chair yesterday. V/S noted. AF PE: Lungs: few rhonchi Cor.: irreg S1S2 Abd.: soft Ext.: no edema Neuro.: alert I/O = 1352/700recorded Labs and ABG's noted: INR = 2.41 BC X2 NG at 5 days hrs. Echo noted: NL LV fx., mild/mod AI, RVE, Mod/Sev. TR, Severe PH CTA Chest: No PE, RU infiltrate, etc CXR today: not read yet. RUL infiltrate seems better. Objective - Vital Signs/Intake and Output Vital Signs (last 24 hours): Temp Pulse Resp BP Pulse Ox 97.6 F 79 24 102/74 94 L 11/09/17 04:00 11/09/17 06:23 11/09/17 07:07 11/09/17 06:23 11/09/17 06:01 Intake and Output: 11/09/17 11/09/17 06:59 18:59 Intake Total 680 Output Total 400 Balance 280 - Medications Medications: Current Medications Acetylcysteine (Acetylcysteine 20%) 3 ml INH BIDRESP ANA LAURA Last Admin: 11/09/17 07:03 Dose: 3 ml Albuterol/Ipratropium (Duoneb 3 Mg/0.5 Mg (3 Ml) Ud) 3 ml IH Q2H PRN PRN Reason: Shortness of Breath Last Admin: 11/03/17 08:09 Dose: 3 ml Albuterol/Ipratropium (Duoneb 3 Mg/0.5 Mg (3 Ml) Ud) 3 ml IH [id number] ANA LAURA Last Admin: 11/09/17 07:03 Dose: 3 ml Aspirin (Aspirin Chewable) 81 mg PO DAILY ANA LAURA Last Admin: 11/08/17 09:49 Dose: 81 mg Azithromycin (Zithromax) 500 mg PO DAILY ANA LAURA PRN Reason: Protocol Last Admin: 11/08/17 09:49 Dose: 500 mg Benzonatate (Tessalon Perles) 100 mg PO TID ANA LAURA Last Admin: 11/03/17 14:41 Dose: 100 mg Furosemide (Lasix) 40 mg IVP Q12 [facility] Last Admin: 11/04/17 09:42 Dose: 40 mg Meropenem (Merrem Iv 1 Gm Premix) 50 mls @ 100 mls/hr IVPB Q8 ANA LAURA PRN Reason: Protocol Last Admin: 11/09/17 06:23 Dose: 100 mls/hr Milrinone Lactate/Dextrose (Primacor 20mg/100ml D5w) 100 mls @ 6.634 mls/hr IV .Q15H5M PRN; Protocol; 0.375 MCG/KG/MIN PRN Reason: TITRATE PER MD ORDER Last Admin: 11/09/17 02:18 Dose: 0.375 mcg/kg/min, 6.634 mls/hr Methylprednisolone (Solu-Medrol) 40 mg IVP Q8H [facility] Last Admin: 11/09/17 02:18 Dose: 40 mg Metoprolol Tartrate (Lopressor) 50 mg PO Q8 [facility] Last Admin: 11/09/17 06:23 Dose: 50 mg Pantoprazole Sodium (Protonix Ec Tab) 40 mg PO ACB [facility] Last Admin: 11/08/17 09:49 Dose: 40 mg Polyethylene Glycol (Miralax) 17 gm PO BID [facility] Last Admin: 11/03/17 09:51 Dose: 17 gm Sertraline HCl (Zoloft) 25 mg PO DAILY [facility] Last Admin: 11/03/17 09:51 Dose: 25 mg Vitamin A (Vitamin A&D) 1 applic TP Q8 PRN PRN Reason: dry skin Vitamin A (Vitamin A & D Oint Ud Foilpak) 1 ea TOP Q8H PRN PRN Reason: dry skin Warfarin Sodium (Coumadin) 2.5 mg PO 1800 [facility] PRN Reason: Protocol Last Admin: 11/07/17 18:58 Dose: 2.5 mg - Labs Labs: 11/09/17 06:10 11/09/17 06:10 PT 28.2 SECONDS (9.4-12.5) H 11/09/17 06:10 INR 2.41 (0.93-1.08) H 11/09/17 06:10 APTT 53.7 Seconds (25.1-36.5) H 11/03/17 03:45 Assessment and Plan - Assessment and Plan (Free Text) Assessment: SOB/Cough, improved Hemoptysis, resolved Pneumonia, improving clinically and by CXR, R/O mass/adenopathy/cancer Coagulopathy, resolved COPD/Severe PH CAD/Remote PCI Moderate LVD in the past, LV EF = ~ 50% on current echo Chronic AF on warfarin HBP Hep. C H/O Esopgageal varices and GIB Former Smoker DNR/DNI Plan: AB Resp. Txs. Would D/C milrinone. Hold warfarin today. Monitor INRs daily. per ID As per Pulmonary: Rx for PH As per Intensivists. As per Palliative Care Monitor: I/O, labs, INRs, Sats., CXRs, etc. OOB to chair as sowmya. Will follow.
[2017-11-09] MEDS: Pantoprazole 40 mg EC Tab PO SCH (09:16)
--- NOTE | 2017-11-09 09:41 | RAD ---
HISTORY: SOB COMPARISON: No prior. FINDINGS: LUNGS: Mild chronic compensated pulmonary venous congestive changes. More dense opacity seen in both lung bases likely due to some atelectasis and small effusions as well. PLEURA: As above. No pneumothorax apparent. CARDIOVASCULAR: Normal. OSSEOUS STRUCTURES: No significant abnormalities. VISUALIZED UPPER ABDOMEN: Normal. OTHER FINDINGS: None. IMPRESSION: Mild chronic compensated pulmonary venous congestive changes. More dense opacity seen in both lung bases likely due to some atelectasis and small effusions as well.
--- NOTE | 2017-11-09 10:22 | CP.CCUPN ---
<Richa Fried - Last Filed: 11/09/17 15:37> CCU Subjective - Physician Review Subjective (Free Text): 11/04/17 08:17 Stop milrinon gtt u/o 1900 on lasix still npo 11/04/17 10:45 Back on milrinont gtt for RHF start diet EKG: A fib rvr at 101. ST depression more pronounce V2,3,4 but asymptpmatic 11/04/17 14:55 soft diet with thin liquid Hypoxemia PaO2 44 on 92% Back on bipap 11/05/17 11:09 try on high flow now, per Dr. Erickson. O2 around high 80s, low 90s Most likely will be back on bipap in afternoon 11/06/17 07:53 Back on bipap at night tolerated well. Switch to percussion bed to promote cough. pt tolerated well No N/V, CHAVEZ, CP, f/c 11/07/17 07:41 Yesterday OOB but deSat to 70s. Back to bed and Bipap No acute event overnight Palliative team on board Daughter is June RIOS [phone] Pt is competent. Per Palliative, code status is a family decision 11/09/17 11:37 High flow overnight. Now tolerate OOB with POx low 90s CCU Objective - Vital Signs / Intake & Output Vital Signs (Last 4 hours): Vital Signs Temp Pulse Resp BP 11/09/17 10:00 78 11/09/17 08:20 92 H 11/09/17 08:00 97.5 F L 11/09/17 07:07 24 11/09/17 06:23 79 102/74 Intake and Output (Last 8hrs): Intake & Output 11/08/17 11/09/17 11/09/17 22:59 06:59 14:59 Intake Total 572 680 Output Total 300 400 Balance 272 280 Weight 135 lb Intake: IV 172 280 Right Forearm 172 100 primacor 80 Oral 400 400 Output: Urine 300 400 Urethral (Tai) 300 400 - Physical Exam Head: Positive for: Atraumatic, Normocephalic. Negative for: Tenderness, Contusion, Swelling, Ecchymosis, Abrasion, Laceration Pupils: Negative for: Pinpoint Extroacular Muscles: Positive for: EOMI Conjunctiva: Positive for: Normal. Negative for: Injected, Icteric Mouth: Positive for: Dry, Normal Lips, Normal Tounge, Normal Teeth. Negative for: Drooling Nose (External): Positive for: Atraumatic. Negative for: Abrasion, Laceration Nose (Internal): Positive for: No Active Bleeding. Negative for: Epistaxis Neck: Positive for: Normal Range of Motion, Trachea Midline. Negative for: MIDLINE TENDERNESS, JVD Respiratory/Chest: Positive for: Respiratory Distress, Accessory Muscle Use, Decreased Breath Sounds (min decreased breath sounds all milligan), Rhonchi ( ronchi in all milligan, improved), Tachypneic. Negative for: Clear to Auscultation, Good Air Exchange, Wheezes, Rales, Tender to Palpation Cardiovascular: Positive for: Normal S1, S2, Irregular Rhythm, Peripheal Pulses Present (+1 radials, unable to palpate dorsalis pedis bilaterally), Tachycardic. Negative for: Regular Rate and Rhythm, Murmurs, Bradycardic Abdomen: Positive for: Normal Bowel Sounds. Negative for: Tenderness, Distention, Guarding Upper Extremity: Positive for: Normal Inspection, Normal ROM, NORMAL PULSES. Negative for: Cyanosis, Edema, Tenderness, Swelling, Erythema, Deformity Lower Extremity: Positive for: Edema (+1 pitting edema from mid nur to 1-2 cm above ankles), NORMAL PULSES, Normal ROM. Negative for: Normal Inspection, CALF TENDERNESS, Cyanosis, Tenderness, Erythema, Deformity Neurological: Positive for: GCS=15, Motor Func Grossly Intact Skin: Positive for: Warm, Dry, Pale. Negative for: Rashes Lymphatic: Negative for: Cervical Adenopathy Psychiatric: Positive for: Alert, Oriented x 3, Normal Insight, Normal Concentration, Normal Affect, Normal Mood - Medications Active Medications: Active Medications Generic Name Dose Route Start Last Admin Trade Name Freq PRN Reason Stop Dose Admin Acetylcysteine 3 ml 11/08/17 21:23 11/09/17 07:03 Acetylcysteine 20% INH 3 ml BIDRESP ANA LAURA Administration Albuterol/Ipratropium 3 ml 11/03/17 05:50 11/03/17 08:09 Duoneb 3 Mg/0.5 Mg (3 Ml) Ud IH 3 ml Q2H PRN Administration Shortness of Breath Albuterol/Ipratropium 3 ml 11/03/17 14:00 11/09/17 07:03 Duoneb 3 Mg/0.5 Mg (3 Ml) Ud IH 3 ml [id number] ANA LAURA Administration Aspirin 81 mg 11/03/17 10:00 11/09/17 09:16 Aspirin Chewable PO 81 mg DAILY ANA LAURA Administration Azithromycin 500 mg 11/05/17 10:00 11/08/17 09:49 Zithromax PO 500 mg DAILY ANA LAURA Administration Protocol Benzonatate 100 mg 11/03/17 10:00 11/03/17 14:41 Tessalon Perles PO 100 mg TID ANA LAURA Administration Furosemide 40 mg 11/03/17 22:00 11/04/17 09:42 Lasix IVP 40 mg Q12 ANA LAURA Administration Meropenem 50 mls @ 100 mls/hr 11/03/17 07:45 11/09/17 06:23 Merrem Iv 1 Gm Premix IVPB 100 mls/hr Q8 ANA LAURA Administration Protocol Milrinone Lactate/Dextrose 100 mls @ 6.634 mls/hr 11/04/17 09:59 11/09/17 02: 18 Primacor 20mg/100ml D5w IV 0.375 mcg/kg/min .Q15H5M PRN 6.634 mls/hr TITRATE PER MD ORDER Administration Protocol 0.375 MCG/KG/MIN Methylprednisolone 40 mg 11/06/17 11:00 11/09/17 02:18 Solu-Medrol IVP 40 mg Q8H ANA LAURA Administration Metoprolol Tartrate 50 mg 11/05/17 22:00 11/09/17 06:23 Lopressor PO 50 mg Q8 ANA LAURA Administration Pantoprazole Sodium 40 mg 11/07/17 07:30 11/09/17 09:16 Protonix Ec Tab PO 40 mg ACB ANA LAURA Administration Polyethylene Glycol 17 gm 11/03/17 10:00 11/03/17 09:51 Miralax PO 17 gm BID ANA LAURA Administration Sertraline HCl 25 mg 11/03/17 10:00 11/03/17 09:51 Zoloft PO 25 mg DAILY ANA LAURA Administration Vitamin A 1 applic 11/04/17 13:38 Vitamin A&D TP Q8 PRN dry skin Vitamin A 1 ea 11/04/17 13:55 Vitamin A & D Oint Ud Foilpak TOP Q8H PRN dry skin Warfarin Sodium 2.5 mg 11/07/17 18:00 11/07/17 18:58 Coumadin PO 2.5 mg 1800 ANA LAURA Administration Protocol - Patient Studies Lab Studies: Lab Studies 11/09/17 11/09/17 11/09/17 Range/Units 06:10 06:10 06:10 WBC 12.7 H D (4.5-11.0) 10^3/ul RBC 3.60 (3.5-6.1) 10^6/uL Hgb 11.2 L (14.0-18.0) g/dL Hct 34.3 L (42.0-52.0) % MCV 95.3 (80.0-105.0) fl MCH 31.1 (25.0-35.0) pg MCHC 32.7 (31.0-37.0) g/dl RDW 15.2 H (11.5-14.5) % Plt Count 240 (120.0-450.0) 10^3/uL MPV 10.1 (7.0-11.0) fl Gran % 93.4 H (50.0-68.0) % Lymph % (Auto) 4.3 L (22.0-35.0) % [place] % (Auto) 2.1 (1.0-6.0) % Eos % (Auto) 0.1 L (1.5-5.0) % Baso % (Auto) 0.1 (0.0-3.0) % Gran # 11.87 H (1.4-6.5) Lymph # (Auto) 0.6 L (1.2-3.4) [place] # (Auto) 0.3 (0.1-0.6) Eos # (Auto) 0.0 (0.0-0.7) Baso # (Auto) 0.01 (0.0-2.0) K/mm3 PT 28.2 H (9.4-12.5) SECONDS INR 2.41 H (0.93-1.08) pCO2 (35-45) mm/Hg pO2 (80-100) mm/Hg HCO3 (21-28) mmol/L ABG pH (7.35-7.45) ABG Total CO2 (22-28) mmol.L ABG O2 Saturation (95-98) % ABG O2 Content (15-23) ML/dl ABG Base Excess (-2.0-3.0) mmol/L ABG Hemoglobin (11.7-17.4) g/dL ABG Carboxyhemoglobin (0.5-1.5) % POC ABG HHb (Measured) (0-5) % ABG Methemoglobin (0.0-3.0) % ABG O2 Capacity (16-24) mL/dl Hgb O2 Saturation (95.0-98.0) % FiO2 % Sodium 140 (132-148) mmol/L Potassium 4.4 (3.6-5.0) mmol/L Chloride 107 (98-107) mmol/L Carbon Dioxide 25 (21-33) mmol/L Anion Gap 13 (10-20) BUN 22 H (7-21) mg/dL Creatinine 0.5 L (0.8-1.5) mg/dl Est GFR ( Amer) > 60 Est GFR (Non-Af Amer) > 60 Random Glucose 125 H (70-110) mg/dL Calcium 8.3 L (8.4-10.5) mg/dL Phosphorus 2.4 L (2.5-4.5) mg/dL Magnesium 2.4 H (1.7-2.2) mg/dL Total Bilirubin 1.2 (0.2-1.3) mg/dL AST 47 (17-59) U/L ALT 37 (7-56) U/L Alkaline Phosphatase 76 (38-126) U/L Total Protein 6.7 (5.8-8.3) g/dL Albumin 3.1 (3.0-4.8) g/dL Globulin 3.6 gm/dL Albumin/Globulin Ratio 0.9 L (1.1-1.8) 11/09/17 11/08/17 Range/Units 05:35 10:50 WBC (4.5-11.0) 10^3/ul RBC (3.5-6.1) 10^6/uL Hgb (14.0-18.0) g/dL Hct (42.0-52.0) % MCV (80.0-105.0) fl MCH (25.0-35.0) pg MCHC (31.0-37.0) g/dl RDW (11.5-14.5) % Plt Count (120.0-450.0) 10^3/uL MPV (7.0-11.0) fl Gran % (50.0-68.0) % Lymph % (Auto) (22.0-35.0) % [place] % (Auto) (1.0-6.0) % Eos % (Auto) (1.5-5.0) % Baso % (Auto) (0.0-3.0) % Gran # (1.4-6.5) Lymph # (Auto) (1.2-3.4) [place] # (Auto) (0.1-0.6) Eos # (Auto) (0.0-0.7) Baso # (Auto) (0.0-2.0) K/mm3 PT (9.4-12.5) SECONDS INR (0.93-1.08) pCO2 28 L 34 L (35-45) mm/Hg pO2 50.0 L 132.0 H (80-100) mm/Hg HCO3 21.8 25.9 (21-28) mmol/L ABG pH 7.50 H 7.49 H (7.35-7.45) ABG Total CO2 22.7 26.9 (22-28) mmol.L ABG O2 Saturation 91.0 L 100.2 H (95-98) % ABG O2 Content 14.2 L 14.1 L (15-23) ML/dl ABG Base Excess -0.5 2.7 (-2.0-3.0) mmol/L ABG Hemoglobin 11.4 L 10.2 L (11.7-17.4) g/dL ABG Carboxyhemoglobin 2.1 H 2.2 H (0.5-1.5) % POC ABG HHb (Measured) 8.7 H -0.2 L (0-5) % ABG Methemoglobin 0.8 1.4 (0.0-3.0) % ABG O2 Capacity 15.6 L 14.1 L (16-24) mL/dl Hgb O2 Saturation 88.4 L 96.6 (95.0-98.0) % FiO2 80.0 40.0 % Sodium (132-148) mmol/L Potassium (3.6-5.0) mmol/L Chloride (98-107) mmol/L Carbon Dioxide (21-33) mmol/L Anion Gap (10-20) BUN (7-21) mg/dL Creatinine (0.8-1.5) mg/dl Est GFR ( Amer) Est GFR (Non-Af Amer) Random Glucose (70-110) mg/dL Calcium (8.4-10.5) mg/dL Phosphorus (2.5-4.5) mg/dL Magnesium (1.7-2.2) mg/dL Total Bilirubin (0.2-1.3) mg/dL AST (17-59) U/L ALT (7-56) U/L Alkaline Phosphatase (38-126) U/L Total Protein (5.8-8.3) g/dL Albumin (3.0-4.8) g/dL Globulin gm/dL Albumin/Globulin Ratio (1.1-1.8) Laboratory Results - last 24 hr 11/08/17 11/09/17 11/09/17 10:50 05:35 06:10 WBC 12.7 H D RBC 3.60 Hgb 11.2 L Hct 34.3 L MCV 95.3 MCH 31.1 MCHC 32.7 RDW 15.2 H Plt Count 240 MPV 10.1 Gran % 93.4 H Lymph % (Auto) 4.3 L [place] % (Auto) 2.1 Eos % (Auto) 0.1 L Baso % (Auto) 0.1 Gran # 11.87 H Lymph # (Auto) 0.6 L [place] # (Auto) 0.3 Eos # (Auto) 0.0 Baso # (Auto) 0.01 PT INR pCO2 34 L 28 L pO2 132.0 H 50.0 L HCO3 25.9 21.8 ABG pH 7.49 H 7.50 H ABG Total CO2 26.9 22.7 ABG O2 Saturation 100.2 H 91.0 L ABG O2 Content 14.1 L 14.2 L ABG Base Excess 2.7 -0.5 ABG Hemoglobin 10.2 L 11.4 L ABG Carboxyhemoglobin 2.2 H 2.1 H POC ABG HHb (Measured) -0.2 L 8.7 H ABG Methemoglobin 1.4 0.8 ABG O2 Capacity 14.1 L 15.6 L Hgb O2 Saturation 96.6 88.4 L FiO2 40.0 80.0 Sodium Potassium Chloride Carbon Dioxide Anion Gap BUN Creatinine Est GFR ( Amer) Est GFR (Non-Af Amer) Random Glucose Calcium Phosphorus Magnesium Total Bilirubin AST ALT Alkaline Phosphatase Total Protein Albumin Globulin Albumin/Globulin Ratio 11/09/17 11/09/17 06:10 06:10 WBC RBC Hgb Hct MCV MCH MCHC RDW Plt Count MPV Gran % Lymph % (Auto) [place] % (Auto) Eos % (Auto) Baso % (Auto) Gran # Lymph # (Auto) [place] # (Auto) Eos # (Auto) Baso # (Auto) PT 28.2 H INR 2.41 H pCO2 pO2 HCO3 ABG pH ABG Total CO2 ABG O2 Saturation ABG O2 Content ABG Base Excess ABG Hemoglobin ABG Carboxyhemoglobin POC ABG HHb (Measured) ABG Methemoglobin ABG O2 Capacity Hgb O2 Saturation FiO2 Sodium 140 Potassium 4.4 Chloride 107 Carbon Dioxide 25 Anion Gap 13 BUN 22 H Creatinine 0.5 L Est GFR ( Amer) > 60 Est GFR (Non-Af Amer) > 60 Random Glucose 125 H Calcium 8.3 L Phosphorus 2.4 L Magnesium 2.4 H Total Bilirubin 1.2 AST 47 ALT 37 Alkaline Phosphatase 76 Total Protein 6.7 Albumin 3.1 Globulin 3.6 Albumin/Globulin Ratio 0.9 L Critical Care Progress Note - Nutrition Nutrition: Nutrition Category Date Time Status Heart Healthy Diet [DIET] Diets 11/04/17 Lunch Active Assessment/Plan - Assessment and Plan (Free Text) Plan: Mr Bernard Hooks, 86 M, with PMH of atrial fibrillation on coumadin, CHF, COPD on 4 litters of home oxygen, CAD s/p LAD stent, hx UGIB 2/2 esophageal varices, Hep C (treated in the 80s), HTN, depression, BPH and tremors who presents with complaint of hemoptysis found to have right upper lobe pneumonia, had transient episode of hypotension which has since resolved. Patient is being admitted to icu for transient episode of hypotension and hypoxemia. He is on milrinone gtt for cor pulmonale. Dr Simental has restarted pt on Coumadin. His GI bleed was more than 30 years ago but he uses walker at home. Dr Simental wants pt off milrinone gtt, now he is on 0.3. However, Dr Roche said his cor pulmonale has pressure of RVSP 90, not feeling comfortable to take milrinone off. ICU: Hypoxic Hypercapneic Respiratory Failure in high O2 demand in the setting of Cor Pulmonale requiring milrinone gtt. A: hemoptysis probably from supratherapeutic from Coumadin - resolved. Acute hypoxic respiratory failure due to sepsis, CAP/muscus plug, and Cor Pulmonale due to pulmonary hypertension Severe sepsis likely from right upper lobe community-acquired pneumonia; Doubt TB per ID Acute CHF, systolic, on chronic; RHF on milrinon gtt Pulmonary hypertension, RVSP 90 Hx COPD on 4L home; CAD S/P PCI; GERD history of GI bleed history of hepatitis C A fib RVR on metoprolol, coumadin Neuro: stable at baseline. Maintain nomothermia Pulm: ProBNP 69826 (11/03) --> [id number] (11/04) CT chest (11/03): Negative for PE. Patchy R upper lobe infiltrate, cannot exclude mass, post-obstructive vs PNA CXR (today): Mild chronic compensated venous congestion. bibasilar atelectasis High flow 50%/80L Bipap 10/6/R14/80% at night & PRN Acetysytein BID; Duoneb Q6 ANA LAURA, Q2 PRN zithromax, merem; Solumedrol 40Q12 Encourage coughing; Flutter valve; chest percussion q4 h while awake; HOB 30; aggressive pulmonary toileting Not candidate for Revatio due to BP monitor closely for intubation Cardio: trops < 0.01 ASA, lopressor 50 bid, milrinone gtt 0.3 H/O CHF with elevated pro bnp- will hold of Lasix Holding bp meds due to hypotension Warfarin on hold GI: Postop stomach thickening (post op vs poss gastric carcinoma) Dr Louis suggested endoscopy No active signs of Gi bleeding noted Hold miralax. protonx 40 IVP : i/o 1300/700 Oliguric, monitor and maintain h/o bph: holding meds due to hypotensive episode. ID: Merrem and Zithromax (day 6) PCT < 0.05 Blooc Cx neg x 3d; D/C vanco Leginella negative; Strep Ag neg UCx neg Yeast on sputum, not mold Endo: Maintain sugar 140-10 Heme: H/H stable. No more hemoptysis. Started warfarin. Goal INR 2-3. D/C heparin SC Psych: h/o depression and tremors: holding primidone due to dyspnea, Hold remeron and zoloft. Prophylaxis: Coumadin, protonix IV Dispo: Will transfer to [facility] on biapap with milrinon gtt @ 0.375, continue taper solumedrol slowly, Warfarin on hold due to therapeutic inr s/r/d/w Dr. Mayer . <Sammy Mayer - Last Filed: 11/09/17 16:06> CCU Objective - Vital Signs / Intake & Output Vital Signs (Last 4 hours): Vital Signs Pulse Resp BP 11/09/17 16:05 78 H 11/09/17 15:14 93 H 109/89 11/09/17 13:29 24 Intake and Output (Last 8hrs): Intake & Output 11/09/17 11/09/17 11/09/17 06:59 14:59 22:59 Intake Total 680 Output Total 400 Balance 280 Weight 135 lb Intake: IV 280 Right Forearm 100 primacor 80 Oral 400 Output: Urine 400 Urethral (Tai) 400 - Medications Active Medications: Active Medications Generic Name Dose Route Start Last Admin Trade Name Freq PRN Reason Stop Dose Admin Acetylcysteine 3 ml 11/08/17 21:23 11/09/17 07:03 Acetylcysteine 20% INH 3 ml BIDRESP ANA LAURA Administration Albuterol/Ipratropium 3 ml 11/03/17 05:50 11/03/17 08:09 Duoneb 3 Mg/0.5 Mg (3 Ml) Ud IH 3 ml Q2H PRN Administration Shortness of Breath Albuterol/Ipratropium 3 ml 11/03/17 14:00 11/09/17 13:25 Duoneb 3 Mg/0.5 Mg (3 Ml) Ud IH 3 ml [id number] ANA LAURA Administration Aspirin 81 mg 11/03/17 10:00 11/09/17 09:16 Aspirin Chewable PO 81 mg DAILY ANA LAURA Administration Azithromycin 500 mg 11/05/17 10:00 11/09/17 10:25 Zithromax PO 500 mg DAILY ANA LAURA Administration Protocol Benzonatate 100 mg 11/03/17 10:00 11/03/17 14:41 Tessalon Perles PO 100 mg TID ANA LAURA Administration Furosemide 40 mg 11/03/17 22:00 11/04/17 09:42 Lasix IVP 40 mg Q12 ANA LAURA Administration Meropenem 50 mls @ 100 mls/hr 11/03/17 07:45 11/09/17 15:15 Merrem Iv 1 Gm Premix IVPB 100 mls/hr Q8 ANA LAURA Administration Protocol Milrinone Lactate/Dextrose 100 mls @ 6.634 mls/hr 11/04/17 09:59 11/09/17 02: 18 Primacor 20mg/100ml D5w IV 0.375 mcg/kg/min .Q15H5M PRN 6.634 mls/hr TITRATE PER MD ORDER Administration Protocol 0.375 MCG/KG/MIN Methylprednisolone 40 mg 11/09/17 22:00 Solu-Medrol IVP Q12 ANA LAURA Metoprolol Tartrate 50 mg 11/05/17 22:00 11/09/17 15:14 Lopressor PO 50 mg Q8 ANA LAURA Administration Pantoprazole Sodium 40 mg 11/07/17 07:30 11/09/17 09:16 Protonix Ec Tab PO 40 mg ACB ANA LAURA Administration Polyethylene Glycol 17 gm 11/03/17 10:00 11/03/17 09:51 Miralax PO 17 gm BID ANA LAURA Administration Sertraline HCl 25 mg 11/03/17 10:00 11/03/17 09:51 Zoloft PO 25 mg DAILY ANA LAURA Administration Vitamin A 1 applic 11/04/17 13:38 Vitamin A&D TP Q8 PRN dry skin Vitamin A 1 ea 11/04/17 13:55 Vitamin A & D Oint Ud Foilpak TOP Q8H PRN dry skin Warfarin Sodium 2.5 mg 11/07/17 18:00 11/07/17 18:58 Coumadin PO 2.5 mg 1800 ANA LAURA Administration Protocol - Patient Studies Lab Studies: Lab Studies 11/09/17 11/09/17 11/09/17 Range/Units 06:10 06:10 06:10 WBC 12.7 H D (4.5-11.0) 10^3/ul RBC 3.60 (3.5-6.1) 10^6/uL Hgb 11.2 L (14.0-18.0) g/dL Hct 34.3 L (42.0-52.0) % MCV 95.3 (80.0-105.0) fl MCH 31.1 (25.0-35.0) pg MCHC 32.7 (31.0-37.0) g/dl RDW 15.2 H (11.5-14.5) % Plt Count 240 (120.0-450.0) 10^3/uL MPV 10.1 (7.0-11.0) fl Gran % 93.4 H (50.0-68.0) % Lymph % (Auto) 4.3 L (22.0-35.0) % [place] % (Auto) 2.1 (1.0-6.0) % Eos % (Auto) 0.1 L (1.5-5.0) % Baso % (Auto) 0.1 (0.0-3.0) % Gran # 11.87 H (1.4-6.5) Lymph # (Auto) 0.6 L (1.2-3.4) [place] # (Auto) 0.3 (0.1-0.6) Eos # (Auto) 0.0 (0.0-0.7) Baso # (Auto) 0.01 (0.0-2.0) K/mm3 PT 28.2 H (9.4-12.5) SECONDS INR 2.41 H (0.93-1.08) pCO2 (35-45) mm/Hg pO2 (80-100) mm/Hg HCO3 (21-28) mmol/L ABG pH (7.35-7.45) ABG Total CO2 (22-28) mmol.L ABG O2 Saturation (95-98) % ABG O2 Content (15-23) ML/dl ABG Base Excess (-2.0-3.0) mmol/L ABG Hemoglobin (11.7-17.4) g/dL ABG Carboxyhemoglobin (0.5-1.5) % POC ABG HHb (Measured) (0-5) % ABG Methemoglobin (0.0-3.0) % ABG O2 Capacity (16-24) mL/dl Hgb O2 Saturation (95.0-98.0) % FiO2 % Sodium 140 (132-148) mmol/L Potassium 4.4 (3.6-5.0) mmol/L Chloride 107 (98-107) mmol/L Carbon Dioxide 25 (21-33) mmol/L Anion Gap 13 (10-20) BUN 22 H (7-21) mg/dL Creatinine 0.5 L (0.8-1.5) mg/dl Est GFR ( Amer) > 60 Est GFR (Non-Af Amer) > 60 Random Glucose 125 H (70-110) mg/dL Calcium 8.3 L (8.4-10.5) mg/dL Phosphorus 2.4 L (2.5-4.5) mg/dL Magnesium 2.4 H (1.7-2.2) mg/dL Total Bilirubin 1.2 (0.2-1.3) mg/dL AST 47 (17-59) U/L ALT 37 (7-56) U/L Alkaline Phosphatase 76 (38-126) U/L Total Protein 6.7 (5.8-8.3) g/dL Albumin 3.1 (3.0-4.8) g/dL Globulin 3.6 gm/dL Albumin/Globulin Ratio 0.9 L (1.1-1.8) 11/09/17 Range/Units 05:35 WBC (4.5-11.0) 10^3/ul RBC (3.5-6.1) 10^6/uL Hgb (14.0-18.0) g/dL Hct (42.0-52.0) % MCV (80.0-105.0) fl MCH (25.0-35.0) pg MCHC (31.0-37.0) g/dl RDW (11.5-14.5) % Plt Count (120.0-450.0) 10^3/uL MPV (7.0-11.0) fl Gran % (50.0-68.0) % Lymph % (Auto) (22.0-35.0) % [place] % (Auto) (1.0-6.0) % Eos % (Auto) (1.5-5.0) % Baso % (Auto) (0.0-3.0) % Gran # (1.4-6.5) Lymph # (Auto) (1.2-3.4) [place] # (Auto) (0.1-0.6) Eos # (Auto) (0.0-0.7) Baso # (Auto) (0.0-2.0) K/mm3 PT (9.4-12.5) SECONDS INR (0.93-1.08) pCO2 28 L (35-45) mm/Hg pO2 50.0 L (80-100) mm/Hg HCO3 21.8 (21-28) mmol/L ABG pH 7.50 H (7.35-7.45) ABG Total CO2 22.7 (22-28) mmol.L ABG O2 Saturation 91.0 L (95-98) % ABG O2 Content 14.2 L (15-23) ML/dl ABG Base Excess -0.5 (-2.0-3.0) mmol/L ABG Hemoglobin 11.4 L (11.7-17.4) g/dL ABG Carboxyhemoglobin 2.1 H (0.5-1.5) % POC ABG HHb (Measured) 8.7 H (0-5) % ABG Methemoglobin 0.8 (0.0-3.0) % ABG O2 Capacity 15.6 L (16-24) mL/dl Hgb O2 Saturation 88.4 L (95.0-98.0) % FiO2 80.0 % Sodium (132-148) mmol/L Potassium (3.6-5.0) mmol/L Chloride (98-107) mmol/L Carbon Dioxide (21-33) mmol/L Anion Gap (10-20) BUN (7-21) mg/dL Creatinine (0.8-1.5) mg/dl Est GFR ( Amer) Est GFR (Non-Af Amer) Random Glucose (70-110) mg/dL Calcium (8.4-10.5) mg/dL Phosphorus (2.5-4.5) mg/dL Magnesium (1.7-2.2) mg/dL Total Bilirubin (0.2-1.3) mg/dL AST (17-59) U/L ALT (7-56) U/L Alkaline Phosphatase (38-126) U/L Total Protein (5.8-8.3) g/dL Albumin (3.0-4.8) g/dL Globulin gm/dL Albumin/Globulin Ratio (1.1-1.8) Laboratory Results - last 24 hr 11/09/17 11/09/17 11/09/17 05:35 06:10 06:10 WBC 12.7 H D RBC 3.60 Hgb 11.2 L Hct 34.3 L MCV 95.3 MCH 31.1 MCHC 32.7 RDW 15.2 H Plt Count 240 MPV 10.1 Gran % 93.4 H Lymph % (Auto) 4.3 L [place] % (Auto) 2.1 Eos % (Auto) 0.1 L Baso % (Auto) 0.1 Gran # 11.87 H Lymph # (Auto) 0.6 L [place] # (Auto) 0.3 Eos # (Auto) 0.0 Baso # (Auto) 0.01 PT 28.2 H INR 2.41 H pCO2 28 L pO2 50.0 L HCO3 21.8 ABG pH 7.50 H ABG Total CO2 22.7 ABG O2 Saturation 91.0 L ABG O2 Content 14.2 L ABG Base Excess -0.5 ABG Hemoglobin 11.4 L ABG Carboxyhemoglobin 2.1 H POC ABG HHb (Measured) 8.7 H ABG Methemoglobin 0.8 ABG O2 Capacity 15.6 L Hgb O2 Saturation 88.4 L FiO2 80.0 Sodium Potassium Chloride Carbon Dioxide Anion Gap BUN Creatinine Est GFR ( Amer) Est GFR (Non-Af Amer) Random Glucose Calcium Phosphorus Magnesium Total Bilirubin AST ALT Alkaline Phosphatase Total Protein Albumin Globulin Albumin/Globulin Ratio 11/09/17 06:10 WBC RBC Hgb Hct MCV MCH MCHC RDW Plt Count MPV Gran % Lymph % (Auto) [place] % (Auto) Eos % (Auto) Baso % (Auto) Gran # Lymph # (Auto) [place] # (Auto) Eos # (Auto) Baso # (Auto) PT INR pCO2 pO2 HCO3 ABG pH ABG Total CO2 ABG O2 Saturation ABG O2 Content ABG Base Excess ABG Hemoglobin ABG Carboxyhemoglobin POC ABG HHb (Measured) ABG Methemoglobin ABG O2 Capacity Hgb O2 Saturation FiO2 Sodium 140 Potassium 4.4 Chloride 107 Carbon Dioxide 25 Anion Gap 13 BUN 22 H Creatinine 0.5 L Est GFR ( Amer) > 60 Est GFR (Non-Af Amer) > 60 Random Glucose 125 H Calcium 8.3 L Phosphorus 2.4 L Magnesium 2.4 H Total Bilirubin 1.2 AST 47 ALT 37 Alkaline Phosphatase 76 Total Protein 6.7 Albumin 3.1 Globulin 3.6 Albumin/Globulin Ratio 0.9 L Critical Care Progress Note - Nutrition Nutrition: Nutrition Category Date Time Status Heart Healthy Diet [DIET] Diets 11/04/17 Lunch Active Attending/Attestation - Attestation I have personally seen and examined this patient.: Yes I have fully participated in the care of the patient.: Yes I have reviewed all pertinent clinical information: Yes Notes (Text): 11/09/17 16:[address] Mayer note
--- NOTE | 2017-11-09 13:29 | PN ---
DATE: 11/08/2017 SUBJECTIVE: The patient in the unit. The patient is on the care. He moved out of bed to chair today successfully. He has still high-flow oxygen, went down to 80%. The patient otherwise is stable. No new complaints. PHYSICAL EXAMINATION: GENERAL: On 11/08/2017, the patient is comfortable. He is anxious about his disease, but otherwise no physical distress. VITAL SIGNS: Temperature 97.6, heart rate 79, blood pressure 117/51, respirations 24, saturations 94%, FiO2 of 80%. HEAD AND NECK: Normal. No JVD. No thyromegaly. CHEST: Clear bilaterally. CARDIAC: First sound and second sound normal. ABDOMEN: Soft, nontender. EXTREMITIES: No edema. NEUROLOGICAL: Normal. LABORATORY STUDY: White count 9.2, hemoglobin 10.5, hematocrit 32.2, platelets 238. Chemistry shows sodium 143, potassium 4.3, chloride 108, bicarb 25, BUN 25, creatinine 0.5. The patient has blood sugar of 132, calcium 8.3, phosphorus 2.3, magnesium 2.5. Rest of liver function tests is normal. IMPRESSION AND PLAN: 1. Acute congestive heart failure secondary to significant valvular regurgitation, mitral and aortic regurgitations with ejection fraction in the low normal plus ischemic cardiomyopathy. Continue the milrinone at this time. We will follow up with the Cardiology recommendations. 2. Chronic atrial fibrillation. Continue Coumadin. Monitor PT/INR. 3. Acute chronic obstructive pulmonary disease exacerbation with possible pneumonia. Continue Merrem IV every 8 and continue Zithromax 500 mg p.o. daily. Continue IV steroids. Continue inhaled bronchodilators, Mucomyst b.i.d. The patient is stable. Continue tapering oxygen. Plan to send him to long-term acute care whenever possible. We discussed with the other specialists. Plan: Continue current treatment. 4. History of anemia. Continue current medication. Current medicines are as follow, Mucomyst b.i.d., aspirin 81, Coumadin 2.5 mg. Hold DuoNeb. Lasix 40 IV on hold twice a day, Lopressor 50 every 8 hours, Merrem IV every 8, MiraLax, Primacor drip 0.375 mcg/kilo/minute, Protonix 40, Solu-Medrol 40 IV every 8, Tessalon Perles, vitamin A and D for skin, Zithromax 500 p.o. daily, Zoloft 25 by mouth at bedtime. Continue current therapy. The patient does have poor prognosis. We will continue tapering down the oxygen. Possible, will need long-term treatment, long-term acute care, rehab. We will discuss further with the family. Nathaniel Zhang MD
[2017-11-09 17:57] VITALS: TEMP 98.1
[2017-11-09 18:59] VITALS: BP 152/79; PULSE 78; RESP 28; O2SAT 99
--- NOTE | 2017-11-09 19:43 | PN ---
DATE: 11/09/2017 SUBJECTIVE: The patient is in bed, in no acute distress, nontoxic. PHYSICAL EXAMINATION VITAL SIGNS: Temperature is 97, blood pressure is 120/70, respiratory rate is 16. HEENT: Unremarkable. NECK: Supple. LUNGS: Have decreased breath sounds. HEART: Normal S1 and S2. ABDOMEN: Soft, nontender. LABORATORY DATA: Reveals a white count of 12,700, hemoglobin of 11, and platelet of 240. Chemistries reveal a BUN of 22 and creatinine of 0.5. Urinalysis is noted. Serology is negative. Microbiology revealed yeast in feces. ASSESSMENT AND PLAN: This 86-year-old male who was seen earlier this morning in the ICU 129, bed 7. He was chronically ill, debilitated, and was admitted with severe sepsis, acute hypoxic respiratory failure due to right upper lobe severe community-acquired pneumonia versus mass associated with hemoptysis and coagulopathy on top of congestive heart failure and severe right-sided heart failure and a coronary artery disease, status post percutaneous coronary intervention, and a history of sepsis with current today is day #7 of Zithromax and meropenem. We will discontinue the antibiotics after today's last dose. Review of the orders reveals meropenem to be active and the patient is also on Solu-Medrol and Zithromax. He also is active. Of note, the patient's procalcitonin is less than 0.05. We will discontinue the antibiotics after today's last dose. Shyam Kline MD
--- NOTE | 2017-11-09 20:01 | PN ---
DATE: 11/09/2017 SUBJECTIVE: The patient is seen and examined at bedside. He is comfortable. He talks full sentences. He is not in respiratory or otherwise distress. His FiO2 down to 80% on high-flow and 70% when on BiPAP. PHYSICAL EXAMINATION VITAL SIGNS: Heart rate 78, blood pressure 102/74, respiratory rate 20, oxygen saturation 94% on 80% FiO2. HEENT: Head and neck atraumatic. LUNGS: Few crackles bilaterally. HEART: Regular rate and rhythm. S1 and S2 normal. ABDOMEN: Soft, nontender, nondistended. MUSCULOSKELETAL: Trace bilateral pedal and ankle edema. NEUROLOGIC: The patient moves all extremities spontaneously. SKIN: Moist. PSYCHIATRIC: The patient is alert, awake and oriented x3. LABORATORY DATA: ABG 7.5/28/ O2 sat 91%. WBC 12.7, hemoglobin of 11.2, platelet count 240. Sodium 140, potassium 4.4, chloride 107, carbon dioxide 25, BUN 22, creatinine 0.5, glucose 125, AST 47, ALT 37, total bilirubin 1.2. Urine for Legionella pneumophila negative. Urine for streptococcal antigen is negative. MEDICATIONS: Mucomyst, DuoNeb p.r.n., DuoNeb every 6 hours, aspirin, azithromycin, meropenem, Solu-Medrol 40 mg IV every 8 hours, Protonix, milrinone, vitamin A and D. ASSESSMENT AND PLAN: This is an 86-year-old gentleman with hypoxemic respiratory failure secondary to severe community-acquired pneumonia versus congestive heart failure versus combination thereof. The patient is on antibiotics, steroids and diuretics. The patient is also on milrinone to improve right ventricular function in the setting of severe pulmonary hypertension with right ventricular dilatation. The patient appears to be doing a little bit better. He is out of bed to chair. He is not in respiratory distress. His FiO2 is slightly going down. However, he still requires fairly significant FiO2 supplementation. He clinically looks better than one might think looking at FiO2 requirement. We will continue with out of bed to chair, abx, chest PT, pulmonary toilet, bronchodilators, incentive spirometry. We will continue with DVT and GI prophylaxis. Once FiO2 get down a little bit more, may potentially be a candidate for some limited physical therapy. Discussed LTAC with family, who were interested in the idea, but wanted to take their time to choose facility they liked most. ccm time 40 min Sammy Mayer MD MTDDaniel
--- NOTE | 2017-11-09 20:25 | PN ---
DATE: 11/09/2017 PULMONARY AND CRITICAL CARE PROGRESS NOTE REFERRING PHYSICIAN: Nathaniel Zhang MD. SUBJECTIVE: The patient is out of bed to chair, on high-flow oxygen, oxygen has been decreased. Night was unremarkable, tolerated noninvasive ventilation, p.o. intake is better, still has a cough with clear sputum production with occasional blood. No chest pain. No nausea, vomiting, or diarrhea. No leg pain or leg swelling. PHYSICAL EXAMINATION: VITAL SIGNS: Mild distress secondary to cough and shortness of breath. VITAL SIGNS: Temperature is 98, heart rate is 93, respiratory rate is 24, blood pressure 109/89, pulse ox 88%-90% on high-flow nasal cannula. HEENT: Moist mucous membrane. Crowded airway. NECK: Supple. No JVD. LUNGS: Have a prolonged expiratory phase with scattered rhonchi. HEART: S1 and S2. ABDOMEN: Soft, nontender, no organomegaly. EXTREMITIES: There is no edema. NEUROLOGIC: Awake, alert, and follows simple command. MEDICATIONS: He is on Mucomyst 3 mL inhaled twice a day, aspirin 81 mg daily, Coumadin 2.5 mg which is on hold, DuoNeb every 2 hours p.r.n., DuoNeb every 6 hours [id number], Lasix 40 mg twice a day which is on hold, metoprolol tartrate 50 m every 8 hours, meropenem 1 g IV every 8 hours, MiraLax 17 g twice a day, Primacor IV drip, Protonix 40 mg before breakfast, Solu-Medrol 40 mg every 12 hours, Tessalon Perles 100 mg three times a day, vitamin A and D at affected area, Zithromax 500 mg daily, Zoloft 25 mg daily. LABORATORY DATA: Shows hemoglobin 11.2, hematocrit 34.3, WBC 12.7, platelet count is 240. INR 2.41. Has ABG done which shows pH 7.5, pCO2 of 28, pO2 was 50, this is on 80% oxygen on high-flow. Sodium 140, potassium 4.4, chloride 107, bicarbonate 25, BUN is 22, creatinine 0.5, glucose 125, calcium 8.3, phosphorus is 2.4, magnesium is 2.4. AST is 47, ALT 37, alkaline phosphatase is 76. Albumin 3.1. Chest x-ray done today shows mild chronic compensated pulmonary venous congestive changes, more dense opacity seen in the lung bases. IMPRESSION AND PLAN: Severe pulmonary hypertension, right upper lobe infiltrate, congestion, pneumonitis, respiratory failure, on high-flow oxygen. Case discussed with family at bedside. I also spoke to cement based materials pump tender, spoke to nursing staff. Continue Primacor. Continue beta-amrita, antibiotics, inhaled bronchodilator. Continue high-flow oxygen, bedside physical therapy. Encourage p.o. intake. Follow up ABG, chest x-ray, and CBC in the morning. Critical care time spent more than 35 minutes. Thank you and we will follow with you. Smooth Roche MD
[2017-11-09] MEDS ORDERED: MethylPREDNISolone 40 mg Vial IVP SCH (22:00)
--- NOTE | 2017-11-12 14:03 | DS ---
HISTORY OF PRESENT ILLNESS: This is an 86-year-old male who was admitted to ICU. While he was in the hospital, I gave him IV milrinone, given IV steroid and nebulizer treatment, seen by service dispatcher, Dr. Roche; pipe testing technician, Dr. Simental. He was just maintained on Coumadin, PT/INR to be monitored. He is on aspirin 81 mg and seems improving. His oxygen requirement is 80% at high-flow oxygen. The patient needs to be transferred to LTAC to be monitored and to decrease oxygen gradually as . Then, we will do physical therapy. Patient is critically ill. He has congestive heart failure due to ischemic cardiomyopathy plus valvular heart disease, mitral and aortic regurgitations. He is a non-operative candidate, plus his COPD and possible pneumonia. He was treated with Merrem IV plus azithromycin, given nebulizer, Mucomyst, did well and was being discharged to LTAC. Discussed with the family in detail. He does not want any cardiac resuscitation or intubations. He needs comfort care at this time and continue to manage his medical problem as tolerated. Patient was stable on discharge. PHYSICAL EXAMINATION: GENERAL: He was alert, awake, oriented x3. VITAL SIGNS: Temperature is 98, heart rate 78, blood pressure 150/79, respiratory rate 23, and saturating 100%. HEAD AND NECK: Normal. No JVD. No thyromegaly. LUNGS: Clear bilaterally. CARDIAC: First sound and second sound normal, systolic murmur. ABDOMEN: Soft, nontender. EXTREMITIES: No edema. NEUROLOGIC: He has an unsteady gait, cannot be tested because of his dyspnea, but he is sitting on a chair, comfortable. LABORATORY DATA: White count 12.7, hemoglobin is 11.2, hematocrit 34.3, platelets 240. Chemistry: Sodium 140, potassium 4.4, chloride 107, bicarbonate 25, BUN is 22, creatinine 0.5. Blood sugar 125 and liver enzyme is normal. Patient's PT/INR is 2.41. Patient while in the hospital had a chest x-ray which shows congestive heart failure, questionable air space disease clinically, not much of the picture is due to congestive heart failure. Also, patient had echocardiogram which shows moderate mitral, moderate aortic regurgitation with ejection fraction of 49%. DISCHARGE DIAGNOSES: 1. Congestive heart failure, combined systolic and diastolic heart failure in addition to pulmonary hypertension 89, complicated by underlying pulmonary disease, chronic obstructive pulmonary disease and pneumonia. We will continue current therapy in LTAC and try to taper off the oxygen to reach 4 or 5 liter oxygen nasal cannula which make him able to do some gait training and walking. 2. Severe valvular heart disease, ischemic cardiomyopathy. 3. Chronic obstructive pulmonary disease, pneumonia. 4. Hypertension. 5. Chronic atrial fibrillation. 6. History of hepatitis C, was cured and treated. 7. History of varices. 8. History of chronic arrhythmia, tremors. PLAN: To continue current therapy and monitor his case clinically. Nathaniel Zhang MD
== END 2017-11-09 18:45 | DRG 871 ==
LOC: ED 02:52 → ERH 05:44 → CCU 08:03
PROVIDERS: ADMIT Internal Medicine; ATTEND Internal Medicine
PROC: 5A09357 Assistance with Respiratory Ventilation, Less than 24 Consecutive Hours, Continuous Positive Airway Pressure (ICD-10-PCS; principal; 2017-11-04)
DX: A41.9 Sepsis, unspecified organism (principal); J18.9 Pneumonia, unspecified organism; I50.23 Acute on chronic systolic (congestive) heart failure; J96.01 Acute respiratory failure with hypoxia; J96.02 Acute respiratory failure with hypercapnia; J44.1 Chronic obstructive pulmonary disease with (acute) exacerbation; I27.0 Primary pulmonary hypertension; J44.0 Chronic obstructive pulmonary disease with (acute) lower respiratory infection; R04.2 Hemoptysis; I85.00 Esophageal varices without bleeding; I11.0 Hypertensive heart disease with heart failure; I50.82 Biventricular heart failure; R65.20 Severe sepsis without septic shock; K21.9 Gastro-esophageal reflux disease without esophagitis; N40.0 Benign prostatic hyperplasia without lower urinary tract symptoms; I48.2 Chronic atrial fibrillation; I25.10 Atherosclerotic heart disease of native coronary artery without angina pectoris; F32.9 Major depressive disorder, single episode, unspecified; Z96.642 Presence of left artificial hip joint; R25.1 Tremor, unspecified; I25.5 Ischemic cardiomyopathy; E86.9 Volume depletion, unspecified; D64.9 Anemia, unspecified; I08.3 Combined rheumatic disorders of mitral, aortic and tricuspid valves; R79.1 Abnormal coagulation profile; Z66 Do not resuscitate; Z79.01 Long term (current) use of anticoagulants; Z95.5 Presence of coronary angioplasty implant and graft; Z79.82 Long term (current) use of aspirin; Z99.81 Dependence on supplemental oxygen; Z86.19 Personal history of other infectious and parasitic diseases; Z87.891 Personal history of nicotine dependence